=== PATIENT | male | born 1940 | race Caucasian/White ===

== ENCOUNTER → 2016-11-21 | Outpatient (CLI) | payer BC ==
[~2016-11-21] MED LIST: AMLO10CA PO; B12; CHOL1TAB42 PO; COEN150C PO; COEN400C5 PO; CRS/10 PO; DMD20 PO; GLUC15009 PO; INSPMPHMLG SQ; INSPMPNVLG; LATA0.5S OPL; METO100T14 PO; MULT-1093 PO; MULT-506 PO; NTRGSL/4 UT; PRLSR20 PO; ROSU5TAB PO; SELE200T2 PO; SLSS EXT; TORS20TA2 PO; VITA400C3 PO; VITAMIN B12 SL; [UNRECOGNIZED DRUG - CODE] PO
[2016-11-21 10:11] LABS: BASO % 0.3 %; BASO ABS # 0.02 K/uL (0-0.2); COMPLETE YES; EOS % 4.1 %; HEMATOCRIT 37.6 % (42-52); IG% 0.1 %; LYMPH % 22.2 %; LYMPH ABS # 1.51 K/uL (1.2-3.4); MEAN CELL VOLUME 88.7 fL (80-100); MEAN CORPUSCULAR HEMOGLOBIN 30.9 pg (25-34); MEAN CORPUSCULAR HGB CONC 34.8 g/dl (32-36); MEAN PLATELET VOLUME 11.2 fL (7.4-10.4); MONO % 7.8 %; NEUT % 65.5 %; PLATELET COUNT 214 K/uL (130-400); RED BLOOD COUNT 4.24 M/uL (4.7-6.1); WHITE BLOOD COUNT 6.81 K/uL (4.8-10.8)
[2016-11-21 10:32] LABS: ESTIMATED AVERAGE GLUCOSE 197 mg/dl; HA1C FLAG Normal (Normal)
[2016-11-21 10:53] LABS: ALT/SGPT 25 U/L (12-78); AST/SGOT 12 U/L (15-37); BLOOD UREA NITROGEN 18 mg/dl (7-18); BUN/CREATININE RATIO 15.2 (10-20); CALCIUM 8.9 mg/dl (8.5-10.1); CARBON DIOXIDE 28 mmol/L (21-32); CHLORIDE 105 mmol/L (98-107); GLUCOSE 103 mg/dl (70-99); POTASSIUM 3.9 mmol/L (3.5-5.1); SODIUM 143 mmol/L (136-145)
[2016-11-21 10:57] LABS: ALB/GLOB RATIO 0.9 (0.9-2); ALKALINE PHOSPHATASE 88 U/L (45-117); CHOLESTEROL 172 mg/dl (0-200); HDL CHOLESTEROL 43 mg/dl; LDL CHOLESTEROL CALCULATED 82 mg/dl; TRIGLYCERIDES 237 mg/dl (0-150); VERY LOW DENSITY LIPOPROT CALC 47 mg/dl
== END | disposition home or self-care (01) ==
LOC: C.LAB1850 09:09
PROVIDERS: ATTEND Internal Medicine
DX: E11.8 Type 2 diabetes mellitus with unspecified complications (principal); E55.9 Vitamin D deficiency, unspecified; D63.8 Anemia in other chronic diseases classified elsewhere

== ENCOUNTER → 2017-02-21 | Outpatient (CLI) | payer BC ==
[~2017-02-21] MED LIST changes: +CYAN100020 PO
[2017-02-22 06:16] LABS: ESTIMATED AVERAGE GLUCOSE 197 mg/dl; HA1C FLAG Normal (Normal)
== END | disposition home or self-care (01) ==
LOC: C.LAB1850 14:37
PROVIDERS: ATTEND Nurse Practitioner Adult Health
DX: E11.49 Type 2 diabetes mellitus with other diabetic neurological complication (principal); E55.9 Vitamin D deficiency, unspecified

== ENCOUNTER → 2017-05-12 | Outpatient (CLI) | payer BC ==
[~2017-05-12] MED LIST changes: -CYAN100020 PO
--- NOTE | 2017-05-12 09:13 | DIAGNOSTIC IMAGING REPORT ---
CHEST 2 VIEWS ROUTINE CLINICAL HISTORY: DYSPHAGIA COMPARISON STUDY: 11/02/2015 FINDINGS: Mild chronic interstitial change. Top limits of normal terms of heart size. No focal infiltrate. Diaphragms are smooth. IMPRESSION: Chronic change. No acute process. The above report was generated using voice recognition software. It may contain grammatical, syntax or spelling errors. Electronically signed by: Remi Rojas M.D. 05/12/2017 9:11 AM Dictated Date/Time: 05/12/2017 9:10 AM
== END | disposition home or self-care (01) ==
LOC: C.RADBC 08:49
PROVIDERS: ATTEND Internal Medicine
DX: R13.10 Dysphagia, unspecified (principal)

== ENCOUNTER → 2017-05-18 | Day surgery (SDC) | payer BC ==
[2017-05-16 11:53] VITALS: Ht 182.9 cm; Wt 127.3 kg
[~2017-05-18] VITALS: Ht 182.9 cm; Wt 127.3 kg
[~2017-05-18] MED LIST changes: -B12; -COEN150C PO; -DMD20 PO; +FENTANYL CITRATE INJ 50 MCG/1 ML 2 ML VIAL ONE; -INSPMPHMLG SQ; +LIDOCAINE HCL 2% 2 ML VIAL (20MG/ML) ONE; -METO100T14 PO; -MULT-506 PO; +PROPOFOL IV EMULSION 10 MG/ML 20 ML VIAL IV ONE; -ROSU5TAB PO; -SLSS EXT; +SODIUM CHLORIDE 0.9% 500ML 500 ML IV ONE
--- NOTE | 2017-05-18 11:15 | Endo History and Physical ---
History & Physical Date of Service: May 18, 2017. Chief Complaint: Dysphagia Referring Physician: Kirit Masterson History of Present Illness dysphagia Past Surgical History Hx Cardiac Surgery: Yes (HEART CATH-2 STENTS) Hx Internal Defibrillator: No Hx Pacemaker: No Hx Abdominal Surgery: Yes Hx of Implantable Prosthesis: No Hx Post-Op Nausea and Vomiting: No Hx Cancer Surgery: Yes (MOHS LEFT EAR, SARCOMA REMOVED LEFT LEG/RECONSTRUCTION) Hx Thoracic Surgery: Yes (SMALL NODULE REMOVED RT LUNG) Hx Orthopedic: No Hx Urinary Tract Surgery: No Family History None Social History Smoking Status: Never Smoker Hx Substance Use: No Hx Alcohol Use: Yes (OCCASIONALLY) Allergies Coded Allergies: Aspirin (Verified Allergy, Severe, anaphylaxic, 05/16/17) Iodinated Diagnostic Agents (Verified Allergy, Unknown, SOB,HIVES, 05/16/17 ) Statins (Verified Allergy, Unknown, MUSCLE ACHING, 05/16/17) Current Medications Reported Home Medications Medications Dose Route/Sig Max Daily Dose Days Date Category Vitamin E 400 Iu (Vitamin E) 400 Unit Cap 400 Inter.unit PO QAM 05/16/17 Reported Vitamin D (Cholecalciferol) 5,000 Unit Tab 1 Tab PO QAM 05/16/17 Reported Demadex (Torsemide) 20 Mg Tab 2 Tab PO QAM 05/16/17 Reported Selenimin-200 (Selenium) 200 Mcg Tab 1 Tab PO 3XWK 05/16/17 Reported Crestor (Rosuvastatin Calcium) 10 Mg Tab 10 Mg PO QAM 05/16/17 Reported novoLOG INSULIN PUMP (Insulin Aspart) 1 Ea Inj 1 Ea N/A UD 05/16/17 Reported Nitrostat (Nitroglycerin) 0.4 Mg Tab 0.4 Mg UT PRN 05/16/17 Reported Toprol Xl (Metoprolol Succinate) 200 Mg Tabcr 1 Tab PO QAM 05/16/17 Reported Glucosamine (Glucosamine Hydrochloride) 1,500 Mg Tab 1 Tab PO 05/16/17 Reported Xalatan 0.005% Oph Shannon (Latanoprost) 0.005 % Shannon 1 Drops OPL HS 05/16/17 Reported Coq10 (Coenzyme Q10 (Ubidecarenone)) 400 Mg Cap 1 Cap PO QAM 05/16/17 Reported Centrum Silver 50+Men (Multiple Vitamins W/ Minerals) 1 Tab Tab 1 Tab PO QAM 05/16/17 Reported [Vitamin B12] 1 Dose SL QAM 05/16/17 Reported Lotrel 10MG/20MG (Amlodipine/Benazepril HCl) 10 Mg/20 Mg Cap 10-40 Mg PO QAM 08/06/14 Reported Vital Signs Weight (Kilograms): 127.27 Height (Feet): 6 Height (Inches): 0 Date Time Temp Pulse Resp B/P (MAP) Pulse Ox O2 Delivery O2 Flow Rate FiO2 05/18/17 10:50 36.7 59 20 153/73 (99) 97 Room Air Physical Exam General Appearance: no apparent distress Respiratory/Chest: Auscultation: breath sounds normal Cardiovascular: Heart Auscultation: RRR Abdomen: Inspection & Palpation: soft Assessment and Plan Dysphagia - EGD
--- NOTE | 2017-05-18 11:42 | GI REPORT ---
Procedure Date: 05/18/2017 11:24 AM Procedure: Upper GI endoscopy Indications: Dysphagia Medicines: See the Anesthesia note for documentation of the administered medications Complications: No immediate complications. Estimated Blood Loss: Estimated blood loss: none. Procedure: Pre-Anesthesia Assessment: - ASA Grade Assessment: II - A patient with mild systemic disease. After obtaining informed consent, the endoscope was passed under direct vision. Throughout the procedure, the patient's blood pressure, pulse, and oxygen saturations were monitored continuously. The scope was introduced through the mouth, and advanced to the second part of duodenum. The upper GI endoscopy was accomplished without difficulty. The patient tolerated the procedure well. Findings: The esophagus appeared tortuous, and numerous tertiary contractions were noted. GE junction was at 43 cm. There was a mild ring. There was mild esophagitis at the GE junction. The stomach and duodenum were normal. A guidewire was placed and the scope was withdrawn. Dilation was performed at the gastroesophageal junction with a Savary dilator with no resistance at 14 mm and 15 mm. Impression: - Ring, esophagitis. - Dilation attempted at the gastroesophageal junction. Successful. - No specimens collected. Recommendation: - Discharge patient to home. BID PPI x 6-8 weeks, then repeat EGD for further dilation. Naveen Hendrix M.D. Naveen Hendrix MD 05/18/2017 11:42:45 AM This report has been signed electronically. Note Initiated On: 05/18/2017 11:24 AM I attest to the content of the Intraoperative Record and orders documented therein, exceptions below
--- NOTE | 2017-05-18 12:04 | Anesthesiology Progress Note ---
Anesthesia Post Op Note Date & Time May 18, 2017 at 12:03 Vital Signs Pain Intensity: 0 Vital Signs Past 12 Hours Date Time Temp Pulse Resp B/P (MAP) Pulse Ox O2 Delivery O2 Flow Rate FiO2 05/18/17 11:57 54 16 126/57 (80) 96 Room Air 05/18/17 11:42 52 12 99/54 (69) 98 Room Air 05/18/17 10:50 36.7 59 20 153/73 (99) 97 Room Air Notes Mental Status: alert / awake / arousable, participated in evaluation Pt Amnestic to Procedure: Yes Nausea / Vomiting: adequately controlled Pain: adequately controlled Airway Patency, RR, SpO2: stable & adequate BP & HR: stable & adequate Hydration State: stable & adequate Anesthetic Complications: no major complications apparent
[2017-05-18 12:12] VITALS: BP 131/64; PULSE 53; O2SAT 95
--- NOTE | 2017-05-18 12:30 | Discharge Instructions ---
Endoscopy Patient Instructions Date / Procedure(s) Performed May 18, 2017. EGD Allergy Information Coded Allergies: Aspirin (Verified Allergy, Severe, anaphylaxic, 05/16/17) Iodinated Diagnostic Agents (Verified Allergy, Unknown, SOB,HIVES, 05/16/17 ) Statins (Verified Allergy, Unknown, MUSCLE ACHING, 05/16/17) Discharge Date / Findings May 18, 2017. esophagitis, ring. Dilation done. Medication Instructions Prilosec twice daily for 6 weeks, then repeat EGD Provider Instructions Activity Restrictions - No exercising or heavy lifting for 24 hours. - Do not drink alcohol the day of the procedure. - Do not drive a car or operate machinery until the day after the procedure. - Do not make any important decisions or sign important papers in 24 hours after the procedure. Following Day: - Return to full activity which may include returning to work/school. Diet Start your diet with liquids and light foods (jello, soup, juice, toast). Then eat your usual diet if not nauseated. Treatment For Common After Affects For mild abdominal pain, bloating, or excessive gas: - Rest - Eat lightly - Lie on right side Follow-Up Information Follow-up with Kirit Masterson as scheduled Anesthesia Information What You Should Know You have had a procedure that required some medicine to reduce anxiety and discomfort. This treatment is called moderate sedation. After receiving the treatment, you may be sleepy, but you will be able to breathe on your own. The effects of the treatment may last for several hours. Follow these instructions along with Activity/Diet recommendations noted above: * Do NOT do anything where dizziness or clumsiness would be dangerous. * Rest quietly at home today, then you can be up and about tomorrow. * Have a responsible person stay with you the rest of today. * You may have had an I.V. today. If so, you may take the dressing off later today. Recommendations Call your doctor if: * Trouble breathing * Continuous vomiting for more than 24 hours * Temperature above 101 degrees * Severe abdominal pain or bloating * Pain not relieved by pain medicine ordered * There is increased drainage or redness from any incision * A large amount of rectal bleeding greater than 2-3 tablespoons. (If you had a polyp/s removed or have hemorrhoids, a small amount of blood - from the rectum is to be expected.) * You have any unanswered questions or concerns. IN THE EVENT OF A SERIOUS EMERGENCY, GO TO THE NEAREST EMERGENCY ROOM Your discharge instructions were prepared by provider Naveen Campbell. Patient Instructions Signature Page Renee Fowler Patient (or Guardian) Signature/Date: I have read and understand the instructions given to me by my caregivers. Caregiver/RN/Doctor Signature/Date: The above-named patient and/or guardian has received patient instructions on this date. + Original Patient Signature Page (only) stays with chart. Please make copy for patient.
== END | disposition home or self-care (01) ==
LOC: C.GI 10:25
PROVIDERS: ATTEND Internal Medicine Gastroenterology
DX: R13.10 Dysphagia, unspecified (principal); K22.2 Esophageal obstruction; K20.9 Esophagitis, unspecified; E11.9 Type 2 diabetes mellitus without complications

== ENCOUNTER → 2017-06-30 | Day surgery (SDC) | payer BC ==
[2017-06-20 08:02] VITALS: BMI 38.0
[~2017-06-30] VITALS: Ht 182.9 cm; Wt 127.3 kg
[~2017-06-30] MED LIST changes: -FENTANYL CITRATE INJ 50 MCG/1 ML 2 ML VIAL ONE
[2017-06-30 10:22] VITALS: Ht 182.9 cm; Wt 127.3 kg
--- NOTE | 2017-06-30 11:12 | Endo History and Physical ---
History & Physical Date of Service: Jun 30, 2017. Chief Complaint: ESOPHAGITIS FOLLOW-UP 5 WEEKS AGO Referring Physician: KYLE WAY History of Present Illness H/o esophagitis Past Surgical History Hx Cardiac Surgery: Yes (HEART CATH-2 STENTS) Hx Internal Defibrillator: No Hx Pacemaker: No Hx Abdominal Surgery: No Hx of Implantable Prosthesis: No Hx Post-Op Nausea and Vomiting: No Hx Cancer Surgery: Yes (MOHS LEFT EAR, SARCOMA REMOVED LEFT LEG/RECONSTRUCTION) Hx Thoracic Surgery: Yes (SMALL NODULE REMOVED RT LUNG) Hx Orthopedic: No Hx Urinary Tract Surgery: No Family History None Social History Smoking Status: Never Smoker Hx Substance Use: No Hx Alcohol Use: Yes (OCCASIONAL) Allergies Coded Allergies: Aspirin (Verified Allergy, Severe, anaphylaxic, 06/30/17) Iodinated Diagnostic Agents (Verified Allergy, Unknown, SOB,HIVES, 06/30/17 ) Statins (Verified Allergy, Unknown, MUSCLE ACHING, 06/30/17) Current Medications Reported Home Medications Medications Dose Route/Sig Max Daily Dose Days Date Category Prilosec (Omeprazole) 20 Mg Capcr 20 Mg PO BID 06/20/17 Reported Vitamin E 400 Iu (Vitamin E) 400 Unit Cap 400 Inter.unit PO QAM 05/16/17 Reported Vitamin D (Cholecalciferol) 5,000 Unit Tab 1 Tab PO QAM 05/16/17 Reported Demadex (Torsemide) 20 Mg Tab 2 Tab PO QAM 05/16/17 Reported Selenimin-200 (Selenium) 200 Mcg Tab 1 Tab PO 3XWK 05/16/17 Reported Crestor (Rosuvastatin Calcium) 10 Mg Tab 10 Mg PO QAM 05/16/17 Reported novoLOG INSULIN PUMP (Insulin Aspart) 1 Ea Inj 1 Ea N/A UD 05/16/17 Reported Nitrostat (Nitroglycerin) 0.4 Mg Tab 0.4 Mg UT PRN 05/16/17 Reported Toprol Xl (Metoprolol Succinate) 200 Mg Tabcr 1 Tab PO QAM 05/16/17 Reported Glucosamine (Glucosamine Hydrochloride) 1,500 Mg Tab 1 Tab PO DAILY 05/16/17 Reported Xalatan 0.005% Oph Shannon (Latanoprost) 0.005 % Shannon 1 Drops OPL HS 05/16/17 Reported Coq10 (Coenzyme Q10 (Ubidecarenone)) 400 Mg Cap 1 Cap PO QAM 05/16/17 Reported Centrum Silver 50+Men (Multiple Vitamins W/ Minerals) 1 Tab Tab 1 Tab PO QAM 05/16/17 Reported [Vitamin B12] 1 Dose SL QAM 05/16/17 Reported Lotrel 10MG/20MG (Amlodipine/Benazepril HCl) 10 Mg/20 Mg Cap 10-40 Mg PO QAM 08/06/14 Reported Vital Signs Weight (Kilograms): 127.27 Height (Feet): 6 Height (Inches): 0 Date Time Temp Pulse Resp B/P (MAP) Pulse Ox O2 Delivery O2 Flow Rate FiO2 06/30/17 10:40 36.5 60 16 158/73 (101) 97 Room Air Physical Exam General Appearance: no apparent distress Respiratory/Chest: Respiratory effort: no dyspnea Auscultation: breath sounds normal Cardiovascular: Heart Auscultation: RRR Abdomen: Inspection & Palpation: soft Assessment and Plan Dysphagia - EGD
--- NOTE | 2017-06-30 11:51 | Discharge Instructions ---
Endoscopy Patient Instructions Date / Procedure(s) Performed Jun 30, 2017. EGD Allergy Information Coded Allergies: Aspirin (Verified Allergy, Severe, anaphylaxic, 06/30/17) Iodinated Diagnostic Agents (Verified Allergy, Unknown, SOB,HIVES, 06/30/17 ) Statins (Verified Allergy, Unknown, MUSCLE ACHING, 06/30/17) Discharge Date / Findings Jun 30, 2017. Ring. Inlet patch. 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 Provider Instructions Activity Restrictions - No exercising or heavy lifting for 24 hours. - Do not drink alcohol the day of the procedure. - Do not drive a car or operate machinery until the day after the procedure. - Do not make any important decisions or sign important papers in 24 hours after the procedure. Following Day: - Return to full activity which may include returning to work/school. Diet Start your diet with liquids and light foods (jello, soup, juice, toast). Then eat your usual diet if not nauseated. Treatment For Common After Affects For mild abdominal pain, bloating, or excessive gas: - Rest - Eat lightly - Lie on right side Our office will call you for a repeat endoscopy with ultrasound Follow-Up Information Follow-up with KYLE WAY as scheduled Anesthesia Information What You Should Know You have had a procedure that required some medicine to reduce anxiety and discomfort. This treatment is called moderate sedation. After receiving the treatment, you may be sleepy, but you will be able to breathe on your own. The effects of the treatment may last for several hours. Follow these instructions along with Activity/Diet recommendations noted above: * Do NOT do anything where dizziness or clumsiness would be dangerous. * Rest quietly at home today, then you can be up and about tomorrow. * Have a responsible person stay with you the rest of today. * You may have had an I.V. today. If so, you may take the dressing off later today. Recommendations Call your doctor if: * Trouble breathing * Continuous vomiting for more than 24 hours * Temperature above 101 degrees * Severe abdominal pain or bloating * Pain not relieved by pain medicine ordered * There is increased drainage or redness from any incision * A large amount of rectal bleeding greater than 2-3 tablespoons. (If you had a polyp/s removed or have hemorrhoids, a small amount of blood - from the rectum is to be expected.) * You have any unanswered questions or concerns. IN THE EVENT OF A SERIOUS EMERGENCY, GO TO THE NEAREST EMERGENCY ROOM Your discharge instructions were prepared by provider Naveen Campbell. Patient Instructions Signature Page Renee Fowler Patient (or Guardian) Signature/Date: I have read and understand the instructions given to me by my caregivers. Caregiver/RN/Doctor Signature/Date: The above-named patient and/or guardian has received patient instructions on this date. + Original Patient Signature Page (only) stays with chart. Please make copy for patient.
--- NOTE | 2017-06-30 11:51 | GI REPORT ---
Procedure Date: 06/30/2017 11:22 AM Procedure: Upper GI endoscopy Indications: Dysphagia, Heartburn, Follow-up of esophagitis Medicines: See the Anesthesia note for documentation of the administered medications Complications: No immediate complications. Estimated Blood Loss: Estimated blood loss: none. Procedure: Pre-Anesthesia Assessment: - ASA Grade Assessment: III - A patient with severe systemic disease. After obtaining informed consent, the endoscope was passed under direct vision. Throughout the procedure, the patient's blood pressure, pulse, and oxygen saturations were monitored continuously. The scope was introduced through the mouth, and advanced to the second part of duodenum. The upper GI endoscopy was accomplished without difficulty. The patient tolerated the procedure well. Findings: There was a large inlet patch in the proximal esophagus. The Z-line was found 40 cm from the incisors. Mild erythema at GE junction. There was a mild ring at the GE junction. The esophagus was otherwise normal. The stomach was normal. The duodenal bulb was normal. There was a submucosal lesion in the second portion of the duodenum. This was biopsied and appeared to "deflate" post biopsy. A wire was passed and the scope was withdrawn. A 16 mm and 18 mm dilator was passed without disruption to the ring. The ring was then fractured with a biopsy forceps - no pathology specimen sent. Impression: - Inlet patch. Mild, non erosive esophagitis. Ring, dilated and fractured with forceps. 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 Recommendation: - Discharge patient to home. - Continue once daily PPI therapy. - Will schedule f/u EGD//EUS to evaluate duodenal lesion. Naveen Hendrix M.D. Naveen Hendrix MD 06/30/2017 11:50:48 AM This report has been signed electronically. Note Initiated On: 06/30/2017 11:22 AM I attest to the content of the Intraoperative Record and orders documented therein, exceptions below
[2017-06-30 12:12] VITALS: BP 143/73; PULSE 54; O2SAT 97
--- NOTE | 2017-06-30 12:39 | Anesthesiology Progress Note ---
Anesthesia Post Op Note Date & Time Jun 30, 2017 at 12:39 Vital Signs Pain Intensity: 0 Vital Signs Past 12 Hours Date Time Temp Pulse Resp B/P (MAP) Pulse Ox O2 Delivery O2 Flow Rate FiO2 06/30/17 12:12 54 20 143/73 (96) 97 Room Air 06/30/17 11:55 53 16 126/71 (89) 97 Room Air 06/30/17 11:40 53 16 116/52 (73) 97 Room Air 06/30/17 10:40 36.5 60 16 158/73 (101) 97 Room Air Notes Mental Status: alert / awake / arousable, participated in evaluation Pt Amnestic to Procedure: Yes Nausea / Vomiting: adequately controlled Pain: adequately controlled Airway Patency, RR, SpO2: stable & adequate BP & HR: stable & adequate Hydration State: stable & adequate Anesthetic Complications: no major complications apparent
== END | disposition home or self-care (01) ==
LOC: C.GI 10:16
PROVIDERS: ATTEND Internal Medicine Gastroenterology
DX: K22.2 Esophageal obstruction (principal); K20.9 Esophagitis, unspecified; K29.80 Duodenitis without bleeding; Z79.4 Long term (current) use of insulin; Z79.899 Other long term (current) drug therapy

== ENCOUNTER → 2017-08-11 | Day surgery (SDC) | payer BC ==
[2017-07-20 08:49] VITALS: BMI 38.0
[2017-07-25 09:36] LABS: BASO % 0.3 %; BASO ABS # 0.02 K/uL (0-0.2); COMPLETE YES; EOS % 5.2 %; HEMATOCRIT 38.8 % (42-52); IG% 0.1 %; LYMPH % 21.7 %; LYMPH ABS # 1.49 K/uL (1.2-3.4); MEAN CELL VOLUME 90.7 fL (80-100); MEAN CORPUSCULAR HEMOGLOBIN 30.8 pg (25-34); MEAN PLATELET VOLUME 11.2 fL (7.4-10.4); MONO % 9.9 %; NEUT % 62.8 %; PLATELET COUNT 218 K/uL (130-400); RED BLOOD COUNT 4.28 M/uL (4.7-6.1); WHITE BLOOD COUNT 6.87 K/uL (4.8-10.8)
[2017-07-25 09:52] LABS: BUN/CREATININE RATIO 16.1 (10-20); CALCIUM 8.7 mg/dl (8.5-10.1); CREATININE 1.12 mg/dl (0.60-1.40); POTASSIUM 3.7 mmol/L (3.5-5.1)
[~2017-08-11] VITALS: Ht 182.9 cm; Wt 127.3 kg
[~2017-08-11] MED LIST changes: +ATROPINE SULFATE 0.1 MG/ML 5ML SYR IV PRN; +CYAN100020 PO; +EpHEDrine SULFATE INJ 50 MG/ML AMP IV PRN; +FENTANYL CITRATE INJ 50 MCG/1 ML 2 ML VIAL IV PRN; +KETAMINE HCL INJ 50 MG/ML 10 ML VIAL ONE; +LACTATED RINGER'S 1000ML 1,000 ML IV SCH; +MIDAZOLAM HCL 1 MG/ML 2ML VIAL ONE; +ONDANSETRON INJ 2 MG/ML 2 ML VIAL IV PRN; -VITAMIN B12 SL
[2017-08-11 06:41] VITALS: BP 164/72; PULSE 62; TEMP 36.6; O2SAT 98; Ht 182.9 cm; Wt 127.3 kg
--- NOTE | 2017-08-11 07:58 | Endo History and Physical ---
History & Physical Date of Service: Aug 11, 2017. Chief Complaint: submucosal dudoenal lesion noted on endoscopy Referring Physician: History of Present Illness 76 yo presenting for EUS for incidentally found duodenal submucosal lesion- asymptomatic Past Surgical History Hx Cardiac Surgery: Yes (HEART CATH-2 [id number] YRS AGO) Hx Internal Defibrillator: No Hx Pacemaker: No Hx Abdominal Surgery: No Hx Post-Op Nausea and Vomiting: No Hx Cancer Surgery: Yes (MOHS LEFT EAR, SARCOMA REMOVED LEFT LEG/RECONSTRUCTION) Hx Thoracic Surgery: Yes (SMALL NODULE REMOVED RT LUNG) Hx Orthopedic: No Hx Urinary Tract Surgery: No Social History Smoking Status: Never Smoker Hx Substance Use: No Hx Alcohol Use: Yes (OCCASIONAL) Allergies Coded Allergies: Aspirin (Verified Allergy, Severe, anaphylaxic, 08/11/17) Iodinated Diagnostic Agents (Verified Allergy, Unknown, SOB,HIVES, ) Statins (Unverified Adverse Reaction, Unknown, MUSCLE ACHING, 08/11/17) Current Medications Reported Home Medications Medications Dose Route/Sig Max Daily Dose Days Date Category Vitamin B12 (Cyanocobalamin) 1,000 Mcg Tab 1,000 Mcg PO QAM 07/20/17 Reported Prilosec (Omeprazole) 20 Mg Capcr 20 Mg PO QAM 06/20/17 Reported Vitamin E 400 Iu (Vitamin E) 400 Unit Cap 400 Inter.unit PO 3XWEEK 05/16/17 Reported Vitamin D (Cholecalciferol) 5,000 Unit Tab 1 Tab PO QAM 05/16/17 Reported Demadex (Torsemide) 20 Mg Tab 2 Tab PO QAM 05/16/17 Reported Selenimin-200 (Selenium) 200 Mcg Tab 1 Tab PO 3XWK 05/16/17 Reported Crestor (Rosuvastatin Calcium) 10 Mg Tab 10 Mg PO QAM 05/16/17 Reported novoLOG INSULIN PUMP (Insulin Aspart) 1 Ea Inj 1 Ea N/A UD 05/16/17 Reported Nitrostat (Nitroglycerin) 0.4 Mg Tab 0.4 Mg UT PRN 05/16/17 Reported Toprol Xl (Metoprolol Succinate) 200 Mg Tabcr 1 Tab PO QAM 05/16/17 Reported Glucosamine (Glucosamine Hydrochloride) 1,500 Mg Tab 1 Tab PO QAM 05/16/17 Reported Xalatan 0.005% Oph Shannon (Latanoprost) 0.005 % Shannon 1 Drops OPL HS 05/16/17 Reported Coq10 (Coenzyme Q10 (Ubidecarenone)) 400 Mg Cap 1 Cap PO QAM 05/16/17 Reported Centrum Silver 50+Men (Multiple Vitamins W/ Minerals) 1 Tab Tab 1 Tab PO QAM 05/16/17 Reported Lotrel 10MG/20MG (Amlodipine/Benazepril HCl) 10 Mg/20 Mg Cap 10-40 Mg PO QAM 08/06/14 Reported Vital Signs Weight (Kilograms): 127.27 Height (Feet): 6 Height (Inches): 0 Date Time Temp Pulse Resp B/P (MAP) Pulse Ox O2 Delivery O2 Flow Rate FiO2 08/11/17 06:41 36.6 62 18 164/72 (102) 98 Room Air Physical Exam General Appearance: WD/WN, no apparent distress Respiratory/Chest: Respiratory effort: no dyspnea Auscultation: breath sounds normal, CTA except as noted Cardiovascular: Apical Impulse: not displaced Heart Auscultation: RRR, normal S1, normal S2 Abdomen: Bowel Sounds: normal Inspection & Palpation: soft, non-distended Assessment and Plan Plan to proceed with EUS for duodenal submucosal lesion
--- NOTE | 2017-08-11 08:38 | Discharge Instructions ---
Endoscopy Patient Instructions Date / Procedure(s) Performed Aug 11, 2017. EGD, Other (EUS) Allergy Information Coded Allergies: Aspirin (Verified Allergy, Severe, anaphylaxic, 08/11/17) Iodinated Diagnostic Agents (Verified Allergy, Unknown, SOB,HIVES, ) Statins (Unverified Adverse Reaction, Unknown, MUSCLE ACHING, 08/11/17) Discharge Date / Findings Aug 11, 2017. Normal findings No submucosal lesion identified Provider Instructions Activity Restrictions - No exercising or heavy lifting for 24 hours. - Do not drink alcohol the day of the procedure. - Do not drive a car or operate machinery until the day after the procedure. - Do not make any important decisions or sign important papers in 24 hours after the procedure. Following Day: - Return to full activity which may include returning to work/school. Diet Start your diet with liquids and light foods (jello, soup, juice, toast). Then eat your usual diet if not nauseated. Treatment For Common After Affects For mild abdominal pain, bloating, or excessive gas: - Rest - Eat lightly - Lie on right side Follow-Up Information Follow-up with as scheduled Anesthesia Information What You Should Know You have had a procedure that required some medicine to reduce anxiety and discomfort. This treatment is called moderate sedation. After receiving the treatment, you may be sleepy, but you will be able to breathe on your own. The effects of the treatment may last for several hours. Follow these instructions along with Activity/Diet recommendations noted above: * Do NOT do anything where dizziness or clumsiness would be dangerous. * Rest quietly at home today, then you can be up and about tomorrow. * Have a responsible person stay with you the rest of today. * You may have had an I.V. today. If so, you may take the dressing off later today. Recommendations Call your doctor if: * Trouble breathing * Continuous vomiting for more than 24 hours * Temperature above 101 degrees * Severe abdominal pain or bloating * Pain not relieved by pain medicine ordered * There is increased drainage or redness from any incision * A large amount of rectal bleeding greater than 2-3 tablespoons. (If you had a polyp/s removed or have hemorrhoids, a small amount of blood - from the rectum is to be expected.) * You have any unanswered questions or concerns. IN THE EVENT OF A SERIOUS EMERGENCY, GO TO THE NEAREST EMERGENCY ROOM Your discharge instructions were prepared by provider Gilles Foreman. Patient Instructions Signature Page Renee Fowler Patient (or Guardian) Signature/Date: I have read and understand the instructions given to me by my caregivers. Caregiver/RN/Doctor Signature/Date: The above-named patient and/or guardian has received patient instructions on this date. + Original Patient Signature Page (only) stays with chart. Please make copy for patient.
--- NOTE | 2017-08-11 09:06 | Anesthesiology Progress Note ---
Anesthesia Post Op Note Date & Time Aug 11, 2017 at 09:06 Vital Signs Pain Intensity: 0 Vital Signs Past 12 Hours Date Time Temp Pulse Resp B/P (MAP) Pulse Ox O2 Delivery O2 Flow Rate FiO2 08/11/17 08:55 36.6 57 22 131/52 (63) 98 Room Air 08/11/17 08:51 107/54 08/11/17 08:51 107/54 08/11/17 08:50 59 18 08/11/17 08:50 58 18 97 08/11/17 08:50 59 18 08/11/17 08:50 58 18 97 08/11/17 08:46 133/61 08/11/17 08:46 133/61 08/11/17 08:45 63 16 99 08/11/17 08:45 63 16 08/11/17 08:45 63 16 08/11/17 08:45 63 16 99 08/11/17 08:41 115/53 08/11/17 08:41 115/53 08/11/17 08:40 59 16 08/11/17 08:40 60 16 08/11/17 08:40 59 16 08/11/17 08:40 60 16 08/11/17 08:36 105/50 08/11/17 08:36 105/50 08/11/17 08:35 59 21 99 08/11/17 08:35 36.4 59 13 105/50 (54) 99 Oxymask 10 08/11/17 08:35 59 21 08/11/17 08:35 59 21 99 08/11/17 08:35 59 21 08/11/17 06:41 36.6 62 18 164/72 (102) 98 Room Air Notes Mental Status: alert / awake / arousable, participated in evaluation Pt Amnestic to Procedure: Yes Nausea / Vomiting: adequately controlled Pain: adequately controlled Airway Patency, RR, SpO2: stable & adequate BP & HR: stable & adequate Hydration State: stable & adequate Anesthetic Complications: no major complications apparent
--- NOTE | 2017-08-11 09:09 | GI REPORT ---
Procedure Date: 08/11/2017 7:54 AM Procedure: Upper GI endoscopy Indications: Functional Dyspepsia-Submuocal duodenal lesion Medicines: General Anesthesia Complications: No immediate complications. Estimated Blood Loss: Estimated blood loss: none. Procedure: Pre-Anesthesia Assessment: - Pre-Anesthesia Assessment: - Prior to the procedure, a History and Physical was performed, and patient medications, allergies and sensitivities were reviewed. The patient's tolerance of previous anesthesia was reviewed. Please see [employer] for complete details. - The risks and benefits of the procedure and the sedation options and risks were discussed with the patient. All questions were answered and informed consent was obtained. - Patient identification and proposed procedure were verified prior to the procedure by the physician and the nurse. The procedure was verified in the pre-procedure area in the procedure room. After obtaining informed consent, the endoscope was passed carefully and meticuously under direct vision and only advanced when the lumen was clearly identified, C02 insuflation was utilized throughout the entirity of the procedure. Throughout the procedure, the patient's blood pressure, pulse, and oxygen saturations were monitored continuously. After obtaining informed consent, the endoscope was passed under direct vision. Throughout the procedure, the patient's blood pressure, pulse, and oxygen saturations were monitored continuously. The Scope was introduced through the mouth, and advanced to the second part of duodenum. The upper GI endoscopy was accomplished without difficulty. The patient tolerated the procedure well. Findings: The examined esophagus was normal. The entire examined stomach was normal. Localized mild mucosal changes characterized by localized an area of mucosa with appearances of possible adenoma were found in the second part of the duodenum. Biopsies were taken with a cold forceps for histology. Impression: - Normal esophagus. - Normal stomach. - Mucosal changes in the duodenum. Biopsied. Recommendation: - Discharge patient to home. - Return to referring physician as previously scheduled. - Perform an upper endoscopic ultrasound (UEUS) today. Gilles Foreman MD 08/11/2017 9:08:41 AM This report has been signed electronically. Note Initiated On: 08/11/2017 7:54 AM I attest to the content of the Intraoperative Record and orders documented therein, exceptions below
--- NOTE | 2017-08-11 09:11 | GI REPORT ---
Procedure Date: 08/11/2017 8:02 AM Procedure: Upper EUS Indications: Duodenal deformity on endoscopy/Subepithelial tumor vs. extrinsic compression Medicines: General Anesthesia Complications: No immediate complications. Estimated blood loss: None. Procedure: Pre-Anesthesia Assessment: - Pre-Anesthesia Assessment: - Prior to the procedure, a History and Physical was performed, and patient medications, allergies and sensitivities were reviewed. The patient's tolerance of previous anesthesia was reviewed. Please see [employer] for complete details. - The risks and benefits of the procedure and the sedation options and risks were discussed with the patient. All questions were answered and informed consent was obtained. - Patient identification and proposed procedure were verified prior to the procedure by the physician and the nurse. The procedure was verified in the pre-procedure area in the procedure room. After obtaining informed consent, the endoscope was passed carefully and meticuously under direct vision and only advanced when the lumen was clearly identified, C02 insuflation was utilized throughout the entirity of the procedure. Throughout the procedure, the patient's blood pressure, pulse, and oxygen saturations were monitored continuously. After obtaining informed consent, the endoscope was passed under direct vision. Throughout the procedure, the patient's blood pressure, pulse, and oxygen saturations were monitored continuously. The Scope was introduced through the mouth, and advanced to the second part of duodenum. The upper EUS was accomplished without difficulty. The patient tolerated the procedure well. Findings: Endosonographic Finding : There was diffuse abnormal echotexture in the entire examined liver. This was characterized by a hyperechoic appearance. No lymphadenopathy seen. There was no sign of significant endosonographic abnormality in the examined duodenum. No intramural lesion was identified. There was no sign of significant endosonographic abnormality involving the celiac trunk. Impression: - There was diffuse abnormal echotexture in the entire examined liver. This was characterized by a hyperechoic appearance. - There was no sign of significant pathology in the examined duodenum. - The celiac trunk was endosonographically normal. - No specimens collected. Recommendation: - Discharge patient to home (with escort). - Return to referring physician as previously scheduled. Gilles Foreman MD 08/11/2017 9:10:46 AM This report has been signed electronically. Note Initiated On: 08/11/2017 8:02 AM I attest to the content of the Intraoperative Record and orders documented therein, exceptions below
[2017-08-11 09:12] VITALS: BP 142/58; PULSE 58; TEMP 36.8; O2SAT 96
[2017-08-11 09:45] VITALS: BP 151/71; PULSE 57; TEMP 36.4; O2SAT 96
[2017-08-11 10:15] VITALS: BP 140/60; PULSE 60; TEMP 36.4; O2SAT 97
== END | disposition home or self-care (01) ==
LOC: C.ACU 06:13
PROVIDERS: ATTEND Internal Medicine
DX: K29.80 Duodenitis without bleeding (principal); R13.10 Dysphagia, unspecified; Z79.899 Other long term (current) drug therapy

== ENCOUNTER → 2017-08-17 | Outpatient (CLI) | payer BC ==
[~2017-08-17] MED LIST changes: -ATROPINE SULFATE 0.1 MG/ML 5ML SYR IV PRN; -EpHEDrine SULFATE INJ 50 MG/ML AMP IV PRN; -FENTANYL CITRATE INJ 50 MCG/1 ML 2 ML VIAL IV PRN; -KETAMINE HCL INJ 50 MG/ML 10 ML VIAL ONE; -LACTATED RINGER'S 1000ML 1,000 ML IV SCH; -LIDOCAINE HCL 2% 2 ML VIAL (20MG/ML) ONE; -MIDAZOLAM HCL 1 MG/ML 2ML VIAL ONE; -ONDANSETRON INJ 2 MG/ML 2 ML VIAL IV PRN; -PROPOFOL IV EMULSION 10 MG/ML 20 ML VIAL IV ONE; -SODIUM CHLORIDE 0.9% 500ML 500 ML IV ONE
[2017-08-17 10:12] LABS: ESTIMATED AVERAGE GLUCOSE 180 mg/dl; HA1C FLAG Normal (Normal)
== END | disposition home or self-care (01) ==
LOC: C.LAB1850 07:53
PROVIDERS: ATTEND Nurse Practitioner Adult Health
DX: E55.9 Vitamin D deficiency, unspecified (principal); E11.49 Type 2 diabetes mellitus with other diabetic neurological complication; E11.319 Type 2 diabetes mellitus with unspecified diabetic retinopathy without macular edema; Z79.4 Long term (current) use of insulin

== ENCOUNTER → 2018-02-08 | Outpatient (CLI) | payer BC | END | disposition home or self-care (01) | LOC: C.LAB1850 09:02 | PROVIDERS: ATTEND Nurse Practitioner Adult Health | DX: E11.49 Type 2 diabetes mellitus with other diabetic neurological complication (principal) ==

== ENCOUNTER → 2018-05-11 | Outpatient (CLI) | payer BC ==
[2018-05-11 09:36] LABS: BASO % 0.6 %; BASO ABS # 0.04 K/uL (0-0.2); EOS % 4.4 %; HEMATOCRIT 40.2 % (42-52); HEMOGLOBIN 13.3 g/dL (14.0-18.0); IG# 0.01 K/uL (0.00-0.02); LYMPH % 25.3 %; LYMPH ABS # 1.72 K/uL (1.2-3.4); MEAN CELL VOLUME 91.2 fL (80-100); MEAN CORPUSCULAR HEMOGLOBIN 30.2 pg (25-34); MEAN CORPUSCULAR HGB CONC 33.1 g/dl (32-36); MEAN PLATELET VOLUME 11.4 fL (7.4-10.4); MONO % 7.8 %; MONO ABS # 0.53 K/uL (0.11-0.59); NEUT % 61.8 %; NEUT ABS # 4.21 K/uL (1.4-6.5); PLATELET COUNT 238 K/uL (130-400); RED CELL DISTRIBUTION WIDTH CV 13.8 % (11.5-14.5); RED CELL DISTRIBUTION WIDTH SD 46.2 fL (36.4-46.3); WHITE BLOOD COUNT 6.81 K/uL (4.8-10.8)
[2018-05-11 10:04] LABS: ALBUMIN 3.6 gm/dl (3.4-5.0); ALKALINE PHOSPHATASE 131 U/L (45-117); ALT/SGPT 26 U/L (12-78); AST/SGOT 15 U/L (15-37); BLOOD UREA NITROGEN 20 mg/dl (7-18); CALCIUM 8.5 mg/dl (8.5-10.1); CARBON DIOXIDE 28 mmol/L (21-32); CHOLESTEROL 152 mg/dl (0-200); CREATININE 1.14 mg/dl (0.60-1.40); GLUCOSE 95 mg/dl (70-99); LDL CHOLESTEROL CALCULATED 74 mg/dl; POTASSIUM 3.8 mmol/L (3.5-5.1); SODIUM 137 mmol/L (136-145); TOTAL PROTEIN 8.1 gm/dl (6.4-8.2)
[2018-05-11 10:28] LABS: HEMOGLOBIN A1C 7.6 % (4.5-5.6)
== END | disposition home or self-care (01) ==
LOC: C.LAB1850 06:57
PROVIDERS: ATTEND Nurse Practitioner Adult Health
DX: I10 Essential (primary) hypertension (principal); I25.10 Atherosclerotic heart disease of native coronary artery without angina pectoris; G47.33 Obstructive sleep apnea (adult) (pediatric); D63.8 Anemia in other chronic diseases classified elsewhere; E78.5 Hyperlipidemia, unspecified; E55.9 Vitamin D deficiency, unspecified; E11.319 Type 2 diabetes mellitus with unspecified diabetic retinopathy without macular edema; Z79.4 Long term (current) use of insulin

== ENCOUNTER → 2018-05-16 | Outpatient (CLI) | payer BC | END | disposition home or self-care (01) | LOC: C.LABBC 08:50 | PROVIDERS: ATTEND Internal Medicine | DX: R74.8 Abnormal levels of other serum enzymes (principal); R97.20 Elevated prostate specific antigen [PSA] ==

== ENCOUNTER → 2018-05-22 | Outpatient (CLI) | payer BC ==
--- NOTE | 2018-05-22 17:06 | DIAGNOSTIC IMAGING REPORT ---
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 Palpable painful lump. COMPARISON STUDY: MRI of the left thigh July 23, 2009. TECHNIQUE: Utilizing a 1.5 Martine magnet and dedicated coil, multiplanar, multiecho imaging of the left hip was performed without intravenous or intraarticular contrast. FINDINGS: No inguinal lymphadenopathy is present. Note is made of fluid with mild adjacent infiltration of the left trochanteric bursa which suggest trochanteric bursitis. This is deep to the marker at site of pain. There are are also suspected postoperative findings within the lateral left thigh overlying the vastus lateralis and along the tensor fascia lis. The appearance is similar to MRI of July 23, 2009. Sensitivity for detection of recurrent tumor is diminished on this unenhanced exam but there is no evidence for recurrent malignancy within the left hip/thigh on this examination. No suspicious marrow replacement is present. Sacroiliac joints and symphysis pubis are intact. There are degenerative changes at the symphysis pubis. Acetabular labrum is not well assessed on this exam. 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 IMPRESSION: 1. Findings suggestive of left sided trochanteric bursitis which may account for the patient's pain. 2. Suspected postoperative findings within the lateral left thigh overlying the vastus lateralis and along the tensor fascia lis. No significant change since MRI of July 23, 2009. Evaluation for recurrent malignancy suboptimal given lack of IV contrast but no suspicious findings on this exam. However, if persistent palpable abnormality, surgical consultation is recommended. Electronically signed by: Alfredo Swanson M.D. 05/22/2018 5:02 PM Dictated Date/Time: 05/22/2018 4:44 PM
== END | disposition home or self-care (01) ==
LOC: C.MRIBC 15:22
PROVIDERS: ATTEND Internal Medicine
DX: C49.9 Malignant neoplasm of connective and soft tissue, unspecified (principal); R22.42 Localized swelling, mass and lump, left lower limb

== ENCOUNTER 2019-06-22 09:07 | Inpatient (IN) ==
[2019-06-22 09:52] LABS: Basophils # (auto) 0.03 K/uL (0-0.2); Basophils % (auto) 0.4 %; Eosinophils # (auto) 0.31 K/uL (0-0.5); Eosinophils % (auto) 4.1 %; Hematocrit (blood only) 42.4 % (42-52); Hemoglobin 14.3 g/dL (14.0-18.0); Immature Granulocytes # (auto) 0.02 K/uL (0.00-0.02); Immature Granulocytes % (auto) 0.3 %; Lymphocytes % (auto) 22.3 %; Mean Corpuscular Hemoglobin 31.2 pg (25-34); Mean Corpuscular Hgb Conc 33.7 g/dL (32-36); Mean Corpuscular Volume 92.6 fL (80-100); Mean Platelet Volume 11.3 fL (7.4-10.4); Monocytes # (auto) 0.63 K/uL (0.11-0.59); Monocytes % (auto) 8.3 %; Neutrophils # (auto) 4.93 K/uL (1.4-6.5); Neutrophils % (auto) 64.6 %; Platelet Count 222 K/uL (130-400); RDW Coefficient of Variation 13.5 % (11.5-14.5); RDW Standard Deviation 45.6 fL (36.4-46.3); Red Blood Count 4.58 M/uL (4.7-6.1); White Blood Count 7.62 K/uL (4.8-10.8)
[2019-06-22] MEDS ORDERED: FAMOTIDINE 20MG/5ML IV PUSH IV STA (09:57)
[2019-06-22] MEDS ORDERED: methylPREDNISolone 125 MG/2 ML VIAL IV STA (09:57)
[2019-06-22] MEDS ORDERED: DiphenhydrAMINE HCL 50 MG/ML VIAL IV STA (09:57)
[2019-06-22 09:59] LABS: Partial Thromboplastin Time 26.6 Seconds (21.0-31.0); Prothrombin Time 10.4 Seconds (9.0-12.0)
[2019-06-22 10:00] LABS: Alanine Aminotransferase 22 U/L (12-78); Albumin Level 3.6 gm/dl (3.4-5.0); Aspartate Aminotransferase 17 U/L (15-37); BUN Creatinine Ratio 12.7 (10-20); Blood Urea Nitrogen 13 mg/dl (7-18); Calcium 9.2 mg/dl (8.5-10.1); Carbon Dioxide 27 mmol/L (21-32); Chloride 107 mmol/L (98-107); Est GFR (African American) 84.2; Est GFR (Non-African American) 72.6; Glucose 127 mg/dl (70-99); Magnesium 2.3 mg/dl (1.8-2.4); Potassium 4.2 mmol/L (3.5-5.1); Sodium 139 mmol/L (136-145)
--- NOTE | 2019-06-22 10:00 | XRay Report ---
XR chest 1V portable CLINICAL HISTORY: Ataxia. COMPARISON STUDY: Chest radiograph September 19, 2018. Chest CT October 18, 2018. FINDINGS: Lung volumes are normal. Lungs are clear. There is no pneumothorax or pleural effusion. Mod erate cardiomegaly is unchanged. Mediastinal contours are otherwise normal. There is no evidence for pulmonary edema. IMPRESSION: No acute cardiopulmonary findings. Electronically signed by: Alfredo Swanson M.D. 06/22/2019 9:59 AM
[2019-06-22 10:05] LABS: Albumin Globulin Ratio 0.8 (0.9-2); Alkaline Phosphatase 112 U/L (45-117); Bilirubin,Total 0.6 mg/dl (0.2-1); Globulin 4.4 gm/dl (2.5-4.0); Troponin I < 0.015 ng/ml (0-0.045)
[2019-06-22] MEDS ORDERED: OPTIRAY 320 125ml IV PRN (10:49)
--- NOTE | 2019-06-22 11:02 | CT Scan Report ---
CT OF THE HEAD WITHOUT CONTRAST CLINICAL HISTORY: Stroke evaluation. Ataxia. COMPARISON STUDY: Head CT July 04, 2008. MRI of the brain April 08, 2013. TECHNIQUE: Helical axial images of the head were obtained without IV contrast. Automated exposure con trol was utilized for the study. A dose lowering technique was utilized adhering to the principles o f ALARA. FINDINGS: No acute intracranial hemorrhage, midline shift or mass effect is present. Ventricular syst em is normal. Basilar cisterns are patent. There are no extra-axial collections. 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 Bilateral basal ganglia calcification is noted. White matter hypodensities favor small vessel disease. There are no findings to suggest acute dural sinus thrombosis or acute t erritorial infarct. There are no significant calvarial abnormalities. IMPRESSION: No acute intracranial findings. Electronically signed by: Alfredo Swanson M.D. 06/22/2019 11:01 AM
--- NOTE | 2019-06-22 11:10 | CT Scan Report ---
CT ANGIOGRAPHY OF THE NECK WITH CONTRAST CLINICAL HISTORY: Ataxia. COMPARISON STUDY: No previous studies for comparison. Technique: Patient was premedicated for IV dye allergy. CT angiography of the carotid and vertebral a rteries was obtained using OptiraMoPals 320 IV and 3D reconstruction on an independent workstation. NASCET criteria was utilized. Automated exposure control was utilized for the study. A dose lowering tech nique was utilized adhering to the principles of ALARA. CT DOSE: 1475.04 mGy.cm Findings: The bilateral common carotid arteries are patent. There is moderate plaque within the proxi mal bilateral internal carotid arteries. There is 30% stenosis of the proximal right internal carotid artery. There is minimal stenosis of the proximal left internal carotid artery. The left vertebral a rtery is dominant and patent. The right vertebral artery is diminutive. Multifocal stenoses within th e right vertebral artery is noted. There is apparent occlusion of the distal cervical portion of the right vertebral artery with distal reconstitution. Findings are age indeterminate but probably chroni c. Lung apices are clear. There is no cervical lymphadenopathy. IMPRESSION: 1. Moderate plaque within the proximal bilateral internal carotid arteries with mild stenosis of thes e vessels. No high-grade carotid stenosis. 2. Diminutive right vertebral artery with multifocal stenoses and suspected occlusion of the distal c ervical right vertebral artery with distal reconstitution. The findings are age indeterminate but pro bably chronic. Patent, dominant left vertebral artery. Electronically signed by: Alfredo Swanson M.D. 06/22/2019 11:09 AM
--- NOTE | 2019-06-22 11:14 | CT Scan Report ---
CTA ANGIOGRAPHY OF THE HEAD CLINICAL HISTORY: ataxia COMPARISON STUDY: No previous studies for comparison. TECHNIQUE: Patient was premedicated for IV dye allergy. Helical axial images of the head were obtaine d following uneventful intravenous administration of 19 cc of Optiray 320. Automated exposure contro l was utilized for the study. A dose lowering technique was utilized adhering to the principles of A TORSTEN. FINDINGS: No acute intracranial hemorrhage, midline shift or mass effect is present. Ventricular syst em is normal. Basilar cisterns are patent. There are no extra-axial collections. Arevalo-white different iation is maintained. There is extensive calcified plaque within the bilateral cavernous carotids wit h minimal stenosis. Anterior circulation is intact. There is no aneurysm or abrupt vessel cut off. Th ere is suspected occlusion with distal reconstitution of the distal cervical right vertebral artery. Severe multifocal stenoses within the intracranial portion of the right vertebral artery are noted. L eft vertebral artery is patent. Basilar artery is patent as are the bilateral posterior cerebral ruperto marin. There is moderate stenosis at the origin of the right posterior cerebral artery. A right rn medical surgical ior communicating artery is present. IMPRESSION: 1. Suspected occlusion with distal reconstitution of the distal cervical portion of the right vertebr al artery. Severe multifocal stenoses within the intracranial portion of this vessel. These findings are age indeterminate but probably chronic. Moderate stenosis at the origin of the right posterior ce rebral artery. 2. No intracranial aneurysm. Electronically signed by: Alfredo Swanson M.D. 06/22/2019 11:12 AM
--- NOTE | 2019-06-22 11:48 | Emergency Department Note ---
Entered by Elizabeth Ace acting as a scribe for Hiro Brock DO History of Present Illness General Chief complaint: Dizziness Source: patient Mode of arrival: EMS History of Present Illness Onset (ago): hour(s) (this morning) Location: head Pain Consistency: + other (episode) Quality: + other (dizziness) Relieved By: + other (sitting down) Exacerbated By: + other (standing up) Associated symptoms: + other (nausea, ataxia, feeling off balance) Treatments prior to arrival: none The patient is a 78 year old male that is presenting to the Emergency Room with complaints of an episode of dizziness that started this morning around 0630 upon waking. The patient states that he felt dizzy and off balance when he stood up from bed. He notes that he had some ataxia and was not able to walk straight. He reports that he tripped and fell over when he was attempting to change the battery in his insulin pump. He states that he pulled out his insulin pump during the fall. He notes that he has some associated nausea. The patient states that he felt generally well yesterday evening. He notes that the dizziness and nausea are slightly relieved when seated. He denies that the room feels like it is spinning. The patient notes that he has a history of vertigo and that his symptoms do not resemble past episodes. He stated that he fell three weeks prior while walking down the stairs and hit his head, losing consciousness for an unknown period of time. The patient has a history of hemorrhagic stroke, cardiovascular disease and atrial fibrillation. He states that he has a history of heart stents placed following four heart attacks 15 years ago. He reports that he cannot see out of his left eye secondary to his past stroke. He denies having any balance issues at baseline. The patient states that he did not take his Furosemide or any other medications this morning. He denies taking any blood thinners. He denies any history of atrial fibrillation. He notes that he does not have his insulin pump on currently as it is at home. Home Medications Home Medications Medication Instructions Recorded Confirmed Type latanoprost [Xalatan] 1 drp OPL HS 09/18/18 06/22/19 History amlodipine 10 mg-benazepril 40 mg 1 cap PO DAILY cap 06/12/19 06/22/19 History capsule cholecalciferol (vitamin D3) 5,000 5,000 unit PO DAILY tab 06/12/19 06/22/19 History unit tablet coenzyme Q10 400 mg capsule 400 mg PO DAILY cap 06/12/19 06/22/19 History cyanocobalamin (vit B-12) 1,000 1,000 mcg PO DAILY tab 06/12/19 06/22/19 History mcg tablet diclofenac 1 % topical gel 2 gm TOPICAL DAILY PRN gm 06/12/19 06/22/19 History glucosamine sulfate 1,000 mg 1,000 mg PO DAILY cap 06/12/19 06/22/19 History capsule insulin aspart U- 100 100 unit/mL 200 unit CONTINUOUS SUBCUTANEOUS 06/12/19 06/22/19 History subcutaneous solution INFUSION DAILY ml metoprolol succinate ER 200 mg 200 mg PO DAILY tab 06/12/19 06/22/19 History tablet,extended release 24 hr [id number] acid 0.4 1 tab PO DAILY tab 06/12/19 06/22/19 History mg-lycopene 300 mcg-lutein 250 mcg tablet nitroglycerin 0.4 mg sublingual 0.4 mg SUBLINGUAL .COMPLEX PRN 06/12/19 06/22/19 History tablet omeprazole 20 mg capsule,delayed 20 mg PO DAILY cap 06/12/19 06/22/19 History release rosuvastatin 10 mg tablet 10 mg PO DAILY tab 06/12/19 06/22/19 History selenium 200 mcg tablet 200 mcg PO MOWEFR 06/12/19 06/22/19 History torsemide 20 mg tablet 40 mg PO DAILY #180 tab 06/12/19 06/22/19 History vitamin E 400 unit capsule 400 unit PO MOWEFR 06/12/19 06/22/19 History Allergies Allergy/AdvReac Type Severity Reaction Status Date / Time aspirin Allergy Severe Anaphylaxis Verified 06/22/19 10:19 Iodinated Contrast Media Allergy Severe SOB,HIVES Verified 06/22/19 10:19 atorvastatin [From Lipitor] Allergy Verified 06/22/19 10:19 enalaprilat [From Vasotec] Allergy Verified 06/22/19 10:19 ezetimibe [From Vytorin] Allergy Verified 06/22/19 10:19 simvastatin [From Vytorin] Allergy Verified 06/22/19 10:19 Sulfonylureas Allergy Verified 06/22/19 10:19 Drucleb-Sup-Eei Reductase AdvReac Mild MUSCLE Verified 06/22/19 10:19 Inhibitor ACHING Past Med/Surg History Medical History Hypoxia (Acute) Acute dyspnea (Acute) Diabetes Shortness of breath Sarcoma of femur left In ~2004, s/p removal and radiation PELON (obstructive sleep apnea) cpap Hypertension CAD (coronary artery disease) Basal cell carcinoma Deafness in left ear Diabetes mellitus, type 2 GERD (gastroesophageal reflux disease) Glaucoma left eye History of colon polyps History of esophageal dilatation Hyperlipidemia Lung nodule Removed ~2004 Melanoma Myocardial Infarction x4---last heart attack 2000--no signal person Osteoarthritis SDH (subdural hematoma) 2010--no sx, no neurologist---no deficits Surgical History History of Mohs micrographic surgery for skin cancer left ear History of cardiac cath 2000--2 stents placed History of colonoscopy History of esophagogastroduodenoscopy (EGD) with EUS History of eye surgery right eye hemorrhage removal History of heart artery stent 2 stents placed History of lung surgery 2004--nodule removed History of surgery left leg sarcoma removal Status post cataract extraction of both eyes with insertion of intraocular lens Family History Father Lung cancer Mother Family history of diabetes mellitus Grandfather (Paternal) Family history of diabetes mellitus Other No family history of adverse response to anesthesia Social History Preferred Language: Thai Communication Ability: Effective Data Programmer Required: No Beliefs That Will Affect Care: None Current Living Situation: Spouse Feels Safe at Home: Yes Smoking Status: Never smoker Second Hand Exposure: Yes (work environment) ; Hx Alcohol Use: Yes Alcohol type: beer Hx Substance Use: No Review of Systems See HPI for pertinent positives & negatives. and A total of 10 systems reviewed and were otherwise negative Physical Exam Vital Signs Vital Signs - 24 hr 06/22/19 09:11 06/22/19 09:19 06/22/19 10:54 Temperature 36.5 C Temperature Source Oral Sepsis Recent Fever Within 48 Hours No Sepsis Action Taken by Nursing No Action Required Pulse Rate 70 68 86 Pulse Rate from SpO2 Sensor Pulse Rhythm Regular Pulse Strength Normal Respiratory Rate 20 16 17 Respiratory Effort / Characteristics Non-Labored Spontaneous Respiratory Depth Normal Respiratory Pattern Regular Blood Pressure 181/78 H 181/78 H 164/48 H Blood Pressure Mean 112 112 86 Blood Pressure Position Sitting Pulse Oximetry 96 96 96 Oxygen Delivery Method Room Air 06/22/19 11:00 06/22/19 13:21 06/22/19 13:30 Temperature Temperature Source Sepsis Recent Fever Within 48 Hours Sepsis Action Taken by Nursing Pulse Rate 73 70 69 Pulse Rate from SpO2 Sensor 73 70 69 Pulse Rhythm Pulse Strength Respiratory Rate 15 14 16 Respiratory Effort / Characteristics Respiratory Depth Respiratory Pattern Blood Pressure 148/70 H 158/64 H 147/65 H Blood Pressure Mean 96 95 92 Blood Pressure Position Pulse Oximetry 98 96 94 Oxygen Delivery Method 06/22/19 14:38 Temperature Temperature Source Sepsis Recent Fever Within 48 Hours Sepsis Action Taken by Nursing Pulse Rate Pulse Rate from SpO2 Sensor Pulse Rhythm Pulse Strength Respiratory Rate Respiratory Effort / Characteristics Respiratory Depth Respiratory Pattern Regular Blood Pressure Blood Pressure Mean Blood Pressure Position Pulse Oximetry Oxygen Delivery Method Room Air GENERAL: Patient is awake alert in no acute distress patient is resting comfortably and showing no signs of anxiety EYES: The conjunctivae are clear. The pupils are round and reactive. EARS, NOSE, MOUTH AND THROAT: The nose is without any evidence of any deformity. Mucous membranes are moist tongue is midline. Tympanic membranes are clear bilaterally. NECK: The neck is nontender and supple. RESPIRATORY: Normal respiratory effort is noted there is no evidence of wheezing rhonchi or rales CARDIOVASCULAR: Regular rate and rhythm noted there no murmurs rubs or gallops normal S1 normal S2 GASTROINTESTINAL: The abdomen is soft. Bowel sounds are present in all quadrants. Abdomen is nontender MUSCULOSKELETAL/EXTREMITIES: There is no evidence of gross deformity full range of motion is noted in the hips and shoulders SKIN: There is no obvious evidence of any rash. Pedal edema was noted bilaterally. NEUROLOGIC: Patient is awake alert and oriented x3. Director Environmental strength was symmetric. There was no facial droop. There was slight past pointing noted with the left upper extremity compared to the right. Rapid alternating motion was symmetric. Gait was wide based and unsteady. Course 0939:The patient was evaluated in room B08. A complete history and physical e xamination was performed. 1248:I discussed the patients case with Dr. Riddle [facility], who recommended I speak with [facility]. 1250: I discusses the patient's case with Dr. Swanson, [facility], who recommended no intervention at this time and that the patient be kept for observation by the medical team. 1320: I updated Dr. Riddle on the conversation with Dr. Swanson. He will evaluate the patient for further management and care. 1330: Upon reevaluation, the patient is resting comfortably. I discussed laboratory and radiographic results with the patient. He verbalized agreement of the treatment plan. The patient will be evaluated for further management and care. Consultations Consultation #1: I discussed the patients case with WARREN Pappas, who recommended I speak with [facility]. Time: 12:48 Consultation #2: I discusses the patient's case with Dr. Swanson, [facility], who recommended no intervention at this time and that the patient be kept for observation by the medical team. Time: 12:50 Consultation #3: I updated Dr. Riddle on the conversation with Dr. Swanson. He will evaluate the patient for further management and care. Time: 13:20 Administered Medications Clopidogrel Bisulfate (Plavix) 75 mg PO QAM [facility] Stop: 07/22/19 15:59 Last Admin: 06/22/19 17:06 Dose: 75 mg Documented by: [id number] Sodium Chloride (Nss 1000ml) 1,000 mls @ 80 mls/hr IV .[id number] [facility] Stop: 07/22/19 15:59 Last Admin: 06/23/19 05:03 Dose: 80 mls/hr Documented by: [id number] Infusion: 06/23/19 05:03 Dose: 80 mls/hr Documented by: [id number] Infusion: 06/22/19 18:40 Dose: 80 mls/hr Documented by: [id number] Infusion: 06/22/19 17:07 Dose: 0 mls/hr Documented by: [id number] Admin: 06/22/19 17:06 Dose: 80 mls/hr Documented by: [id number] Ioversol (Optiray 320 125ml) 119 ml IV ONCE PRN PRN Reason: Interaction Checking Stop: 06/26/19 10:48 Last Admin: 06/22/19 10:50 Dose: 119 ml Documented by: [id number] Latanoprost (Xalatan Oph) 1 drops OPL HS [facility] Stop: 07/22/19 20:59 Last Admin: 06/22/19 20:53 Dose: 1 drops Documented by: [id number] Rosuvastatin Calcium (Crestor) 10 mg PO DAILY [facility] Stop: 07/22/19 15:59 Last Admin: 06/22/19 17:06 Dose: 10 mg Documented by: [id number] Discontinued Medications Diphenhydramine HCl (Benadryl) 25 mg IV NOW STA Stop: 06/22/19 09:58 Last Admin: 06/22/19 10:14 Dose: 25 mg Documented by: [id number] Famotidine (Pepcid 20mg Iv Push) 20 mg IV ONE STA Stop: 06/22/19 09:58 Last Admin: 06/22/19 10:14 Dose: 20 mg Documented by: [id number] Methylprednisolone (Solumedrol) 125 mg IV NOW STA Stop: 06/22/19 09:58 Last Admin: 06/22/19 10:14 Dose: 125 mg Documented by: [id number] Medical Decision Making Differential Diagnosis Differential diagnosis: Etiologies such as benign positional vertigo, dehydration, hypovolemia, anemia, tumor, infection, hypoglycemia, electrolyte abnormalities, cardiac sources, intracerebral event, toxicologic, neurologic, as well as others were entertained. Medical Records Attestation: I reviewed the patient's medical records. Home Medications Current Medication List: was personally reviewed by me Laboratory Data Attestation: I reviewed the patient's lab results. Result diagrams: 06/22/19 09:15 06/22/19 09:15 Lab Results 06/22/19 06/22/19 06/22/19 Range/Units 09:15 09:15 09:15 WBC 7.62 (4.8-10.8) K/uL RBC 4.58 L (4.7-6.1) M/uL Hgb 14.3 (14.0-18.0) g/dL Hct 42.4 (42-52) % MCV 92.6 (80-100) fL MCH 31.2 (25-34) pg MCHC 33.7 (32-36) g/dL RDW Std Deviation 45.6 (36.4-46.3) fL RDW Coeff of Josefa 13.5 (11.5-14.5) % Plt Count 222 (130-400) K/uL MPV 11.3 H (7.4-10.4) fL Immature Gran % (Auto) 0.3 % Neut % (Auto) 64.6 % Lymph % (Auto) 22.3 % [place] % (Auto) 8.3 % Eos % (Auto) 4.1 % Baso % (Auto) 0.4 % Immature Gran # (Auto) 0.02 (0.00-0.02) K/uL Neut # (Auto) 4.93 (1.4-6.5) K/uL Lymph # (Auto) 1.70 (1.2-3.4) K/uL [place] # (Auto) 0.63 H (0.11-0.59) K/uL Eos # (Auto) 0.31 (0-0.5) K/uL Baso # (Auto) 0.03 (0-0.2) K/uL ESR (0-14) mm/hr PT 10.4 (9.0-12.0) Seconds INR 1.0 (0.9-1.1) APTT 26.6 (21.0-31.0) Seconds PTT Ratio 1.0 Sodium 139 (136-145) mmol/L Potassium 4.2 (3.5-5.1) mmol/L Chloride 107 (98-107) mmol/L Carbon Dioxide 27 (21-32) mmol/L Anion Gap 6.0 (3-11) BUN 13 (7-18) mg/dl Creatinine 0.99 (0.6-1.4) mg/dl Est Cr Clr Drug Dosing Not Reportable Est GFR ( Amer) 84.2 Est GFR (Non-Af Amer) 72.6 BUN/Creatinine Ratio 12.7 (10-20) Glucose 127 H (70-99) mg/dl POC Glucose (70-99) Calcium 9.2 (8.5-10.1) mg/dl Magnesium 2.3 (1.8-2.4) mg/dl Total Bilirubin 0.6 (0.2-1) mg/dl AST 17 (15-37) U/L ALT 22 (12-78) U/L Alkaline Phosphatase 112 (45-117) U/L Troponin I < 0.015 (0-0.045) ng/ml Total Protein 8.0 (6.4-8.2) gm/dl Albumin 3.6 (3.4-5.0) gm/dl Globulin 4.4 H (2.5-4.0) gm/dl Albumin/Globulin Ratio 0.8 L (0.9-2) 06/22/19 06/22/19 Range/Units 09:15 09:20 WBC (4.8-10.8) K/uL RBC (4.7-6.1) M/uL Hgb (14.0-18.0) g/dL Hct (42-52) % MCV (80-100) fL MCH (25-34) pg MCHC (32-36) g/dL RDW Std Deviation (36.4-46.3) fL RDW Coeff of Josefa (11.5-14.5) % Plt Count (130-400) K/uL MPV (7.4-10.4) fL Immature Gran % (Auto) % Neut % (Auto) % Lymph % (Auto) % [place] % (Auto) % Eos % (Auto) % Baso % (Auto) % Immature Gran # (Auto) (0.00-0.02) K/uL Neut # (Auto) (1.4-6.5) K/uL Lymph # (Auto) (1.2-3.4) K/uL [place] # (Auto) (0.11-0.59) K/uL Eos # (Auto) (0-0.5) K/uL Baso # (Auto) (0-0.2) K/uL ESR 57 H (0-14) mm/hr PT (9.0-12.0) Seconds INR (0.9-1.1) APTT (21.0-31.0) Seconds PTT Ratio Sodium (136-145) mmol/L Potassium (3.5-5.1) mmol/L Chloride (98-107) mmol/L Carbon Dioxide (21-32) mmol/L Anion Gap (3-11) BUN (7-18) mg/dl Creatinine (0.6-1.4) mg/dl Est Cr Clr Drug Dosing Est GFR ( Amer) Est GFR (Non-Af Amer) BUN/Creatinine Ratio (10-20) Glucose (70-99) mg/dl POC Glucose 125 H (70-99) Calcium (8.5-10.1) mg/dl Magnesium (1.8-2.4) mg/dl Total Bilirubin (0.2-1) mg/dl AST (15-37) U/L ALT (12-78) U/L Alkaline Phosphatase (45-117) U/L Troponin I (0-0.045) ng/ml Total Protein (6.4-8.2) gm/dl Albumin (3.4-5.0) gm/dl Globulin (2.5-4.0) gm/dl Albumin/Globulin Ratio (0.9-2) Imaging Data Radiologist's Impression: Radiology results as stated below per my review and the radiologist's interpretation: CTA ANGIOGRAPHY OF THE HEAD CLINICAL HISTORY: ataxia COMPARISON STUDY: No previous studies for comparison. TECHNIQUE: Patient was premedicated for IV dye allergy. Helical axial images of the head were obtained following uneventful intravenous administration of 19 cc of Optiray 320. Automated exposure control was utilized for the study. A dose lowering technique was utilized adhering to the principles of ALARA. FINDINGS: No acute intracranial hemorrhage, midline shift or mass effect is present. Ventricular system is normal. Basilar cisterns are patent. There are no extra-axial collections. Arevalo-white differentiation is maintained. There is extensive calcified plaque within the bilateral cavernous carotids with minimal stenosis. Anterior circulation is intact. There is no aneurysm or abrupt vessel cut off. There is suspected occlusion with distal reconstitution of the distal cervical right vertebral artery. Severe multifocal stenoses within the intracranial portion of the right vertebral artery are noted. Left vertebral artery is patent. Basilar artery is patent as are the bilateral posterior cer ebral arteries. There is moderate stenosis at the origin of the right posterior cerebral artery. A right posterior communicating artery is present. IMPRESSION: 1. Suspected occlusion with distal reconstitution of the distal cervical portion of the right vertebral artery. Severe multifocal stenoses within the intracranial portion of this vessel. These findings are age indeterminate but probably chronic. Moderate stenosis at the origin of the right posterior cerebral artery. 2. No intracranial aneurysm. Electronically signed by: Alfredo Swanson M.D. 06/22/2019 11:[address] ANGIOGRAPHY OF THE NECK WITH CONTRAST CLINICAL HISTORY: Ataxia. COMPARISON STUDY: No previous studies for comparison. Technique: Patient was premedicated for IV dye allergy. CT angiography of the carotid and vertebral arteries was obtained using Optiray 320 IV and 3D reconstruction on an independent workstation. NASCET criteria was utilized. Automated exposure control was utilized for the study. A dose lowering technique was utilized adhering to the principles of ALARA. CT DOSE: 1475.04 mGy.cm Findings: The bilateral common carotid arteries are patent. There is moderate plaque within the proximal bilateral internal carotid arteries. There is 30% stenosis of the proximal right internal carotid artery. There is minimal stenosis of the proximal left internal carotid artery. The left vertebral artery is dominant and patent. The right vertebral artery is diminutive. Multifocal stenoses within the right vertebral artery is noted. There is apparent occlusion of the distal cervical portion of the right vertebral artery with distal reconstitution. Findings are age indeterminate but probably chronic. Lung apices are clear. There is no cervical lymphadenopathy. IMPRESSION: 1. Moderate plaque within the proximal bilateral internal carotid arteries with mild stenosis of these vessels. No high-grade carotid stenosis. 2. Diminutive right vertebral artery with multifocal stenoses and suspected occlusion of the distal cervical right vertebral artery with distal reconstitution. The findings are age indeterminate but probably chronic. Patent, dominant left vertebral artery. Electronically signed by: Alfredo Swanson M.D. 06/22/2019 11:[address] OF THE HEAD WITHOUT CONTRAST CLINICAL HISTORY: Stroke evaluation. Ataxia. COMPARISON STUDY: Head CT July 04, 2008. MRI of the brain April 08, 2013. TECHNIQUE: Helical axial images of the head were obtained without IV contrast. Automated exposure control was utilized for the study. A dose lowering technique was utilized adhering to the principles of ALARA. FINDINGS: No acute intracranial hemorrhage, midline shift or mass effect is present. Ventricular system is normal. Basilar cisterns are patent. There are no extra-axial collections. 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 Bilateral basal ganglia calcification is noted. White matter hypodensities favor small vessel disease. There are no findings to suggest acute dural sinus thrombosis or acute territorial infarct. There are no significant calvarial abnormalities. IMPRESSION: No acute intracranial findings. Electronically signed by: Alfredo Swanson M.D. 06/22/2019 11:01 AM XR chest 1V portable CLINICAL HISTORY: Ataxia. COMPARISON STUDY: Chest radiograph September 19, 2018. Chest CT October 18, 2018. FINDINGS: Lung volumes are normal. Lungs are clear. There is no pneumothorax or pleural effusion. Moderate cardiomegaly is unchanged. Mediastinal contours are otherwise normal. There is no evidence for pulmonary edema. IMPRESSION: No acute cardiopulmonary findings. Electronically signed by: Alfredo Swanson M.D. 06/22/2019 9:59 AM ECG Data Attestation: I personally reviewed and interpreted this ECG as follows: Indication: other (dizziness) Rate (beats per minute): 65 Rhythm: normal sinus Findings: no PAC, no PVC and no ectopy Blood Pressure Blood Pressure Findings: Elevated blood pressure Blood Pressure Disposition: Referred to patients primary care provider AIDEE Felipe The patient is a 78-year-old male who presented to the emergency department for an evaluation of dizziness. The patient has a history of vertigo in the past but states that this feels different. He was having significant difficulty walking and had a very ataxic gait. He had some past pointing with his left upper extremity. For this reason a stroke work-up was undertaken. The patient was not made a stroke alert because his symptoms began when he awoke this morning at approximately 6 to 6:30 AM. The patient's NIH was 0 however on my exam he did have some cerebellar findings. CT and CT angiography were obtained and did show a vertebral artery occlusion. It is unclear if this represents an acute finding however given the patient's acute symptoms I did discuss his case with the on-call [facility] hospitalist. At the request I also discussed this case with the tele-stroke neurologist at [facility]. They do not feel the patient's condition would be amenable to interventional treatment at this time. The patient was reevaluated multiple times. We discussed the patient's laboratory and radiographic studies with him. Impression & Plan Vertebral artery occlusion, Ataxia, Vertigo Discharge Plan Visit Data *Final* Discharge Date/Time: 06/22/19 15:15 Chief Complaint: Dizziness ED Provider: Hiro Brock Discharge Problem: Vertebral artery occlusion, Ataxia, Vertigo Patient Disposition: Admitted As Inpatient Discharge Instructions Interventions: ED Discharge Assessment Last Done: 06/22/19 15:15 Discharge Problem: Vertebral artery occlusion Qualifiers: Laterality: unspecified laterality Qualified Code(s): I65.09 - Occlusion and stenosis of unspecified vertebral artery The scribe's documentation has been prepared under my direction and personally reviewed by me in its entirety. I confirm that the note above accurately reflects all work, treatment, procedures, and medical decision making performed by me.
[2019-06-22] MEDS ORDERED: NITROGLYCERIN SL 0.4 MG/TAB TAB SL PRN (14:35)
[2019-06-22] MEDS ORDERED: DICLOFENAC SOD 1% GEL 100 GM TUBE EXT PRN (14:35)
[2019-06-22] MEDS ORDERED: ZOLPIDEM TARTRATE 5 MG TAB PO PRN (14:40)
[2019-06-22] MEDS ORDERED: POLYETHYLENE (MIRALAX) 17 GM PACK PO PRN (14:40)
[2019-06-22] MEDS ORDERED: GLUCOSE 10 TABS/TUBE PO PRN (14:40)
[2019-06-22] MEDS ORDERED: MAGNESIUM HYDROXIDE SUSP 30 ML UDC PO PRN (14:40)
[2019-06-22] MEDS ORDERED: ACETAMINOPHEN 325 MG TAB PO PRN (14:40)
[2019-06-22] MEDS ORDERED: GLUCOSE 40% GEL 15 GM TUBE PO PRN (14:40)
[2019-06-22] MEDS ORDERED: CARBOHYDRATES FOR HYPOGLYCEMIA PO PRN (14:40)
[2019-06-22] MEDS ORDERED: ONDANSETRON INJ 2 MG/ML 2 ML VIAL IV PRN (14:40)
[2019-06-22] MEDS ORDERED: ALUMINUM/MAGNESIUM SUSP 30 ML UDC PO PRN (14:40)
[2019-06-22] MEDS ORDERED: GLUCAGON FOR INJ 1 MG VIAL SQ PRN (14:40)
[2019-06-22] MEDS ORDERED: DEXTROSE 50% 50 ML SYRINGE IV PRN (14:40)
[2019-06-22] MEDS ORDERED: PHARMACIST DISCHARGE MED REC CONSULT PRN (14:50)
--- NOTE | 2019-06-22 15:10 | History & Physical Report ---
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 Suspected occlusion with distal reconstitution of the distal cervical portion of the right vertebral artery. Severe multifocal stenoses within the intracranial portion of this vessel. These findings are age indeterminate but probably chronic. Moderate stenosis at the origin of the right posterior cerebral artery. 2. No intracranial aneurysm., No critical stenosis and carotid arteries Ordered MRI brain Initiate antiplatelets therapy/statin,, due to aspirin allergy, started him on Plavix, continue with his Crestor dose, check hemoglobin A1c and lipid panel Neurology consultation 2D echo with bubble study IV fluid hydration Neuro check every 4 hours Physical therapy/occupational therapy evaluation Restart home medications as appropriate except antihypertensive meds to allow permissive hypertension DVT prophylaxis, SCD boot/heparin subcu (2) Ataxia: Acute onset Different from his regular vertigo feeling of room spinning Associated with falls and nausea Likely secondary to above Ordered physical therapy/Occupational Therapy (3) Essential (primary) hypertension: Hold his amlodipine/benazepril Decrease dose of Toprol-XL from 200 mg p.o. daily to 50 mg p.o. daily to allow permissive hypertension without withdrawal from beta-flory (4) Diabetes: Patient has insulin pump that he can manage by himself We will put him on fingerstick blood sugar His basal insulin is 5.5/h, asked him to decrease his basal insulin slightly as he will be on healthy diabetic diet here (5) CAD (coronary artery disease): Had multiple MIs and stent 15 years ago Currently not on any antiplatelets We will start him on Plavix as discussed with patient (6) Dyslipidemia: Continue Crestor and check hemoglobin A1c (7) PELON (obstructive sleep apnea): Can use his own CPAP machine History of Present Illness 78-year-old man with past medical history of obesity, obstructive sleep apnea, diabetes mellitus type 2 on insulin pump, essential hypertension, dyslipidemia, history of precancerous colon polyp status post resection, history of CAD status post multiple stents 15 years ago, 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 He said that he used to have vertigo before Koby he used to feel the room is spinning, but this feeling today is completely different, the room is not spinning, it is just he is unable to keep his balance and coordination, and his way to the bathroom he had one fall and then he was able to stand up supported with his hands and use the bathroom. After that he came out of the bathroom having the same problem and he fell again, he developed severe nausea but no vomiting, denies any chest pain or shortness of breath, ambulance was called and he was brought to the ED. CT angiogram was obtained and showed the following IMPRESSION: 1. Suspected occlusion with distal reconstitution of the distal cervical portion of the right vertebral artery. Severe multifocal stenoses within the intracranial portion of this vessel. These findings are age indeterminate but probably chronic. Moderate stenosis at the origin of the right posterior cerebral artery. 2. No intracranial aneurysm. Telemetry neuro was consulted and recommended medical management. He does have anaphylactic allergy to aspirin so he will be given Plavix Plan of care was discussed with him and with his family. As pressure on arrival was systolic 190, explained to him that we let the pressure fly high and terms of suspected acute stroke, he acknowledged that he understands Primary Care Provider: Kirit Masterson MD Allergies Allergy/AdvReac Type Severity Reaction Status Date / Time aspirin Allergy Severe Anaphylaxis Verified 06/22/19 10:19 Iodinated Contrast Media Allergy Severe SOB,HIVES Verified 06/22/19 10:19 atorvastatin [From Lipitor] Allergy Verified 06/22/19 10:19 enalaprilat [From Vasotec] Allergy Verified 06/22/19 10:19 ezetimibe [From Vytorin] Allergy Verified 06/22/19 10:19 simvastatin [From Vytorin] Allergy Verified 06/22/19 10:19 Sulfonylureas Allergy Verified 06/22/19 10:19 Vntjcdt-Joa-Ilf Reductase AdvReac Mild MUSCLE Verified 06/22/19 10:19 Inhibitor ACHING Home Medications Home Medications Medication Instructions Recorded Confirmed Type latanoprost [Xalatan] 1 drp OPL HS 09/18/18 06/22/19 History amlodipine 10 mg-benazepril 40 mg 1 cap PO DAILY cap 06/12/19 06/22/19 History capsule cholecalciferol (vitamin D3) 5,000 5,000 unit PO DAILY tab 06/12/19 06/22/19 History unit tablet coenzyme Q10 400 mg capsule 400 mg PO DAILY cap 06/12/19 06/22/19 History cyanocobalamin (vit B-12) 1,000 1,000 mcg PO DAILY tab 06/12/19 06/22/19 History mcg tablet diclofenac 1 % topical gel 2 gm TOPICAL DAILY PRN gm 06/12/19 06/22/19 History glucosamine sulfate 1,000 mg 1,000 mg PO DAILY cap 06/12/19 06/22/19 History capsule insulin aspart U- 100 100 unit/mL 200 unit CONTINUOUS SUBCUTANEOUS 06/12/19 06/22/19 History subcutaneous solution INFUSION DAILY ml metoprolol succinate ER 200 mg 200 mg PO DAILY tab 06/12/19 06/22/19 History tablet,extended release 24 hr lmzvdogq-fyr-cxhkf acid 0.4 1 tab PO DAILY tab 06/12/19 06/22/19 History mg-lycopene 300 mcg-lutein 250 mcg tablet nitroglycerin 0.4 mg sublingual 0.4 mg SUBLINGUAL .COMPLEX PRN 06/12/19 06/22/19 History tablet omeprazole 20 mg capsule,delayed 20 mg PO DAILY cap 06/12/19 06/22/19 History release rosuvastatin 10 mg tablet 10 mg PO DAILY tab 06/12/19 06/22/19 History selenium 200 mcg tablet 200 mcg PO MOWEFR 06/12/19 06/22/19 History torsemide 20 mg tablet 40 mg PO DAILY #180 tab 06/12/19 06/22/19 History vitamin E 400 unit capsule 400 unit PO MOWEFR 06/12/19 06/22/19 History Past Med/Surg History Medical History Hypoxia (Acute) Acute dyspnea (Acute) Diabetes Shortness of breath Sarcoma of femur left In ~2004, s/p removal and radiation PELON (obstructive sleep apnea) cpap Hypertension CAD (coronary artery disease) Basal cell carcinoma Deafness in left ear Diabetes mellitus, type 2 GERD (gastroesophageal reflux disease) Glaucoma left eye History of colon polyps History of esophageal dilatation Hyperlipidemia Lung nodule Removed ~2004 Melanoma Myocardial Infarction x4---last heart attack 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 Osteoarthritis SDH (subdural hematoma) 2010--no sx, no neurologist---no deficits Surgical History History of Mohs micrographic surgery for skin cancer left ear History of cardiac cath 2000--2 stents placed History of colonoscopy History of esophagogastroduodenoscopy (EGD) with EUS History of eye surgery right eye hemorrhage removal History of heart artery stent 2 stents placed History of lung surgery 2004--nodule removed History of surgery left leg sarcoma removal Status post cataract extraction of both eyes with insertion of intraocular lens Family History Father Lung cancer Mother Family history of diabetes mellitus Grandfather (Paternal) Family history of diabetes mellitus Other No family history of adverse response to anesthesia Social History Preferred Language: [place] Communication Ability: Effective [employer] Receptionist Required: No Beliefs That Will Affect Care: None Current Living Situation: Spouse Other Information That Helps Us Care for You: No Feels Safe at Home: Yes Safety Concerns: Feels Safe At This Time Smoking Status: Never smoker Second Hand Exposure: Yes (work environment) ; Hx Alcohol Use: Yes Alcohol type: beer Hx Substance Use: No Review of Systems Review of Systems: Review of system Constitutional: No fever / no chills / no sweats / no weakness / no fatigue Eyes: no blurring of vision / no eye pain / no discharge / no redness ENT: no hearing loss / no epistaxis /no swallowing problems Respiratory: no cough / no wheezing / no SOB / no hemoptysis Cardiovascular: no Chest pain / no lower extremity edema / no palpitation Abdomen: no pain / no nausea / no vomiting / no constipation Musculoskeletal: no joint pain / no muscle pain / no joint swelling Genitourinary: no dysuria / no incontinence / no urinary retention Neurologic: no focal weakness / no numbness/tingling /only positive for ataxia and falls Psychiatric: no depression symptoms / no anxiety / no insomnia Endocrine: no excessive thirst / no excessive urination Hematologic: no abnormal bleeding / no bruising / no LN swelling Skin: No rash / no pallor Physical Exam Physical Exam: Physical examination General patient appears to be obese, comfortable, not in acute distress HEENT: Atraumatic , normocephalic /no jaundice /no pallor /anicteric /no dry mucous membrane /normal external ear inspection Neck: Supple /no swelling /central trach Heart: S1/S2 normal/regular rate and rhythm/no gallop /no rub /no murmur Lungs: Clear to auscultation bilaterally/normal chest with expansion/no rhonchi/no rales/no wheezing/no use of accessory muscles of respiration Abdomen: Soft/nontender/no guarding/no rebound/no organomegaly/no pulsatile mass Musculoskeletal: No swelling/no edema/no tenderness/normal range of motion Neuro exam: Awake alert oriented 3/cranial nerves II through XII appear to be intact/sensation intact/moves all extremities/eynser-au-yanv test slightly impaired with intentional tremors before reaching target, gait was not attempted due to the high fall risk and the heavy weight of the patient. Psychiatric evaluation: No depressed mood/normal affect Skin: No rash on exposed skin area/no erythema Extremity: Normal pulse/no pitting edema/no clubbing or cyanosis Results & Data Vital Signs (Past 12 Hours) Vital Signs Temp Pulse Resp BP Pulse Ox 06/22/19 13:30 69 16 147/65 H 94 06/22/19 13:21 70 14 158/64 H 96 06/22/19 11:00 73 15 148/70 H 98 06/22/19 10:54 86 17 164/48 H 96 06/22/19 09:19 36.5 C 68 16 181/78 H 96 06/22/19 09:11 70 20 181/78 H 96 Code Status & VTE Plan VTE Prophylaxis Plan VTE Prophylaxis will be ordered: Yes PG Care Time/CCT Total # of Minutes Spent Total Time Spent with Patient: 65 minutes total time spent is greater than 50% in coordination of care (as documented) at patient's floor/unit and/or counseling patient/family discussion of care with nursing staff (1) CAD (coronary artery disease) Coronary Disease-Associated Artery/Lesion type: [place] artery [place] vs. transplanted heart: [place] heart Associated angina: without angina Qualified Code(s): I25.10 - Atherosclerotic heart disease of [place] coronary artery without angina pectoris
[2019-06-22] MEDS ORDERED: NovoLOG INSULIN PUMP SCH (16:00)
[2019-06-22] MEDS: SODIUM CHLORIDE 0.9% 1000ML 1,000 ML IV SCH (17:06)
[2019-06-22] MEDS: CLOPIDOGREL BISULFATE 75 MG TAB PO SCH (17:06)
[2019-06-22] MEDS: ROSUVASTATIN CALCIUM 10 MG TAB PO SCH (17:06)
--- NOTE | 2019-06-22 18:27 | Magnetic Resonance Report ---
Brain MRI WITHOUT CONTRAST HISTORY: cerebellar ataxia TECHNIQUE: Multiplanar multisequence MRI of the brain was performed without the use of contrast. COMPARISON STUDY: Head CT 06/22/2019. FINDINGS: There is no mass, hematoma, midline shift, or acute infarct. The paranasal sinuses are danis r. The mastoid air cells are clear. The ventricles and sulci demonstrate mild age-related involutiona l changes. Scattered foci of T2 hyperintensity seen within the periventricular and subcortical white matter are nonspecific but suggestive of mild microvascular ischemic changes. Multifocal narrowing wi thin the distal right vertebral artery is better appreciated on the same day head CTA. Old lacunar in farct within the left thalamus is noted.. IMPRESSION: No acute intracranial abnormality. Scattered foci of T2 hyperintensity seen within the periventricula r and subcortical white matter are nonspecific but favor microvascular ischemic change. Electronically signed by: Corona Bosch M.D. 06/22/2019 6:26 PM
[2019-06-22] MEDS ORDERED: LATANOPROST 0.005% OP SOLN 2.5 ML BTL OPL SCH (21:00)
[2019-06-23] MEDS: SODIUM CHLORIDE 0.9% 1000ML 1,000 ML IV SCH (05:03)
[2019-06-23] MEDS: CLOPIDOGREL BISULFATE 75 MG TAB PO SCH (07:39)
[2019-06-23] MEDS: ROSUVASTATIN CALCIUM 10 MG TAB PO SCH (07:39)
[2019-06-23] MEDS ORDERED: PERFLUTREN LIPID MICROSPHERE (DEFINITY) IV ONE (08:07)
[2019-06-23 08:38] LABS: Basophils # (auto) 0.01 K/uL (0-0.2); Basophils % (auto) 0.1 %; Hematocrit (blood only) 39.1 % (42-52); Hemoglobin 13.3 g/dL (14.0-18.0); Immature Granulocytes # (auto) 0.06 K/uL (0.00-0.02); Immature Granulocytes % (auto) 0.4 %; Lymphocytes # (auto) 1.27 K/uL (1.2-3.4); Lymphocytes % (auto) 7.8 %; Mean Corpuscular Hemoglobin 31.1 pg (25-34); Mean Corpuscular Volume 91.6 fL (80-100); Mean Platelet Volume 10.8 fL (7.4-10.4); Monocytes # (auto) 0.94 K/uL (0.11-0.59); Monocytes % (auto) 5.8 %; Neutrophils # (auto) 14.03 K/uL (1.4-6.5); Neutrophils % (auto) 85.9 %; Platelet Count 211 K/uL (130-400); RDW Coefficient of Variation 13.8 % (11.5-14.5); RDW Standard Deviation 45.7 fL (36.4-46.3); Red Blood Count 4.27 M/uL (4.7-6.1); White Blood Count 16.31 K/uL (4.8-10.8)
[2019-06-23] MEDS ORDERED: PANTOprazole 40 MG TAB PO SCH (09:00)
[2019-06-23] MEDS ORDERED: METOPROLOL SUCC 50MG EXT REL TAB PO SCH (09:00)
[2019-06-23 09:15] LABS: Albumin Level 3.5 gm/dl (3.4-5.0); BUN Creatinine Ratio 22.3 (10-20); Calcium 9.1 mg/dl (8.5-10.1); Creatinine Clr Calc Pharmacy 73.6 ml/min; Est GFR (African American) 70.3; Est GFR (Non-African American) 60.6; Magnesium 2.5 mg/dl (1.8-2.4); Potassium 4.3 mmol/L (3.5-5.1)
[2019-06-23 09:30] LABS: Albumin Globulin Ratio 0.9 (0.9-2); Bilirubin,Total 0.5 mg/dl (0.2-1); Globulin 4.1 gm/dl (2.5-4.0); Total Protein 7.6 gm/dl (6.4-8.2)
--- NOTE | 2019-06-23 10:46 | Neurology Consultation ---
Date of Consultation June 23, 2019 Assessment & Plan (1) Ataxia: (2) Vertigo: (3) Vertebral artery occlusion: (4) Diabetes: (5) Essential (primary) hypertension: (6) 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: (7) Dyslipidemia: This patient June 22 had the acute onset of gait ataxia without obvious limb ataxia with nonspecific vertiginous feelings and nausea. This morning he has some cautious wide-based gait, without other focal neurologic deficits, meningeal signs, or encephalopathy. The patient would likely have a sensory ataxia anyway because of his diabetic polyneuropathy which is very longstanding. He also has a gait disturbance because of knee pain and has a limp favoring the left knee. MRI of the brain showed no cerebellar (or other) acute stroke. He does have moderate, chronic, old small vessel cerebral ischemia from his decades of diabetes and hypertension. CT angiography showed a distal right vertebral occlusion and multiple stenoses. Glucose is not adequately controlled and hemoglobin A1c is pending. Lipid parameters are reasonable. He had elevated blood pressure on admission but today his blood pressure is normal. Recommendations: 1. Continue 75 milligrams clopidogrel daily. Patient has had an anaphylactic r eaction to aspirin in the past. 2. Echocardiogram is pending. 3. Control blood pressure as you are doing aiming for a mean arterial pressure of approximately 95. 4. Control glucose 5. Continue with rosuvastatin 10 milligrams daily. Higher doses gave him muscle weakness. 6. Increase activity as able. The patient may benefit from physical therapy/gait training as an outpatient. 7. There is no indication for a vascular surgery consult regarding the right vertebral occlusion/stenoses. Overall, I spent a total of 100 minutes with this case including review of records, review of MRI films, direct evaluation the patient at bedside, and discussing the case with patient at bedside, his RN, and Dr. Gillis, including differential diagnosis and treatment options. History of Present Illness Reason for Consultation: Patient is a a 78-year-old, who I was asked to see at the request of Dr. Sreedhar Apodaca, for neurologic consultation regarding stroke versus other. Requesting Physician: Dr. Sreedhar Apodaca Attending Physician: Salvador Gillis MD History of Present Illness The patient has a almost 40 year history of insulin-dependent diabetes mellitus on insulin pump. He has generalized polyneuropathy from his diabetes and has had retinal hemorrhage left greater than right eye. He is blind in the left eye. He has a history of coronary artery disease with multiple MIs in the past post stent procedure. He had an episode of atrial fibrillation in the past but has been in normal sinus rhythm for quite some time now. He has a longstanding history of hypertension at least 20 years and has some dyslipidemia. He does not tolerate statins well as they tend to give him weakness. He has obstructive sleep apnea. 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 This has never recurred. In 2004 a lung nodule was removed but this was benign and not associated with his cancer. He has had multiple melanomas removed in the past which have not recurred. He had left ear basal cell carcinoma requiring a Mohs procedure. 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 As a result of this stroke he had some right face and arm greater than leg numbness and weakness. He largely recovered from all of this except there is some slight residual weakness at the corner of the mouth on the right as well as some dysesthesias/numbness at that site as well. Patient has a history of intermittent vertigo in the past. He has been doing quite well recently. An MRI of the brain in 2012 for the vertigo showed the old left thalamic lesion as well as some mild old small vessel ischemic disease. On June 21 the patient was quite active cleaning windows and doing other outdoor work. He felt fine all day. He woke up at 0630 on June 22 and noticed that his balance was poor. He was dizzy but not vertiginous any whirling spinning fashion. He felt weak in general particularly in his legs and could not walk. His balance was poor and he even fell over. He denied any speech problems, confusion, or vision problems. His arms felt reasonably coordinated. He had some nausea but did not vomit. Your I have June 22 at the emergency room at 0911 with a temperature of 36.5, pulse 70s and regular, respiratory rate 20, blood pressure 181/78, and O2 saturation 96 percent. He was described as his left upper extremity being mildly ataxic and wide-based gait. Tele stroke with Neurology was performed and he was not a tPA candidate. CBC and Chem profile were largely unremarkable except for elevated glucose. Sed rate was 57. Triglycerides were 136 and total cholesterol 180. CT scan of the head was unremarkable. CT angiography of the neck showed some plaque in the carotid arteries bilaterally without significant stenoses. CT angiography of the head showed an occlusion in the distal cervical portion of the right vertebral artery. There were multifocal stenoses in the intracranial portion of this vessel as well. There was moderate stenosis in the right posterior cerebral artery. MRI of the brain reveals no acute stroke. There is mild to moderate generalized atrophy and old scattered nonspecific white matter ischemia bilaterally. There are no obvious cerebellar hemispheric issues. I reviewed these films. Today, CBC shows a white count elevation at 16 with increased neutrophils. Chem profile was normal except for glucose of 207. Blood pressure is improved at 137/63. He feels essentially back to baseline this morning. He has no issues in his limbs, dizziness or lightheadedness, headache or pain, vision issues of a new nature or confusion. His speech is good he feels his balance is much better (essentially normal). He has bilateral knee pain which affects his walking. Allergies Allergy/AdvReac Type Severity Reaction Status Date / Time aspirin Allergy Severe Anaphylaxis Verified 06/22/19 10:19 Iodinated Contrast Media Allergy Severe SOB,HIVES Verified 06/22/19 10:19 atorvastatin [From Lipitor] Allergy Verified 06/22/19 10:19 enalaprilat [From Vasotec] Allergy Verified 06/22/19 10:19 ezetimibe [From Vytorin] Allergy Verified 06/22/19 10:19 simvastatin [From Vytorin] Allergy Verified 06/22/19 10:19 Sulfonylureas Allergy Verified 06/22/19 10:19 Vskhtjf-Ien-Hjg Reductase AdvReac Mild MUSCLE Verified 06/22/19 10:19 Inhibitor ACHING Home Medications Home Medications Medication Instructions Recorded Confirmed Type latanoprost [Xalatan] 1 drp OPL HS 09/18/18 06/22/19 History amlodipine 10 mg-benazepril 40 mg 1 cap PO DAILY cap 06/12/19 06/22/19 History capsule cholecalciferol (vitamin D3) 5,000 5,000 unit PO DAILY tab 06/12/19 06/22/19 History unit tablet coenzyme Q10 400 mg capsule 400 mg PO DAILY cap 06/12/19 06/22/19 History cyanocobalamin (vit B-12) 1,000 1,000 mcg PO DAILY tab 06/12/19 06/22/19 History mcg tablet diclofenac 1 % topical gel 2 gm TOPICAL DAILY PRN gm 06/12/19 06/22/19 History glucosamine sulfate 1,000 mg 1,000 mg PO DAILY cap 06/12/19 06/22/19 History capsule insulin aspart U- 100 100 unit/mL 200 unit CONTINUOUS SUBCUTANEOUS 06/12/19 06/22/19 History subcutaneous solution INFUSION DAILY ml metoprolol succinate ER 200 mg 200 mg PO DAILY tab 06/12/19 06/22/19 History tablet,extended release 24 hr tivwbroz-nnk-vgxjx acid 0.4 1 tab PO DAILY tab 06/12/19 06/22/19 History mg-lycopene 300 mcg-lutein 250 mcg tablet nitroglycerin 0.4 mg sublingual 0.4 mg SUBLINGUAL .COMPLEX PRN 06/12/19 06/22/19 History tablet omeprazole 20 mg capsule,delayed 20 mg PO DAILY cap 06/12/19 06/22/19 History release rosuvastatin 10 mg tablet 10 mg PO DAILY tab 06/12/19 06/22/19 History selenium 200 mcg tablet 200 mcg PO MOWEFR 06/12/19 06/22/19 History torsemide 20 mg tablet 40 mg PO DAILY #180 tab 06/12/19 06/22/19 History vitamin E 400 unit capsule 400 unit PO MOWEFR 06/12/19 06/22/19 History Patient History Medical History Hypoxia (Acute) Acute dyspnea (Acute) Diabetes Shortness of breath Sarcoma of femur left In ~2004, s/p removal and radiation PELON (obstructive sleep apnea) cpap Hypertension CAD (coronary artery disease) Basal cell carcinoma Deafness in left ear Diabetes mellitus, type 2 GERD (gastroesophageal reflux disease) Glaucoma left eye History of colon polyps History of esophageal dilatation Hyperlipidemia Lung nodule Removed ~2004 Melanoma Myocardial Infarction x4---last heart attack 2000--no lan support specialist Osteoarthritis SDH (subdural hematoma) 2010--no sx, no neurologist---no deficits Surgical History History of Mohs micrographic surgery for skin cancer left ear History of cardiac cath 2000--2 stents placed History of colonoscopy History of esophagogastroduodenoscopy (EGD) with EUS History of eye surgery right eye hemorrhage removal History of heart artery stent 2 stents placed History of lung surgery 2005--nodule removed History of surgery left leg sarcoma removal Status post cataract extraction of both eyes with insertion of intraocular lens Family History Father , age 83 of lung cancer. Lung cancer Prostate cancer Mother , age 89 of lung cancer. 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 Feels Safe at Home: Yes Smoking Status: Never smoker Second Hand Exposure: Yes (work environment) ; Hx Alcohol Use: Yes Alcohol type: beer Alcohol Intake Frequency Comment: One or 2 beers, 2 or 3 times per week. Hx Substance Use: No Review of Systems Constitutional: no fever, no fatigue and no weakness Eyes: + problem reported (Essentially blind left eye); no diplopia, no eye pain and no worsening vision Ear, Nose, Mouth, Throat: + hearing loss (Left); no ear pain, no tinnitus, no dizziness, no snoring, no hoarseness and no dysphagia Respiratory: no cough and no dyspnea Cardiovascular: no chest pain, no palpitations and no lightheadedness Gastrointestinal: no abdominal pain, no nausea and no vomiting Genitourinary: no dysuria and no urinary incontinence Musculoskeletal: + joint pain; no back pain, no neck pain, no radicular pain and no myalgia Integumentary: no rash and no lesions Neurologic: + gait abnormality; no localized weakness, no generalized weakness, no tingling, no numbness, no tremor(s), no abnormal movements, no headache(s), no abnormal speech, no confusion and no memory loss Psychiatric: no depression, no irritability, no anxiety, no difficulty concentrating, no confusion and no hallucinations Endocrine: no fatigue and no flushing Hematologic / Lymphatic: no easy bleeding and no easy bruising Allergy / Immunological: no urticaria and no problem reported Physical Exam Physical Exam: The patient is left-handed. The patient is awake, alert, and attentive. Speech is normal without any aphasia or dysarthria. he can name objects, repeat phrases, and has normal spontaneous speech. Mentation and thought processes are intact, with orientation to person, place and time, and normal fund of knowledge. Attention and concentration are normal. Mood and affect are normal and appropriate. General appearance and grooming are normal. Short and long-term memory are intact. The disc is sharp with positive venous pulsations on the right. The left disc is very pale and sharp. There are no obvious exudates, hemorrhages, or blood vessel changes seen. Pupils are 3 mm bilaterally and reactive to light. Extraocular eye muscles are intact without nystagmus. Visual acuity and visual calderon seem normal grossly to confrontation in the right eye. There are no deficits to sensation in the face in all 3 distributions of the fifth cranial nerve bilaterally. Corneal reflexes are positive bilaterally. There is a slight droop of the corner of the mouth on the right but this moves quite well with voluntary smile. Hearing is decreased on the left. Palate moves well without asymmetry. There is normal sternocleidomastoid and trapezius (shoulder shrug) strength bilaterally. Tongue is midline with good strength bilaterally. Neck has a full range of motion without discomfort. There are no cervical bruits bilaterally. There are no cranial or ocular bruits. Heart is without murmur. There is a regular rhythm and rate. Cervical, thoracic, and lumbar spine are nontender to palpation. Gait is mildly wide-based and cautious. He limps because of left knee pain. Turns are cautious. Stance is reasonable eyes open or closed. With outstretched arms there is no drift. There are no resting, postural, or action tremors. There is no ataxia with finger to nose testing. There is good facility in the hands. No other abnormal involuntary movements are noted. Fzik-co-puek testing shows no ataxia. Motor strength is 5/5 diffusely in the arms bilaterally including deltoids, biceps, triceps, brachioradialis, wrist flexors and extensors, mill feeder, and intrinsic hand muscles. Motor strength is 5/5 diffusely in the legs bilaterally including hip flexors, quadriceps, hamstrings, gastrocnemius, tibialis anterior, tibialis posterior, and Peroneii muscles. Toe extensors are normal and there is good bulk in the extensor digitorum brevis muscles bilaterally. The limbs have good tone without rigidity or spasticity. There is no atrophy noted in the muscles. Muscle bulk is normal, there is no tenderness to palpation, no myotonia to percussion, and no fasciculations seen. Sensory examination reveals a stocking decreased pin and touch sense loss to the mid lower legs bilaterally. Hands are relatively spared, although he reports some numbness in his finger tips diffusely bilaterally. Reflexes are 0/4 in the biceps, triceps, brachioradialis, quadriceps, and Achilles tendons bilaterally. There is no clonus bilaterally. Toes are downgoing with plantar stimulation bilaterally. Peripheral pulses are present and of normal quality distally in all 4 limbs. There is very mild peripheral edema noted in the ankles bilaterally Results & Data Vital Signs (Past 12 Hours) Vital Signs Temp Pulse Resp BP Pulse Ox 06/23/19 07:25 36.5 C 75 20 137/63 98 06/23/19 04:00 36.5 C 66 20 136/64 97 06/23/19 00:04 36.7 C 71 16 164/62 H 98 Diagnostic Findings Brain MRI WITHOUT CONTRAST HISTORY: cerebellar ataxia TECHNIQUE: Multiplanar multisequence MRI of the brain was performed without the use of contrast. COMPARISON STUDY: Head CT 06/22/2019. FINDINGS: There is no mass, hematoma, midline shift, or acute infarct. The paranasal sinuses are clear. The mastoid air cells are clear. The ventricles and sulci demonstrate mild age-related involutional changes. Scattered foci of T2 hyperintensity seen within the periventricular and subcortical white matter are nonspecific but suggestive of mild microvascular ischemic changes. Multifocal narrowing within the distal right vertebral artery is better appreciated on the same day head CTA. Old lacunar infarct within the left thalamus is noted.. IMPRESSION: No acute intracranial abnormality. Scattered foci of T2 hyperintensity seen within the periventricular and subcortical white matter are nonspecific but f avor microvascular ischemic change. Electronically signed by: Corona Bosch M.D. 06/22/2019 6:26 PM PG Care Time/CCT Total # of Minutes Spent Total Time Spent with Patient: Total time spent is greater than 50% in coordination of care (as documented) at patient's floor/unit and/or counseling p atient: (1) Vertebral artery occlusion Laterality: unspecified laterality Qualified Code(s): I65.09 - Occlusion and stenosis of unspecified vertebral artery
[2019-06-23] MEDS ORDERED: STROKE PATIENT DISCHARGE STA (13:34)
--- NOTE | 2019-06-23 15:25 | Pharmacy Report ---
Pharmacist Stroke Counseling - Date of Service June 23, 2019 - Scope: Pharmacy has been consulted to provide medication discharge counseling for this patient admitted with [transient ischemic attack] as per the Pharmacist Discharge Counseling for Stroke Patients Protocol. - Medications on Discharge: Home Medications Medication Instructions Recorded Confirmed latanoprost [Xalatan] 1 drp OPL HS 09/18/18 06/22/19 amlodipine 10 mg-benazepril 40 mg 1 cap PO DAILY cap 06/12/19 06/22/19 capsule cholecalciferol (vitamin D3) 5,000 5,000 unit PO DAILY tab 06/12/19 06/22/19 unit tablet coenzyme Q10 400 mg capsule 400 mg PO DAILY cap 06/12/19 06/22/19 cyanocobalamin (vit B-12) 1,000 1,000 mcg PO DAILY tab 06/12/19 06/22/19 mcg tablet diclofenac 1 % topical gel 2 gm TOPICAL DAILY PRN gm 06/12/19 06/22/19 glucosamine sulfate 1,000 mg 1,000 mg PO DAILY cap 06/12/19 06/22/19 capsule insulin aspart U- 100 100 unit/mL 200 unit CONTINUOUS SUBCUTANEOUS 06/12/19 06/22/19 subcutaneous solution INFUSION DAILY ml faukedqn-[id number]-lrjrj acid 0.4 1 tab PO DAILY tab 06/12/19 06/22/19 mg-lycopene 300 mcg-lutein 250 mcg tablet nitroglycerin 0.4 mg sublingual 0.4 mg SUBLINGUAL .COMPLEX PRN 06/12/19 06/22/19 tablet rosuvastatin 10 mg tablet 10 mg PO DAILY tab 06/12/19 06/22/19 selenium 200 mcg tablet 200 mcg PO MOWEFR 06/12/19 06/22/19 torsemide 20 mg tablet 40 mg PO DAILY #180 tab 06/12/19 06/22/19 vitamin E 400 unit capsule 400 unit PO MOWEFR 06/12/19 06/22/19 New Rx's Medication Instructions Recorded clopidogrel 75 mg PO QAM #30 tab 06/23/19 metoprolol succinate 50 mg PO DAILY #30 tab 06/23/19 pantoprazole 20 mg PO DAILY #30 tab 06/23/19 - Action: The above medications, specifically ones for stroke treatment/prophylaxis, have been reviewed in detail with the patient and/or patient payable representative(s) prior to discharge. This includes indication, common adverse reactions, drug interactions, and medication administration. Medication counseling has been employed using the teach-back method to ensure understanding. - Outcome: The patient and/or patient payable representative(s) have demonstrated understanding of the medications. Please note, they are aware that the pharmacist will call them within 72 hours post-discharge to confirm that the appropriate medications are being taken and answer any further medication related questions the patient might have at that time. Contact information Individual to be contacted: patient Relationship to patient (if applicable): n/a Phone number: [phone] Best time to call: anytime - okay to leave message Additional comments: Patient with possible TIA on admission. Reviewed new medications starting on discharge. With plavix told him to monitor for any increase in bruising/bleeding. Talked about how metoprolol dose was decreasing from his previous dose. He does have a blood pressure cuff at home. Recommended he takes his blood pressure periodically and record his readings to have with him for his next doctor's appt. Stated that pantoprazole was replacing the omeprazole - patient aware. Patient has hx of anaphylaxis to aspirin (reason why it was not added). Patient also with history of myalgias with statins, however states that since he started the coenzyme Q10 he no longer experiences these muscle pains. Had previously been on higher doses of rosuvastatin but had been tapered down b/c of muscle pain. Told him ideally they would probably want to titrate up his rosuvastatin dosing if tolerated. Patient may bring up with doctor at visit. (since patient was not on coenzyme Q10 on higher doses of rosuvastatin). Patient very knowledgeable about medications. No other pertinent positives on inte rview/ no other concerns today. Thank you for allowing pharmacy to be involved in the care of this patient. Please call [phone] or [phone] with any additional questions
--- NOTE | 2019-06-23 15:35 | Discharge Summary ---
Date of Service June 23, 2019 Principal Diagnosis TIA versus hypoperfusion of cerebellum Discharge Exam Constitutional WD/WN, vitals as above Eyes EOM intact bilaterally; no conjunctival abnormality ENMT external ear and nose normal, oropharynx normal Neck trachea midline, no thyromegaly normal visual inspection Respiratory normal respiratory effort, lungs clear to auscultation no respiratory distress Cardiovascular RRR, no murmur, no edema Gastrointestinal (Abdomen) Inspection/Auscultation: abdomen normal to inspection; abdomen not distended Musculoskeletal no cyanosis or clubbing, extremities motor strength 5/5 Skin no rashes, warm and dry Neurologic moves all extremities and awake Psychiatric Orientation: alert, oriented to person and cooperative Discharge Data Allergies Allergy/AdvReac Type Severity Reaction Status Date / Time aspirin Allergy Severe Anaphylaxis Verified 06/22/19 10:19 Iodinated Contrast Media Allergy Severe SOB,HIVES Verified 06/22/19 10:19 atorvastatin [From Lipitor] Allergy Verified 06/22/19 10:19 enalaprilat [From Vasotec] Allergy Verified 06/22/19 10:19 ezetimibe [From Vytorin] Allergy Verified 06/22/19 10:19 simvastatin [From Vytorin] Allergy Verified 06/22/19 10:19 Sulfonylureas Allergy Verified 06/22/19 10:19 Nfrzxcb-Hpk-Nbd Reductase AdvReac Mild MUSCLE Verified 06/22/19 10:19 Inhibitor ACHING Consultations 06/22/19 12:40 ED Decision to Admit Stat 06/22/19 14:40 Consult Neurology Routine 06/22/19 14:51 Consult Case Management - Discharge Planning Routine Ordered Studies 06/22/19 09:45 CT angio head w con Stat CT angio neck with con Stat CT head/brain wo con Stat 06/22/19 14:50 MR brain wo con Routine Hospital Course (1) Ataxia: MRI brain on admission did not show CVA. 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 Mr. Fowler was seen by neurology who felt this could represent TIA versus hypoperfusion of the posterior circulation of the brain. He was started on Plavix 75 mg daily given the CTA findings. Metoprolol was decreased to 50 mg daily. He is to follow-up with his PCP Dr. Masterson for blood pressure checks. Given the poor vasculature of his posterior system, slightly less strict blood pressure control may be in order. He reports his systolic blood pressure is usually [id number] which may be mildly too low for him, especially if at times he is even lower than that. Given his inability to tolerate higher statin doses, he was kept on his Crestor 10 mg daily. (2) Essential (primary) hypertension: Hold his amlodipine/benazepril Decrease dose of Toprol-XL from 200 mg p.o. daily to 50 mg p.o. daily to allow permissive hypertension without withdrawal from beta-flory (3) Diabetes: Patient has insulin pump that he can manage by himself We will put him on fingerstick blood sugar His basal insulin is 5.5/h, asked him to decrease his basal insulin slightly as he will be on healthy diabetic diet here (4) CAD (coronary artery disease): Had multiple MIs and stent 15 years ago Currently not on any antiplatelets We will start him on Plavix as discussed with patient (5) Dyslipidemia: Continue Crestor and check hemoglobin A1c (6) PELON (obstructive sleep apnea): Can use his own CPAP machine Total Time Total Time Spent Total Time Spent (In Minutes): 35 Total Time Includes: Examination of the Patient, Discharge Planning and Communication With Other Providers Discharge Plan Discharge Items Patient Disposition: Home - Self-Care Reason For Visit: CVA Discharge Diagnosis: Possible TIA or "mini-stroke" Activity: Resume your previous activity Non-emergency contact: Primary Care Provider Call non-emergency contact if: your symptoms worsen Follow-up/Referrals: Kirit Masterson MD [Primary Care Provider] - Diet: Carb Consistent or DM2 and Heart Healthy Addtl Attending Provider Instructions: 1) Please take the Plavix (clopidogrel) 1 time every day. The time of day doesn't matter. 2) Please lower your metoprolol dose to 50 mg a day instead of 200 mg. A new script has been sent in. 3) Please take pantoprazole (Protonix) instead of omeprazole as the omeprazole i nteracts with your new medication. You reported that your blood pressure also drops as low as 100/60 at home. This may be too low as the blood vessels in the back of your neck have areas of narrowing. A safer blood pressure for you may be closer to 120/60 - 130/60. Please [address] Masterson in 1 week to follow up on your hospitalization and get a blood pressure check. Pending Studies at Discharge: No Stand-Alone Forms: My [facility] Medications and DC Order Prescriptions: New metoprolol succinate 50 mg Tablet Extended Release 24 Hr 50 mg PO DAILY Qty: 30 RF: 0 clopidogrel 75 mg Tablet 75 mg PO QAM Qty: 30 RF: 0 pantoprazole 20 mg tablet,delayed release (DR/EC) 20 mg PO DAILY Qty: 30 RF: 0 Continued Novolog U-100 Insulin aspart 100 unit/mL solution 200 unit continuous subcutaneous infusion DAILY RF: 0 selenium 200 mcg tablet 200 mcg PO MOWEFR RF: 0 torsemide 20 mg tablet 40 mg PO DAILY Qty: 180 RF: 0 latanoprost [Xalatan] 0.005 % drops 1 drp OPL HS RF: 0 cyanocobalamin (vitamin B-12) [Vitamin B-12] 1,000 mcg tablet 1,000 mcg PO DAILY RF: 0 Centrum Silver 0.4-300-250 mg-mcg-mcg tablet 1 tab PO DAILY RF: 0 coenzyme Q10 [Co Q-10] 400 mg capsule 400 mg PO DAILY RF: 0 glucosamine sulfate 1,000 mg capsule 1,000 mg PO DAILY RF: 0 diclofenac sodium [Voltaren] 1 % gel 2 gm TOPICAL DAILY PRN (Reason: Pain) RF: 0 nitroglycerin [Nitrostat] 0.4 mg tablet, sublingual 0.4 mg Sublingual .COMPLEX PRN (Reason: Chest Pain) RF: 0 cholecalciferol (vitamin D3) [Vitamin D3] 5,000 unit tablet 5,000 unit PO DAILY RF: 0 rosuvastatin [Crestor] 10 mg tablet 10 mg PO DAILY RF: 0 vitamin E 400 unit capsule 400 unit PO MOWEFR RF: 0 amlodipine-benazepril [Lotrel] 10-40 mg capsule 1 cap PO DAILY RF: 0 Discontinued metoprolol succinate [Toprol XL] 200 mg tablet extended release 24 hr 200 mg PO DAILY RF: 0 omeprazole 20 mg capsule,delayed release(DR/EC) 20 mg PO DAILY RF: 0 Discharge Orders: Discharge Order (Routine); Ordered 06/23/19 Ordered By: Salvador Priest/Other Patient Handouts: Dizziness Fainting Poss Causes, Occlusion Acute Arterial, Vertigo Paroxysmal Positional Admission Data Admit Date/Time: 06/22/19 14:42 Attending Provider: Salvador Gillis Admit Provider: Gt Pavon Primary Care Provider: Kirit Masterson Other Providers: Zaire Mandel III ; Salvador Gillis Other Interventions: Discharge Summary Assessment (RN) Last Done: 06/23/19 14:10 DC Date/Time DO NOT enter until pt leaves facility: 06/23/19 15:11
[2019-06-24 05:42] LABS: Estimated Average Glucose 180 mg/dl; Hemoglobin A1C 7.9 % (4.5-5.6)
--- NOTE | 2019-06-26 10:53 | Pharmacy Report ---
Pharmacist Post D/C Phone Note - Phone Note: Date of phone call: June 26, 2019. Individual with whom pharmacist spoke to: Renee GARCIA JR The following questions were reviewed during the phone call with responses listed below each: Can you tell me the medications that you are currently taking as well as when and how you take each medication? Medication Instructions Recorded Confirmed latanoprost [Xalatan] 1 drp OPL HS 09/18/18 06/25/19 amlodipine 10 mg-benazepril 40 mg 1 cap PO DAILY cap 06/12/19 06/25/19 capsule cholecalciferol (vitamin D3) 5,000 5,000 unit PO DAILY tab 06/12/19 06/25/19 unit tablet coenzyme Q10 400 mg capsule 400 mg PO DAILY cap 06/12/19 06/25/19 cyanocobalamin (vit B-12) 1,000 1,000 mcg PO DAILY tab 06/12/19 06/25/19 mcg tablet diclofenac 1 % topical gel 2 gm TOPICAL DAILY PRN gm 06/12/19 06/25/19 glucosamine sulfate 1,000 mg 1,000 mg PO DAILY cap 06/12/19 06/25/19 capsule insulin aspart U- 100 100 unit/mL 200 unit CONTINUOUS SUBCUTANEOUS 06/12/19 0 06/25/19 subcutaneous solution INFUSION DAILY ml onorjspp-rtr-rqgmm acid 0.4 1 tab PO DAILY tab 06/12/19 06/25/19 mg-lycopene 300 mcg-lutein 250 mcg tablet nitroglycerin 0.4 mg sublingual 0.4 mg SUBLINGUAL .COMPLEX PRN 06/12/19 06/25/19 tablet rosuvastatin 10 mg tablet 10 mg PO DAILY tab 06/12/19 06/25/19 selenium 200 mcg tablet 200 mcg PO MOWEFR 06/12/19 06/25/19 torsemide 20 mg tablet 40 mg PO DAILY #180 tab 06/12/19 06/25/19 vitamin E 400 unit capsule 400 unit PO MOWEFR 06/12/19 06/25/19 NEW MEDS started this admission. Medication Instructions Recorded clopidogrel 75 mg PO QAM #30 tab 06/23/19 metoprolol succinate 50 mg PO DAILY #30 tab 06/23/19 pantoprazole 20 mg PO DAILY #30 tab 06/23/19 When have you missed any doses of your medications? - Missed none What side effects are you having from your medications, specifically, the new medications you were started on? - No side effects from any meds, specifically no increased bleeding/bruising from Plavix. What questions do you have about your medications? - None today. What problems are you having obtaining your medications? - No problems. When is your next appointment with your primary care doctor? - 06/[address] Masterson. Additional comments: - Patient said he is not feeling the best, but doing alright with all his meds. He has been taking the lower dose of Metoprolol succinate 50 mg daily as directed. He has been tracking his BP at home and writing them down to take to his PCP visit tomorrow. - Currently, he is having no problems with his Crestor 10 mg daily dose. He said his legs are a little weak but no muscle pain. He continues to use Co-Q 400 mg daily and thinks this is helping to prevent muscle aches. As per the Pharmacist Discharge Counseling for Stroke Patients Protocol, this phone call has been completed within 72 hours of discharge. Thank you for allowing us to be involved in the care of this patient. - Home Medications: Home Medications Medication Instructions Recorded Confirmed latanoprost [Xalatan] 1 drp OPL HS 09/18/18 06/25/19 amlodipine 10 mg-benazepril 40 mg 1 cap PO DAILY cap 06/12/19 06/25/19 capsule cholecalciferol (vitamin D3) 5,000 5,000 unit PO DAILY tab 06/12/19 06/25/19 unit tablet coenzyme Q10 400 mg capsule 400 mg PO DAILY cap 06/12/19 06/25/19 cyanocobalamin (vit B-12) 1,000 1,000 mcg PO DAILY tab 06/12/19 06/25/19 mcg tablet diclofenac 1 % topical gel 2 gm TOPICAL DAILY PRN gm 06/12/19 06/25/19 glucosamine sulfate 1,000 mg 1,000 mg PO DAILY cap 06/12/19 06/25/19 capsule insulin aspart U- 100 100 unit/mL 200 unit CONTINUOUS SUBCUTANEOUS 06/12/19 06/25/19 subcutaneous solution INFUSION DAILY ml wtulydhz-tru-jruro acid 0.4 1 tab PO DAILY tab 06/12/19 06/25/19 mg-lycopene 300 mcg-lutein 250 mcg tablet nitroglycerin 0.4 mg sublingual 0.4 mg SUBLINGUAL .COMPLEX PRN 06/12/19 06/25/19 tablet rosuvastatin 10 mg tablet 10 mg PO DAILY tab 06/12/19 06/25/19 selenium 200 mcg tablet 200 mcg PO MOWEFR 06/12/19 06/25/19 torsemide 20 mg tablet 40 mg PO DAILY #180 tab 06/12/19 06/25/19 vitamin E 400 unit capsule 400 unit PO MOWEFR 06/12/19 06/25/19 New Rx's Medication Instructions Recorded clopidogrel 75 mg PO QAM #30 tab 06/23/19 metoprolol succinate 50 mg PO DAILY #30 tab 06/23/19 pantoprazole 20 mg PO DAILY #30 tab 06/23/19
== END 2019-06-23 15:11 | disposition home or self-care (01) | DRG 69 ==
LOC: ED 09:07 → SUATTDRO 14:42 → 2S 14:42

== ENCOUNTER 2020-08-16 20:06 | Inpatient (IN) ==
[2020-08-16 21:05] LABS: INR 1.1 (0.9-1.1); Partial Thromboplastin Ratio 0.9; Partial Thromboplastin Time 26.5 Seconds (21.0-31.0); Prothrombin Time 11.7 Seconds (9.0-12.0)
--- NOTE | 2020-08-16 21:09 | Emergency Department Note ---
History of Present Illness General Chief complaint: Fall Stated complaint: FALL, FEVER, HYPOXIA Time Seen by Provider: 08/16/20 20:49 Source: patient, family (Grandson), EMS, RN notes reviewed and old records reviewed Mode of arrival: ambulatory Limitations: no limitations History of Present Illness This patient comes in after falling. He said that he tends to get off balance due to the several previous strokes and he fell but slid out of the bed. He denies that he actually had any injuries he was on the floor for about 15 minutes. When they arrived they thought he had a low-grade temperature although he denies any and has no temperature here. He said no recent illness. He is been very careful about not been exposed to anybody he has had no recent illness cough fever chills nausea vomiting lightheadedness dizziness or syncope. They noticed that he was hypoxemic and placed him on oxygen as he was 87% on room air. He says he feels fine at present. No blood or melena in his stool Home Medications Home Medications Medication Instructions Recorded Confirmed Type latanoprost [Xalatan] 1 drp OPL HS 09/18/18 08/16/20 History coenzyme Q10 400 mg capsule 400 mg PO DAILY cap 06/12/19 08/16/20 History cyanocobalamin (vitamin B-12) 1,000 mcg PO Q3D tab 06/12/19 08/16/20 History 1,000 mcg tablet glucosamine sulfate 1,000 mg 1,000 mg PO Q2D cap 06/12/19 08/16/20 History capsule nydoaxws-osb-whdvv acid 0.4 1 tab PO DAILY tab 06/12/19 08/16/20 History mg-lycopene 300 mcg-lutein 250 mcg tablet selenium 200 mcg tablet 200 mcg PO 3XWK tab 06/26/19 08/16/20 History vitamin E 400 unit capsule 400 unit PO 3XWK cap 06/26/19 08/16/20 History rosuvastatin 10 mg tablet See Rx Instructions PO DAILY #135 06/27/19 08/16/20 Rx tab Novolog U-100 Insulin aspart 100 200 unit CONTINUOUS SUBCUTANEOUS 07/01/19 08/16/20 Rx unit/mL subcutaneous solution INFUSION .COMPLEX #18 vial NS nitroglycerin 0.4 mg sublingual 0.4 mg SUBLINGUAL Q5M PRN #30 tab 07/03/19 08/16/20 Rx tablet clopidogrel 75 mg tablet 75 mg PO QAM #90 tab 11/20/19 08/16/20 Rx metoprolol succinate 50 mg 50 mg PO DAILY #90 tab 02/13/20 08/16/20 Rx tablet,extended release 24 hr pantoprazole 20 mg tablet,delayed 20 mg PO DAILY #90 tab 02/19/20 08/16/20 Rx release torsemide 20 mg tablet 40 mg PO DAILY #180 tab 03/26/20 08/16/20 Rx amlodipine 10 mg-benazepril 40 mg 1 cap PO DAILY #90 cap 04/13/20 08/16/20 Rx capsule AstechTouch Ultra2 Meter #1 ea NS 06/17/20 Rx OneTouch Ultra Blue Test Strip #300 ea NS 06/18/20 Rx brimonidine-timolol [Combigan] 1 drp OPL BID 08/16/20 08/16/20 History cholecalciferol (vitamin D3) 50 mcg PO DAILY 08/16/20 08/16/20 History [Vitamin D3] dorzolamide [Trusopt] 1 drp OPL BID 08/16/20 08/16/20 History Allergies Allergy/AdvReac Type Severity Reaction Status Date / Time aspirin Allergy Severe Anaphylaxis Verified 08/16/20 22:06 Iodinated Contrast Media Allergy Severe SOB,HIVES Verified 08/16/20 22:06 Sulfonylureas Allergy Unknown UNKNOWN Unverified 08/16/20 22:06 enalaprilat [From Vasotec] AdvReac Severe CHEST Unverified 08/16/20 22:06 TIGHTNESS atorvastatin [From Lipitor] AdvReac Mild cramps Unverified 08/16/20 22:06 ezetimibe [From Vytorin] AdvReac Mild MYALGIA Unverified 08/16/20 22:06 simvastatin [From Vytorin] AdvReac Mild MYALGIA Unverified 08/16/20 22:06 Xvelcsd-Kyx-Maw Reductase AdvReac Mild MUSCLE Verified 08/16/20 22:06 Inhibitor ACHING Past Med/Surg History Medical History (Updated 08/16/20 @ 23:37 by Harjit Lai MD) Acute dyspnea Basal cell carcinoma CAD (coronary artery disease) Deafness in left ear Diabetes Diabetes mellitus, type 2 GERD (gastroesophageal reflux disease) Glaucoma left eye History of colon polyps History of esophageal dilatation Hyperlipidemia Hypertension Hypoxia Lung nodule Removed ~2004 Melanoma Myocardial Infarction x4---last heart attack 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 PELON (obstructive sleep apnea) cpap Osteoarthritis Sarcoma of femur left In ~2004, s/p removal and radiation SDH (subdural hematoma) 2010--no sx, no neurologist---no deficits Shortness of breath Surgical History History of cardiac cath 2000--2 stents placed History of colonoscopy History of esophagogastroduodenoscopy (EGD) with EUS History of eye surgery right eye hemorrhage removal History of heart artery stent 2 stents placed History of lung surgery 2004--nodule removed History of Mohs micrographic surgery for skin cancer left ear History of surgery left leg sarcoma removal Status post cataract extraction of both eyes with insertion of intraocular lens Family History Father , age 83 of lung cancer. Lung cancer Prostate cancer Mother , age 89 of lung cancer. Lung cancer Diabetes Grandfather (Paternal) Diabetes Other No family history of adverse response to anesthesia Social History Smoking Status: Never smoker Second Hand Exposure: Yes (work environment); Hx Alcohol Use: Yes Alcohol type: beer Alcohol Intake Frequency Comment: One or 2 beers, 2 or 3 times per week. 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 Feels Safe at Home: Yes Safety Concerns: Feels Safe At This Time Childhood Exposure to Second-Hand Smoke: Yes Dental Care, Regularly: Yes Physical Activity Frequency: Does not Exercise Seatbelt Use: always Sunscreen Use: No Assistive Devices: Oxygen - Continuous Review of Systems A total of 10 systems reviewed and were otherwise negative Physical Exam Vital Signs Vital Signs - 24 hr 08/16/20 20:24 08/16/20 20:29 08/16/20 20:30 Temperature 37.2 C Temperature Source Oral Pulse Rate 53 L Pulse Rate [Bilateral Apical] Respiratory Rate 24 Respiratory Effort / Characteristics Non-Labored Respiratory Depth Normal Blood Pressure 173/49 H Blood Pressure [Left Arm] Blood Pressure Mean 90 Blood Pressure Mean [Left Arm] Pulse Oximetry 96 96 Oxygen Delivery Method Non-rebreather Non-rebreather Non-rebreather Oxygen Flow Rate 12 12 12 Sepsis Recent Fever Within 48 Hours No Sepsis New/Unexplained Change in Mental Status N/A Sepsis Action Taken by Nursing No Action Required 08/16/20 20:31 08/16/20 21:15 08/16/20 22:15 Temperature Temperature Source Pulse Rate Pulse Rate [Bilateral Apical] 43 L 42 L Respiratory Rate 20 20 Respiratory Effort / Characteristics Respiratory Depth Blood Pressure Blood Pressure [Left Arm] 138/53 L 164/52 H Blood Pressure Mean Blood Pressure Mean [Left Arm] 81 89 Pulse Oximetry 96 92 92 Oxygen Delivery Method Non-rebreather Nasal Cannula Nasal Cannula Oxygen Flow Rate 12 5 4 Sepsis Recent Fever Within 48 Hours Sepsis New/Unexplained Change in Mental Status Sepsis Action Taken by Nursing General: Well developed well nourished older male who appears wearing supplemental oxygen but in no acute distress, breathing comfortably. Normal speech HEENT: Normal cephalic atraumatic. Pupils are equal round and reactive to light. Extraocular movements are intact. Oropharynx is pink with moist mucous membranes. No swelling of the mouth lips or tongue. Neck: Supple with a midline trachea. No meningeal signs or stiffness, no JVD or bruits. No Stridor. Chest: Clear to auscultation bilaterally, he does have some crackles in the bases bilaterally Heart: Regular rate and rhythm without murmurs or gallops. Abdomen: Soft nontender, nondistended without rebound guarding or rigidity. Extremities: No cyanosis clubbing or edema. No calf tenderness or assymetry Spine/Back. Non tender to palpation. No CVA tenderness Skin: Good turgor without rashes. Neurologic exam: Cranial nerves two through 12 are intact. Motor and sensation are intact and symmetrical throughout. Course Administered Medications Ceftriaxone Sodium 2,000 mg/ (Dextrose) 70 mls @ 100 mls/hr IV Q24H [facility]; Protocol Stop: 08/24/20 00:00 Last Admin: 08/17/20 00:16 Dose: 100 mls/hr Documented by: [id number] Miscellaneous (Combigan~Order Awaiting Action) 1 ea N/A QS [facility] Stop: 09/16/20 00:00 Last Admin: 08/17/20 00:22 Dose: Not Given Documented by: [id number] Discontinued Medications Azithromycin (Azithromycin 250 Mg Tab) 500 mg PO NOW ONE Stop: 08/16/20 23:45 Last Admin: 08/17/20 00:16 Dose: 500 mg Documented by: [id number] Medical Decision Making Differential Diagnosis CHF, COPD, pneumonia, pneumothorax, PE, Covid, cardiac disease, anemia Medical Records Attestation: I reviewed the patient's medical records. Home Medications Current Medication List: was personally reviewed by me Laboratory Data Attestation: I reviewed the patient's lab results. Result diagrams: 08/16/20 20:08/16/20 20: Lab Results 08/16/20 08/16/20 08/16/20 Range/Units 20:19 20:19 20:19 WBC 16.12 H (4.8-10.8) K/uL RBC 4.30 L (4.7-6.1) M/uL Hgb 13.1 L (14.0-18.0) g/dL Hct 40.2 L (42-52) % MCV 93.5 (80-100) fL MCH 30.5 (25-34) pg MCHC 32.6 (32-36) g/dL RDW Std Deviation 46.8 H (36.4-46.3) fL RDW Coeff of Josefa 13.8 (11.5-14.5) % Plt Count 247 (130-400) K/uL MPV 12.1 H (7.4-10.4) fL Immature Gran % (Auto) 0.2 % Neut % (Auto) 86.0 % Lymph % (Auto) 5.4 % [place] % (Auto) 8.1 % Eos % (Auto) 0.1 % Baso % (Auto) 0.2 % Neut # (Auto) 13.87 H (1.4-6.5) K/uL Lymph # (Auto) 0.87 L (1.2-3.4) K/uL [place] # (Auto) 1.30 H (0.11-0.59) K/uL Eos # (Auto) 0.01 (0-0.5) K/uL Baso # (Auto) 0.04 (0-0.2) K/uL Immature Gran # (Auto) 0.03 H (0.00-0.02) K/uL PT 11.7 (9.0-12.0) Seconds INR 1.1 (0.9-1.1) APTT 26.5 (21.0-31.0) Seconds PTT Ratio 0.9 Sodium 143 (136-145) mmol/L Potassium 3.9 (3.5-5.1) mmol/L Chloride 110 H (98-107) mmol/L Carbon Dioxide 32 (21-32) mmol/L Anion Gap 1.0 L (3-11) BUN 22 H (7-18) mg/dl Creatinine 1.40 (0.6-1.4) mg/dl Est Cr Clr Drug Dosing 60.0 ml/min Est GFR ( Amer) 55.0 Est GFR (Non-Af Amer) 47.5 BUN/Creatinine Ratio 15.8 (10-20) Glucose 58 L (70-99) mg/dl Lactate (0.4-2.0) mmol/L Calcium 8.7 (8.5-10.1) mg/dl Total Bilirubin 0.8 (0.2-1) mg/dl AST 14 L (15-37) U/L ALT 25 (12-78) U/L Alkaline Phosphatase 107 (45-117) U/L Total Creatine Kinase (39-308) U/L CK-MB (CK-2) (0.5-3.6) ng/ml CK/CKMB % Calc Troponin I (0-0.045) ng/ml NT-Pro-B Natriuret Pep (0-1800) pg/ml Total Protein 7.7 (6.4-8.2) gm/dl Albumin 3.4 (3.4-5.0) gm/dl Globulin 4.3 H (2.5-4.0) gm/dl Albumin/Globulin Ratio 0.8 L (0.9-2) Lyme Disease IgG Ab (Negative) Lyme Disease IgM Ab (Negative) COVID-19 Eval Order SARS-CoV-2, RNA, NAAT (NEGATIVE) 08/16/20 08/16/20 08/16/20 Range/Units 20:19 20:19 21:25 WBC (4.8-10.8) K/uL RBC (4.7-6.1) M/uL Hgb (14.0-18.0) g/dL Hct (42-52) % MCV (80-100) fL MCH (25-34) pg MCHC (32-36) g/dL RDW Std Deviation (36.4-46.3) fL RDW Coeff of Josefa (11.5-14.5) % Plt Count (130-400) K/uL MPV (7.4-10.4) fL Immature Gran % (Auto) % Neut % (Auto) % Lymph % (Auto) % [place] % (Auto) % Eos % (Auto) % Baso % (Auto) % Neut # (Auto) (1.4-6.5) K/uL Lymph # (Auto) (1.2-3.4) K/uL [place] # (Auto) (0.11-0.59) K/uL Eos # (Auto) (0-0.5) K/uL Baso # (Auto) (0-0.2) K/uL Immature Gran # (Auto) (0.00-0.02) K/uL PT (9.0-12.0) Seconds INR (0.9-1.1) APTT (21.0-31.0) Seconds PTT Ratio Sodium (136-145) mmol/L Potassium (3.5-5.1) mmol/L Chloride (98-107) mmol/L Carbon Dioxide (21-32) mmol/L Anion Gap (3-11) BUN (7-18) mg/dl Creatinine (0.6-1.4) mg/dl Est Cr Clr Drug Dosing ml/min Est GFR ( Amer) Est GFR (Non-Af Amer) BUN/Creatinine Ratio (10-20) Glucose (70-99) mg/dl Lactate (0.4-2.0) mmol/L Calcium (8.5-10.1) mg/dl Total Bilirubin (0.2-1) mg/dl AST (15-37) U/L ALT (12-78) U/L Alkaline Phosphatase (45-117) U/L Total Creatine Kinase 92 (39-308) U/L CK-MB (CK-2) < 1.0 (0.5-3.6) ng/ml CK/CKMB % Calc TNP Troponin I 0.184 H* (0-0.045) ng/ml NT-Pro-B Natriuret Pep 2980 H (0-1800) pg/ml Total Protein (6.4-8.2) gm/dl Albumin (3.4-5.0) gm/dl Globulin (2.5-4.0) gm/dl Albumin/Globulin Ratio (0.9-2) Lyme Disease IgG Ab Negative (Negative) Lyme Disease IgM Ab Negative (Negative) [email or web address] SARS-CoV-2, RNA, NAAT (NEGATIVE) 08/16/20 08/16/20 Range/Units 21:25 22:23 WBC (4.8-10.8) K/uL RBC (4.7-6.1) M/uL Hgb (14.0-18.0) g/dL Hct (42-52) % MCV (80-100) fL MCH (25-34) pg MCHC (32-36) g/dL RDW Std Deviation (36.4-46.3) fL RDW Coeff of Josefa (11.5-14.5) % Plt Count (130-400) K/uL MPV (7.4-10.4) fL Immature Gran % (Auto) % Neut % (Auto) % Lymph % (Auto) % [place] % (Auto) % Eos % (Auto) % Baso % (Auto) % Neut # (Auto) (1.4-6.5) K/uL Lymph # (Auto) (1.2-3.4) K/uL [place] # (Auto) (0.11-0.59) K/uL Eos # (Auto) (0-0.5) K/uL Baso # (Auto) (0-0.2) K/uL Immature Gran # (Auto) (0.00-0.02) K/uL PT (9.0-12.0) Seconds INR (0.9-1.1) APTT (21.0-31.0) Seconds PTT Ratio Sodium (136-145) mmol/L Potassium (3.5-5.1) mmol/L Chloride (98-107) mmol/L Carbon Dioxide (21-32) mmol/L Anion Gap (3-11) BUN (7-18) mg/dl Creatinine (0.6-1.4) mg/dl Est Cr Clr Drug Dosing ml/min Est GFR ( Amer) Est GFR (Non-Af Amer) BUN/Creatinine Ratio (10-20) Glucose (70-99) mg/dl Lactate 1.4 (0.4-2.0) mmol/L Calcium (8.5-10.1) mg/dl Total Bilirubin (0.2-1) mg/dl AST (15-37) U/L ALT (12-78) U/L Alkaline Phosphatase (45-117) U/L Total Creatine Kinase (39-308) U/L CK-MB (CK-2) (0.5-3.6) ng/ml CK/CKMB % Calc Troponin I (0-0.045) ng/ml NT-Pro-B Natriuret Pep (0-1800) pg/ml Total Protein (6.4-8.2) gm/dl Albumin (3.4-5.0) gm/dl Globulin (2.5-4.0) gm/dl Albumin/Globulin Ratio (0.9-2) Lyme Disease IgG Ab (Negative) Lyme Disease IgM Ab (Negative) COVID-19 Eval Order SARS-CoV-2, RNA, NAAT NEGATIVE (NEGATIVE) Imaging Data Attestation: I personally reviewed and interpreted this imaging study as follows: My Impression: Upon my interpretation, chest x-ray, increased interstitial markings consistent with likely CHF. There may be infiltrates in the bases particularly the right. No pneumothorax ECG Data Attestation: I personally reviewed and interpreted this ECG as follows: Indication: + SOB/dyspnea Rate (beats per minute): 45 Rhythm: + sinus bradycardia ECG Intervals/blocks: + Mobitz Type II, + Normal QRS, + Normal QT and + Normal NV ECG Warner: + Normal ECG ST segments: + Normal ST segments ECG Findings: no PACs and no PVCs Comparison ECG Date: from (06/22/19) Change: no significant change MDM Narrative This patient comes in after falling and there is no syncope there is no injury he laid on the floor for about 15 minutes. He denies any complaints but was found to be hypoxemic and was placed on supplemental oxygen. He is adamant that he is had no exposure to Covid and had no recent illness in any way he has underlying heart disease diabetes and other medical problems blood sugar was low here and he was given some orange juice. He is mentating normally at this point. IV access was established and she was placed on a color television console monitor room and multiple blood testing. chest x-ray and EKG was obtained. His EKG showed a secondary heart block. Essentially every other beat is dropped. He seems to be perfusing well with this and is actually hypertensive he has no chest pain or dizziness. Chest x-ray does have some, I think a degree of CHF but he may also have some infiltrates in the bases. he does have an elevated white count but no fever. His lactic acid was normal which would go against sepsis. Troponin is mildly elevated. BNP is also elevated. His Covid testing was negative. He looks comfortable. I think that he needs to be admitted/observe for cardiac work-up. Again at this point, he is asymptomatic. I do believe he has CHF component on top of this and possibly infection. I discussed case with Dr. Jose they saw the patient in ER and also start him on antibiotics to cover the possibility for infection. He will be admitted. Continuous cardiac monitoring: An order was placed in the EMR for continuous cardiac monitoring. The patient was noted to be in sinus bradycardia with a r ate of 45 Impression & Plan Mobitz type 2 second degree heart block, SOB (shortness of breath), CHF (congestive heart failure), Hypoxemia Discharge Plan Visit Data Chief Complaint: Fall Stated Complaint: FALL, FEVER, HYPOXIA ED Provider: Harjit Lai Discharge Problem: Mobitz type 2 second degree heart block, SOB (shortness of breath), CHF (congestive heart failure), Hypoxemia Patient Disposition: Admitted As Inpatient Discharge Instructions Interventions: ED Discharge Assessment Last Done: 08/16/20 23:19 Discharge Problem: CHF (congestive heart failure) Qualifiers: Heart failure type: unspecified Heart failure chronicity: acute on chronic Qualified Code(s): I50.9 - Heart failure, unspecified
[2020-08-16 21:15] LABS: Albumin Level 3.4 gm/dl (3.4-5.0); BUN Creatinine Ratio 15.8 (10-20); Calcium 8.7 mg/dl (8.5-10.1); Est GFR (Non-African American) 47.5; Potassium 3.9 mmol/L (3.5-5.1)
[2020-08-16 21:18] LABS: Albumin Globulin Ratio 0.8 (0.9-2); Bilirubin,Total 0.8 mg/dl (0.2-1); Globulin 4.3 gm/dl (2.5-4.0); Total Protein 7.7 gm/dl (6.4-8.2)
[2020-08-16 21:21] LABS: Basophils # (auto) 0.04 K/uL (0-0.2); Basophils % (auto) 0.2 %; Eosinophils # (auto) 0.01 K/uL (0-0.5); Eosinophils % (auto) 0.1 %; Hematocrit (blood only) 40.2 % (42-52); Hemoglobin 13.1 g/dL (14.0-18.0); Immature Granulocytes # (auto) 0.03 K/uL (0.00-0.02); Immature Granulocytes % (auto) 0.2 %; Lymphocytes # (auto) 0.87 K/uL (1.2-3.4); Lymphocytes % (auto) 5.4 %; Mean Corpuscular Hemoglobin 30.5 pg (25-34); Mean Corpuscular Hgb Conc 32.6 g/dL (32-36); Mean Corpuscular Volume 93.5 fL (80-100); Mean Platelet Volume 12.1 fL (7.4-10.4); Monocytes % (auto) 8.1 %; Neutrophils # (auto) 13.87 K/uL (1.4-6.5); Platelet Count 247 K/uL (130-400); RDW Coefficient of Variation 13.8 % (11.5-14.5); RDW Standard Deviation 46.8 fL (36.4-46.3); White Blood Count 16.12 K/uL (4.8-10.8)
[2020-08-16 22:42] LABS: Creatine Kinase 92 U/L (39-308); Creatine Kinase MB < 1.0 ng/ml (0.5-3.6); NT Pro B Type Natriuretic Pept 2980 pg/ml (0-1800); Troponin I 0.184 ng/ml (0-0.045)
[2020-08-16 22:46] LABS: Lyme Ab IgG w/WB Rflx Negative (Negative); Lyme Ab IgM w/WB Rflx Negative (Negative)
--- NOTE | 2020-08-16 22:55 | History & Physical Report ---
Date of Service August 16, 2020 Assessment & Plan (1) Mobitz type 2 second degree heart block: Mr. Fowler is a 79yo gentleman with PMHx of DMI on an insulin pump, chronic cerebral ischemia, vertebral artery occlusion, PAD, CAD, HTN, HLD, PELON on CPAP who was admitted with suspected pneumonia and second degree heart block. Pneumonia -Pt w/ SOB at home, hypoxic in the ED with O2 sats in the 80s -Chest XR with bibasilar pathology- await official read in the AM -wbc 16.12, COVID NEGATIVE -Rocephin +azithromycin -Duonebs qid scheduled -O2 supplementation as needed Mobitz II Heart block -EKG showed a sinus rhythm with second degree heart block, HR 45, qtc 423. No signs of ischemia -Trop of 0.184, will trend q6h -Echo pending -Lyme titers negative -consult cardiology- appreciate recs -currently stable but will have pacer pads available CHF -Pt with increased oxygen need, crackles on exam -BNP elevated to 2980 -Echo 2019: EF>70, hyperdynamic systolic function, no LVH or wall motion abnormalities. Repeat Echo pending. -continue home torsemide 40mg daily -consider extra doses as needed DMI -Pt has insulin pump -per chart review last noted Hgba1c of 8.7 on 06/11 -order placed for use of pump while hospitalized -pharmacy consult for use of pump while hospitalized Chronic cerebral Ischemia/Vertebral artery occlusion -continue home Plavix 75mg daily CAD -Hx of stent placements in 2000 -hold home metoprolol succinate 50mg daily given bradycardia -hold home nitroglycerin HTN -continue home amlodipine 10mg-benazepril 40mg daily HLD -continue home rosuvastatin GERD -continue home pantoprazole 20mg daily PELON -continue home cpap qhs FEN/GI: HH diet DVT prophylaxis: On plavix, SCDs CODE STATUS: Full code Dispo: PCU/tele for continued cardiac monitoring (2) CHF (congestive heart failure): (3) SOB (shortness of breath): (4) Hypoxemia: (5) Chronic cerebral ischemia: (6) 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 Fowler is a 79yo gentleman with PMHx of DMI on an insulin pump, chronic cerebral ischemia, vertebral artery occlusion, PAD, CAD, HTN, HLD, PELON on CPAP who was admitted with suspected pneumonia and second degree heart block. Pt states that he has not been feeling like himself recently, feeling weaker. However, he was sitting on his bed trying to put in his eye drops when he slipped off the bed onto the floor, and was unable to get up. States he did not lose consciousness at all, and had extreme difficulty getting up that his and son had to help him up. States he was down for a while trying to get up and was significantly short of breath as a result. States he does not believe he was exposed to COVID, does have a camper but checks himself repeatedly for ticks. Does not believe that he has been bitten recently. Does not follow with cardiology currently, though he did in the past. After this episode today, he called his PCP Dr. Huerta who advised he present to the ED. Never smoked, has about 2 alcoholic drinks a week and states he never used recre ational drugs. Lives at home with his . Currently retired. Allergies Allergy/AdvReac Type Severity Reaction Status Date / Time aspirin Allergy Severe Anaphylaxis Verified 08/16/20 22:06 Iodinated Contrast Media Allergy Severe SOB,HIVES Verified 08/16/20 22:06 Sulfonylureas Allergy Unknown UNKNOWN Unverified 08/16/20 22:06 enalaprilat [From Vasotec] AdvReac Severe CHEST Unverified 08/16/20 22:06 TIGHTNESS atorvastatin [From Lipitor] AdvReac Mild cramps Unverified 08/16/20 22:06 ezetimibe [From Vytorin] AdvReac Mild MYALGIA Unverified 08/16/20 22:06 simvastatin [From Vytorin] AdvReac Mild MYALGIA Unverified 08/16/20 22:06 Nwaismz-Coe-Qgn Reductase AdvReac Mild MUSCLE Verified 08/16/20 22:06 Inhibitor ACHING Home Medications Home Medications Medication Instructions Recorded Confirmed Type latanoprost [Xalatan] 1 drp OPL HS 09/18/18 08/16/20 History coenzyme Q10 400 mg capsule 400 mg PO DAILY cap 06/12/19 08/16/20 History cyanocobalamin (vitamin B-12) 1,000 mcg PO Q3D tab 06/12/19 08/16/20 History 1,000 mcg tablet glucosamine sulfate 1,000 mg 1,000 mg PO Q2D cap 06/12/19 08/16/20 History capsule pyjkrgyj-dzs-mwuyw acid 0.4 1 tab PO DAILY tab 06/12/19 08/16/20 History mg-lycopene 300 mcg-lutein 250 mcg tablet selenium 200 mcg tablet 200 mcg PO 3XWK tab 06/26/19 08/16/20 History vitamin E 400 unit capsule 400 unit PO 3XWK cap 06/26/19 08/16/20 History rosuvastatin 10 mg tablet See Rx Instructions PO DAILY #135 06/27/19 08/16/20 Rx tab Novolog U-100 Insulin aspart 100 200 unit CONTINUOUS SUBCUTANEOUS 07/01/19 08/16/20 Rx unit/mL subcutaneous solution INFUSION .COMPLEX #18 vial NS nitroglycerin 0.4 mg sublingual 0.4 mg SUBLINGUAL Q5M PRN #30 tab 07/03/19 08/16/20 Rx tablet clopidogrel 75 mg tablet 75 mg PO QAM #90 tab 11/20/19 08/16/20 Rx metoprolol succinate 50 mg 50 mg PO DAILY #90 tab 02/13/20 08/16/20 Rx tablet,extended release 24 hr pantoprazole 20 mg tablet,delayed 20 mg PO DAILY #90 tab 02/19/20 08/16/20 Rx release torsemide 20 mg tablet 40 mg PO DAILY #180 tab 03/26/20 08/16/20 Rx amlodipine 10 mg-benazepril 40 mg 1 cap PO DAILY #90 cap 04/13/20 08/16/20 Rx capsule OneTouch Ultra2 Meter #1 ea NS 06/17/20 Rx OneTouch Ultra Blue Test Strip #300 ea NS 06/18/20 Rx brimonidine-timolol [Combigan] 1 drp OPL BID 08/16/20 08/16/20 History cholecalciferol (vitamin D3) 50 mcg PO DAILY 08/16/20 08/16/20 History [Vitamin D3] dorzolamide [Trusopt] 1 drp OPL BID 08/16/20 08/16/20 History Past Med/Surg History Medical History Acute dyspnea Basal cell carcinoma CAD (coronary artery disease) Deafness in left ear Diabetes Diabetes mellitus, type 2 GERD (gastroesophageal reflux disease) Glaucoma left eye History of colon polyps History of esophageal dilatation Hyperlipidemia Hypertension Hypoxia Lung nodule Removed ~2004 Melanoma Myocardial Infarction x4---last heart attack 2000--no rubber thread spooler PELON (obstructive sleep apnea) cpap Osteoarthritis Sarcoma of femur left In ~2004, s/p removal and radiation SDH (subdural hematoma) 2010--no sx, no neurologist---no deficits Shortness of breath Surgical History History of cardiac cath 2000--2 stents placed History of colonoscopy History of esophagogastroduodenoscopy (EGD) with EUS History of eye surgery right eye hemorrhage removal History of heart artery stent 2 stents placed History of lung surgery 2004--nodule removed History of Mohs micrographic surgery for skin cancer left ear History of surgery left leg sarcoma removal Status post cataract extraction of both eyes with insertion of intraocular lens Family History Father , age 83 of lung cancer. Lung cancer Prostate cancer Mother , age 89 of lung cancer. Lung cancer Diabetes Grandfather (Paternal) Diabetes Other No family history of adverse response to anesthesia Social History Smoking Status: Never smoker Second Hand Exposure: Yes (work environment); Hx Alcohol Use: Yes Alcohol type: beer Alcohol Intake Frequency Comment: One or 2 beers, 2 or 3 times per week. 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 Feels Safe at Home: Yes Safety Concerns: Feels Safe At This Time Childhood Exposure to Second-Hand Smoke: Yes Dental Care, Regularly: Yes Physical Activity Frequency: Does not Exercise Seatbelt Use: always Sunscreen Use: No Assistive Devices: Oxygen - Continuous Review of Systems Constitutional: + chills; no fever and no sweats Eyes: + worsening vision Ear, Nose, Mouth, Throat: no nasal congestion and no sore throat Respiratory: + dyspnea and + dyspnea on exertion; no cough Cardiovascular: no chest pain, no palpitations, no lightheadedness, no syncope and no edema Gastrointestinal: no abdominal pain, no nausea, no vomiting, no constipation, no diarrhea/loose stools and no blood in stools Genitourinary: no dysuria and no hematuria Musculoskeletal: + muscle weakness; no back pain and no body aches Integumentary: no rash Neurologic: no headache(s) and no confusion Psychiatric: no confusion Physical Exam Physical Exam: General: Alert, oriented. No acute distress, laying down with nasal cannula in nares Skin: No noted rashes or bruises Psych: Appropriate mood and affect Neuro: No gross deficits HEENT: NC/AT Chest: Nontender to palpation. CV: RRR, Normal s1, s2. No murmurs appreciated Resp: Breath sounds with fine crackles noted in right base especially Abdomen: BS+. Soft, nontender, protuberant. No guarding. Extremities: + edema in lower extremities bilaterally. Results & Data Results & Data ([facility]) Vital Signs (Past 12 Hours) Vital Signs Temp Pulse Pulse Resp BP BP Pulse Ox 08/16/20 22:15 42 L 20 164/52 H 92 08/16/20 21:15 43 L 20 138/53 L 92 08/16/20 20:31 96 08/16/20 20:30 96 08/16/20 20:24 37.2 C 53 L 24 173/49 H 96 Supervising Physician Co-Signing Physician Notes Attending addendum: I have physically seen this patient, have supervised the medical residents activities, and agree with the H&P unless as otherwise noted. Assessment and Plan: Pneumonia- Bibasilar infiltrates on x-ray Placed on ceftriaxone 2 g IV daily and azithromycin 500 mg IV daily Duonebs every 4 hours while awake and every 2 hours when necessary. Nasal cannula oxygen titrate to keep pulse ox 94 to 95% Second-degree Mobitz type II heart block intermittent- The patient will be admitted to telemetry for serial cardiac enzymes, serial EKG's, cardiac rhythm monitoring and a 2-D echocardiogram with Dopplers. Troponin 0.184 upon admission Continue amlodipine,, benazepril, clopidogrel and nitroglycerin sublingual as as needed. hold metoprolol succinate and torsemide Hyperlipidemia- Continue rosuvastatin Diabetes mellitus- Patient will use own insulin pump and notify Nurses of coverage GERD- Continue pantoprazole Remaining orders and notations as noted Resident Activity Tracking Resident Involvement: Resident Care Provided Care Provided: Adult Hospital Medicine (1) CAD (coronary artery disease) Associated angina: without angina Coronary Disease-Associated Artery/Lesion type: [place] artery [place] vs. transplanted heart: [place] heart Qualified Code(s): I25.10 - Atherosclerotic heart disease of [place] coronary artery without angina pectoris (2) CHF (congestive heart failure) Heart failure chronicity: acute on chronic Heart failure type: unspecified Qualified Code(s): I50.9 - Heart failure, unspecified
[2020-08-16] MEDS ORDERED: INSULIN ASPART PER UNIT SQ SCH (23:44)
[2020-08-16] MEDS ORDERED: AZITHROMYCIN 250 MG TAB PO ONE (23:44)
[2020-08-17] MEDS: cefTRIAXone SODIUM 2,000 MG in DEXTROSE 5% 50 ML IV SCH ×2 (00:16→23:15)
[2020-08-17] MEDS: COMBIGAN~ORDER AWAITING ACTION SCH ×3 (00:22→16:26)
[2020-08-17] MEDS ORDERED: INSULIN ASPART 100 UNITS/ML VIAL SC PRN (01:30)
[2020-08-17] MEDS ORDERED: GLUCOSE 10 TABS/TUBE PO PRN (01:30)
[2020-08-17] MEDS ORDERED: GLUCAGON FOR INJ 1 MG VIAL SQ PRN (01:30)
[2020-08-17] MEDS ORDERED: GLUCOSE 40% GEL 15 GM TUBE PO PRN (01:30)
[2020-08-17] MEDS ORDERED: DEXTROSE 50% 50 ML SYRINGE IV PRN (01:30)
[2020-08-17 02:16] LABS: Basophils # (auto) 0.02 K/uL (0-0.2); Basophils % (auto) 0.1 %; Hematocrit (blood only) 35.8 % (42-52); Hemoglobin 11.6 g/dL (14.0-18.0); Immature Granulocytes # (auto) 0.03 K/uL (0.00-0.02); Immature Granulocytes % (auto) 0.2 %; Lymphocytes # (auto) 1.75 K/uL (1.2-3.4); Lymphocytes % (auto) 13.1 %; Mean Corpuscular Hemoglobin 30.1 pg (25-34); Mean Corpuscular Hgb Conc 32.4 g/dL (32-36); Mean Platelet Volume 11.7 fL (7.4-10.4); Monocytes # (auto) 1.28 K/uL (0.11-0.59); Monocytes % (auto) 9.6 %; Neutrophils # (auto) 10.31 K/uL (1.4-6.5); Platelet Count 184 K/uL (130-400); RDW Standard Deviation 47.8 fL (36.4-46.3); Red Blood Count 3.85 M/uL (4.7-6.1); White Blood Count 13.39 K/uL (4.8-10.8)
[2020-08-17] MEDS ORDERED: PHARMACY GLYCEMIC MGMT CONSULT PRN (02:22)
[2020-08-17 02:34] LABS: BUN Creatinine Ratio 18.7 (10-20); Calcium 8.1 mg/dl (8.5-10.1); Creatinine Clr Calc Pharmacy 64.2 ml/min; Est GFR (African American) 61.9; Est GFR (Non-African American) 53.4
[2020-08-17 05:32] LABS: Appearance Urine Clear (Clear); Bacteria Urine Automated Negative (Negative); Bilirubin Urine Negative (Negative); Blood Urine Negative (Negative); Color Urine Dark Yellow; Glucose Urine UA Negative (Negative); Ketones Urine 1+ (Negative); Leukocyte Esterase Urine Trace (Negative); Nitrite Urine Negative (Negative); Protein Urine Negative (Negative); RBC Urine Automated 0-4 /hpf (0-4); Specific Gravity Urine 1.021 (1.000-1.030); Urobilinogen Urine Negative (Negative); pH Urine 5.5 (4.5-7.5)
--- NOTE | 2020-08-17 05:56 | Billing Data ---
Date of Service August 17, 2020 Coding Level of Care Code 08692 Initial Inpt Care Lvl 3
[2020-08-17] MEDS: ALBUT/IPRATROP 3MG/0.5MG NEB 3 ML VIAL NEB SCH ×2 (07:10→10:49)
--- NOTE | 2020-08-17 08:04 | XRay Report ---
XR chest 1V portable HISTORY: 79 years-old Male Dyspnea acute shortness of breath COMPARISON: Chest radiographs 06/15/2020 TECHNIQUE: Portable AP view of the chest FINDINGS: Cardiac silhouette is enlarged. Pulmonary vascular congestion with new interstitial coarsening and il l-defined right greater than left bibasilar densities. No pneumothorax. Blunting of the costophrenic angles is suspicious for trace effusions. Degenerative changes of the shoulders and spine. Remote fra cture deformity of the posterior right third rib. IMPRESSION: 1. Cardiomegaly with pulmonary vascular congestion and interstitial coarsening suggestive of pulmonar y edema. 2. Right greater than left bibasilar opacities suggest atelectasis versus pneumonitis. 3. Probable trace pleural effusions. ACT 112: Negative or not required by law. The above report was generated using voice recognition software. It may contain grammatical, syntax o r spelling errors. Electronically signed by: Gilberto Zarate M.D. 08/17/2020 8:03 AM
[2020-08-17] MEDS: PANTOprazole 40 MG TAB PO SCH (08:09)
[2020-08-17] MEDS: CLOPIDOGREL BISULFATE 75 MG TAB PO SCH (08:09)
[2020-08-17] MEDS: ROSUVASTATIN CALCIUM 10 MG TAB PO SCH (08:09)
[2020-08-17] MEDS: TORSEMIDE 20 MG TAB PO SCH (08:09)
[2020-08-17] MEDS: NovoLOG INSULIN PUMP SCH ×4 (08:09→20:28)
[2020-08-17] MEDS: DORZOLAMIDE HCL 2% OPH SOLN 10 ML BTL OPL SCH ×2 (08:10→20:27)
[2020-08-17] MEDS ORDERED: amLODIPine BESYLATE 5 MG TAB PO SCH (09:00)
[2020-08-17] MEDS ORDERED: BENAZEPRIL HCL 10 MG TAB PO SCH (09:00)
--- NOTE | 2020-08-17 09:12 | Cardiology Consultation ---
Date of Consultation August 17, 2020 Assessment & Plan (1) Mobitz type 2 second degree heart block: He has what appears to be recently acquired 2-1 AV block, although if he had intermittent AV block in the past he may not have noticed it as he is not terribly symptomatic. It appears to be Mobitz 2 (in for his) as there is no evidence of AV hilaria Wenkebach present and as many times as he converts between sinus with one-to-one in 2-1 you would normally see Wenkebach if it were present. This would indicate that he needs a pacemaker. Metoprolol could potentially aggravate it if it is AV hilaria, he is now 24 hours off of metoprolol with no evidence of return of one-to-one conduction and he is on a low dose. It is very unlikely that this is a cause however it is on hold and I would wait until tomorrow to implant a pacemaker. I discussed pacemaker with him and he is agreeable. His recently had one implanted. (2) CAD (coronary artery disease): He has coronary artery disease, he does not have symptoms to suggest progression but has not been evaluated for some time. This does not appear to be an acute ischemic presentation. His electrocardiogram does not show any acute changes, however his troponin is slightly elevated. I do not think he has active ischemia and would not investigate now as long as things no change. (3) Elevated troponin I level: Is rising troponin is little surprising, his heart rate is not slow enough that you would expect to have an elevated troponin but I suspect it is demand ischemia not in acute coronary presentation. I would continue to trend troponin s, if they continue to climb we may be forced to do a catheterization. I would check an echo. (4) Peripheral arterial disease: He has peripheral arterial disease as well as cerebrovascular disease and is on statins and platelet inhibitors for that, I would continue these. They do not need to be held for a pacemaker. (5) CHF (congestive heart failure): He had some symptoms suggestive of congestive heart failure and an elevated BNP, I would check his left ventricular function which would be helpful to know as we are planning device implantation I do not think he has had a recent echocardiogram. Agree with diuresis. History of Present Illness Reason for Consultation: Bradycardia Attending Physician: Kellie Bailey MD History of Present Illness This is a 79-year-old male with a history of diabetes mellitus, hypertension, hyperlipidemia, coronary artery disease with prior myocardial infarction which by his history last occurred in 2000 at which time he had stent placement. 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 He also has cerebrovascular disease with a vertebral artery occlusion. Recently he has been feeling weak, he has also been falling although not having loss of consciousness. In the emergency room he is noted to have intermittent 2-1 AV block, with no Mobitz 1 preceding, suggesting this is Mobitz 2 AV block. He is in this rhythm perhaps half of the time. A Lyme titer was evaluated and it is negative. At home he is on clopidogrel and Crestor for his atherosclerotic disease, he also takes metoprolol succinate 50 mg daily and he is on amlodipine and torsemide. His last dose of metoprolol was August 16, 2020. His electrocardiogram on presentation shows sinus rhythm at about 90 bpm with 2-1 AV block and a narrow QRS complex. On telemetry he alternates between 2-1 AV block and sinus rhythm, his heart rate is typically around 45 bpm when he is 2-1 and 80-90 when he is one-to-one. He generally is not aware of the rhythm. At the time my evaluation he was in bed and feeling well. He denies palpitations, shortness of breath, lightheadedness or dizziness or chest discomfort. Allergies Allergy/AdvReac Type Severity Reaction Status Date / Time aspirin Allergy Severe Anaphylaxis Verified 08/16/20 22:06 Iodinated Contrast Media Allergy Severe SOB,HIVES Verified 08/16/20 22:06 Sulfonylureas Allergy Unknown UNKNOWN Unverified 08/16/20 22:06 enalaprilat [From Vasotec] AdvReac Severe CHEST Unverified 08/16/20 22:06 TIGHTNESS atorvastatin [From Lipitor] AdvReac Mild cramps Unverified 08/16/20 22:06 ezetimibe [From Vytorin] AdvReac Mild MYALGIA Unverified 08/16/20 22:06 simvastatin [From Vytorin] AdvReac Mild MYALGIA Unverified 08/16/20 22:06 Soojimq-Gqv-Zji Reductase AdvReac Mild MUSCLE Verified 08/16/20 22:06 Inhibitor ACHING Home Medications Home Medications Medication Instructions Recorded Confirmed Type latanoprost [Xalatan] 1 drp OPL HS 09/18/18 08/16/20 History coenzyme Q10 400 mg capsule 400 mg PO DAILY cap 06/12/19 08/16/20 History cyanocobalamin (vitamin B-12) 1,000 mcg PO Q3D tab 06/12/19 08/16/20 History 1,000 mcg tablet glucosamine sulfate 1,000 mg 1,000 mg PO Q2D cap 06/12/19 08/16/20 History capsule wnwzgkou-dyp-zeonh acid 0.4 1 tab PO DAILY tab 06/12/19 08/16/20 History mg-lycopene 300 mcg-lutein 250 mcg tablet selenium 200 mcg tablet 200 mcg PO 3XWK tab 06/26/19 08/16/20 History vitamin E 400 unit capsule 400 unit PO 3XWK cap 06/26/19 08/16/20 History rosuvastatin 10 mg tablet See Rx Instructions PO DAILY #135 06/27/19 08/16/20 Rx tab Novolog U-100 Insulin aspart 100 200 unit CONTINUOUS SUBCUTANEOUS 07/01/19 08/16/20 Rx unit/mL subcutaneous solution INFUSION .COMPLEX #18 vial NS nitroglycerin 0.4 mg sublingual 0.4 mg SUBLINGUAL Q5M PRN #30 tab 07/03/19 08/16/20 Rx tablet clopidogrel 75 mg tablet 75 mg PO QAM #90 tab 11/20/19 08/16/20 Rx metoprolol succinate 50 mg 50 mg PO DAILY #90 tab 02/13/20 08/16/20 Rx tablet,extended release 24 hr pantoprazole 20 mg tablet,delayed 20 mg PO DAILY #90 tab 02/19/20 08/16/20 Rx release torsemide 20 mg tablet 40 mg PO DAILY #180 tab 03/26/20 08/16/20 Rx amlodipine 10 mg-benazepril 40 mg 1 cap PO DAILY #90 cap 04/13/20 08/16/20 Rx capsule OneTouch Ultra2 Meter #1 ea NS 06/17/20 Rx OneTouch Ultra Blue Test Strip #300 ea NS 06/18/20 Rx brimonidine-timolol [Combigan] 1 drp OPL BID 08/16/20 08/16/20 History cholecalciferol (vitamin D3) 50 mcg PO DAILY 08/16/20 08/16/20 History [Vitamin D3] dorzolamide [Trusopt] 1 drp OPL BID 08/16/20 08/16/20 History Patient History Medical History (Updated 08/17/20 @ 09:15 by Luis Cowart MD) Acute dyspnea Basal cell carcinoma CAD (coronary artery disease) Deafness in left ear Diabetes Diabetes mellitus, type 2 GERD (gastroesophageal reflux disease) Glaucoma left eye History of colon polyps History of esophageal dilatation Hyperlipidemia Hypertension Hypoxia Lung nodule Removed ~2004 Melanoma Myocardial Infarction x4---last heart attack 2000--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 PELON (obstructive sleep apnea) cpap Osteoarthritis Sarcoma of femur left In ~2004, s/p removal and radiation SDH (subdural hematoma) 2010--no sx, no neurologist---no deficits Shortness of breath Surgical History History of cardiac cath 2000--2 stents placed History of colonoscopy History of esophagogastroduodenoscopy (EGD) with EUS History of eye surgery right eye hemorrhage removal History of heart artery stent 2 stents placed History of lung surgery 2004--nodule removed History of Mohs micrographic surgery for skin cancer left ear History of surgery left leg sarcoma removal Status post cataract extraction of both eyes with insertion of intraocular lens Family History Father , age 83 of lung cancer. Lung cancer Prostate cancer Mother , age 89 of lung cancer. Lung cancer Diabetes Grandfather (Paternal) Diabetes Other No family history of adverse response to anesthesia Social History Smoking Status: Never smoker Second Hand Exposure: Yes (work environment); Hx Alcohol Use: Yes Alcohol type: beer Alcohol Intake Frequency Comment: One or 2 beers, 2 or 3 times per week. 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 Feels Safe at Home: Yes Safety Concerns: Feels Safe At This Time Childhood Exposure to Second-Hand Smoke: Yes Dental Care, Regularly: Yes Physical Activity Frequency: Does not Exercise Seatbelt Use: always Sunscreen Use: No Assistive Devices: Oxygen - Continuous Review of Systems Review of Systems: All systems reviewed & are unremarkable except as noted in HPI & below Physical Exam Physical Exam: Constitutional: Alert, cooperative and in no distress. He is overweight. HEENT: Unremarkable Neck: No jugular venous distention, carotid pulses are normal and equal bilaterally without bruits. Pulmonary: Clear to auscultation bilaterally. Cardiac: Regular slow rhythm with no murmur, gallop or rub. Abdomen: Soft, nontender with normal bowel sounds. Extremities: No edema. Distal pulses intact. Neurologic: No focal findings. Gait is steady. Skin: No rash, ecchymoses or petechiae. Results & Data ([facility]) Vital Signs (Past 12 Hours) Vital Signs Temp Pulse Pulse Resp BP BP Pulse Ox 08/17/20 07:51 36.9 C 62 20 142/64 H 91 08/17/20 07:10 41 L 16 90 08/17/20 03:17 37.2 C 44 L 20 140/59 L 95 08/17/20 02:18 50 L 22 90 08/17/20 00:35 83 20 92 08/17/20 00:25 39 L 08/16/20 23:44 37 C 70 24 157/63 H 90 08/16/20 23:13 76 20 164/52 H 92 08/16/20 22:15 42 L 20 164/52 H 92 08/16/20 21:15 43 L 20 138/53 L 92 Laboratory Results Cardiac Enzymes 08/16/20 08/16/20 08/17/20 Range/Units 20:19 20:19 01:59 AST 14 L (15-37) U/L CK-MB (CK-2) < 1.0 (0.5-3.6) ng/ml Troponin I 0.184 H* 0.418 H* (0-0.045) ng/ml Coagulation 08/16/20 Range/Units 20:19 PT 11.7 (9.0-12.0) Seconds APTT 26.5 (21.0-31.0) Seconds CBC 08/16/20 08/17/20 Range/Units 20:19 01:59 WBC 16.12 H 13.39 H (4.8-10.8) K/uL RBC 4.30 L 3.85 L (4.7-6.1) M/uL Hgb 13.1 L 11.6 L (14.0-18.0) g/dL Hct 40.2 L 35.8 L (42-52) % Plt Count 247 184 (130-400) K/uL Neut # (Auto) 13.87 H 10.31 H (1.4-6.5) K/uL Lymph # (Auto) 0.87 L 1.75 (1.2-3.4) K/uL Gibson # (Auto) 1.30 H 1.28 H (0.11-0.59) K/uL Eos # (Auto) 0.01 0.00 (0-0.5) K/uL Baso # (Auto) 0.04 0.02 (0-0.2) K/uL Comprehensive Metabolic Panel 08/16/20 08/17/20 Range/Units 20:19 01:59 Sodium 143 143 (136-145) mmol/L Potassium 3.9 4.0 (3.5-5.1) mmol/L Chloride 110 H 109 H (98-107) mmol/L Carbon Dioxide 32 29 (21-32) mmol/L BUN 22 H 24 H (7-18) mg/dl Creatinine 1.40 1.27 (0.6-1.4) mg/dl Glucose 58 L 162 H (70-99) mg/dl Calcium 8.7 8.1 L (8.5-10.1) mg/dl AST 14 L (15-37) U/L ALT 25 (12-78) U/L Alkaline Phosphatase 107 (45-117) U/L Total Protein 7.7 (6.4-8.2) gm/dl Albumin 3.4 (3.4-5.0) gm/dl Intake and Output 08/16/20 08/17/20 08/17/20 22:59 06:59 14:59 Intake Total 520 / 520 Output Total 400 / 400 Balance 120 / 120 Intake: IV 70 / 70 Rocephin 2,000 mg In D5w 50 ml 70 / 70 @ 100 mls/hr IV Q24H [facility] Rx#: [id number] Oral 450 / 450 Output: Urine 400 / 400 Other: Weight 134.9 kg 127.8 kg Weight Measurement Method Built in Bedscale Standing Scale Diagnostic Findings Electrocardiograms and telemetry were reviewed in detail, details are in the HPI. PG Care Time/CCT Total # of Minutes Spent Total Time Spent with Patient: Total time spent is greater than 50% in coordination of care (as documented) at patient's floor/unit and/or counseling patient: Coding Level of Care Code 59610 Initial Inpt Care Lvl 3 Diagnoses Mobitz type 2 second degree heart block I44.1 CAD (coronary artery disease) I25.10 Coronary Disease-Associated Artery/Lesion type: [place] artery [place] vs. transplanted heart: [place] heart Associated angina: without angina Elevated troponin I level R77.8 Peripheral arterial disease I73.9 CHF (congestive heart failure) I50.9 Heart failure chronicity: acute on chronic Heart failure type: unspecified (1) CAD (coronary artery disease) Coronary Disease-Associated Artery/Lesion type: [place] artery [place] vs. transplanted heart: [place] heart Associated angina: without angina Qualified Code(s): I25.10 - Atherosclerotic heart disease of [place] coronary artery without angina pectoris (2) CHF (congestive heart failure) Heart failure chronicity: acute on chronic Heart failure type: unspecified Qualified Code(s): I50.9 - Heart failure, unspecified
--- NOTE | 2020-08-17 09:35 | Hospitalist Progress Note ---
Date of Service August 17, 2020 Assessment & Plan (1) Mobitz type 2 second degree heart block: Mr. Fowler is a 79yo gentleman with PMHx of DMI on an insulin pump, chronic cerebral ischemia, vertebral artery occlusion, PAD, CAD, HTN, HLD, PELON on CPAP who was admitted with suspected pneumonia and second degree heart block. Mobitz II Heart block - Initial EKG showed a sinus rhythm with second degree heart block, HR 45, qtc 423. No signs of ischemia - Echo: - LV systolic function is normal - No regional wall motion abnormalities - EF=60-65% - Lyme titers negative - Cardiology consult: - Appears to be recently acquired 2-1 AV block - Appears to be Mobitz 2 as there is no evidence of AV hilaria Wenckebach present - He needs a pacemaker - scheduled for am - Metoprolol could potentially aggravate it if it is AV hilraia--very unlikely that is is the cause but recommends holding until pacemaker implanted - Currently stable but will have pacer pads available Pneumonia - Pt w/ SOB at home, hypoxic in the ED with O2 sats in the 80s - O2 sat 90 today on nasal cannula - Chest XR: - Cardiomegaly with pulmonary vascular congestion and interstitial coarsening suggestive of pulmonary edema - Right greater than left bibasilar opacities suggest atelectasis versus pneumonitis. - Probable trace pleural effusions. - WBC 13.39 - Procalcitonin 0.50 today drawn after antibiotics began--pneumonia remains a possibility and as such will continue treatment - Continue ceftriaxone 2g IV daily - Continue Azithromycin 250mg PO daily - Duonebs changed to PRN as patient not complaining of SOB or wheezing - O2 supplementation as needed - Follow AM CBC Chronic diastolic CHF - Pt with increased oxygen need - BNP elevated to 2980 - Echo 2019: EF>70, hyperdynamic systolic function, no LVH or wall motion abnormalities - Continue home torsemide 40mg daily - Consider extra dose if concern of fluid overload. - Respiratory distress likely pulmonary pathology. CAD - Hx of stent placements in 2000 - Hold home metoprolol succinate 50mg daily as per cardio recs above - Hold home nitroglycerin - Serial troponins: 0.184 --> 0.418 --> 0.381 - Per cardiology: His third troponin is slightly lower than his second, this would be consistent with demand ischemia and I would not pursue this further DMI - Pt has insulin pump - Per chart review last noted Hgba1c of 8.7 on 06/11 - Order placed for use of pump while hospitalized - Pharmacy consult for use of pump while hospitalized - Follow AM BMP Chronic cerebral Ischemia/Vertebral artery occlusion - Continue home Plavix 75mg daily HTN -continue home amlodipine 10mg-benazepril 40mg daily HLD -continue home rosuvastatin GERD -continue home pantoprazole 20mg daily PELON -continue home cpap qhs FEN/GI: Heart Healthy diet DVT prophylaxis: On plavix, SCDs CODE STATUS: Full code Dispo: PCU/tele for continued cardiac monitoring (2) CHF (congestive heart failure): (3) SOB (shortness of breath): (4) Hypoxemia: (5) Chronic cerebral ischemia: (6) 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 Hooker and agree with the findings and care plan. Subjective Patient seen today at bedside. Says he feels "great" and has no current complaints. Denies CP, palpitations, SOB, wheezing. Patient said he had an episode similar two this one about 2 years for which he was admitted but says he did not receive a specific diagnosis for what had occurred. Review of Systems Constitutional: no fever, no chills and no weakness Respiratory: no cough, no dyspnea and no wheezing Cardiovascular: no chest pain, no palpitations and no edema Gastrointestinal: no abdominal pain, no nausea and no vomiting Physical Exam Constitutional: WD/WN, vitals as above + obese; no acute distress Respiratory: normal respiratory effort, lungs clear to auscultation Cardiovascular: RRR, no murmur, no edema Heart Sounds: normal S1 and normal S2 Gastrointestinal (Abdomen): normal bowel sounds, soft, nontender, no hepatosplenomegaly Skin: no rashes, warm and dry Psychiatric: A+Ox3, euthymic affect Results & Data Results & Data ([facility]) Vital Signs (Past 12 Hours) Vital Signs Temp Pulse Pulse Resp BP BP Pulse Ox 08/17/20 07:51 36.9 C 62 20 142/64 H 91 08/17/20 07:10 41 L 16 90 08/17/20 03:17 37.2 C 44 L 20 140/59 L 95 08/17/20 02:18 50 L 22 90 08/17/20 00:35 83 20 92 08/17/20 00:25 39 L 08/16/20 23:44 37 C 70 24 157/63 H 90 08/16/20 23:13 76 20 164/52 H 92 08/16/20 22:15 42 L 20 164/52 H 92 Resident Activity Tracking Resident Involvement: Resident Care Provided Care Provided: Adult Hospital Medicine (1) CAD (coronary artery disease) Associated angina: without angina Coronary Disease-Associated Artery/Lesion type: [place] artery [place] vs. transplanted heart: [place] heart Qualified Code(s): I25.10 - Atherosclerotic heart disease of [place] coronary artery wi thout angina pectoris (2) CHF (congestive heart failure) Heart failure chronicity: acute on chronic Heart failure type: unspecified Qualified Code(s): I50.9 - Heart failure, unspecified
--- NOTE | 2020-08-17 10:57 | Pharmacy Report ---
Glycemic Control Consultation - Date of Service August 17, 2020 - Scope Scope: Glycemic Pharmacist consulted for glycemic control and to write orders per [facility] located within [facility] inpatient glycemic control protocol. - Objective Weight: 127.8 kg Accuchecks BSG (last 24hrs): 08/16/20 08/16/20 08/17/20 20:19 23:22 01:59 Glucose 58 L 162 H POC Glucose 105 H 08/17/20 08/17/20 03:11 07:37 Glucose POC Glucose 187 H 163 H Laboratory Data (last 24hrs): 08/16/20 08/17/20 20:19 01:59 Potassium 3.9 4.0 Carbon Dioxide 32 29 Anion Gap 1.0 L 5.0 Creatinine 1.40 1.27 Est Cr Clr Drug Dosing 60.0 64.2 - Recent Pertinent Medications Outpatient Anti-diabetic Regimen: * Novolog insulin pump * A1c = 8.7% (06/11/2020) Risk Factors for Insulin Resistance: * Infection: * Ceftriaxone + Azithromycin for possible pneumonia * Diet: * Heart Healthy - Assessment & Plan Assessment & Plan: ASSESSMENT: * Pharmacy was consulted by Dr. Clinton on 08/17/2020 for glycemic control and to write orders per [facility] inpatient glycemic control protocol. * Jose Armando is a 79 yo M who was admitted secondary to a Mobitz Type 2 Second Degree Heart Block. * Past medical history is significant for Type 2 Diabetes Mellitus, Hypertension, Hyperlipidemia, Coronary Artery Disease with prior Myocardial Infarction. * Patient's has a Medtronic 630G insulin pump with Novolog insulin. He does follow with Nancy LinaresorREGINA, from [facility]. His last HbA1c was elevated at 8.7%. HbA1c goal for this patient would be < 8% given age and comorbidities. * Patient self reports that his basal rate runs somewhere around 4-5 units/hr depending on what time of day it is. When I interrogated the pump, the current rate was 5.15 units/hr and his current TDD of basal insulin is 112.05 units/day (~ 4.67 units/hr). He reports that he often times just tries to estimate the amount of carbohydrates in his meals. For instance, this AM he gave himself a 20 units bolus. Discussed following his CF and CR according to his pump settings (would have been 15 units this AM). He was agreeable. * Insulin Pump Settings: * Goal Range: 90-130 mg/dL * Basal rate: unknown (112.05 units/hr) * Correction factor: 10 * Carbohydrate ratio: 2.5 * Of note, patient turned insulin pump off upon arrival to the ED at ~ 2000 last evening. His initial BSG was low at 58 mg/dL and patient was given orange juice. His next BSG was 105 mg/dL. His insulin pump was turned back on upon arrival to the floor at ~0300 at which time his BSG was 187 mg/dL. * Fasting BSG this AM was elevated at 163 mg/dL. This is most likely secondary to turning insulin pump off for ~ 7 hours. Will continue with current insulin pump settings inpatient. * He will be NPO at midnight for a pacemaker placement tomorrow. Discussed pre- and postoperative plans. Will continue with basal rate prior to going to OR. Instructed him to not give himself any bolus dose tomorrow morning. Will continue to follow. PLAN FOR INPATIENT GLYCEMIC CONTROL: * Novolog Insulin in Medtronic 630G Pump * Pt is to manage BSGs with insulin pump per outpatient settings. * RN will have patient read and sign agreement CF [id number] Insulin Pump Therapy Patient Agreement. * RN will provide and explain form [id number] Flowsheet for Patient * Patient will document their insulin dose given on [id number] which is kept at the bedside, available to caregivers upon request, and which becomes part of the permanent medical record. If at any time the patients condition evidences that he/she is not able to manage the insulin pump (i.e. frequent hypo/hyperglycemia) Pharmacy will assume glycemic control by discontinuing the pump & managing with SQ basal bolus insulin regimen for the interim. * Please note that the plan above was derived based on current level of insulin resistance and hospital stress. These recommendations are appropriate for inpatient admission only. Plan of care upon discharge will need to be reassessed to avoid potential outpatient hypo/hyperglycemia. Thank you.
[2020-08-17] MEDS ORDERED: ALBUT/IPRATROP 3MG/0.5MG NEB 3 ML VIAL NEB PRN (11:04)
--- NOTE | 2020-08-17 12:44 | XCELERA ---
[id number]
--- NOTE | 2020-08-17 13:33 | Electrocardiogram Report ---
Test Reason : Blood Pressure : / mmHG Vent. Rate : 045 BPM Atrial Rate : 091 BPM P-R Int : 182 ms QRS Dur : 094 ms QT Int : 490 ms P-R-T Axes : 033 042 027 degrees QTc Int : 423 ms Poor data quality, interpretation may be adversely affected Sinus rhythm with 2nd degree A-V block with 2:1 A-V conduction Abnormal ECG When compared with ECG of 22-JUN-2019 09:14, Premature supraventricular complexes are no longer Present Sinus rhythm is now with 2nd degree A-V block Confirmed by Hiro Fagan ([id number]) on 08/17/2020 1:33:38 PM Referred By: REFERRED SELF Confirmed By:Hiro Fagan
[2020-08-17] MEDS ORDERED: ACETAMINOPHEN 325 MG TAB PO PRN (16:41)
[2020-08-17] MEDS ORDERED: ACETAMINOPHEN 325 MG TAB ONE (16:53)
[2020-08-17] MEDS: LATANOPROST 0.005% OP SOLN 2.5 ML BTL OPL SCH (20:29)
[2020-08-18] MEDS: COMBIGAN~ORDER AWAITING ACTION SCH ×4 (01:11→22:59)
[2020-08-18] MEDS ORDERED: ceFAZolin 2,000 MG/15 ML IV PUSH IV SCH (06:00)
[2020-08-18] MEDS ORDERED: LACTATED RINGER'S 1,000 ML IV SCH (08:00)
[2020-08-18 08:09] LABS: Basophils # (auto) 0.02 K/uL (0-0.2); Basophils % (auto) 0.2 %; Hematocrit (blood only) 34.4 % (42-52); Hemoglobin 11.2 g/dL (14.0-18.0); Immature Granulocytes # (auto) 0.03 K/uL (0.00-0.02); Immature Granulocytes % (auto) 0.2 %; Lymphocytes # (auto) 1.13 K/uL (1.2-3.4); Lymphocytes % (auto) 9.4 %; Mean Corpuscular Hemoglobin 30.8 pg (25-34); Mean Corpuscular Hgb Conc 32.6 g/dL (32-36); Mean Corpuscular Volume 94.5 fL (80-100); Mean Platelet Volume 12.6 fL (7.4-10.4); Monocytes # (auto) 1.12 K/uL (0.11-0.59); Monocytes % (auto) 9.3 %; Neutrophils # (auto) 9.71 K/uL (1.4-6.5); Neutrophils % (auto) 80.9 %; Platelet Count 184 K/uL (130-400); Red Blood Count 3.64 M/uL (4.7-6.1); White Blood Count 12.01 K/uL (4.8-10.8)
[2020-08-18] MEDS: DORZOLAMIDE HCL 2% OPH SOLN 10 ML BTL OPL SCH ×2 (08:09→21:17)
[2020-08-18] MEDS: NovoLOG INSULIN PUMP SCH ×4 (08:25→21:17)
[2020-08-18] MEDS: PANTOprazole 40 MG TAB PO SCH (08:47)
[2020-08-18] MEDS: CLOPIDOGREL BISULFATE 75 MG TAB PO SCH (08:47)
[2020-08-18] MEDS: ROSUVASTATIN CALCIUM 10 MG TAB PO SCH ×2 (08:47→09:10)
[2020-08-18] MEDS: TORSEMIDE 20 MG TAB PO SCH (08:48)
[2020-08-18] MEDS: AZITHROMYCIN 250 MG TAB PO SCH (08:48)
--- NOTE | 2020-08-18 09:22 | Hospitalist Progress Note ---
Date of Service August 18, 2020 Assessment & Plan (1) Mobitz type 2 second degree heart block: Mr. Fowler is a 79yo gentleman with PMHx of DMI on an insulin pump, chronic cerebral ischemia, vertebral artery occlusion, PAD, CAD, HTN, HLD, PELON on CPAP who was admitted with suspected pneumonia and second degree heart block. Mobitz II Heart block - Initial EKG showed a sinus rhythm with second degree heart block, HR 45, qtc 423. No signs of ischemia - Echo: - LV systolic function is normal - No regional wall motion abnormalities - EF=60-65% - Lyme titers negative - Cardiology consult: - Appears to be recently acquired 2-1 AV block - Appears to be Mobitz 2 as there is no evidence of AV hilaria Wenckebach present - He needs a pacemaker - scheduled for 08/18--rescheduled as below - Metoprolol could potentially aggravate it if it is AV hilaria--very unlikely that is is the cause but recommends holding until pacemaker implanted - Currently stable but will have pacer pads available - Patient was scheduled for pacemaker insertion today but was found to be hypoxic before procedure - Cardiology rescheduled procedure for tomorrow PM (08/19) - CXR pending--follow results Pneumonia - Pt w/ SOB at home, hypoxic in the ED with O2 sats in the 80s - O2 sat 90 today on nasal cannula - Chest XR (08/16): - Cardiomegaly with pulmonary vascular congestion and interstitial coarsening suggestive of pulmonary edema - Right greater than left bibasilar opacities suggest atelectasis versus pneumonitis. - Probable trace pleural effusions. - WBC 12.01 today - Procalcitonin 0.50 today drawn after antibiotics began--pneumonia remains a possibility and as such will continue treatment - Continue ceftriaxone 2g IV daily - Continue Azithromycin 250mg PO daily - Duonebs changed to PRN as patient not complaining of SOB or wheezing - Follow AM CBC Hypoxia - As above, patient feeling dyspneic with O2 sats down to 87 this afternoon - CXR today--follow results Chronic diastolic CHF - Pt with increased oxygen need - BNP elevated to 2980 - Echo 2019: EF>70, hyperdynamic systolic function, no LVH or wall motion abnormalities - Continue home torsemide 40mg daily - Consider extra dose if concern of fluid overload. - Respiratory distress likely pulmonary pathology. CAD - Hx of stent placements in 2000 - Hold home metoprolol succinate 50mg daily as per cardio recs above - Hold home nitroglycerin - Serial troponin: 0.184 --> 0.418 --> 0.381 (08/17) - Per cardiology: His third troponin is slightly lower than his second, this would be consistent with demand ischemia and I would not pursue this further DMI - Pt has insulin pump - Per chart review last noted Hgba1c of 8.7 on 06/11 - Order placed for use of pump while hospitalized - Pharmacy consult for use of pump while hospitalized - Follow AM BMP Chronic cerebral Ischemia/Vertebral artery occlusion - Continue home Plavix 75mg daily HTN -continue home amlodipine 10mg-benazepril 40mg daily HLD -continue home rosuvastatin GERD -continue home pantoprazole 20mg daily PELON -continue home cpap qhs FEN/GI: Heart Healthy diet DVT prophylaxis: On plavix, SCDs CODE STATUS: Full code Dispo: PCU/tele for continued cardiac monitoring (2) CHF (congestive heart failure): (3) SOB (shortness of breath): (4) Hypoxemia: (5) Chronic cerebral ischemia: (6) 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 Hooker and agree with the findings and care plan. Subjective Patient seen this morning at bedside. Looking more short of breath than yesterday. Patient denies current shortness of breath but does mention that he is getting SOB more easily when he minimally exerts himself now. He otherwise is doing well and awaiting pacemaker placement, which he is scheduled for later today. Will follow clinically after procedure. Patient seen again in the afternoon as he was having O2 sat down to 87. He reports feeling more short of breath than tis morning but did have a duoneb treatment that provided some relief. Pt reports circus roustabout spoke to him and let him know that he will likely move the procedure to tomorrow given worsening of his respiratory status. Will investigate with a CXR. Review of Systems Constitutional: no fever and no chills Respiratory: + dyspnea and + dyspnea on exertion; no cough Cardiovascular: no chest pain and no palpitations Gastrointestinal: no abdominal pain, no nausea and no vomiting Physical Exam Constitutional: WD/WN, vitals as above no acute distress Respiratory: + labored breathing; no respiratory distress, no retractions and does not use accessory muscles Auscultation: + wheezes (right base) Cardiovascular: Rate/Rhythm: regular rate and + bradycardic Heart Sounds: normal S1 and normal S2 Gastrointestinal (Abdomen): normal bowel sounds, soft, nontender, no hepatosplenomegaly Skin: no rashes, warm and dry Psychiatric: A+Ox3, euthymic affect Results & Data Results & Data ([facility]) Vital Signs (Past 12 Hours) Vital Signs Temp Pulse Pulse Resp BP Pulse Ox 08/18/20 08:00 81 08/18/20 04:17 37.7 C H 47 L 16 152/78 H 93 08/18/20 03:51 47 L 20 93 08/17/20 22:58 44 L 08/17/20 22:25 45 L 20 90 Resident Activity Tracking Resident Involvement: Resident Care Provided Care Provided: Adult Hospital Medicine (1) CAD (coronary artery disease) Associated angina: without angina Coronary Disease-Associated Artery/Lesion type: [place] artery [place] vs. transplanted heart: [place] heart Qualified Code(s): I25.10 - Atherosclerotic heart disease of [place] coronary artery without angina pectoris (2) CHF (congestive heart failure) Heart failure chronicity: acute on chronic Heart failure type: unspecified Qualified Code(s): I50.9 - Heart failure, unspecified
[2020-08-18 09:29] LABS: BUN Creatinine Ratio 21.5 (10-20); Calcium 8.3 mg/dl (8.5-10.1); Creatinine Clr Calc Pharmacy 56.7 ml/min; Est GFR (African American) 53.2; Est GFR (Non-African American) 45.9; Potassium 3.9 mmol/L (3.5-5.1)
--- NOTE | 2020-08-18 10:35 | Pharmacy Report ---
Pharmacy Glycemic Short Note 2 - Date of Service August 18, 2020 - Glycemic Short BSG Results (Last 24 hours): 08/17/20 08/17/20 08/17/20 11:41 16:14 20:24 Glucose POC Glucose 129 H 153 H 94 08/18/20 08/18/20 08/18/20 07:01 08:02 08:56 Glucose Cancelled 207 H POC Glucose 205 H OUTPATIENT ANTIDIABETIC REGIMEN: * Insulin Pump Settings: * Goal Range: 90-130 mg/dL * Basal rate: unknown (112.05 units/hr) * Correction factor: 10 * Carbohydrate ratio: 2.5 * HbA1c = 8.7% (06/11/2020) ASSESSMENT: 08/18: * BSGs yesterday were acceptable - 196-107-657-153-94 mg/dL * I had discussed plan with Mr. Fowler to leave his insulin pump on throughout the night despite being NPO at midnight in order to provide his basal rate. It appears that he shut off his pump when his BSG was 94 mg/dL around 2100 last evening. It was turned back on at approximately 0700 this AM when his BSG was 205 mg/dL. Instructed patient to leave pump running until he was taken to have his pacemaker placed. 08/17: * Pharmacy was consulted by Dr. Clinton on 08/17/2020 for glycemic control and to write orders per [facility] inpatient glycemic control protocol. * Mr. Fowler is a 79 yo M who was admitted secondary to a Mobitz Type 2 Second Degree Heart Block. * Past medical history is significant for Type 2 Diabetes Mellitus, Hypertension, Hyperlipidemia, Coronary Artery Disease with prior Myocardial Infarction. * Patient's has a Medtronic 630G insulin pump with Novolog insulin. He does follow with [facility], from [facility]ology. His last HbA1c was elevated at 8.7%. HbA1c goal for this patient would be < 8% given age and comorbidities. * Patient self reports that his basal rate runs somewhere around 4-5 units/hr depending on what time of day it is. When I interrogated the pump, the current rate was 5.15 units/hr and his current TDD of basal insulin is 112.05 units/day (~ 4.67 units/hr). He reports that he often times just tries to estimate the amount of carbohydrates in his meals. For instance, this AM he gave himself a 20 units bolus. Discussed following his CF and CR according to his pump settings (would have been 15 units this AM). He was agreeable. * Of note, patient turned insulin pump off upon arrival to the ED at ~ 2000 last evening. His initial BSG was low at 58 mg/dL and patient was given orange juice. His next BSG was 105 mg/dL. His insulin pump was turned back on upon arrival to the floor at ~0300 at which time his BSG was 187 mg/dL. * Fasting BSG this AM was elevated at 163 mg/dL. This is most likely secondary to turning insulin pump off for ~ 7 hours. Will continue with current insulin pump settings inpatient. * He will be NPO at midnight for a pacemaker placement tomorrow. Discussed pre- and postoperative plans. Will continue with basal rate prior to going to OR. Instructed him to not give himself any bolus dose tomorrow morning. Will continue to follow. PLAN FOR INPATIENT GLYCEMIC CONTROL: * Continue Novolog insulin pump based on outpatient settings * Pump will be stopped for pacemaker placement and then resumed post operatively. PLAN FOR DISCHARGE: * Patient follows with [facility] endocrinology and Venita Nanette, [facility]. Continue current setting until follow up appointment on 09/08/2020. Did discuss patient with CDE as believe patient would benefit from further pump education.
[2020-08-18] MEDS ORDERED: MIDAZOLAM HCL 5 MG/ML 1 ML VIAL ONE (15:43)
[2020-08-18] MEDS ORDERED: fentaNYL citrate 100 MCG/2 ML VIAL ONE (15:43)
[2020-08-18] MEDS ORDERED: LIDOCAINE HCL 1% 20 ML VIAL ONE (15:58)
[2020-08-18] MEDS ORDERED: BACITRACIN OINT 0.9 GM PKT ONE (15:59)
[2020-08-18] MEDS ORDERED: BACITRACIN INJ 50,000 UNIT VIAL ONE (16:00)
--- NOTE | 2020-08-18 16:34 | Cardiology Progress Note ---
Date of Service August 18, 2020 Assessment & Plan (1) SOB (shortness of breath): He appears to be much more short of breath today than yesterday when I saw him, he also tells me that his breathing has been poor all day and he was not feeling well. He also seems to have an increased oxygen requirement. It could be congestive heart failure however his weight has not gone up, his BUN and creatinine are increased and his intake and output are negative and I am concerned that there may be something else going on. I think would be risky potentially to sedate him and lay him supine to put a pacemaker in and there is no urgency for it. I am going to cancel the pacemaker today, send him for a chest x-ray and based on his checks x-ray we can decide on further diuresis or if there is some other issue such as bronchospasm or pneumonia. (2) Mobitz type 2 second degree heart block: He has what appears to be recently acquired 2-1 AV block, although if he had intermittent AV block in the past he may not have noticed it as he is not terribly symptomatic. It appears to be Mobitz 2 (infra-His) as there is no evidence of AV hilaria Wenkebach present and as many times as he converts between sinus with one-to-one in 2-1 you would normally see Wenkebach if it were present. This would indicate that he needs a pacemaker. Metoprolol could potentially aggravate it if it is AV hilaria, he is now more than 48 hours off of metoprolol with no evidence of return of one-to-one conduction and he was on a low dose. This appears to eliminate beta-blockade as a cause of his AV conduction disease. He will need a pacemaker, however given his current pre sentation I am uncomfortable doing it but I have rescheduled him for tomorrow afternoon. (3) CAD (coronary artery disease): He has coronary artery disease, he does not have symptoms to suggest progression but has not been evaluated for some time. This does not appear to be an acute ischemic presentation. His electrocardiogram does not show any acute changes, however his troponin was slightly elevated. I do not think he has active ischemia and would not investigate now as long as things no change. (4) Elevated troponin I level: His troponin increased slightly after admission and then on his third measurement was back down, this is most consistent with demand ischemia and it was never very elevated. His echocardiogram shows no left ventricular dysfunction. I do not believe this is an ischemic event. (5) Peripheral arterial disease: He has peripheral arterial disease as well as cerebrovascular disease and is on statins and platelet inhibitors for that, I would continue these. They do not need to be held for a pacemaker. (6) CHF (congestive heart failure): He had some symptoms suggestive of congestive heart failure and an elevated BNP on admission, his weight has been stable (although it is the exact same number for 3 days which makes me suspicious), his intake and output over the last 24 hours is negative, his BUN and creatinine are both increasing suggesting he may be prerenal and I am not sure that heart failure is a cause of his shortness of breath. I am going to get a chest x-ray to see whether there is some other cause or if it looks like he is in congestive heart failure. If it appears to be congestive heart failure he will need diuresis. Admission and Anticipated Discharge Date Admission Date: August 16, 2020 Subjective I saw the patient when he came up to the preop area for his pacemaker this afternoon. He was uncomfortable and hypoxic, when I evaluated him he was complaining of shortness of breath most of the day. He is also coughing frequently. He denies chest discomfort or orthopnea. Physical Exam Physical Exam: Constitutional: Alert, cooperative and in no distress. He is overweight. HEENT: Unremarkable Neck: No jugular venous distention, carotid pulses are normal and equal bilaterally without bruits. Pulmonary: Diminished breath sounds throughout, no wheezing but poor air movement. Possible slight basilar crackles. Cardiac: Regular slow rhythm with no murmur, gallop or rub. Abdomen: Soft, nontender with normal bowel sounds. Extremities: No edema. Distal pulses intact. Neurologic: No focal findings. Gait is steady. Skin: No rash, ecchymoses or petechiae. Results & Data ([facility]) Vital Signs (Past 12 Hours) Vital Signs Temp Pulse Pulse Pulse Resp BP Pulse Ox 08/18/20 15:35 55 L 18 87 L 08/18/20 10:57 37.3 C 51 L 20 175/65 H 91 08/18/20 09:21 37.0 C 64 20 151/63 H 90 08/18/20 08:00 81 Laboratory Results CBC 11/17/20 Range/Units 07:01 WBC 12.01 H (4.8-10.8) K/uL RBC 3.64 L (4.7-6.1) M/uL Hgb 11.2 L (14.0-18.0) g/dL Hct 34.4 L (42-52) % Plt Count 184 (130-400) K/uL Neut # (Auto) 9.71 H (1.4-6.5) K/uL Lymph # (Auto) 1.13 L (1.2-3.4) K/uL [place] # (Auto) 1.12 H (0.11-0.59) K/uL Eos # (Auto) 0.00 (0-0.5) K/uL Baso # (Auto) 0.02 (0-0.2) K/uL Comprehensive Metabolic Panel 08/18/20 08/18/20 Range/Units 07:01 08:56 Sodium Cancelled 140 Potassium Cancelled 3.9 Chloride Cancelled 104 Carbon Dioxide Cancelled 25 BUN Cancelled 31 H Creatinine Cancelled 1.44 H Glucose Cancelled 207 H Calcium Cancelled 8.3 L Intake and Output 08/18/20 08/18/20 08/18/20 06:59 14:59 22:59 Intake Total 70 / 510 Output Total 650 / 1450 1050 / 1050 Balance -580 / -940 -1050 / -1050 Intake: IV 70 / 70 Rocephin 2,000 mg In D5w 50 ml 70 / 70 @ 100 mls/hr IV Q24H RICKY Rx#: [id number] Output: Urine 650 / 1450 1050 / 1050 Other: Weight 127.8 kg Patient Weight 08/19/20 06:59 Weight 127.8 kg Diagnostic Findings Telemetry: He continues to have alternating 2-1 AV conduction and one-to-one AV conduction. Heart rate not particularly slow or fast. PG Care Time/CCT Total # of Minutes Spent Total Time Spent with Patient: Total time spent is greater than 50% in coordination of care (as documented) at patient's floor/unit and/or counseling patient: Coding Level of Care Code 67523 Subseq Hosp Care Lvl 3 Diagnoses SOB (shortness of breath) R06.02 Mobitz type 2 second degree heart block I44.1 CAD (coronary artery disease) I25.10 Coronary Disease-Associated Artery/Lesion type: [place] artery [place] vs. transplanted heart: [place] heart Associated angina: without angina Elevated troponin I level R77.8 Peripheral arterial disease I73.9 CHF (congestive heart failure) I50.9 Heart failure chronicity: acute on chronic Heart failure type: unspecified (1) CAD (coronary artery disease) Coronary Disease-Associated Artery/Lesion type: [place] artery [place] vs. transplanted heart: [place] heart Associated angina: without angina Qualified Code(s): I25.10 - Atherosclerotic heart disease of [place] coronary artery without angina pectoris (2) CHF (congestive heart failure) Heart failure chronicity: acute on chronic Heart failure type: unspecified Qualified Code(s): I50.9 - Heart failure, unspecified
--- NOTE | 2020-08-18 17:17 | XRay Report ---
XR chest 2V PA/lateral HISTORY: 79 years-old Male Dyspnea, hypoxia acute shortness of breath COMPARISON: Chest radiograph 08/16/2020 TECHNIQUE: Portable AP view of the chest FINDINGS: Cardiac silhouette is enlarged. Pulmonary vascular congestion with bilateral reticular opacities rede monstrated. Persistent bibasilar opacities, mildly improved on the right. Mildly decreased interstiti al coarsening. Trace pleural effusions. No pneumothorax. Degenerative changes of the shoulders and sp ine. IMPRESSION: 1. Cardiomegaly with mildly decreased pulmonary edema. 2. Persistent bibasilar opacities suggestive of atelectasis versus pneumonitis. 3. Trace pleural effusions. ACT 112: Negative or not required by law. The above report was generated using voice recognition software. It may contain grammatical, syntax o r spelling errors. Electronically signed by: Gilberto Zarate M.D. 08/18/2020 5:15 PM
[2020-08-18] MEDS ORDERED: diphenhydrAMINE Capsule 25 MG CAP PO SCH (18:30)
[2020-08-18] MEDS ORDERED: diphenhydrAMINE 50 MG/ML VIAL IV STA (19:28)
[2020-08-18] MEDS ORDERED: predniSONE 50 MG TAB PO STA (19:32)
[2020-08-18] MEDS ORDERED: methylPREDNISolone 40 MG in SYRINGE 0 ML IV STA (19:35)
[2020-08-18] MEDS ORDERED: methylPREDNISolone 125 MG/2 ML VIAL ONE (19:37)
[2020-08-18] MEDS ORDERED: OPTIRAY 320 125ml IV ONE (19:49)
--- NOTE | 2020-08-18 20:13 | CT Scan Report ---
CT angio chest PE protocol CT DOSE: 897.54 mGy.cm HISTORY: 79 years-old Male with hypoxia. Acute hypoxia with bibasilar opacities. TECHNIQUE: Multiple CTA images of the chest were obtained after the intravenous administration of 120 ml Optiray 320. Coronal and sagittal MIPS were obtained from the axial data set and were submitted for review. All measurements were obtained according to NASCET criteria. A dose lowering technique w as utilized adhering to the principles of ALARA. COMPARISON: Chest radiograph of same day, chest CT 10/18/2018 FINDINGS: CTA: Mild to moderate cardiomegaly. Extensive coronary artery calcifications. No pericardial effusion. The re is no thoracic aortic aneurysm or dissection. Moderate mixed plaque of the thoracic aorta and prox imal great vessels which appear patent. The pulmonary arterial tree is opacified to level of the segm ental branches and demonstrates no filling defects to suggest thromboembolic disease. CT CHEST: No large thyroid nodule. Calcified left hilar lymph nodes. Enlarged subcarinal and right hilar lymph nodes with subcarinal lymph nodes measuring up to 1.4 cm. Small to moderate pleural effusions. Depend ent bibasilar consolidation, left greater than right. Bilateral bronchial wall thickening with intral obular septal thickening. There are mixed patchy bilateral groundglass and consolidative opacities. A dditionally, there are a few nodular opacities of the peripheral left upper lobe measuring up to 5 mm , new from comparison. Surgical suture material the right lung base suggest prior pulmonary resection . Central airways are patent. No acute processes of the imaged upper abdomen. Mildly prominent upper abdominal lymph nodes. Hepatic steatosis. Mild generalized body wall edema. Gynecomastia. Degenerative changes of the shoulders and spine. No acute fracture or suspicious bone lesion. IMPRESSION: 1. Cardiomegaly without acute aortic pathology or evidence of pulmonary thromboembolic disease. 2. Interstitial pulmonary edema with small to moderate pleural effusions and mild dependent bibasilar compressive atelectasis. 3. Patchy bilateral groundglass and consolidative opacities are most pronounced in the left upper lob e. These findings may reflect superimposed pneumonia versus asymmetric alveolar pulmonary edema. 4. Hepatic steatosis. ACT 112: Negative or not required by law. The above report was generated using voice recognition software. It may contain grammatical, syntax o r spelling errors. Electronically signed by: Gilberto Zarate M.D. 08/18/2020 8:11 PM
[2020-08-18] MEDS: LATANOPROST 0.005% OP SOLN 2.5 ML BTL OPL SCH (21:17)
[2020-08-19] MEDS: cefTRIAXone SODIUM 2,000 MG in DEXTROSE 5% 50 ML IV SCH (00:08)
[2020-08-19] MEDS: NovoLOG INSULIN PUMP SCH ×3 (08:00→16:30)
[2020-08-19] MEDS: COMBIGAN~ORDER AWAITING ACTION SCH ×2 (08:00→19:31)
[2020-08-19 08:14] LABS: Hematocrit (blood only) 36.2 % (42-52); Hemoglobin 11.9 g/dL (14.0-18.0); Immature Granulocytes # (auto) 0.02 K/uL (0.00-0.02); Immature Granulocytes % (auto) 0.2 %; Lymphocytes # (auto) 0.75 K/uL (1.2-3.4); Lymphocytes % (auto) 5.9 %; Mean Corpuscular Hemoglobin 30.7 pg (25-34); Mean Corpuscular Hgb Conc 32.9 g/dL (32-36); Mean Corpuscular Volume 93.5 fL (80-100); Mean Platelet Volume 11.6 fL (7.4-10.4); Monocytes # (auto) 0.49 K/uL (0.11-0.59); Monocytes % (auto) 3.9 %; Neutrophils # (auto) 11.43 K/uL (1.4-6.5); Platelet Count 199 K/uL (130-400); RDW Coefficient of Variation 13.7 % (11.5-14.5); RDW Standard Deviation 46.6 fL (36.4-46.3); Red Blood Count 3.87 M/uL (4.7-6.1); White Blood Count 12.69 K/uL (4.8-10.8)
--- NOTE | 2020-08-19 08:22 | Hospitalist Progress Note ---
Date of Service August 19, 2020 Assessment & Plan (1) Mobitz type 2 second degree heart block: Mr. Fowler is a 79yo gentleman with PMHx of DMI on an insulin pump, chronic cerebral ischemia, vertebral artery occlusion, PAD, CAD, HTN, HLD, PELON on CPAP who was admitted with suspected pneumonia and second degree heart block. Mobitz II Heart block - Initial EKG showed a sinus rhythm with second degree heart block, HR 45, qtc 423. No signs of ischemia - Echo: - LV systolic function is normal - No regional wall motion abnormalities - EF=60-65% - Lyme titers negative - Cardiology consult: - Appears to be recently acquired 2-1 AV block - Appears to be Mobitz 2 as there is no evidence of AV hilaria Wenckebach present - He needs a pacemaker - scheduled for 08/18--rescheduled as below - Metoprolol could potentially aggravate it if it is AV hilaria--very unlikely that is is the cause but recommends holding until pacemaker implanted - Currently stable but will have pacer pads available - Patient was scheduled for pacemaker insertion today but was found to be hypoxic before procedure - Cardiology rescheduled procedure for tomorrow PM (08/19) - CXR & CTA done yesterday when patient SOB and hypoxic - Pacemaker placement today Hypoxia - Sec to CHF. Continue NC O2 Acute on Chronic diastolic CHF - Pt with increased oxygen need - BNP elevated to 2980 - Echo 2019: EF>70, hyperdynamic systolic function, no LVH or wall motion abnormalities - CT chest with sign of fluid overload. - Continue home torsemide 40mg daily - Lasix 40mg IV one dose given today - Respiratory distress likely pulmonary pathology. Concern of Pneumonia - Pt w/ SOB at home, hypoxic in the ED with O2 sats in the 80s - O2 sat 90 today on nasal cannula - Chest XR (08/16): - Cardiomegaly with pulmonary vascular congestion and interstitial coarsening suggestive of pulmonary edema - Right greater than left bibasilar opacities suggest atelectasis versus pneumonitis. - Probable trace pleural effusions. - WBC midly elevated. Procalcitonin 0.50 - Considering presentation likely from CHF exacerbation - will D/c ceftriaxone and Azithromycin CAD - Hx of stent placements in 2000 - Hold home metoprolol succinate 50mg daily as per cardio recs above - Hold home nitroglycerin - Serial troponin: 0.184 --> 0.418 --> 0.381 (08/17) - Per cardiology: His third troponin is slightly lower than his second, this would be consistent with demand ischemia and I would not pursue this further DMI - Pt has insulin pump - Per chart review last noted Hgba1c of 8.7 on 06/11 - Order placed for use of pump while hospitalized - Pharmacy consult for use of pump while hospitalized - Follow AM BMP Chronic cerebral Ischemia/Vertebral artery occlusion - Continue home Plavix 75mg daily HTN -continue home amlodipine 10mg-benazepril 40mg daily HLD -continue home rosuvastatin GERD -continue home pantoprazole 20mg daily PELON -continue home cpap qhs FEN/GI: Heart Healthy diet DVT prophylaxis: On plavix, SCDs CODE STATUS: Full code Dispo: PCU/tele for continued cardiac monitoring (2) CHF (congestive heart failure): (3) SOB (shortness of breath): (4) Hypoxemia: (5) Chronic cerebral ischemia: (6) 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 Hooker and agree with the findings and care plan. Subjective No acute events overnight. Patient seen at bedside today and does report feeling much better since yesterday. His SOB is much improved, no chest pain, no palpitations. He is scheduled later today for pacemaker insertion. Review of Systems Review of Systems: All systems reviewed & are unremarkable except as noted in HPI & below Physical Exam Constitutional: WD/WN, vitals as above + obese; no acute distress Respiratory: normal respiratory effort, lungs clear to auscultation Cardiovascular: RRR, no murmur, no edema Rate/Rhythm: regular rate Heart Sounds: normal S1 and normal S2 Gastrointestinal (Abdomen): normal bowel sounds, soft, nontender, no hepatosplenomegaly Skin: no rashes, warm and dry Psychiatric: A+Ox3, euthymic affect Results & Data Results & Data ([facility]) Vital Signs (Past 12 Hours) Vital Signs Temp Pulse Pulse Resp BP BP Pulse Ox 08/19/20 07:36 36.4 C L 73 17 162/59 H 91 08/19/20 03:46 36.5 C 63 19 137/72 96 08/19/20 03:00 58 L 20 90 08/19/20 00:10 36.9 C 74 19 147/67 H 93 08/19/20 00:00 41 L 08/18/20 23:20 60 20 91 Resident Activity Tracking Resident Involvement: Resident Care Provided Care Provided: Adult Hospital Medicine (1) CAD (coronary artery disease) Associated angina: without angina Coronary Disease-Associated Artery/Lesion type: [place] artery [place] vs. transplanted heart: [place] heart Qualified Code(s): I25.10 - Atherosclerotic heart disease of [place] coronary artery without angina pectoris (2) CHF (congestive heart failure) Heart failure chronicity: acute on chronic Heart failure type: unspecified Qualified Code(s): I50.9 - Heart failure, unspecified
[2020-08-19 08:38] LABS: BUN Creatinine Ratio 28.1 (10-20); Calcium 8.8 mg/dl (8.5-10.1); Creatinine Clr Calc Pharmacy 69.1 ml/min; Est GFR (African American) 68.3; Est GFR (Non-African American) 58.9; Potassium 3.6 mmol/L (3.5-5.1)
[2020-08-19] MEDS: CLOPIDOGREL BISULFATE 75 MG TAB PO SCH (10:24)
[2020-08-19] MEDS: TORSEMIDE 20 MG TAB PO SCH (10:28)
[2020-08-19] MEDS: AZITHROMYCIN 250 MG TAB PO SCH (10:28)
[2020-08-19] MEDS: PANTOprazole 40 MG TAB PO SCH (10:28)
[2020-08-19] MEDS: DORZOLAMIDE HCL 2% OPH SOLN 10 ML BTL OPL SCH ×2 (10:29→22:18)
[2020-08-19] MEDS: LATANOPROST 0.005% OP SOLN 2.5 ML BTL OPL SCH ×2 (10:31→22:18)
[2020-08-19] MEDS ORDERED: FUROSEMIDE 40 MG TAB PO ONE (11:15)
--- NOTE | 2020-08-19 11:58 | Pharmacy Report ---
Pharmacy Glycemic Sign Off Nt - Date of Service August 19, 2020 - Assessment & Plan ASSESSMENT: * Pharmacy was consulted by Dr. Clinton on 08/17/2020 for glycemic control and to write orders per [facility] inpatient glycemic control protocol. * Major changes made by pharmacy to antidiabetic regimen include: * None * Patient has been receiving his home Novolog insulin pump since admission with brief periods of it being shut off during the perioperative time. He has had adequate glycemic control * BSGs ranging 94 - 155 mg/dl over the past 24 hours * Do not anticipate further changes in patient status that would quickly deteriorate glycemic control (i.e. patient to be NPO for upcoming procedure, steroids tapering, starting tube feedings, etc). * Please see recommendations for outpatient antidiabetic regimen below. PLAN FOR INPATIENT GLYCEMIC CONTROL: No changes needed to current regimen. * Continue home Novolog insulin pump * Patient's family will need to bring in any further pump supplies that the patient needs * Pharmacy is signing off of glycemic consult and will no longer be making adjustments to inpatient regimen. Please feel free to re-consult if needed. Thank you. DISCHARGE RECOMMENDATIONS: * HbA1c = 8.7% is from 06/11/2020 which is uncontrolled. Goal HbA1c for this patient would be < 8% given his age and comorbidities. Patient follows with [facility] endocrinology and Venita Nanette, REGINA. Continue current setting until follow up appointment on 09/08/2020. Did discuss patient with CDE as believe patient would benefit from further pump education.
[2020-08-19] MEDS ORDERED: MIDAZOLAM HCL 5 MG/ML 1 ML VIAL ONE (15:07)
[2020-08-19] MEDS ORDERED: fentaNYL citrate 100 MCG/2 ML VIAL ONE (15:07)
[2020-08-19] MEDS ORDERED: LIDOCAINE HCL 1% 20 ML VIAL ONE (15:13)
[2020-08-19] MEDS ORDERED: BACITRACIN INJ 50,000 UNIT VIAL ONE (15:13)
[2020-08-19] MEDS ORDERED: BACITRACIN OINT 0.9 GM PKT ONE (15:13)
--- NOTE | 2020-08-19 15:20 | Cardiology Progress Note ---
Date of Service August 19, 2020 Assessment & Plan (1) SOB (shortness of breath): His shortness of breath has improved substantially from yesterday, his oxygenation is much better, he has better air movement on exam and I suspect his shortness of breath yesterday was primarily due to bronchospasm. I think he is an acceptable risk for pacemaker implantation today. (2) Mobitz type 2 second degree heart block: He has what appears to be recently acquired 2-1 AV block, although if he had intermittent AV block in the past he may not have noticed it as he is not terribly symptomatic. It appears to be Mobitz 2 (infra-His) as there is no evidence of AV hilaria Wenkebach present and as many times as he converts between sinus with one-to-one in 2-1 you would normally see Wenkebach if it were present. This would indicate that he needs a pacemaker. Metoprolol could potentially aggravate it if it is AV hilaria, he is now more than 48 hours off of metoprolol with no evidence of return of one-to-one conduction and he was on a low dose. This appears to eliminate beta-blockade as a cause of his AV conduction disease. He will need a pacemaker and we will plan to proceed today. I discussed the indications, procedure, risks and alternatives with him and he understands and agrees to proceed. Consent obtained. I also discussed sedation with him and he agrees, consent for sedation attained. (3) CAD (coronary artery disease): He has coronary artery disease, he does not have symptoms to suggest progression but has not been evaluated for some time. This does not appear to be an acute ischemic presentation. His electrocardiogram does not show any acute changes, however his troponin was slightly elevated. I do not think he has active ischemia and would not investigate now as long as things no change. (4) Elevated troponin I level: His troponin increased slightly after admission and then on his third measurement was back down, this is most consistent with demand ischemia and it was never very elevated. His echocardiogram shows no left ventricular dysfunction. I do not believe this is an ischemic event. (5) Peripheral arterial disease: He has peripheral arterial disease as well as cerebrovascular disease and is on statins and platelet inhibitors for that, I would continue these. They do not need to be held for a pacemaker. (6) CHF (congestive heart failure): He had some symptoms suggestive of congestive heart failure and an elevated BNP on admission, his weight has been stable and now somewhat down, his intake and output over the last 24 hours is negative, his creatinine is improved today and he does not seem to be in congestive heart failure. Admission and Anticipated Discharge Date Admission Date: August 16, 2020 Subjective He is feeling much better today, he slept well during the night and he is not short of breath today. Physical Exam Physical Exam: Constitutional: Alert, cooperative and in no distress. He is overweight. HEENT: Unremarkable Neck: No jugular venous distention, carotid pulses are normal and equal bilat erally without bruits. Pulmonary: Lungs are clear to auscultation bilaterally. Possible slight basilar crackles. Cardiac: Regular slow rhythm with no murmur, gallop or rub. Abdomen: Soft, nontender with normal bowel sounds. Extremities: No edema. Distal pulses intact. Neurologic: No focal findings. Gait is steady. Skin: No rash, ecchymoses or petechiae. Results & Data ([facility]) Vital Signs (Past 12 Hours) Vital Signs Temp Pulse Pulse Resp BP Pulse Ox 08/19/20 11:56 36.5 C 82 17 136/74 95 08/19/20 08:00 57 L 08/19/20 07:36 36.4 C L 73 17 162/59 H 91 08/19/20 03:46 36.5 C 63 19 137/72 96 Laboratory Results CBC 08/19/20 Range/Units 08:00 WBC 12.69 H (4.8-10.8) K/uL RBC 3.87 L (4.7-6.1) M/uL Hgb 11.9 L (14.0-18.0) g/dL Hct 36.2 L (42-52) % Plt Count 199 (130-400) K/uL Neut # (Auto) 11.43 H (1.4-6.5) K/uL Lymph # (Auto) 0.75 L (1.2-3.4) K/uL [place] # (Auto) 0.49 (0.11-0.59) K/uL Eos # (Auto) 0.00 (0-0.5) K/uL Baso # (Auto) 0.00 (0-0.2) K/uL Comprehensive Metabolic Panel 08/19/20 Range/Units 08:00 Sodium 141 (136-145) mmol/L Potassium 3.6 (3.5-5.1) mmol/L Chloride 106 (98-107) mmol/L Carbon Dioxide 28 (21-32) mmol/L BUN 33 H (7-18) mg/dl Creatinine 1.17 (0.6-1.4) mg/dl Glucose 99 (70-99) mg/dl Calcium 8.8 (8.5-10.1) mg/dl Intake and Output 08/19/20 08/19/20 08/19/20 06:59 14:59 22:59 Intake Total 70 / 204.5 Output Total 300 / 300 Balance 70 / -1670.5 -300 / -300 Intake: IV 70 / 204.5 Rocephin 2,000 mg In D5w 50 ml 70 / 70 @ 100 mls/hr IV Q24H [facility] Rx#: [id number] Output: Urine 300 / 300 Other: Other Intake Source NPO Weight 125.6 kg Weight Measurement Method Standing Scale Patient Weight 08/20/20 06:59 Weight 125.6 kg Diagnostic Findings Telemetry: Sinus rhythm with intermittent 2-1 AV block, appears to be Mobitz 2 Chest x-ray yesterday: Possible mild pulmonary edema Chest CT scan yesterday: Consistent with mild pulmonary edema PG Care Time/CCT Total # of Minutes Spent Total Time Spent with Patient: Total time spent is greater than 50% in coordination of care (as documented) at patient's floor/unit and/or counseling patient: Coding Level of Care Code 36159 Subseq Hosp Care Lvl 3 Diagnoses SOB (shortness of breath) R06.02 Mobitz type 2 second degree heart block I44.1 CAD (coronary artery disease) I25.10 Associated angina: without angina Coronary Disease-Associated Artery/Lesion type: [place] artery [place] vs. transplanted heart: [place] heart Elevated troponin I level R77.8 Peripheral arterial disease I73.9 CHF (congestive heart failure) I50.9 Heart failure chronicity: acute on chronic Heart failure type: unspecified (1) CAD (coronary artery disease) Associated angina: without angina Coronary Disease-Associated Artery/Lesion type: [place] artery [place] vs. transplanted heart: [place] heart Qualified Code(s): I25.10 - Atherosclerotic heart disease of [place] coronary artery without angina pectoris (2) CHF (congestive heart failure) Heart failure chronicity: acute on chronic Heart failure type: unspecified Qualified Code(s): I50.9 - Heart failure, unspecified
--- NOTE | 2020-08-19 15:32 | Pre Anesthesia Assessment ---
Date of Service August 19, 2020 Pre Sedation Assessment Vital Signs Temp Pulse Pulse Resp BP BP Pulse Ox 08/19/20 11:56 36.5 C 82 17 136/74 95 08/19/20 08:00 57 L 08/19/20 07:36 36.4 C L 73 17 162/59 H 91 08/19/20 03:46 36.5 C 63 19 137/72 96 08/19/20 03:00 58 L 20 90 08/19/20 00:10 36.9 C 74 19 147/67 H 93 08/19/20 00:00 41 L 08/18/20 23:20 60 20 91 08/18/20 19:16 37.5 C 75 20 165/53 H 91 08/18/20 16:37 37.3 C 73 20 180/48 H 90 08/18/20 16:00 48 L 08/18/20 15:35 55 L 18 87 L Cardiovascular RRR, no murmur, no edema Respiratory normal respiratory effort, lungs clear to auscultation Pre-Sedation Airway Assessment Smoking Status: Never smoker Hx Sleep Apnea: Yes Hx Difficult Intubation: No Short, Thick Neck: No Thyromental Distance: > or= 3.5 Finger Breadths Oral Cavity: + WNL Mallampati Class: III ASA: ASA3 NPO Status Date of Last Intake of Fluids: 08/19/20 Time of Last Intake of Fluids: 08:00 Last Oral Intake of Fluids Comment: sips with water Date of Last Intake of Solid Food: 08/18/20 Time of Last Intake of Solid Foods: 20:00 Procedure Planning Contraindications for Sedation: none Current Medications Reviewed: Yes Notes The planned sedation has been discussed with the patient. Informed Consent was obtained. I have identified the patient, determined the appropriateness of sedation and have assessed the patient immediately prior to the procedure. All medicine(s) and interventions are by my order.
[2020-08-19] MEDS ORDERED: ACETAMINOPHEN W/CODEINE #3 1 TAB PO PRN (16:41)
[2020-08-19] MEDS ORDERED: ACETAMINOPHEN 325 MG TAB PO PRN (16:41)
--- NOTE | 2020-08-19 16:41 | Electrophysiology Report ---
Date of Service August 19, 2020 Electrophysiology Procedure Electrophysiology Procedure Report Preoperative diagnosis: Mobitz 2 AV block Postoperative diagnosis: Same Procedure: Dual-chamber pacemaker implantation Surgeon: Luis Cowart MD Estimated blood loss: 20 cc Complications: None Disposition: Final Inspector recovery Procedure details: After obtaining informed consent for the procedure, the patient was brought to the laboratory and prepped and draped in the standard sterile manner. The left prepectoral region was anesthetized with 1% lidocaine local anesthetic and left axillary venipuncture was performed by percutaneous technique and a guidewire placed through the left subclavian vein into the superior vena cava. The area was further infiltrated with 1% lidocaine local anesthetic and a 5 cm incision was made parallel to the left clavicle and 2 cm below it and carried down to the anterior pectoralis fascia. A pacemaker pocket was formed by blunt dissection anterior to the pectoralis fascia and a bacitracin-soaked sponge (50,000 units in 50 cc normal saline solution) was placed in the pocket. An 8 [place] Medtronic lead introducer was placed over the guidewire into the left subclavian vein, the dilator and guidewire were removed and a bipolar active fixation steroid tipped ventricular lead was advanced through the introducer into the superior vena cava. A guidewire was placed through the introducer and the introducer was stripped from the lead and guidewire. Another 8 [place] Medtronic lead introducer was placed over the guidewire into the left subclavian vein, the dilator and guidewire were removed and a bipolar active fixation steroid tipped atrial lead was advanced through the introducer into the superior vena cava. A guidewire was placed back through the introducer and the introducer was stripped from the lead and guidewire. Using a curved stylette the ventricular lead was advanced through the right ventricular outflow tract into the pulmonary artery and then using a straight stylette was positioned in the right ventricular apex. The screw was extended fixing the lead in position. Pacing and sensing thresholds were evaluated in bipolar configuration and are recorded on the implant data sheet. Using a curved stylette the atrial lead was positioned in the region of the atrial appendage and the screw extended fixing the lead in position. Pacing and sensing thresholds were evaluated in bipolar configuration and are recorded on the im plant data sheet. Once the leads were in position they were attached to the anterior pectoralis fascia using 2 sutures of 2-0 silk around each lead collar. The bacitracin- soaked sponge was removed from the pocket, hemostasis was obtained, the pacemaker was attached to the leads and placed in the pocket with the leads coiled beneath it. The incision was closed with a running double subcutaneous cl osure of 3-0 Vicryl absorbable suture, followed by running subcuticular skin closure of 4-0 Vicryl absorbable suture. Bacitracin ointment was placed on the incision and a pressure dressing applied. [facility] Electrophysiology codes Pacing Procedure 1: Pacin Insert/Replace Pacer A & V PG Moderate Sedation Codes Moderate Sedation Codes Procedure 1: Sedation/Anesthesia: 34551 Mod Sedation by the same physician;Init15 Min Child Age 5 & Up Procedure 2: Sedation/Anesthesia: 87607 Mod Sedation by the same physician; Ea [id number] Minutes
[2020-08-20] MEDS: NovoLOG INSULIN PUMP SCH ×4 (00:35→17:50)
[2020-08-20] MEDS: BRIMONIDINE TARTRATE OPL SCH ×2 (00:37→08:59)
[2020-08-20] MEDS: TIMOLOL 0.5% OPL SCH ×2 (00:37→08:59)
--- NOTE | 2020-08-20 07:07 | XRay Report ---
XR chest 2V PA/lateral HISTORY: 79 years-old Male EXACT TIME ORDERED Evaluate for pneumothorax and l status post placement of a left subclavian pacer COMPARISON: CTA chest and chest radiographs 08/18/2020 TECHNIQUE: PA and lateral views of the chest FINDINGS: Status post placement of a dual lead left subclavian pacer. There is no postprocedural pneumothorax i dentified. Cardiac silhouette is enlarged. Pulmonary vascular congestion with interstitial coarsening and layering pleural effusions with bibasilar consolidation. Degenerative changes of the shoulders a nd spine. IMPRESSION: 1. Status post placement of a dual lead left subclavian pacer. No postprocedural pneumothorax. 2. Cardiomegaly with pulmonary edema. 3. Layering pleural effusions and bibasilar consolidation suggestive of compressive atelectasis. ACT 112: Negative or not required by law. The above report was generated using voice recognition software. It may contain grammatical, syntax o r spelling errors. Electronically signed by: Gilberto Zarate M.D. 08/20/2020 7:06 AM
[2020-08-20 07:28] LABS: Basophils # (auto) 0.01 K/uL (0-0.2); Basophils % (auto) 0.1 %; Eosinophils # (auto) 0.05 K/uL (0-0.5); Eosinophils % (auto) 0.5 %; Hematocrit (blood only) 38.9 % (42-52); Hemoglobin 12.5 g/dL (14.0-18.0); Immature Granulocytes # (auto) 0.02 K/uL (0.00-0.02); Immature Granulocytes % (auto) 0.2 %; Lymphocytes # (auto) 1.02 K/uL (1.2-3.4); Lymphocytes % (auto) 9.9 %; Mean Corpuscular Hemoglobin 30.1 pg (25-34); Mean Corpuscular Hgb Conc 32.1 g/dL (32-36); Mean Corpuscular Volume 93.7 fL (80-100); Mean Platelet Volume 11.6 fL (7.4-10.4); Monocytes # (auto) 0.92 K/uL (0.11-0.59); Monocytes % (auto) 8.9 %; Neutrophils # (auto) 8.27 K/uL (1.4-6.5); Neutrophils % (auto) 80.4 %; Platelet Count 276 K/uL (130-400); RDW Coefficient of Variation 13.6 % (11.5-14.5); RDW Standard Deviation 46.7 fL (36.4-46.3); Red Blood Count 4.15 M/uL (4.7-6.1); White Blood Count 10.29 K/uL (4.8-10.8)
[2020-08-20] MEDS: CARBOHYDRATES FOR HYPOGLYCEMIA PO PRN ×3 (07:36→14:48)
[2020-08-20] MEDS: LACTATED RINGER'S 1,000 ML IV SCH ×2 (07:37→08:15)
[2020-08-20 07:57] LABS: BUN Creatinine Ratio 31.2 (10-20); Calcium 8.4 mg/dl (8.5-10.1); Creatinine Clr Calc Pharmacy 75.7 ml/min; Est GFR (African American) 76.1; Est GFR (Non-African American) 65.7
[2020-08-20 07:58] LABS: Potassium 2.9 mmol/L (3.5-5.1)
[2020-08-20] MEDS ORDERED: POTASSIUM CHLORIDE 20 MEQ/15 ML UDC PO STA (08:31)
[2020-08-20] MEDS: PANTOprazole 40 MG TAB PO SCH (08:59)
[2020-08-20] MEDS: ROSUVASTATIN CALCIUM 10 MG TAB PO SCH (08:59)
[2020-08-20] MEDS: TORSEMIDE 20 MG TAB PO SCH (08:59)
[2020-08-20] MEDS: DORZOLAMIDE HCL 2% OPH SOLN 10 ML BTL OPL SCH (08:59)
[2020-08-20] MEDS ORDERED: METOPROLOL SUCC 50MG EXT REL TAB PO SCH (09:00)
--- NOTE | 2020-08-20 09:07 | Cardiology Progress Note ---
Date of Service August 20, 2020 Assessment & Plan (1) Status post placement of cardiac pacemaker: He is doing well post pacemaker implantation, the site looks good, measurements are excellent and leads are in good position. From my standpoint he is stable for discharge. (2) SOB (shortness of breath): His shortness of breath has improved Now after diuresis, I agree he probably has an element of congestive heart failure as well as probably bron chospasm. (3) Mobitz type 2 second degree heart block: He has what appears to be recently acquired 2-1 AV block, although if he had intermittent AV block in the past he may not have noticed it as he is not terribly symptomatic. It appears to be Mobitz 2 (infra-His) as there is no evidence of AV hilaria Wenkebach present and as many times as he converts between sinus with one-to-one in 2-1 you would normally see Wenkebach if it were present. His pacemaker is programmed to allow intrinsic conduction, this results in a somewhat irregular rhythm but is preferable to have intrinsic conduction since he is a narrow complex. He does not feel it and this is probably a better programming option. This can be changed in the future if indicated. (4) CAD (coronary artery disease): He has coronary artery disease, he does not have symptoms to suggest progression but has not been evaluated for some time. This does not appear to be an acute ischemic presentation. His electrocardiogram does not show any acute changes, however his troponin was slightly elevated. I do not think he has active ischemia and would not investigate now as long as things no change. (5) Elevated troponin I level: His troponin increased slightly after admission and then on his third measurement was back down, this is most consistent with demand ischemia and it was never very elevated. His echocardiogram shows no left ventricular dysfunction. I do not believe this is an ischemic event. (6) Peripheral arterial disease: He has peripheral arterial disease as well as cerebrovascular disease and is on statins and platelet inhibitors for that, I would continue these. They do not need to be held for a pacemaker. (7) CHF (congestive heart failure): He does seem to have some suggestion of congestive heart failure, even though his weight is down. Perhaps with improvement in his cardiac rate he will have improvement in his heart failure although he may need increased diuretics as an outpatient for fluid management. Admission and Anticipated Discharge Date Admission Date: August 16, 2020 Subjective He has no cardiac symptoms at all, he has minimal incisional discomfort. He did have some shortness of breath which is improved this morning, he was also hypoglycemic so as not feeling real well at the moment but no cardiac symptoms especially no palpitations and no chest discomfort. Physical Exam Physical Exam: The incision is clean and dry, no significant bleeding, no ecchymosis or drainage Results & Data ([facility]) Vital Signs (Past 12 Hours) Vital Signs Temp Pulse Pulse Pulse Resp BP BP 08/20/20 07:53 36.6 C 82 20 181/85 H 08/20/20 07:00 90 08/20/20 03:00 36.5 C 70 18 144/72 H 08/20/20 02:25 62 17 08/19/20 23:41 36.7 C 68 18 120/53 L 08/19/20 23:02 70 20 Pulse Ox 08/20/20 07:53 92 08/20/20 07:00 08/20/20 03:00 97 08/20/20 02:25 98 08/19/20 23:41 99 08/19/20 23:02 97 Diagnostic Findings Postop ECG: Sinus rhythm with atrial sensing and ventricular pacing throughout Telemetry: Predominantly atrial sensing and ventricular pacing overnight, this morning with program changes he has some intrinsic conduction Chest x-ray: Good lead position, no pneumothorax Pacer evaluation: Excellent pacing and sensing characteristics PG Care Time/CCT Total # of Minutes Spent Total Time Spent with Patient: Total time spent is greater than 50% in coordination of care (as documented) at patient's floor/unit and/or counseling patient: Coding Level of Care Code 35458 Post Operative Follow-Up Diagnoses Status post placement of cardiac pacemaker Z95.0 SOB (shortness of breath) R06.02 Mobitz type 2 second degree heart block I44.1 CAD (coronary artery disease) I25.10 Coronary Disease-Associated Artery/Lesion type: wiyot artery [place] vs. transplanted heart: wiyot heart Associated angina: without angina Elevated troponin I level R77.8 Peripheral arterial disease I73.9 CHF (congestive heart failure) I50.9 Heart failure chronicity: acute on chronic Heart failure type: unspecified CPT Codes Dual Lead Pacemaker System - 12684 ([id number]) (1) CAD (coronary artery disease) Coronary Disease-Associated Artery/Lesion type: wiyot artery [place] vs. transplanted heart: wiyot heart Associated angina: without angina Qualified Code(s): I25.10 - Atherosclerotic heart disease of wiyot coronary artery without angina pectoris (2) CHF (congestive heart failure) Heart failure chronicity: acute on chronic Heart failure type: unspecified Qualified Code(s): I50.9 - Heart failure, unspecified
[2020-08-20] MEDS: CLOPIDOGREL BISULFATE 75 MG TAB PO SCH (10:10)
--- NOTE | 2020-08-20 10:36 | Discharge Summary ---
Date of Service August 20, 2020 Admission HPI Per Admitting Provider Mr. Fowler is a 79yo gentleman with PMHx of DMI on an insulin pump, chronic cerebral ischemia, vertebral artery occlusion, PAD, CAD, HTN, HLD, PELON on CPAP who was admitted with suspected pneumonia and second degree heart block. Pt states that he has not been feeling like himself recently, feeling weaker. However, he was sitting on his bed trying to put in his eye drops when he slipped off the bed onto the floor, and was unable to get up. States he did not lose consciousness at all, and had extreme difficulty getting up that his and son had to help him up. States he was down for a while trying to get up and was significantly short of breath as a result. States he does not believe he was exposed to COVID, does have a camper but checks himself repeatedly for ticks. Does not believe that he has been bitten recently. Does not follow with cardiology currently, though he did in the past. After this episode today, he called his PCP Dr. Huerta who advised he present to the ED. Never smoked, has about 2 alcoholic drinks a week and states he never used recreational drugs. Lives at home with his . Currently retired. Admission Exam Per Admitting Provider General: Alert, oriented. No acute distress Skin: No noted rashes or bruises Psych: Appropriate mood and affect Neuro: No gross deficits HEENT: NC/AT Chest: Nontender to palpation. CV: RRR, Normal s1, s2. No murmurs appreciated Resp: Breath sounds clear and decreased bilaterally, no increased effort of breathing. Abdomen: BS+. Soft, nontender, nondistended. No guarding. Extremities: Trace edema in lower extremities bilaterally. Principal Diagnosis Mobitz II Heart Block Discharge Exam Constitutional WD/WN, vitals as above no acute distress Respiratory normal respiratory effort, lungs clear to auscultation Cardiovascular RRR, no murmur, no edema Heart Sounds: normal S1 and normal S2 Gastrointestinal (Abdomen) normal bowel sounds, soft, nontender, no hepatosplenomegaly Skin no rashes, warm and dry Psychiatric A+Ox3, euthymic affect Discharge Data Allergies Allergy/AdvReac Type Severity Reaction Status Date / Time aspirin Allergy Severe Anaphylaxis Verified 08/16/20 22:06 Iodinated Contrast Media Allergy Severe SOB,HIVES Verified 08/16/20 22:06 Sulfonylureas Allergy Unknown UNKNOWN Unverified 08/16/20 22:06 enalaprilat [From Vasotec] AdvReac Severe CHEST Unverified 08/16/20 22:06 TIGHTNESS atorvastatin [From Lipitor] AdvReac Mild cramps Unverified 08/16/20 22:06 ezetimibe [From Vytorin] AdvReac Mild MYALGIA Unverified 08/16/20 22:06 simvastatin [From Vytorin] AdvReac Mild MYALGIA Unverified 08/16/20 22:06 Fjmjuxh-Bog-Oti Reductase AdvReac Mild MUSCLE Verified 08/16/20 22:06 Inhibitor ACHING Consultations 08/16/20 22:04 ED Decision to Admit Stat 08/16/20 23:44 Consult Cardiology Routine Procedures Performed Operation Date: 08/18/20 12:00 <No data on this case meets the specified criteria> Operation Date: 08/19/20 15:00 Actual Procedures p Pacer with A/V Leads (Dual) - Luis Cowart MD Ordered Studies 08/18/20 06:57 CL Cath Imgs for PACS use only Routine CL Cath Imgs for PACS use only Stat 08/18/20 17:33 CT angio chest PE protocol Stat 08/19/20 15:30 EP Lab Images for PACS ONCE Hospital Course (1) Mobitz type 2 second degree heart block: Mr. Fowler is a 79yo gentleman with PMHx of DMI on an insulin pump, chronic cerebral ischemia, vertebral artery occlusion, PAD, CAD, HTN, HLD, PELON on CPAP who was admitted with suspected pneumonia and second degree heart block. Mobitz II Heart block - Initial EKG showed a sinus rhythm with second degree heart block, HR 45, qtc 423. No signs of ischemia. - Echo: - LV systolic function is normal - No regional wall motion abnormalities - EF=60-65% - Lyme titers negative - Cardiology consult (08/17): - Underwent PPM placement - 08/19 - Seen by tape keller operator on day of d/c: He is doing well post pacemaker implantation, the site looks good, measurements are excellent and leads are in good position. From my standpoint he is stable for discharge. - Will f/u with cardiology in outpt setting Hypoxia - Secondary to CHF - Resolved with diuresis - 2 step test administered before discharge--saturation at 95% or above on room air Acute on Chronic diastolic CHF - Pt with increased oxygen need through part of admission - BNP elevated to 2980 - Echo 2019: EF>70, hyperdynamic systolic function, no LVH or wall motion abnormalities - CT chest with sign of fluid overload - Continued home torsemide 40mg daily - Lasix 40mg IV one dose given on 08/19 - Diuresed and hypoxia resolved. Concern of Pneumonia - Pt w/ SOB at home, hypoxic in the ED with O2 sats in the 80s - O2 sat 97% on RA day of discharge - Chest XR (08/16): - Cardiomegaly with pulmonary vascular congestion and interstitial coarsening suggestive of pulmonary edema - Right greater than left bibasilar opacities suggest atelectasis versus pneumonitis - Probable trace pleural effusions. - WBC mildly elevated. Procalcitonin 0.50 (08/17) - WBC normalized on d/c - Considering presentation likely from CHF exacerbation, ceftriaxone and Azithromycin discontinued CAD - Hx of stent placements in 2000 - Serial troponin: 0.184 --> 0.418 --> 0.381 (08/17) - Per cardiology: His third troponin is slightly lower than his second, this would be consistent with demand ischemia and I would not pursue this further - B flory were held and resumed on discharge DMI - Pt has insulin pump - Per chart review last noted Hgba1c of 8.7 on 06/11 - Continued insulin pump use while hospitalized with pharmacy consultation for glycemic management Chronic cerebral Ischemia/Vertebral artery occlusion - Continued home Plavix 75mg daily HTN -continued home amlodipine 10mg-benazepril 40mg daily HLD -continued home rosuvastatin GERD -continued home pantoprazole 20mg daily PELON -continued home cpap qhs FEN/GI: Heart Healthy diet CODE STATUS: Full code Dispo: Home (2) CHF (congestive heart failure): (3) SOB (shortness of breath): (4) Hypoxemia: (5) Chronic cerebral ischemia: (6) 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: (7) Dyslipidemia: (8) Essential (primary) hypertension: (9) PELON (obstructive sleep apnea): (10) CAD (coronary artery disease): Total Time Total Time Spent Total Time Spent (In Minutes): see Attending attestation Discharge Plan Discharge Items Patient Disposition: Home - Home Health Services Reason For Visit: BRADYCARDIA,HYPOXIA Discharge Diagnosis: Bradycardia, hypoxia s/p pacemaker placement Activity: Per Instructions section Non-emergency contact: Primary Care Provider and Balloon Artist Call non-emergency contact if: you have any medication questions and your symptoms worsen Follow-up/Referrals: Luis Cowart MD [Physician] - 08/24/20 10:00 am Adria Huerta DO [Primary Care Provider] - Diet: Carb Count or DM1 and Heart Healthy Addtl Attending Provider Instructions: You came to [facility] due to shortness of breath and weakness. You were found to have second degree heart block and were suspected to have pneumonia as well. With continued evaluation, it was considered unlikely that your shortness of breath was caused by pnuemonia and more likely that it was an exacerbation of heart failure. You were evaluated by cardiology and were deemed to require pacemaker placement in order to help with your symptoms. You tolerated your pacemaker placement well and the tape keller operator considers that you may now be followed in the outpatient setting. Please follow up with cardiology and follow the instructions set out below. It is suggested that you also follow up with your primary care provider to discuss your hospital admission and ongoing management of your chronic conditions. If you develop chest pain, palpitations, or shortness of breath, please seek emergency care. Addtl Box Blank Machine Feeder Provider Instructions: ACTIVITY RECOMMENDATIONS: * Do not raise affected arm over head for 2 weeks. SPECIAL CARE INSTRUCTIONS: * If bleeding occurs, apply direct pressure to area for 5 minutes. * Call your doctor if you have severe pain, fever, drainage or bleeding at sit e. * Keep dressing on and dry for 48 hours then remove. * Keep any scheduled doctor's appointment. * Implant Card - hand held device with website information given. SKIN IRRITATION: * You may experience some redness and/or swelling in the area where radiation was administered. If any skin irritation occurs, please contact your family physician. FOLLOW UP VISIT: Keep any scheduled doctor appointments. Pending Studies at Discharge: No Stand-Alone Forms: My Qurater, Smoking Cessation Medications and DC Order Prescriptions: Continued Novolog U-100 Insulin aspart 100 unit/mL solution 200 unit continuous subcutaneous infusion .COMPLEX Qty: 18 RF: 3 nitroglycerin [Nitrostat] 0.4 mg tablet, sublingual 0.4 mg Sublingual Q5M PRN (Reason: Chest Pain) Qty: 30 RF: 5 clopidogrel 75 mg tablet 75 mg PO QAM Qty: 90 RF: 3 metoprolol succinate 50 mg tablet extended release 24 hr 50 mg PO DAILY Qty: 90 RF: 3 pantoprazole 20 mg tablet,delayed release (DR/EC) 20 mg PO DAILY Qty: 90 RF: 3 torsemide 20 mg tablet 40 mg PO DAILY Qty: 180 RF: 3 amlodipine-benazepril [Lotrel] 10-40 mg capsule 1 cap PO DAILY Qty: 90 RF: 3 (DME) blood-glucose meter [OneTouch Ultra2 Meter] Misc See Rx Instructions .ROUTE .MEDSUPPLY Qty: 1 RF: 0 (DME) OneTouch Ultra Blue Test Strip Strip See Dose Instructions .ROUTE .MEDSUPPLY Qty: 300 RF: 3 selenium 200 mcg tablet 200 mcg PO 3XWK RF: 0 rosuvastatin [Crestor] 10 mg tablet See Rx Instructions PO DAILY Qty: 135 RF: 1 latanoprost [Xalatan] 0.005 % drops 1 drp OPL HS RF: 0 cyanocobalamin (vitamin B-12) [Vitamin B-12] 1,000 mcg tablet 1,000 mcg PO Q3D RF: 0 Centrum Silver 0.4-300-250 mg-mcg-mcg tablet 1 tab PO DAILY RF: 0 coenzyme Q10 [Co Q-10] 400 mg capsule 400 mg PO DAILY RF: 0 glucosamine sulfate 1,000 mg capsule 1,000 mg PO Q2D RF: 0 vitamin E 400 unit capsule 400 unit PO 3XWK RF: 0 dorzolamide [Trusopt] 2 % drops 1 drp OPL BID RF: 0 Combigan 0.2-0.5 % drops 1 drp OPL BID RF: 0 cholecalciferol (vitamin D3) [Vitamin D3] 50 mcg (2,000 unit) Tablet 50 mcg PO DAILY RF: 0 Discharge Orders: Discharge Order (Routine); Ordered 08/20/20 Ordered By: Will Priest/Other Patient Handouts: Living with a Pacemaker, Discharge Instructions for ... Admission Data Admit Date/Time: 08/16/20 22:55 Attending Provider: Kellie Bailey Admit Provider: Ally Clinton Primary Care Provider: Adria Huerta Other Providers: Rajiv Mazariegos ; Hiro Fagan ; [place] Other Interventions: Discharge Summary Assessment (RN) Last Done: 08/20/20 18:07 Supervising Physician Co-Signing Physician Notes Resident Physician Supervision Note: I independently interviewed and examined the patient and verified the gallardo history and physical, reviewed labs and image studies, discussed the case with the resident Dr. Hooker and agree with the findings and care plan. Resident Activity Tracking Resident Involvement: Resident Care Provided Care Provided: Adult Hospital Medicine
--- NOTE | 2020-08-20 15:36 | Pharmacy Report ---
Pharmacy Glycemic Rec 1 - Date of Service August 20, 2020 - Scope Glycemic Pharmacist to provide recommendations to improve glycemic control . - Subjective The patient is a 79 year old M admitted on 08/16/20 22:55 for BRADYCARDIA,HYPOXIA. - Objective Accuchecks BSG (last 24hrs):: 08/19/20 08/19/20 08/20/20 17:02 20:24 06:40 Glucose 46 L* POC Glucose 77 134 H 08/20/20 08/20/20 08/20/20 07:31 07:33 07:49 Glucose POC Glucose 44 L* 52 L* 54 L* 08/20/20 08/20/20 08/20/20 08:10 09:38 11:37 Glucose POC Glucose 80 168 H 230 H 08/20/20 08/20/20 14:44 15:05 Glucose POC Glucose 49 L* 54 L* Laboratory Data (last 24hrs):: 08/20/20 08/20/20 08/20/20 06:40 06:40 11:26 WBC 10.29 Sodium 141 Potassium 2.9 L D Cancelled Anion Gap 7.0 BUN 33 H Creatinine 1.07 BUN/Creatinine Ratio 31.2 H 08/20/20 12:13 WBC Sodium Potassium 3.7 D Anion Gap BUN Creatinine BUN/Creatinine Ratio - Assessment & Plan ASSESSMENT: * Mr. Fowler with significant lows this AM, pump held and then low again this afternoon * Discussed with Bankruptcy Law Specialist- temp basal rate vs. adjusting basal rates, ultimately thought a basal rate reduction of 10% may be beneficial * Difficult to determine cause of low this afternoon d/t basal or d/t bolus as patient corrected for BSG of 230 mg/dL but this was after basal was held * CR and CF factor are tight RECOMMEND: * 10% basal rate reduction would have new basal rates: * 1576-2921: 3.33 units/hr * 4039-0406: 3.47 units/hr * 2154-9354: 4.46 units/hr * 5625-6431: 4.46 units/hr * 8943-4186: 4.5 units/hr Could also consider adjusting carb ratio to 1:3 and adjusting goal range from 90-130 to 100-150 mg/dL- this would lower correction doses. Patient should consult outpatient physician with any significatn or prolonged hypo/hyperglycemic events. Thank you.
--- NOTE | 2020-08-20 22:42 | Electrocardiogram Report ---
Test Reason : Blood Pressure : / mmHG Vent. Rate : 076 BPM Atrial Rate : 076 BPM P-R Int : 192 ms QRS Dur : 200 ms QT Int : 490 ms P-R-T Axes : 019 -69 083 degrees QTc Int : 551 ms Atrial-sensed ventricular-paced rhythm Abnormal ECG When compared with ECG of 16-AUG-2020 20:17, Ventricular pacing is now present Vent. rate has increased BY 31 BPM Confirmed by Sky Silverman ([id number]) on 08/20/2020 10:42:14 PM Referred By: REFERRED SELF Confirmed By:Sky Silvemran
[2020-08-21] MEDS ORDERED: amLODIPine BESYLATE 5 MG TAB PO SCH (09:00)
[2020-08-21] MEDS ORDERED: ENALAPRIL MALEATE 10 MG TAB PO SCH (09:00)
== END 2020-08-20 18:23 | disposition home health service (06) | DRG 242 ==
LOC: ED 20:06 → 2S 22:55 → SUATTDRO 22:55 → 2S 23:19

== ENCOUNTER 2021-04-18 11:28 | Inpatient (IN) ==
[2021-04-18 12:24] LABS: Basophils # (auto) 0.01 K/uL (0-0.2); Basophils % (auto) 0.2 %; Hematocrit (blood only) 42.5 % (42-52); Hemoglobin 14.2 g/dL (14.0-18.0); Immature Granulocytes # (auto) 0.01 K/uL (0.00-0.02); Immature Granulocytes % (auto) 0.2 %; Lymphocytes # (auto) 0.38 K/uL (1.2-3.4); Lymphocytes % (auto) 6.6 %; Mean Corpuscular Hemoglobin 30.9 pg (25-34); Mean Corpuscular Hgb Conc 33.4 g/dL (32-36); Mean Corpuscular Volume 92.4 fL (80-100); Mean Platelet Volume 11.3 fL (7.4-10.4); Monocytes # (auto) 0.16 K/uL (0.11-0.59); Monocytes % (auto) 2.8 %; Neutrophils # (auto) 5.24 K/uL (1.4-6.5); Neutrophils % (auto) 90.2 %; Platelet Count 146 K/uL (130-400); RDW Coefficient of Variation 13.5 % (11.5-14.5); RDW Standard Deviation 45.6 fL (36.4-46.3)
[2021-04-18 12:32] LABS: Albumin Level 3.6 gm/dl (3.4-5.0); BUN Creatinine Ratio 13.7 (10-20); Calcium 8.4 mg/dl (8.5-10.1); Creatinine Clr Calc Pharmacy 71.7 ml/min; Est GFR (African American) 73.9 ml/min; Est GFR (Non-African American) 63.8 ml/min; Potassium 3.5 mmol/L (3.5-5.1)
[2021-04-18 12:46] LABS: Albumin Globulin Ratio 0.9 (0.9-2); Bilirubin,Total 0.7 mg/dl (0.2-1); Globulin 4.2 gm/dl (2.5-4.0); Thyroid Stimulating Hormone 0.198 uIu/ml (0.300-4.500); Total Protein 7.8 gm/dl (6.4-8.2); Troponin I 0.077 ng/ml (0-0.045)
--- NOTE | 2021-04-18 12:52 | Emergency Department Note ---
History of Present Illness General Chief complaint: Weakness Time Seen by Provider: 04/18/21 12:34 Source: patient and family (Son who is at the bedside) Mode of arrival: ambulatory Limitations: no limitations History of Present Illness Maximum Pain Intensity: 0 This patient is an 80-year-old diabetic who comes in after having increasing weakness. He fell out of bed twice overnight he is not sure why he does not think he passed out he denies any injuries he does not think he hit his head. Denies focal numbness or weakness or difficulty speaking or swallowing. Denies fever chills he was seen here yesterday after having high blood sugar and a low- grade temperature headaches work-up which was unremarkable is feeling better was sent home. According to son he has had no confusion he may have been a little c onfused yesterday but that resolved. He said no cough or shortness of breath he had the Covid vaccine. No chest pain or abdominal pain. No urinary symptoms. No focal numbness or weakness or dizziness. He does have a history of cerebrovascular disease. He tells me he is allergic to IV contrast for CAT scan Home Medications Medication Instructions Recorded Confirmed Type latanoprost 0.005 % eye drops 1 drp OPL HS 09/18/18 04/18/21 History (Xalatan) coenzyme Q10 400 mg capsule (Co 400 mg PO DAILY cap 06/12/19 04/18/21 History Q-10) cyanocobalamin (vitamin B-12) 1,000 mcg PO 3XWK tab 06/12/19 04/18/21 History 1,000 mcg tablet (Vitamin B-12) glucosamine sulfate 1,000 mg 1,000 mg PO DAILY cap 06/12/19 04/18/21 History capsule [id number] acid 0.4 1 tab PO DAILY tab 06/12/19 04/18/21 History mg-lycopene 300 mcg-lutein 250 mcg tablet (Centrum Silver) selenium 200 mcg tablet 200 mcg PO 3XWK tab 06/26/19 04/18/21 History vitamin E 400 unit capsule 400 unit PO 3XWK cap 06/26/19 04/18/21 History clopidogrel 75 mg tablet 75 mg PO QAM #90 tab 11/20/19 04/18/21 Rx pantoprazole 20 mg tablet,delayed 20 mg PO DAILY #90 tab 02/19/20 04/18/21 Rx release torsemide 20 mg tablet 40 mg PO DAILY #180 tab 03/26/20 04/18/21 Rx amlodipine 10 mg-benazepril 40 mg 1 cap PO DAILY #90 cap 04/13/20 04/18/21 Rx capsule (Lotrel) OneTouch Ultra2 Meter #1 ea NS 06/17/20 03/15/21 Rx (blood-glucose meter) OneTouch Ultra Blue Test Strip #300 ea NS 06/18/20 03/15/21 Rx (blood sugar diagnostic) brimonidine 0.2 %-timolol 0.5 % 1 drp OPL BID 08/16/20 04/18/21 History eye drops (Combigan) cholecalciferol (vitamin D3) 50 50 mcg PO DAILY 08/16/20 04/18/21 History mcg (2,000 unit) tablet (Vitamin D3) dorzolamide 2 % eye drops (Trusopt) 1 drp OPL BID 08/16/20 04/18/21 History nitroglycerin 0.4 mg sublingual 0.4 mg SUBLINGUAL Q5M PRN #30 tab 09/14/20 04/18/21 Rx tablet (Nitrostat) metoprolol succinate 50 mg 50 mg PO DAILY #90 tab 01/14/21 04/18/21 Rx tablet,extended release 24 hr insulin aspart U-100 100 unit/mL 200 unit CONTINUOUS SUBCUTANEOUS 03/24/21 04/18/21 Rx subcutaneous solution (Novolog INFUSION .COMPLEX #18 vial U-100 Insulin aspart) rosuvastatin 10 mg tablet (Crestor) 10 mg PO DAILY 04/17/21 04/18/21 History acetaminophen 650 mg 650 mg PO Q12H PRN 04/18/21 04/18/21 History tablet,extended release Allergies Allergy/AdvReac Type Severity Reaction Status Date / Time aspirin Allergy Severe Anaphylaxis Verified 04/18/21 14:43 Iodinated Contrast Media Allergy Severe SOB,HIVES Verified 04/18/21 14:43 Sulfonylureas Allergy Unknown UNKNOWN Verified 04/18/21 14:43 enalaprilat [From Vasotec] AdvReac Severe CHEST Verified 04/18/21 14:43 TIGHTNESS atorvastatin [From Lipitor] AdvReac Mild cramps Verified 04/18/21 14:43 ezetimibe [From Vytorin] AdvReac Mild MYALGIA Verified 04/18/21 14:43 simvastatin [From Vytorin] AdvReac Mild MYALGIA Verified 04/18/21 14:43 Bkwbxxt-Hqp-Sez Reductase AdvReac Mild MUSCLE Verified 04/18/21 14:43 Inhibitor ACHING Past Med/Surg History Medical History Acute dyspnea Basal cell carcinoma CAD (coronary artery disease) Deafness in left ear Diabetes Diabetes mellitus, type 2 GERD (gastroesophageal reflux disease) Glaucoma left eye History of colon polyps History of esophageal dilatation Hyperlipidemia Hypertension Hypoxemia Hypoxia Lung nodule Removed ~2004 Melanoma 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 PELON (obstructive sleep apnea) cpap Osteoarthritis Sarcoma of femur left In ~2004, s/p removal and radiation SDH (subdural hematoma) 2010--no sx, no neurologist---no deficits Shortness of breath SOB (shortness of breath) Surgical History History of cardiac cath 2000--2 stents placed History of colonoscopy History of esophagogastroduodenoscopy (EGD) with EUS History of eye surgery right eye hemorrhage removal History of heart artery stent 2 stents placed History of lung surgery 2004--nodule removed History of Mohs micrographic surgery for skin cancer left ear History of surgery left leg sarcoma removal Status post cataract extraction of both eyes with insertion of intraocular lens Family History (Updated 04/18/21 @ 16:08 by Jad Dykes MD) Father , age 83 of lung cancer. Lung cancer Prostate cancer Mother , age 89 of lung cancer. Lung cancer Diabetes Grandfather (Paternal) Diabetes Brother BRCA gene positive Other No family history of adverse response to anesthesia Social History Smoking Status: Never smoker Second Hand Exposure: Yes (work environment); Hx Alcohol Use: Yes Alcohol type: beer Alcohol Intake Frequency Comment: One or 2 beers, 2 or 3 times per week. 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 Feels Safe at Home: Yes Childhood Exposure to Second-Hand Smoke: Yes Dental Care, Regularly: Yes Physical Activity Frequency: Does not Exercise Seatbelt Use: always Sunscreen Use: No Review of Systems A total of 10 systems reviewed and were otherwise negative Physical Exam Vital Signs Vital Signs - 24 hr 04/18/21 11:35 04/18/21 13:19 04/18/21 13:58 Temperature 37.2 C Temperature Source Oral Pulse Rate 96 H Pulse Rate [Apical] 92 H 95 H Respiratory Rate 18 18 16 Respiratory Effort / Characteristics Respiratory Depth Blood Pressure 170/74 H Blood Pressure [Left Arm] 172/82 H 164/75 H Blood Pressure Mean 106 Blood Pressure Mean [Left Arm] 112 104 Pulse Oximetry 96 94 95 Oxygen Delivery Method Room Air Room Air Room Air Sepsis Recent Fever Within 48 Hours No Sepsis New/Unexplained Change in Mental Status No Sepsis Action Taken by Nursing No Action Required 04/18/21 15:00 04/18/21 15:30 04/18/21 16:24 Temperature Temperature Source Pulse Rate 99 H 90 Pulse Rate [Apical] 92 H Respiratory Rate 18 26 H 22 Respiratory Effort / Characteristics Non-Labored Spontaneous Respiratory Depth Normal Blood Pressure 103/61 158/66 H Blood Pressure [Left Arm] 156/70 H Blood Pressure Mean 75 96 Blood Pressure Mean [Left Arm] 98 Pulse Oximetry Oxygen Delivery Method Sepsis Recent Fever Within 48 Hours Sepsis New/Unexplained Change in Mental Status Sepsis Action Taken by Nursing General: Well developed well nourished older male who appears in no acute distress, breathing comfortably on room air. Normal speech HEENT: Normal cephalic atraumatic. Pupils are equal round and reactive to light. Extraocular movements are intact. Oropharynx is pink with moist mucous membranes. No swelling of the mouth lips or tongue. Neck: Supple with a midline trachea. No meningeal signs or stiffness, no JVD or bruits. No Stridor. Chest: Clear to auscultation bilaterally. No wheezes or rhonchi. No increased work of breathing. Heart: Regular rate and rhythm without murmurs or gallops. Abdomen: Soft nontender, nondistended without rebound guarding or rigidity. Extremities: No cyanosis clubbing or edema. No calf tenderness or assymetry Spine/Back. Non tender to palpation. No CVA tenderness Skin: Good turgor without rashes. Neurologic exam: Cranial nerves two through 12 are intact. Motor and sensation are intact and symmetrical throughout. Medical Decision Making Differential Diagnosis Arrhythmia, acute coronary syndrome, syncope, trauma, CVA, subdural, intracranial hemorrhage, electrolyte or metabolic abnormality, anemia, hypoglycemia, diabetes complication, dehydration, sepsis Medical Records Attestation: I reviewed the patient's medical records. Home Medications Current Medication List: was personally reviewed by me Laboratory Data Attestation: I reviewed the patient's lab results. Result diagrams: 04/18/21 11:39 04/18/21 11:39 Lab Results 04/18/21 04/18/21 04/18/21 Range/Units 11:35 11:39 11:39 WBC 5.80 (4.8-10.8) K/uL RBC 4.60 L (4.7-6.1) M/uL Hgb 14.2 (14.0-18.0) g/dL Hct 42.5 (42-52) % MCV 92.4 (80-100) fL MCH 30.9 (25-34) pg MCHC 33.4 (32-36) g/dL RDW Std Deviation 45.6 (36.4-46.3) fL RDW Coeff of Josefa 13.5 (11.5-14.5) % Plt Count 146 (130-400) K/uL MPV 11.3 H (7.4-10.4) fL Immature Gran % (Auto) 0.2 % Neut % (Auto) 90.2 % Lymph % (Auto) 6.6 % Hardee % (Auto) 2.8 % Eos % (Auto) 0.0 % Baso % (Auto) 0.2 % Neut # (Auto) 5.24 (1.4-6.5) K/uL Lymph # (Auto) 0.38 L (1.2-3.4) K/uL Hardee # (Auto) 0.16 (0.11-0.59) K/uL Eos # (Auto) 0.00 (0-0.5) K/uL Baso # (Auto) 0.01 (0-0.2) K/uL Immature Gran # (Auto) 0.01 (0.00-0.02) K/uL Sodium 139 (136-145) mmol/L Potassium 3.5 (3.5-5.1) mmol/L Chloride 105 (98-107) mmol/L Carbon Dioxide 27 (21-32) mmol/L Anion Gap 7.0 (3-11) BUN 15 (7-18) mg/dl Creatinine 1.09 (0.6-1.4) mg/dl Est Cr Clr Drug Dosing 71.7 ml/min Est GFR ( Amer) 73.9 ml/min Est GFR (Non-Af Amer) 63.8 ml/min BUN/Creatinine Ratio 13.7 (10-20) Glucose 83 (70-99) mg/dl POC Glucose 85 (70-99) mg/dl Calcium 8.4 L (8.5-10.1) mg/dl Total Bilirubin 0.7 (0.2-1) mg/dl AST 93 H (15-37) U/L ALT 38 (12-78) U/L Alkaline Phosphatase 108 (45-117) U/L Total Creatine Kinase 2709 H (39-308) U/L CK-MB (CK-2) 8.8 H (0.5-3.6) ng/ml CK/CKMB % Calc 0.3 (0-3.0) Troponin I 0.077 H* (0-0.045) ng/ml Total Protein 7.8 (6.4-8.2) gm/dl Albumin 3.6 (3.4-5.0) gm/dl Globulin 4.2 H (2.5-4.0) gm/dl Albumin/Globulin Ratio 0.9 (0.9-2) TSH 0.198 L (0.300-4.500) uIu/ml COVID-19 Eval Order SARS-CoV-2 (PCR) (Negative) 04/18/21 04/18/21 04/18/21 Range/Units 12:45 15:00 15:00 WBC (4.8-10.8) K/uL RBC (4.7-6.1) M/uL Hgb (14.0-18.0) g/dL Hct (42-52) % MCV (80-100) fL MCH (25-34) pg MCHC (32-36) g/dL RDW Std Deviation (36.4-46.3) fL RDW Coeff of Josefa (11.5-14.5) % Plt Count (130-400) K/uL MPV (7.4-10.4) fL Immature Gran % (Auto) % Neut % (Auto) % Lymph % (Auto) % Hardee % (Auto) % Eos % (Auto) % Baso % (Auto) % Neut # (Auto) (1.4-6.5) K/uL Lymph # (Auto) (1.2-3.4) K/uL [place]ee # (Auto) (0.11-0.59) K/uL Eos # (Auto) (0-0.5) K/uL Baso # (Auto) (0-0.2) K/uL Immature Gran # (Auto) (0.00-0.02) K/uL Sodium (136-145) mmol/L Potassium (3.5-5.1) mmol/L Chloride (98-107) mmol/L Carbon Dioxide (21-32) mmol/L Anion Gap (3-11) BUN (7-18) mg/dl Creatinine (0.6-1.4) mg/dl Est Cr Clr Drug Dosing ml/min Est GFR ( Amer) ml/min Est GFR (Non-Af Amer) ml/min BUN/Creatinine Ratio (10-20) Glucose (70-99) mg/dl POC Glucose 83 (70-99) mg/dl Calcium (8.5-10.1) mg/dl Total Bilirubin (0.2-1) mg/dl AST (15-37) U/L ALT (12-78) U/L Alkaline Phosphatase (45-117) U/L Total Creatine Kinase (39-308) U/L CK-MB (CK-2) (0.5-3.6) ng/ml CK/CKMB % Calc (0-3.0) Troponin I (0-0.045) ng/ml Total Protein (6.4-8.2) gm/dl Albumin (3.4-5.0) gm/dl Globulin (2.5-4.0) gm/dl Albumin/Globulin Ratio (0.9-2) TSH (0.300-4.500) uIu/ml COVID-19 Eval Order Covid19 at [facility] SARS-CoV-2 (PCR) NEGATIVE (Negative) Imaging Data Attestation: I personally reviewed and interpreted this imaging study as follows: My Impression: Chest x-rayno acute infiltrate, failure, pneumothorax seen Radiologist's Impression: Head CT 04/18/21 12:45 CT OF THE HEAD WITHOUT CONTRAST CLINICAL HISTORY: Frequent falls. COMPARISON STUDY: Head CT, CTA of the head and MRI of the brain June 22, 2019. CT DOSE: 614.27 mGy.cm TECHNIQUE: Helical axial images of the head were obtained without IV contrast. Automated exposure control was utilized for the study. A dose lowering technique was utilized adhering to the principles of ALARA. FINDINGS: No acute intracranial hemorrhage, midline shift or mass effect is present. White matter hypodensities are unchanged and suggest small vessel disease. The ventricular system is unremarkable. The basal cisterns are patent. No extra-axial collections are present. There are no findings to suggest acute dural sinus thrombosis or acute territorial infarct. No significant calvarial abnormalities are present. Visualized portions of the sinuses and mastoid air cells are clear. IMPRESSION: 1. No acute intracranial findings. No change in appearance of the brain. 2. No calvarial fracture. ACT 112: Negative or not required by law. Electronically signed by: Alfredo Swanson M.D. 04/18/2021 2:03 PM Chest X-Ray 04/18/21 13:22 XR chest 1V portable CLINICAL HISTORY: weakness COMPARISON STUDY: Chest radiograph April 17, 2021. FINDINGS: Lung volumes are normal. There is no pneumothorax or pleural effusion. Dual lead left subclavian pacemaker is in place. Cardiomegaly is unchanged. There is no evidence for pulmonary edema. Appearance of the chest is unchanged. Sclerosis of the posterior right third rib is unchanged. IMPRESSION: No acute cardiopulmonary findings. ACT 112: Negative or not required by law. Electronically signed by: Alfredo Swanson M.D. 04/18/2021 2:01 PM ECG Data Attestation: I personally reviewed and interpreted this ECG as follows: Indication: + weakness Rate (beats per minute): 100 Rhythm: + other (Ventricular paced rhythm) ECG Intervals/blocks: + IVCD ECG [place]: + Normal ECG ST segments: + Nonspecific ST abnormalities ECG Findings: no PACs or no PVCs Comparison ECG Date: from (04/17/21) Change: no significant change MDM Narrative This patient comes in as described above. He was placed on a monitoring and evaluation advisor in room C7. He is here for treatment evaluation of weakness. He fell twice overnight he says he feels fine at present his son is worried he is a little shaky his blood sugar was 83 when checked initially so we did recheck her blood sugar. Is a nonfocal neurologic exam. IV access established blood work was obtained. I reviewed his blood work from yesterday thus far cultures are negative. He is afebrile here. He has a paced rhythm. He has no white count or fever to suggest infection. He has no significant electrolyte or metabolic abnormalities. I did also order a CAT scan of his head given his falls he does have a history of a subdural in the past as well. CAT scan of his head was unremarkable. His blood work today looks unremarkable with exception of troponin being mildly elevated. EKG does not suggest any ischemic changes or any change, compared to old. Given the fact that he fell twice last evening and is elevated troponin I do think he should be admitted/observed. Covid testing was negative. I did also have the [employer] rep interrogate his pacemaker and he did not find any significant arrhythmia or problematic findings. I have consulted the hospitalist to see him in the ER for admission/observation. Continuous cardiac monitoring: Orders placed in EMR for continuous cardiac monitoring. Upon my capitation the patient was noted to be a paced rhythm at 90. Impression & Plan Weakness, Diabetes, Fall, Pacemaker, Lab test negative for COVID-19 virus, Elevated troponin I level Discharge Plan Visit Data Chief Complaint: Weakness ED Provider: Harjit Lai Discharge Problem: Weakness, Diabetes, Fall, Pacemaker, Lab test negative for COVID-19 virus, Elevated troponin I level Forms Stand Alone Forms: My [facility] [employer] Prescriptions Prescriptions: No Action clopidogrel 75 mg tablet 75 mg PO QAM Qty: 90 RF: 3 pantoprazole 20 mg tablet,delayed release (DR/EC) 20 mg PO DAILY Qty: 90 RF: 3 torsemide 20 mg tablet 40 mg PO DAILY Qty: 180 RF: 3 amlodipine-benazepril [Lotrel] 10-40 mg capsule 1 cap PO DAILY Qty: 90 RF: 3 (DME) blood-glucose meter [OneTouch Ultra2 Meter] Misc See Rx Instructions .ROUTE .MEDSUPPLY Qty: 1 RF: 0 (DME) OneTouch Ultra Blue Test Strip Strip See Dose Instructions .ROUTE .MEDSUPPLY Qty: 300 RF: 3 metoprolol succinate 50 mg tablet extended release 24 hr 50 mg PO DAILY Qty: 90 RF: 0 Novolog U-100 Insulin aspart 100 unit/mL solution 200 unit continuous subcutaneous infusion .COMPLEX Qty: 18 RF: 3 selenium 200 mcg tablet 200 mcg PO 3XWK RF: 0 nitroglycerin [Nitrostat] 0.4 mg tablet, sublingual 0.4 mg Sublingual Q5M PRN (Reason: Chest Pain) Qty: 30 RF: 5 latanoprost [Xalatan] 0.005 % drops 1 drp OPL HS RF: 0 cyanocobalamin (vitamin B-12) [Vitamin B-12] 1,000 mcg tablet 1,000 mcg PO 3XWK RF: 0 Centrum Silver 0.4-300-250 mg-mcg-mcg tablet 1 tab PO DAILY RF: 0 coenzyme Q10 [Co Q-10] 400 mg capsule 400 mg PO DAILY RF: 0 glucosamine sulfate 1,000 mg capsule 1,000 mg PO DAILY RF: 0 vitamin E 400 unit capsule 400 unit PO 3XWK RF: 0 dorzolamide [Trusopt] 2 % drops 1 drp OPL BID RF: 0 Combigan 0.2-0.5 % drops 1 drp OPL BID RF: 0 cholecalciferol (vitamin D3) [Vitamin D3] 50 mcg (2,000 unit) Tablet 50 mcg PO DAILY RF: 0 rosuvastatin [Crestor] 10 mg tablet 10 mg PO DAILY RF: 0 acetaminophen [Tylenol Arthritis] 650 mg Tablet Extended Release 650 mg PO Q12H PRN (Reason: Pain) RF: 0 Referrals Referrals: Adria Huerta DO [Primary Care Provider] - Discharge Problem: Diabetes Qualifiers: Diabetes mellitus type: type 2 Diabetes mellitus half-way insulin use: unspecified half-way insulin use status Diabetes mellitus complication status: with other specified complication Qualified Code(s): E11.69 - Type 2 diabetes mellitus with other specified complication Fall Qualifiers: Encounter type: initial encounter Qualified Code(s): W19.XXXA - Unspecified fall, initial encounter
--- NOTE | 2021-04-18 13:35 | Electrocardiogram Report ---
Test Reason : Blood Pressure : / mmHG Vent. Rate : 134 BPM Atrial Rate : 094 BPM P-R Int : 000 ms QRS Dur : 186 ms QT Int : 414 ms P-R-T Axes : 000 -78 082 degrees QTc Int : 618 ms Poor data quality, interpretation may be adversely affected Ventricular-paced rhythm Abnormal ECG When compared with ECG of 17-APR-2021 15:27, (unconfirmed) Vent. rate has increased BY 48 BPM Confirmed by Hiro Fagan ([id number]) on 04/18/2021 1:35:01 PM Referred By: Confirmed By:Hiro Fagan
--- NOTE | 2021-04-18 14:03 | XRay Report ---
XR chest 1V portable CLINICAL HISTORY: weakness COMPARISON STUDY: Chest radiograph April 17, 2021. FINDINGS: Lung volumes are normal. There is no pneumothorax or pleural effusion. Dual lead left subcl ronit pacemaker is in place. Cardiomegaly is unchanged. There is no evidence for pulmonary edema. Susan earance of the chest is unchanged. Sclerosis of the posterior right third rib is unchanged. IMPRESSION: No acute cardiopulmonary findings. ACT 112: Negative or not required by law. Electronically signed by: Alfredo Swanson M.D. 04/18/2021 2:01 PM
--- NOTE | 2021-04-18 14:04 | CT Scan Report ---
CT OF THE HEAD WITHOUT CONTRAST CLINICAL HISTORY: Frequent falls. COMPARISON STUDY: Head CT, CTA of the head and MRI of the brain June 22, 2019. CT DOSE: 614.27 mGy.cm TECHNIQUE: Helical axial images of the head were obtained without IV contrast. Automated exposure con trol was utilized for the study. A dose lowering technique was utilized adhering to the principles o f ALARA. FINDINGS: No acute intracranial hemorrhage, midline shift or mass effect is present. White matter hyp odensities are unchanged and suggest small vessel disease. The ventricular system is unremarkable. Th e basal cisterns are patent. No extra-axial collections are present. There are no findings to suggest acute dural sinus thrombosis or acute territorial infarct. No significant calvarial abnormalities ar e present. Visualized portions of the sinuses and mastoid air cells are clear. IMPRESSION: 1. No acute intracranial findings. No change in appearance of the brain. 2. No calvarial fracture. ACT 112: Negative or not required by law. Electronically signed by: Alfredo Swanson M.D. 04/18/2021 2:03 PM
--- NOTE | 2021-04-18 15:16 | History & Physical Report ---
Date of Service April 18, 2021 Assessment & Plan (1) Weakness: Plan: 80 y/o M w/ complex PMHX w/ hx of cerebrovascular disease, CAD w/ stents, IDDM w/ neuropathy, pacemaker, malignancy hx, vertigo, ataxia, who presents w/ increased weakness/unsteadiness x 1 day in context of episode of AMS/confusion and fever yesterday. Stable. - HPI more consistent w/ ataxic or neuropathic etiology more likely than acute CVA. Considered infectious etiology (fever to 38.1F yesterday), but will not start on empiric abx at this time given lack of obvious focal neuro deficit and stable status. no obvious source. will check urine culture - has risk factors for CVA/TIA. No focal neuro deficits at this time. continue Plavix. allergic to aspirin. BP control. - head CT negative. labwork reviewed - unclear if pacemaker compatible w/ MRI, defer MRI at this time - check orthostatics in AM - will order Q4 neuro checks for initial night given the episode of confusion yesterday. no current confusion - repeating Lyme antibodies because recent infection may account for recent negative test. check anaplasma smear (2) Elevated troponin: Plan: - ecg rate increased vs prior comparison, but no gross morphology changes - patient asymptomatic and w/o chest pain - will trend q8h (3) Elevated CK: Plan: - will trend daily - differentials considered, myopathy, TIA, trauma, endocrine - will also check ESR, CRP (4) Type 2 diabetes mellitus with diabetic neuropathy, with long-term current use of insulin: Plan: - pharmacy glycemic consult placed - basal +SSI - check BSG ACHS (5) S/P placement of cardiac pacemaker: Plan: - interrogation per [employer] in ED, no gross abnormalities per ED note (6) CHF (congestive heart failure): Plan: - hx of exacerbation - patient did not receive home AM torsemide 40mg PO. he declines to receive at night because of increased urination - euvolemic at this time, so will give dose tomorrow AM (7) Hypertension: Plan: - continue home regimen, will give qhs starting tonight instead of qam because of missed dose (8) Fall: Plan: - see above (9) CAD (coronary artery disease): Plan: - continue home clopidogrel and statin (lower suspicion for statin myopathy at this time given chronic use and the abrupt elevation in CK) (10) Gait disturbance: Plan: see above (11) PELON (obstructive sleep apnea): Plan: - continue cpap qhs, 14mmhg (home setting) (12) Glaucoma: Plan: - will provide glaucoma eyedrops per formula during this admission. patient's home regimen of 3 medications is unavailable (13) DVT prophylaxis: Plan: FEN/GI: HH, DM1 diet ppx: Lovenox 40 mg SQ BID (BMI>35) code: DNI/DNI dispo: med surg w/ tele Admission and Anticipated Discharge Date Admission Date: 04/18/21 History of Present Illness Chief Complaint: falls, weakness Primary Care Provider: DO Jose Armando Reeves Malcolm is an 80 y/o M w/ PMHx of HTN, HLD, CAD w/ stents, GERD, PELON, DM2 w/ neuropathy on insulin pump, cerebrovascular disease, and pacemaker who presents w/ weakness, imbalance, and falls since last night w/ episode of co nfusion and fevers (38.1C) for which he was seen and discharged from [facility] ED yesterday. Patient was feeling fine after discharge home. Overnight, on his way back from bathroom to bed, patient lost balance and fell, attributing it to unsteadiness and not mentation. It did not feel similar to his prior vertigo and he denies hx of similar though later recalls that it may have felt similar to when he was worked up for cerebellar ataxia a few years ago. Patient did not hit his head and was promptly helped up by his son. This morning, upon getting out of bed, patient fell in the same manner again, so his family brought him to the ED. No prodromal or postdromal symptoms. No TEMPLE, confusion, dizziness, visual changes. No room spinning near syncopal symptoms. He did not miss doses of medications prior to the falls. Patient allergic to IV contrast for CT. ED course: CT head negative. Preliminary labs notable for Trop 0.032->0.077 and elevated CK 2709 and CKMB 8.8. BSGs 80s. Allergies Allergy/AdvReac Type Severity Reaction Status Date / Time aspirin Allergy Severe Anaphylaxis Verified 04/18/21 14:43 Iodinated Contrast Media Allergy Severe SOB,HIVES Verified 04/18/21 14:43 Sulfonylureas Allergy Unknown UNKNOWN Verified 04/18/21 14:43 enalaprilat [From Vasotec] AdvReac Severe CHEST Verified 04/18/21 14:43 TIGHTNESS atorvastatin [From Lipitor] AdvReac Mild cramps Verified 04/18/21 14:43 ezetimibe [From Vytorin] AdvReac Mild MYALGIA Verified 04/18/21 14:43 simvastatin [From Vytorin] AdvReac Mild MYALGIA Verified 04/18/21 14:43 Xwjidbr-Kge-Aqv Reductase AdvReac Mild MUSCLE Verified 04/18/21 14:43 Inhibitor ACHING Home Medications Medication Instructions Recorded Confirmed Type latanoprost 0.005 % eye drops 1 drp OPL HS 09/18/18 04/18/21 History (Xalatan) coenzyme Q10 400 mg capsule (Co 400 mg PO DAILY cap 06/12/19 04/18/21 History Q-10) cyanocobalamin (vitamin B-12) 1,000 mcg PO 3XWK tab 06/12/19 04/18/21 History 1,000 mcg tablet (Vitamin B-12) glucosamine sulfate 1,000 mg 1,000 mg PO DAILY cap 06/12/19 04/18/21 History capsule shyxpwii-kop-zitzp acid 0.4 1 tab PO DAILY tab 06/12/19 04/18/21 History mg-lycopene 300 mcg-lutein 250 mcg tablet (Centrum Silver) selenium 200 mcg tablet 200 mcg PO 3XWK tab 06/26/19 04/18/21 History vitamin E 400 unit capsule 400 unit PO 3XWK cap 06/26/19 04/18/21 History clopidogrel 75 mg tablet 75 mg PO QAM #90 tab 11/20/19 04/18/21 Rx pantoprazole 20 mg tablet,delayed 20 mg PO DAILY #90 tab 02/19/20 04/18/21 Rx release torsemide 20 mg tablet 40 mg PO DAILY #180 tab 03/26/20 04/18/21 Rx amlodipine 10 mg-benazepril 40 mg 1 cap PO DAILY #90 cap 04/13/20 04/18/21 Rx capsule (Lotrel) OneTouch Ultra2 Meter #1 ea NS 06/17/20 03/15/21 Rx (blood-glucose meter) OneTouch Ultra Blue Test Strip #300 ea NS 06/18/20 03/15/21 Rx (blood sugar diagnostic) brimonidine 0.2 %-timolol 0.5 % 1 drp OPL BID 08/16/20 04/18/21 History eye drops (Combigan) cholecalciferol (vitamin D3) 50 50 mcg PO DAILY 08/16/20 04/18/21 History mcg (2,000 unit) tablet (Vitamin D3) dorzolamide 2 % eye drops (Trusopt) 1 drp OPL BID 08/16/20 04/18/21 History nitroglycerin 0.4 mg sublingual 0.4 mg SUBLINGUAL Q5M PRN #30 tab 09/14/20 04/18/21 Rx tablet (Nitrostat) metoprolol succinate 50 mg 50 mg PO DAILY #90 tab 01/14/21 04/18/21 Rx tablet,extended release 24 hr insulin aspart U-100 100 unit/mL 200 unit CONTINUOUS SUBCUTANEOUS 03/24/21 04/18/21 Rx subcutaneous solution (Novolog INFUSION .COMPLEX #18 vial U-100 Insulin aspart) rosuvastatin 10 mg tablet (Crestor) 10 mg PO DAILY 04/17/21 04/18/21 History acetaminophen 650 mg 650 mg PO Q12H PRN 04/18/21 04/18/21 History tablet,extended release Past Med/Surg History Medical History (Updated 04/18/21 @ 19:15 by Jad Dykes MD) Acute dyspnea Basal cell carcinoma CAD (coronary artery disease) Deafness in left ear Diabetes Diabetes mellitus, type 2 GERD (gastroesophageal reflux disease) Glaucoma left eye History of colon polyps History of esophageal dilatation Hyperlipidemia Hypertension Hypoxemia Hypoxia Lung nodule Removed ~2004 Melanoma 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 PELON (obstructive sleep apnea) cpap Osteoarthritis Sarcoma of femur left In ~2004, s/p removal and radiation SDH (subdural hematoma) 2010--no sx, no neurologist---no deficits Shortness of breath SOB (shortness of breath) Surgical History History of cardiac cath 2000--2 stents placed History of colonoscopy History of esophagogastroduodenoscopy (EGD) with EUS History of eye surgery right eye hemorrhage removal History of heart artery stent 2 stents placed History of lung surgery 2004--nodule removed History of Mohs micrographic surgery for skin cancer left ear History of surgery left leg sarcoma removal Status post cataract extraction of both eyes with insertion of intraocular lens Family History (Updated 04/18/21 @ 16:08 by Jad Dykes MD) Father , age 83 of lung cancer. Lung cancer Prostate cancer Mother , age 89 of lung cancer. Lung cancer Diabetes Grandfather (Paternal) Diabetes Brother BRCA gene positive Other No family history of adverse response to anesthesia Social History Smoking Status: Never smoker Second Hand Exposure: Yes (work environment); Hx Alcohol Use: Yes Alcohol type: beer Alcohol Intake Frequency Comment: One or 2 beers, 2 or 3 times per week. 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 Feels Safe at Home: Yes Childhood Exposure to Second-Hand Smoke: Yes Dental Care, Regularly: Yes Physical Activity Frequency: Does not Exercise Seatbelt Use: always Sunscreen Use: No Review of Systems Review of Systems: Constitutional: Denies fever, chills Eyes: Denies blurry vision, vision changes ENT: Denies sore throat Cardiovascular: Denies chest pain, palpitations Respiratory: Denies shortness of breath Gastrointestinal: Denies abdominal pain, nausea, vomiting, constipation, diarrhea Genitourinary: Denies urinary symptoms including dysuria Musculoskeletal: Denies muscle aches/pain, joint aches/pain Neurological: Denies headache, numbness, tingling, focal weakness. + unsteadiness w/ ambulation Integ: Patient also provided additional history that he had a rash on his left forearm a few days ago that has since resolved. Physical Exam Physical Exam: General: A&Ox4. NAD. Cooperative. Speech grossly normal. HEENT: Atraumatic, normocephalic. EOMI. PERRL (2mm pupils) Pulm: CTAB. -wheezes, -rales, -rhonchi. No respiratory distress. Cardiac: RRR, -mrg. Radial pulses intact and symmetrical. 2+ BLE. Abdominal: Nontender, nondistended, soft. Neuro: CN II-XII intact. No facial droop. Upper and lower extremity 5+/5 strength. Sensation of upper and lower extremity intact. Integ: No rashes, bruises, or lesions. No dysdiadochokinesia. No dysmetria. Results & Data Results & Data ([facility]) Vital Signs (Past 12 Hours) Vital Signs Temp Pulse Pulse Resp BP BP Pulse Ox 04/18/21 15:00 99 H 18 103/61 04/18/21 13:58 95 H 16 164/75 H 95 04/18/21 13:19 92 H 18 172/82 H 94 04/18/21 11:35 37.2 C 96 H 18 170/[address] w/o acute findings or skull fracture. Cxr w/o acute findings. CBC stable from yesterday. HypoK 3.5, otherwise BMP unchanged. BSGs 80s. 12/04/20 A1C 7.7. AST elevated 16->93. Trop 0.032->0.077. TSH low 0301->0.198. 04/17 BC pending. Diagnostic Findings Ventricularly paced rhythm w/ tachycardia 134 bpm. prolonged QTc 618 Code Status & VTE Plan Code Status DNR/DNI VTE Prophylaxis Plan VTE Prophylaxis will be ordered: Yes Supervising Physician Co-Signing Physician Notes I also saw the patient in completed a history and physical examination. I discussed the case with Dr. Dykes and agree with the impression and plan as noted in his documentation. 80-year-old male with history of type 2 diabetes (relatively well controlled on insulin pump) and coronary artery disease status post pacemaker placement last year well-known to me from the outpatient office presents to the emergency department with mental status change and weakness. On or Monday, the patient notes that he was outside cutting grass and he notes that he did get quite warm and he suspects mildly dehydrated. On Monday morning (yesterday) his son tells me that Jose Armando seem to be in his usual state of health when he visited him. However, when the son called him later in the day he notes that his dad seemed " off" and when he went to visit his dad, his dad seemed not to recognize him. They actually came to the emergency department on Monday; work-up was generally unremarkable. His symptoms seem to improve and he felt better after some IV fluids. He was noted to have a fever while in the emergency department other this resolved with Tylenol. Overnight (Monday into Monday), he fell out of bed twice. One of his sons who came to help him back in bed noted that he was warm and sweaty, and suspected he had a fever. When he fell the second time earlier this morning, they brought him back to the emergency department. Exam 150/70, 89, 24, 37.2, 95% on room air He is alert and oriented. I do think he is a little bit off from his baseline (slightly slower than usual mentation, speech) Heart regular rate and rhythm. Lungs seem clear. Respirations are nonlabored Abdomen soft and nontender. Skin without rashes (though he recalls a erythematous rash on his left forearm a couple of days ago that is now resolved) Extremities without edema Data Hemoglobin 14.2, platelet count 146 Sodium 139, potassium 3.5, BUN 15, creatinine 1.09 Glucose 83 Most recent hemoglobin A1c 7.7% (November,) AST 93, ALT 38 Total creatinine kinase 2709 (total CK was 85 on previous day) Troponin 0 0.077 TSH 0.198 Lyme was negative yesterday, COVID-19 negative both yesterday and today Blood cultures drawn 04/17/2021 are pending Urine culture from today is awaiting collection Imaging Chest x-ray negative Head CT unremarkable Impression and Plan Generalized weakness Mental status change Fever Observation telemetry High risk activities for tickborne illness, so I would recheck Lyme and check an Anaplasma smear (note AST elevation). Trend LFTs and platelet count Urine culture Follow blood cultures drawn yesterday If respikes fever tonight, would reculture blood and consider empiric antibiotic coverage (would cover urine and tickborne illness). With fever, neuro etiology seems less likely. Could consider MRI brain, though would need to check MRI compatibility of his cardiac device. Symptoms not consistent with dysrhythmia; device has been interrogated; will follow on telemetry. Else per resident documentation ADDENDUM (2100 hours) Discussed smear with hematology lab. Highly suspicious for anaplasma. Will start doxycycline 100 mg IV q 12. Will add anaplasma DNA to AM labs for confirmation. Resident Activity Tracking Resident Involvement: Resident Care Provided Care Provided: Adult [facility] (1) CAD (coronary artery disease) Associated angina: without angina Coronary Disease-Associated Artery/Lesion type: [place] artery [place] vs. transplanted heart: [place] heart Qualified Code(s): I25.10 - Atherosclerotic heart disease of [place] coronary artery without angina pectoris (2) CHF (congestive heart failure) Heart failure chronicity: acute on chronic Heart failure type: unspecified Qualified Code(s): I50.9 - Heart failure, unspecified (3) Hypertension Hypertension type: essential hypertension Qualified Code(s): I10 - Essential (primary) hypertension
[2021-04-18 15:55] LABS: Creatine Kinase MB 8.8 ng/ml (0.5-3.6)
[2021-04-18] MEDS ORDERED: PHARMACY GLYCEMIC MGMT CONSULT STA ×2 (17:02→20:27)
[2021-04-18] MEDS ORDERED: MoRPHine SULFATE 2 MG/ML CARP IV PRN (20:18)
[2021-04-18] MEDS ORDERED: ACETAMINOPHEN 325 MG TAB PO PRN (20:18)
[2021-04-18] MEDS ORDERED: POLYETHYLENE (MIRALAX) 17 GM PACK PO PRN (20:18)
[2021-04-18] MEDS ORDERED: ONDANSETRON INJ 2 MG/ML 2 ML VIAL IV PRN (20:18)
[2021-04-18] MEDS ORDERED: NITROGLYCERIN SL 0.4 MG/TAB TAB SL PRN (20:18)
[2021-04-18] MEDS ORDERED: PHARMACY GLYCEMIC MGMT CONSULT PRN (20:28)
--- NOTE | 2021-04-18 20:53 | Communication Note ---
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 Patient will be started on IV doxycycline.
[2021-04-18] MEDS ORDERED: GLUCOSE 40% GEL 15 GM TUBE PO PRN (21:00)
[2021-04-18] MEDS ORDERED: NON-FORMULARY MEDICATION (Brimonidine-Timolol [Combigan] 0.2-0.5 % drops) OPL SCH (21:00)
[2021-04-18] MEDS ORDERED: GLUCAGON FOR INJ 1 MG VIAL IM PRN (21:00)
[2021-04-18] MEDS ORDERED: BENAZEPRIL HCL 10 MG TAB PO SCH (21:00)
[2021-04-18] MEDS ORDERED: DEXTROSE 50% 50 ML SYRINGE IV PRN (21:00)
[2021-04-18] MEDS ORDERED: GLUCOSE 10 TABS/TUBE PO PRN (21:00)
[2021-04-18] MEDS ORDERED: CARBOHYDRATES FOR HYPOGLYCEMIA PO PRN (21:00)
--- NOTE | 2021-04-18 21:25 | Communication Note ---
Date of Service: April 18, 2021 Re: IV doxycycline Patient's last ecg from earlier today had prolonged qtc 618. I suspect that this was from the noted poor quality of the read as his previous day's qtc was 519. I have checked with telemetry and via calipers, the estimated qtc is 495. A repeat ecg has been ordered. Continue w/ IV doxycycline for now.
[2021-04-18] MEDS: ENOXAPARIN INJ 40 MG/0.4 ML SYR SQ SCH (21:49)
[2021-04-18] MEDS: amLODIPine BESYLATE 5 MG TAB PO SCH (21:50)
[2021-04-18] MEDS: BRIMONIDINE TARTRATE 0.2% 5ML OPL SCH (21:51)
[2021-04-18] MEDS: TIMOLOL MALEATE 0.5% OP SOLN 5 ML BTL OPL SCH (21:52)
[2021-04-18] MEDS: CLOPIDOGREL BISULFATE 75 MG TAB PO SCH (21:52)
[2021-04-18] MEDS: DORZOLAMIDE HCL 2% OPH SOLN 10 ML BTL OPL SCH (21:53)
[2021-04-18] MEDS: LATANOPROST 0.005% OP SOLN 2.5 ML BTL OPL SCH (21:53)
[2021-04-18] MEDS: DOXYCYCLINE HYCLATE 100 MG in DEXTROSE 5% 100 ML IV SCH (21:53)
[2021-04-18] MEDS: METOPROLOL SUCC 50MG EXT REL TAB PO SCH (21:54)
[2021-04-18] MEDS: ROSUVASTATIN CALCIUM 10 MG TAB PO SCH (21:54)
[2021-04-18] MEDS: PANTOprazole 40 MG TAB PO SCH (21:54)
[2021-04-18] MEDS: INSULIN GLARGINE SOLOSTAR 100 UNITS/ML 3 ML PEN SC SCH (23:55)
[2021-04-19] MEDS: INSULIN ASPART 100 UNITS/ML 3 ML PEN SC SCH ×5 (02:30→21:24)
[2021-04-19 06:51] LABS: Hematocrit (blood only) 39.7 % (42-52); Hemoglobin 12.9 g/dL (14.0-18.0); Mean Corpuscular Hgb Conc 32.5 g/dL (32-36); Mean Corpuscular Volume 92.3 fL (80-100); RDW Coefficient of Variation 13.7 % (11.5-14.5); RDW Standard Deviation 46.5 fL (36.4-46.3); White Blood Count 4.33 K/uL (4.8-10.8)
[2021-04-19 07:18] LABS: Platelet Count 91 K/uL (130-400)
[2021-04-19 07:20] LABS: Albumin Level 2.9 gm/dl (3.4-5.0); BUN Creatinine Ratio 19.8 (10-20); C Reactive Protein 14.2 mg/dl (0-0.29); Calcium 7.8 mg/dl (8.5-10.1); Creatinine Clr Calc Pharmacy 67.7 ml/min; Est GFR (African American) 69.3 ml/min; Est GFR (Non-African American) 59.8 ml/min; Magnesium 2.2 mg/dl (1.8-2.4); Potassium 3.4 mmol/L (3.5-5.1)
[2021-04-19 07:36] LABS: Basophils # (auto) 0.01 K/uL (0-0.2); Basophils % (auto) 0.2 %; Immature Granulocytes # (auto) 0.01 K/uL (0.00-0.02); Immature Granulocytes % (auto) 0.2 %; Lymphocytes # (auto) 0.44 K/uL (1.2-3.4); Lymphocytes % (auto) 10.2 %; Monocytes # (auto) 0.22 K/uL (0.11-0.59); Monocytes % (auto) 5.1 %; Neutrophils # (auto) 3.65 K/uL (1.4-6.5); Neutrophils % (auto) 84.3 %; Platelet Estimate Decreased (Normal)
[2021-04-19 07:36] LABS: Albumin Globulin Ratio 0.8 (0.9-2); Bilirubin,Total 0.9 mg/dl (0.2-1); Globulin 3.8 gm/dl (2.5-4.0); Total Protein 6.7 gm/dl (6.4-8.2)
[2021-04-19 08:00] LABS: Lyme Ab IgG w/WB Rflx Negative (Negative); Lyme Ab IgM w/WB Rflx Negative (Negative)
[2021-04-19] MEDS: BRIMONIDINE TARTRATE 0.2% 5ML OPL SCH ×2 (08:12→21:17)
[2021-04-19] MEDS: TORSEMIDE 20 MG TAB PO SCH (08:13)
[2021-04-19] MEDS: POTASSIUM CHLORIDE PWD 20 MEQ PACK PO SCH (08:13)
[2021-04-19] MEDS: ENOXAPARIN INJ 40 MG/0.4 ML SYR SQ SCH ×2 (08:14→21:14)
[2021-04-19] MEDS: INSULIN GLARGINE SOLOSTAR 100 UNITS/ML 3 ML PEN SC SCH ×2 (08:16→21:25)
[2021-04-19] MEDS: LATANOPROST 0.005% OP SOLN 2.5 ML BTL OPL SCH (08:16)
[2021-04-19] MEDS: TIMOLOL MALEATE 0.5% OP SOLN 5 ML BTL OPL SCH ×2 (08:16→21:20)
[2021-04-19] MEDS: DORZOLAMIDE HCL 2% OPH SOLN 10 ML BTL OPL SCH ×2 (08:17→21:22)
[2021-04-19] MEDS: DOXYCYCLINE HYCLATE 100 MG in DEXTROSE 5% 100 ML IV SCH ×2 (08:23→21:32)
--- NOTE | 2021-04-19 13:24 | Electrocardiogram Report ---
Test Reason : Blood Pressure : / mmHG Vent. Rate : 090 BPM Atrial Rate : 090 BPM P-R Int : 206 ms QRS Dur : 188 ms QT Int : 436 ms P-R-T Axes : 087 -79 081 degrees QTc Int : 533 ms Atrial-sensed ventricular-paced rhythm Abnormal ECG When compared with ECG of 18-APR-2021 11:35, Vent. rate has decreased BY 44 BPM Confirmed by Hiro Fagan ([id number]) on 04/19/2021 1:24:35 PM Referred By: REFERRED SELF Confirmed By:Hiro Fagan
--- NOTE | 2021-04-19 13:29 | Pharmacy Report ---
Pharmacy Glycemic Short Note 2 - Date of Service April 19, 2021 - Glycemic Short BSG Results (Last 24 hours): 04/18/21 04/19/21 04/19/21 22:08 02:09 06:40 Glucose 133 H POC Glucose 84 122 H 04/19/21 04/19/21 07:40 12:03 Glucose POC Glucose 162 H 270 H OUTPATIENT ANTIDIABETIC REGIMEN: * Insulin pump with TDD of 150 units/day and TBD 49 units/day * HbA1C = 7.7% 12/04/20 ASSESSMENT: * Mr Fowler is an 80 y/o M with a PMH of T2DM on insulin pump who presents with falls and gait disturbances. 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 * Patient had insulin pump removed yesterday evening and Lantus 25 units BID initiated (to equal home dose of 49 units daily). * Fasting today was 162 mg/dL which is reasonable. Will continue Lantus 25 BID and add slightly higher dose this evening in case BSGs continue higher. * Novolog weight-based stress of 3 for now. PLAN FOR INPATIENT GLYCEMIC CONTROL: * Basal insulin * Lantus 25 units SQ BID (30 units if BSG greater than 160 mg/dL) * Bolus insulin * NovoLog per scale ACHS or Q6hrs while NPO * Goal Range: Low 110 mg/dL - High 140 mg/dL * Correction Factor: 15 mg/dL/unit * Nutritional / Prandial insulin per carb ratio of 1 unit per 4 grams CHO consumed PLAN FOR DISCHARGE: * Patient works with endocrinology to manage insulin pump. Recommend close follow-up with them.
--- NOTE | 2021-04-19 14:11 | Hospitalist Progress Note ---
Date of Service April 19, 2021 Assessment & Plan (1) Weakness: Plan: 80yo male with CVD, CAD with stent placement, IDDM with neuropathy, cardiac pacemaker, vertigo, and ataxia presents with a one-day history of increased weakness and unsteadiness after a day of confusion and fever the day prior. Weakness, unsteadiness, confusion, fever likely secondary to anaplasmosis HPI more consistent with ataxic or neuropathic etiology rather than acute CVA; CT head negative MRI deferred - unclear if pacemaker is MR-compatible CRP elevated to 14.2 Anaplasmosis smear positive Continue doxycycline IV, plan to transition to PO tomorrow QT prolongation Patient with QT>500msec on EKG Likely secondary to acute illness, hypokalemia Caution with doxycycline administration given QT-prolonging effect Continue cardiac monitoring Elevated troponin Patient without chest pain, EKG without ischemic change; troponin downtrending Likely represents demand ischemia; continue to monitor if symptoms develop Elevated CK Ddx includes myopathy, TIA, trauma, endocrine CRP elevated to 14.2 DM Patient's home regimen held on admission Continue BSG checks, sliding-scale insulin, hypoglycemic protocol Pacemaker Interrogation in ED per [place] without gross abnormalities CHF Patient euvolemic at this time Continue home torsemide Hypertension Continue home antihypertensive regimen CAD Continue home clopidogrel, statin PELON Continue CPAP Glaucoma Continue eyedrops per formulary (patient's three home meds unavailable here) FEN: heart healthy, DM diet Code status: DNR/DNI DVT ppx: lovenox Dispo: med/surg tele (2) Elevated troponin: (3) Elevated CK: (4) Type 2 diabetes mellitus with diabetic neuropathy, with long-term current use of insulin: (5) S/P placement of cardiac pacemaker: (6) CHF (congestive heart failure): (7) Hypertension: (8) Fall: (9) CAD (coronary artery disease): (10) Gait disturbance: (11) PELON (obstructive sleep apnea): (12) Glaucoma: (13) DVT prophylaxis: Admission and Anticipated Discharge Date Admission Date: April 18, 2021 Supervising Physician Co-Signing Physician Notes I personally examined the patient and verified all gallardo points of history and exam, discussed case, and agree with decision making with Dr Moura Feeling much better overall. No new complaints. Discussed plan. Answered all questions to the best my ability. Vitals noted, in general he is awake and alert pleasant no distress. HEENT normocephalic atraumatic mucous membranes are moist. Breathing unlabored no accessory muscle use good effort. Skin shows no rashes no pallor or icterus. Neuro without focal deficits. Anaplasmosisimproving. Continue doxycycline. Acute metabolic encephalopathyappeared to be delirium due to the anaplasmosis. This appears to have resolved. Long QTprobably from acute illness and hypokalemiapotassium replaced. Repeat EKG in a.m. Would like to see QT shortening simply because doxycycline can theoretically prolong QT as well. Anticipate safe for home tomorrow, as long as QT has improved. Subjective Patient seen and evaluated at bedside this morning. No acute events overnight. Feels well this morning and is without complaints. Patient denies CP, SOB, abdominal pain, nausea, vomiting, lightheadedness, dizziness, back pain, weakness, confusion, dysuria, diarrhea, or other symptoms. Physical Exam Physical Exam: Constitutional: well-appearing, no acute distress HEENT: NCAT, no conjunctival injection CV: regular rhythm, no murmur appreciated, extremities well-perfused Resp: CTABL, no wheezes/rales/rhonchi appreciated, no increased work of breathing MSK: no gross deformities appreciated Skin: warm, dry, no rash appreciated Neuro: AOx4, no focal neurological deficits appreciated Results & Data Results & Data ([facility]) Vital Signs (Past 12 Hours) Vital Signs Temp Pulse Pulse Resp BP Pulse Ox 04/19/21 11:09 37.2 C 74 18 145/70 H 94 04/19/21 08:00 69 04/19/21 07:51 37.3 C 70 20 140/59 L 95 04/19/21 03:37 73 21 95 04/19/21 02:55 36.7 C 72 20 107/57 L 95 (1) CAD (coronary artery disease) Associated angina: without angina Coronary Disease-Associated Artery/Lesion type: [place] artery [place] vs. transplanted heart: [place] heart Qualified Code(s): I25.10 - Atherosclerotic heart disease of [place] coronary artery without angina pectoris (2) CHF (congestive heart failure) Heart failure chronicity: acute on chronic Heart failure type: unspecified Qualified Code(s): I50.9 - Heart failure, unspecified (3) Hypertension Hypertension type: essential hypertension Qualified Code(s): I10 - Essential (primary) hypertension
[2021-04-19] MEDS ORDERED: POTASSIUM CHLORIDE CRTAB 20 MEQ TABCR PO STA (14:17)
--- NOTE | 2021-04-19 17:35 | Billing Data ---
Date of Service April 19, 2021 Coding Level of Care Code 29031 Subseq Obs Care Lvl 3
[2021-04-19] MEDS: amLODIPine BESYLATE 5 MG TAB PO SCH (21:19)
[2021-04-19] MEDS: CLOPIDOGREL BISULFATE 75 MG TAB PO SCH (21:19)
[2021-04-19] MEDS: PANTOprazole 40 MG TAB PO SCH (21:20)
[2021-04-19] MEDS: ROSUVASTATIN CALCIUM 10 MG TAB PO SCH (21:21)
[2021-04-19] MEDS: METOPROLOL SUCC 50MG EXT REL TAB PO SCH (21:21)
[2021-04-20 07:07] LABS: Hematocrit (blood only) 38.2 % (42-52); Hemoglobin 12.6 g/dL (14.0-18.0); Mean Corpuscular Hemoglobin 29.7 pg (25-34); Mean Corpuscular Volume 90.1 fL (80-100); Mean Platelet Volume 12.3 fL (7.4-10.4); Platelet Count 73 K/uL (130-400); RDW Coefficient of Variation 13.4 % (11.5-14.5); RDW Standard Deviation 44.5 fL (36.4-46.3); Red Blood Count 4.24 M/uL (4.7-6.1); White Blood Count 2.88 K/uL (4.8-10.8)
[2021-04-20 07:27] LABS: Albumin Level 2.9 gm/dl (3.4-5.0); Calcium 7.9 mg/dl (8.5-10.1); Creatinine Clr Calc Pharmacy 72.1 ml/min; Est GFR (African American) 75.6 ml/min; Est GFR (Non-African American) 65.2 ml/min; Potassium 3.5 mmol/L (3.5-5.1)
[2021-04-20 07:41] LABS: Albumin Globulin Ratio 0.7 (0.9-2); Bilirubin,Total 0.6 mg/dl (0.2-1); Estimated Average Glucose 189 mg/dl; Globulin 3.9 gm/dl (2.5-4.0); Hemoglobin A1C 8.2 % (4.5-5.6); Total Protein 6.8 gm/dl (6.4-8.2)
[2021-04-20] MEDS: ENOXAPARIN INJ 40 MG/0.4 ML SYR SQ SCH (08:01)
[2021-04-20] MEDS: POTASSIUM CHLORIDE PWD 20 MEQ PACK PO SCH (08:03)
[2021-04-20] MEDS: TIMOLOL MALEATE 0.5% OP SOLN 5 ML BTL OPL SCH (08:04)
[2021-04-20] MEDS: DORZOLAMIDE HCL 2% OPH SOLN 10 ML BTL OPL SCH (08:06)
[2021-04-20] MEDS: TORSEMIDE 20 MG TAB PO SCH (08:07)
[2021-04-20] MEDS: BRIMONIDINE TARTRATE 0.2% 5ML OPL SCH (08:08)
[2021-04-20] MEDS: DOXYCYCLINE HYCLATE 100 MG in DEXTROSE 5% 100 ML IV SCH (08:14)
[2021-04-20] MEDS: INSULIN ASPART 100 UNITS/ML 3 ML PEN SC SCH ×2 (08:22→12:15)
[2021-04-20 08:46] LABS: ALC (manual) 0.93 K/uL (1.2-3.4); Basophils # (manual) 0.07 K/uL (0-0.2); Basophils % (manual) 2.6 %; Eosinophils # (manual) 0.03 K/uL (0-0.5); Eosinophils % (manual) 0.9 %; Lymphocytes # (manual) 0.45 K/uL (1.2-3.4); Lymphocytes % (manual) 15.7 %; Monocytes # (manual) 0.25 K/uL (0.11-0.59); Monocytes % (manual) 8.7 %; Neutrophils % (manual) 55.6 %; Reactive Lymphocytes # (manual) 0.48 K/uL; Reactive Lymphocytes % (manual) 16.5 %
[2021-04-20] MEDS: INSULIN GLARGINE SOLOSTAR 100 UNITS/ML 3 ML PEN SC SCH (08:50)
[2021-04-20] MEDS ORDERED: POTASSIUM CHLORIDE CRTAB 20 MEQ TABCR PO STA (10:28)
--- NOTE | 2021-04-20 10:30 | Discharge Summary ---
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 Patient was feeling fine after discharge home. Overnight, on his way back from bathroom to bed, patient lost balance and fell, attributing it to unsteadiness and not mentation. It did not feel similar to his prior vertigo and he denies hx of similar though later recalls that it may have felt similar to when he was worked up for cerebellar ataxia a few years ago. Patient did not hit his head and was promptly helped up by his son. This morning, upon getting out of bed, patient fell in the same manner again, so his family brought him to the ED. No prodromal or postdromal symptoms. No TEMPLE, confusion, dizziness, visual changes. No room spinning near syncopal symptoms. He did not miss doses of medications prior to the falls. Patient allergic to IV contrast for CT. ED course: CT head negative. Preliminary labs notable for Trop 0.032->0.077 and elevated CK 2709 and CKMB 8.8. BSGs 80s. Admission Exam Per Admitting Provider General: A&Ox4. NAD. Cooperative. Speech grossly normal. HEENT: Atraumatic, normocephalic. EOMI. PERRL (2mm pupils) Pulm: CTAB. -wheezes, -rales, -rhonchi. No respiratory distress. Cardiac: RRR, -mrg. Radial pulses intact and symmetrical. 2+ BLE. Abdominal: Nontender, nondistended, soft. Neuro: CN II-XII intact. No facial droop. Upper and lower extremity 5+/5 strength. Sensation of upper and lower extremity intact. Integ: No rashes, bruises, or lesions. No dysdiadochokinesia. No dysmetria. Principal Diagnosis Anaplasmosis Discharge Exam Constitutional: well-appearing, no acute distress HEENT: NCAT, no conjunctival injection CV: regular rhythm, no murmur appreciated, extremities well-perfused, no LE edema Resp: CTABL, no wheezes/rales/rhonchi appreciated, no increased work of breathing MSK: no gross deformities appreciated Skin: warm, dry, no rash appreciated Neuro: AOx4, no focal neurological deficits appreciated Discharge Data Allergies Allergy/AdvReac Type Severity Reaction Status Date / Time aspirin Allergy Severe Anaphylaxis Verified 04/18/21 14:43 Iodinated Contrast Media Allergy Severe SOB,HIVES Verified 04/18/21 14:43 Sulfonylureas Allergy Unknown UNKNOWN Verified 04/18/21 14:43 enalaprilat [From Vasotec] AdvReac Severe CHEST Verified 04/18/21 14:43 TIGHTNESS atorvastatin [From Lipitor] AdvReac Mild cramps Verified 04/18/21 14:43 ezetimibe [From Vytorin] AdvReac Mild MYALGIA Verified 04/18/21 14:43 simvastatin [From Vytorin] AdvReac Mild MYALGIA Verified 04/18/21 14:43 Ukwrpdl-Whd-Lcc Reductase AdvReac Mild MUSCLE Verified 04/18/21 14:43 Inhibitor ACHING Consultations 04/18/21 15:41 ED Decision to Admit Stat Ordered Studies 04/18/21 12:45 CT head/brain wo con Stat Hospital Course (1) Weakness: Weakness, unsteadiness, confusion, and fever secondary to anaplasmosis Imaging performed on arrival to ED was negative for stroke; MRI was unable to be performed due to concerns regarding if patient's pacemaker was MR-compatible. Peripheral smear was positive for signs of anaplasmosis, which was consistent with patient's elevated inflammatory markers. IV doxycycline treatment was initiated, and patient improved clinically. Patient was noted with a decreasing platelet count without signs of increased bleeding or clotting, consistent with anaplasmosis. IV doxycycline therapy was transitioned to PO, and patient was discharged on hospital day three in stable condition with instruction to complete a total ten-day course of doxycycline. Repeat labwork about a week after discharge is encouraged to document resolution of elevated CK, elevated CRP, and thrombocytosis. A one-week hospital discharge follow-up appointment has been scheduled for patient on April [address] Raza. QT prolongation, hypokalemia On admission patient's QTc was found to be prolonged over 500msec, felt to be secondary to hypokalemia and acute illness. Doxycycline was administered with caution, and patient was kept on continuous cardiac monitoring due to concern for torsades de pointes. Repeat EKGs were obtained daily, and patient's hypokalemia resolved with oral repletion. EKG performed on day of discharge showed a QTc of 515msec. Patient was not felt to be at continued risk of torsades de pointes on day of discharge; the importance of maintaining adequate PO intake to prevent hypokalemia was stressed to patient prior to discharge. Repeat EKG in 3-4 days has been scheduled at the [facility] clinic, ahead of the hospital discharge follow-up appointment as noted above. Elevated troponin Patient was noted with an elevated troponin on admission without chest pain, shortness of breath, signs of ischemic change on EKG, or other findings suggestive of ACS. Repeat troponin levels trended downward. Patient's elevated troponin was suspected to be secondary to demand ischemia, and no further follow-up was felt indicated. DM2 Patient's home DM2 regimen was held on admission. BSG was controlled with sliding-scale insulin. Patient's home regimen was restarted upon discharge. Pacemaker Patient's pacemaker was interrogated in ED by a [employer] advertising account representative and was noted to be without gross abnormalities. CHF Patient was noted to be euvolemic on exam, and patient's home torsemide was continued during this hospitalization. Hypertension Patient's home antihypertensive regimen was continued during this hospitalizat ion. CAD Patient's home regimen was continued during this hospitalization. PELON CPAP was continued during this hospitalization. Glaucoma Patient's home glaucoma eyedrops were not found in the [facility] formulary, so they were substituted per pharmacy recommendation. Patient's home eyedrops were restarted upon discharge. Total Time Total Time Spent Total Time Spent (In Minutes): <30 Discharge Plan Discharge Items Patient Disposition: Home - Self-Care Reason For Visit: ANAPLASMOSIS, LONG QT Discharge Diagnosis: Anaplasmosis Activity: Resume your previous activity Non-emergency contact: Primary Care Provider Call non-emergency contact if: your symptoms worsen and you have a fever Follow-up/Referrals: Adria Huerta DO [Primary Care Provider] - 04/27/21 2:50 pm (THIS APPOINTMENT WILL BE WITH DR. GREENE) Diet: Carb Consistent or DM2 and Heart Healthy Addtl Attending Provider Instructions: You were admitted to the hospital for anaplasmosis. You were treated with IV antibiotics. Your symptoms improved, and we feel it is safe for you to continue your antibiotic therapy from home with oral antibiotic pills. A discharge summary will be sent to your primary care physician to ensure continuity of care. Please bring this discharge summary with you to your next office appointment so that your provider can review it at that time. Follow-up appointments: Make a follow-up appointment with your PCP within the next week. It is very important that you follow up with them shortly after discharge from the hospital. Keep all your follow-up appointments as already scheduled. If you cannot make an appointment, notify your provider. Medications: Your medication list has been reviewed and reconciled upon discharge to ensure accuracy and continuity of care. An updated list of all your medications is included with your hospital discharge paperwork. Please review this list closely, and make note of any changes. * We sent a new medication called doxycycline to your pharmacy. Take doxycycline (100mg) one tablet twice daily for eight days (take one capsule in the evening on 04/20, the one capsule morning and night from 04/21 until 04/27). * While taking doxycycline, be sure to take each dose with a glass of water. Doxycycline can cause some stomach upset; taking it with food may help. Doxycycline also increases your skin's sensitivity to the sun, so avoid sunlight if possible; if you do go outside, be sure to use sun protection, like a hat, long-sleeve shirt, and/or suncreen. Take your medications as instructed; do not skip a dose of your medicines. Make sure all of your doctors know every medicine you are taking (including fegc-zdv-nqpxzpq medicines, vitamins, and supplements). Call your primary care provider before taking any new medicines (including qtdm-kyp-yglhbhq medicines, vitamins, and supplements), because some of these may interact with your current medications, or may make your symptoms worse. Tell your primary care provider if you cannot afford your medications. CONTACT YOUR PRIMARY CARE PROVIDER if you experience any of the following: Fever, chills, nausea Difficulty following your treatment plan, or difficulty taking medications CALL 911 OR GO TO THE EMERGENCY DEPARTMENT if you experience any of the following: Sudden, severe abdominal pain or nausea/vomiting Severe chest pain, or chest pain that radiates (moves) to your jaw or arm Sudden, severe shortness of breath or difficulty breathing Thank you for allowing us to participate in your care. Pending Studies at Discharge: No Stand-Alone Forms: My [facility] Medications and DC Order Prescriptions: New doxycycline hyclate 100 mg Capsule 100 mg PO BID 8 Days Qty: 15 RF: 0 Continued clopidogrel 75 mg tablet 75 mg PO QAM Qty: 90 RF: 3 pantoprazole 20 mg tablet,delayed release (DR/EC) 20 mg PO DAILY Qty: 90 RF: 3 torsemide 20 mg tablet 40 mg PO DAILY Qty: 180 RF: 3 amlodipine-benazepril [Lotrel] 10-40 mg capsule 1 cap PO DAILY Qty: 90 RF: 3 (DME) blood-glucose meter [OneTouch Ultra2 Meter] Misc See Rx Instructions .ROUTE .MEDSUPPLY Qty: 1 RF: 0 (DME) OneTouch Ultra Blue Test Strip Strip See Dose Instructions .ROUTE .MEDSUPPLY Qty: 300 RF: 3 metoprolol succinate 50 mg tablet extended release 24 hr 50 mg PO DAILY Qty: 90 RF: 0 Novolog U-100 Insulin aspart 100 unit/mL solution 200 unit continuous subcutaneous infusion .COMPLEX Qty: 18 RF: 3 selenium 200 mcg tablet 200 mcg PO 3XWK RF: 0 nitroglycerin [Nitrostat] 0.4 mg tablet, sublingual 0.4 mg Sublingual Q5M PRN (Reason: Chest Pain) Qty: 30 RF: 5 latanoprost [Xalatan] 0.005 % drops 1 drp OPL HS RF: 0 cyanocobalamin (vitamin B-12) [Vitamin B-12] 1,000 mcg tablet 1,000 mcg PO 3XWK RF: 0 Centrum Silver 0.4-300-250 mg-mcg-mcg tablet 1 tab PO DAILY RF: 0 coenzyme Q10 [Co Q-10] 400 mg capsule 400 mg PO DAILY RF: 0 glucosamine sulfate 1,000 mg capsule 1,000 mg PO DAILY RF: 0 vitamin E 400 unit capsule 400 unit PO 3XWK RF: 0 dorzolamide [Trusopt] 2 % drops 1 drp OPL BID RF: 0 Combigan 0.2-0.5 % drops 1 drp OPL BID RF: 0 cholecalciferol (vitamin D3) [Vitamin D3] 50 mcg (2,000 unit) Tablet 50 mcg PO DAILY RF: 0 rosuvastatin [Crestor] 10 mg tablet 10 mg PO DAILY RF: 0 acetaminophen 650 mg Tablet Extended Release 650 mg PO Q12H PRN (Reason: Pain) RF: 0 Discharge Orders: Discharge Order (Routine); Ordered 04/20/21 Ordered By: Murali Priest/Other Patient Handouts: A1C Admission Data Admit Date/Time: 04/19/21 18:08 Attending Provider: Horacio Cummings Admit Provider: Horacio Cummings Primary Care Provider: Adria Huerta Other Providers: Adria Huerta Other Interventions: Discharge Summary Assessment (RN) Last Done: 04/20/21 11:22 Supervising Physician Co-Signing Physician Notes I personally examined the patient and verified all gallardo points of history and exam, discussed case, and agree with decision making with Dr Moura Feels good. Feels up to going home. Vitals noted, in general he is awake and alert pleasant no distress. HEENT normocephalic atraumatic mucous membranes are moist. Breathing unlabored no accessory muscle use good effort. Skin shows no rashes no pallor or icterus. Neuro without focal deficits. QTC still around 530 Anaplasmosisimproving. Continue doxycycline to complete a course of therapy. Risk of sun sensitivity and esophagitis outlined. Follow-up labs in 1 to 2 weeks. Acute metabolic encephalopathyappeared to be delirium due to the anaplasmosis. This appears to have resolved. Long QTprobably from acute illness and hypokalemiapotassium replaced yesterday although did not rise as much as expectedadditional replacement given today. That said, given that his QT is not getting longer, and the doxycycline does not really seem to be having any deleterious effects, appears safe for home. Discussed follow-up EKG in the office in about 2 dayswhich will be ordered. Safe/stable for home, otherwise as above
--- NOTE | 2021-04-20 15:51 | Electrocardiogram Report ---
Test Reason : Blood Pressure : / mmHG Vent. Rate : 071 BPM Atrial Rate : 071 BPM P-R Int : 228 ms QRS Dur : 194 ms QT Int : 474 ms P-R-T Axes : 032 -79 070 degrees QTc Int : 515 ms Atrial-sensed ventricular-paced rhythm with prolonged AV conduction with occasional Premature ventric ular complexes Abnormal ECG When compared with ECG of 18-APR-2021 23:12, Premature ventricular complexes are now Present Vent. rate has decreased BY 19 BPM Confirmed by Hiro Fagan ([id number]) on 04/20/2021 3:50:46 PM Referred By: REFERRED SELF Confirmed By:Hiro Fagan
--- NOTE | 2021-04-20 19:32 | Billing Data ---
Date of Service April 20, 2021 Coding Level of Care Code D/C DAY MANAGEMENT <30 MINS
[2021-04-20] MEDS ORDERED: DOXYCYCLINE HYCLATE 100 MG CAP PO SCH (21:00)
== END 2021-04-20 12:48 | disposition home or self-care (01) | DRG 869 ==
LOC: ED 11:28 → 2N 11:28 → SUATTDRO 17:02 → 2N 19:28

== ENCOUNTER 2024-06-20 16:26 | Inpatient (IN) ==
--- NOTE | 2024-06-20 17:14 | Emergency Department Note ---
Impression & Plan Sepsis, Weakness, Anemia, Leukocytosis, Dysuria, Acute UTI ED Provider Note NAME: Renee GARCIA AGE: 83 SEX: M : 1940 ARRIVES VIA: Ambulance INFORMANT: [Patient][ems, nursing] ED PROVIDER(S): [Ulises Beltran MD] CHIEF COMPLAINT: Weakness HISTORY OF PRESENT ILLNESS: The patient is an 83-year-old male whose had a day or so of fever and some weakness. Today, he slid out of his chair onto the floor. He did not suffer trauma. EMS arrived and he had a lower blood pressure and fever. He received a 400 cc bolus prior to arrival as well as some 700 mg of Tylenol. The patient admits to a foul-smelling urine with some burning. He has not had cough or shortness of breath. No abdominal pain, no vomiting or diarrhea. The patient did have a cyst removed from his neck recently, this seemed to go without complication. The patient states that his family doctor's office called in an antibiotic for him. He took his first dose today. He is not sure of the name. It was called in for presumed UTI. Patient did have some tick bites a few weeks ago although, he did not think there were any issues with the bites. 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 PMHx/PSHx/Social Hx: See Below PHYSICAL EXAM: GENERAL: Patient is in no acute distress. Face seems a bit flushed. HEENT: No acute trauma, normocephalic atraumatic, mucous membranes moist, no nasal congestion. NECK: No stridor, no adenopathy, no meningismus, trachea is midline. LUNGS: Clear to auscultation bilaterally when listening anterior, no wheeze, no rhonchi, breath sounds equal. HEART: 2/6 systolic murmur, regular rate and rhythm. ABDOMEN: Soft, nontender, no peritonitis. EXTREMITIES: No cyanosis, full range of motion of all the joints without pain or difficulty. Mild bilateral pedal edema. NEUROLOGIC: Oriented x 3, no acute motor or sensory deficits, no focal weakness. SKIN: No jaundice, no diaphoresis. Groin: No scrotal erythema or cellulitis. DIFFERENTIAL DIAGNOSIS: Bacteremia or sepsis, UTI, viral illness, dehydration, electrolyte imbalance, tickborne illness, among others. EMERGENCY DEPARTMENT PROCEDURES: MEDICAL DECISION MAKING: There is a moderate leukocytosis, this would be consistent with infection. A mild anemia was seen. There was a normal platelet count. No renal failure or significant electrolyte abnormality. There were some very subtle liver enzyme elevations. Lactic acid level was not elevated making severe sepsis less likely. ECG showed a ventricular pacemaker, no obvious ischemia. Cardiac enzyme testing x 1 was not consistent with acute cardiac injury. Urinalysis did show findings of infection. Respiratory bio fire was negative. Anaplasmosis and Babesia smears were negative. Lyme disease testing was negative. Chest x- ray did not show findings of pneumonia. On exam, the patient was febrile and borderline hypotensive. The patient was aggressively managed given his complaints and vital sign values. Nursing staff did request a more emergent evaluation. The patient received 2.5 L of IV saline. This should qualify as 30 cc/kg of saline for sepsis protocol based on ideal body weight. The patient was given IV cefepime as antibiotic coverage. With the above treatment, patient's blood pressure has improved, he is resting comfortably. The patient is in need of a hospital stay. He appears to have early sepsis secondary to a UTI. He is aware of his findings. He understands the need for a hospital stay. I did speak with case management, the on-call hospitalist was consulted. Prior/Outside records/notes reviewed: Today's EMS notes describing his presentation and transport to this hospital. ECG per my interpretation: Indication was sepsis. The ECG shows a ventricular pacemaker with a rate of 79. There is no concerning ST elevation, no PVCs. The QTc is 509. Continuous Cardiac Monitoring per my interpretation: An order was placed for continuous cardiac monitoring. The monitor shows a rate of 78 with a ventricular pacemaker. Imaging/x-ray results per my interpretation: Chest x-ray shows some chronic change and some changes from his body habitus. No focal pneumonia. Chronic Medical/Social conditions affecting care: Advanced age. Care/Management discussed with: Case management, the on-call hospitalist. Level of care consideration(s): After review of the information above and other included data: --I believe the patient requires escalation of care to admission Critical Care Note: I have personally spent 46 minutes of critical care time in the direct management of this patient. This includes bedside care, interpretation of diagnostic studies, and testing, discussion with consultants, patient, and family members, and other required patient management activities. This 46 minutes is in excess of all separately billable procedures. DISPOSITION: Admission Past Med/Surg History Problem List (Updated 06/20/24 @ 22:11 by Ulises Beltran MD) Acute UTI (Acute) Dysuria (Acute) Leukocytosis (Acute) Anemia (Acute) Weakness (Acute) Sepsis (Acute) Sepsis Facial skin lesion Infected sebaceous cyst Vitamin D deficiency Fall from standing (Acute) Closed fracture of shaft of left femur (Acute) Burn of finger of right hand Carpal tunnel syndrome on both sides Peripheral neuropathy Intermittent palpitations Hypoxia (Acute) Acute dyspnea (Acute) Diabetes Shortness of breath Ataxia Essential (primary) hypertension Dyslipidemia Vertebral artery occlusion (Chronic) Ataxia (Acute) Vertigo (Acute) 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 Peripheral arterial disease Carotid artery plaque Dizziness Gait disturbance Chronic cerebral ischemia 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) CHF (congestive heart failure) (Acute) S/P placement of cardiac pacemaker Type 2 diabetes mellitus with diabetic neuropathy, with long-term current use of insulin Fall Weakness (Acute) Diabetes (Acute) Fall (Acute) Pacemaker (Acute) Lab test negative for COVID-19 virus (Acute) Elevated troponin I level (Acute) DVT prophylaxis Low TSH level Atrial fibrillation with normal ventricular rate 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 Lung nodule Removed ~2004 SDH (subdural hematoma) 2010--no sx, no neurologist---no deficits Surgical History History of cardiac cath 2000--2 stents placed History of colonoscopy History of esophagogastroduodenoscopy (EGD) with EUS History of heart artery stent 2 stents placed History of lung surgery 2004--nodule removed History of melanoma excision History of Mohs micrographic surgery for skin cancer left ear History of non-cataract eye surgery Rt History of surgery left leg sarcoma removal Status post cataract extraction of both eyes with insertion of intraocular lens Status post placement of cardiac pacemaker Family History Father , age 83 of lung cancer. Lung cancer Prostate cancer Mother , age 89 of lung cancer. Lung cancer Diabetes Grandfather (Paternal) Diabetes Brother BRCA gene positive Other No family history of adverse response to anesthesia Social History Smoking Status: Never smoker Second Hand Exposure: Yes (hx); Do You Dip or Chew Tobacco: No; Hx Alcohol Use: Yes Alcohol type: beer Alcohol Intake Frequency Comment: One or 2 beers, 2 or 3 times per week. 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 Feels Safe at Home: Yes Safety Concerns: Feels Safe At This Time Childhood Exposure to Second-Hand Smoke: Yes Dental Care, Regularly: Yes Physical Activity Frequency: Does not Exercise Seatbelt Use: always Sunscreen Use: No Assistive Devices: Cane Allergies Allergies Allergy/AdvReac Type Severity Reaction Status Date / Time aspirin Allergy Severe Anaphylaxis Verified 06/18/24 11:11 Iodinated Contrast Media Allergy Severe SOB,HIVES Verified 06/18/24 11:11 Sulfonylureas Allergy Unknown UNKNOWN Verified 06/18/24 11:11 enalaprilat [From Vasotec] AdvReac Severe CHEST Verified 06/18/24 11:11 TIGHTNESS atorvastatin [From Lipitor] AdvReac Mild cramps Verified 06/18/24 11:11 ezetimibe [From Vytorin] AdvReac Mild MYALGIA Verified 06/18/24 11:11 simvastatin [From Vytorin] AdvReac Mild MYALGIA Verified 06/18/24 11:11 Wuwlnft-SRB-PkM Reductase AdvReac Mild MUSCLE Verified 06/18/24 11:11 Inhibitor ACHING [Wqdsdny-Jmc-Xnw Reductase Inhibitor] Home Meds Home Medications Medication Instructions Recorded Confirmed latanoprost 0.005 % eye drops 1 drp OPL HS 09/18/18 06/20/24 (Xalatan) coenzyme Q10 400 mg capsule (Co 400 mg PO QAM 06/12/19 06/20/24 Q-10) cyanocobalamin (vitamin B-12) 1,000 mcg PO 3XWK 06/12/19 06/20/24 1,000 mcg tablet (Vitamin B-12) glucosamine sulfate 1,000 mg 1,000 mg PO QAM 06/12/19 06/20/24 capsule krlhhpig-krc-trghe acid 0.4 1 tab PO QAM 06/12/19 06/20/24 mg-lycopene 300 mcg-lutein 250 mcg tablet (Centrum Silver) selenium 200 mcg tablet 200 mcg PO 3XWK 06/26/19 06/20/24 vitamin E 268 mg (400 unit) capsule 400 unit PO 3XWK 06/26/19 06/20/24 cholecalciferol (vitamin D3) 50 50 mcg PO QAM 08/16/20 06/20/24 mcg (2,000 unit) tablet (Vitamin D3) acetaminophen 650 mg 650 mg PO Q12H PRN Pain 04/18/21 06/20/24 tablet,extended release pantoprazole 20 mg tablet,delayed 20 mg PO QAM 09/21/21 06/20/24 release torsemide 20 mg tablet 40 mg PO QAM 09/21/21 06/20/24 blood-glucose meter (OneTouch 12/28/22 06/20/24 Ultra2 Meter) denosumab 60 mg/mL subcutaneous 60 mg subcut Q6MO 10/23/23 06/20/24 syringe (Prolia) calcium carbonate (Calcium 600) 600 mg PO DAILY 06/17/24 06/20/24 dorzolamide 22.3 mg-timolol 6.8 1 drp ophthalmic (eye) BID 06/17/24 06/20/24 mg/mL eye drops cephalexin 500 mg capsule 500 mg PO TID 06/20/24 06/20/24 rosuvastatin 10 mg tablet 10 mg PO DAILY 06/20/24 06/20/24 Previous Rx's Medication Instructions Recorded clopidogrel 75 mg tablet 75 mg PO QAM #90 tabs 11/20/19 nitroglycerin 0.4 mg sublingual 0.4 mg sublingual Q5M PRN Chest 09/14/20 tablet (Nitrostat) Pain #30 tabs insulin aspart U-100 100 unit/mL 200 unit (2 mL) continuous 09/26/23 subcutaneous solution (Novolog subcutaneous infusion .COMPLEX U-100 Insulin aspart) #180 mL amlodipine 10 mg-benazepril 40 mg 1 cap PO QAM #90 caps 10/23/23 capsule (Lotrel) metoprolol succinate 100 mg 100 mg PO DAILY #90 tabs 10/23/23 tablet,extended release 24 hr blood sugar diagnostic #100 ea 02/02/24 tirzepatide 2.5 mg/0.5 mL 2.5 mg (0.5 mL) subcut Q7D #2 mL 06/12/24 subcutaneous pen injector (Jarrod) Dexcom G7 Sensor (blood-glucose #3 ea 06/17/24 sensor) MiniMed Quick Set 23" (infusion #30 ea 06/17/24 set for insulin pump) Paradigm Arnegard 1.8 mL (insulin #3 packets 06/17/24 pump syringe) Results & Data (ED) Vital Signs Vital Signs - 24 hr 06/20/24 16:28 06/20/24 16:43 06/20/24 16:45 Temperature 38.2 C H Temperature Source Oral Pulse Rate 82 73 Pulse Rate [Apical] Pulse Rate from SpO2 Sensor Pulse Rhythm [Apical] Respiratory Rate 24 Respiratory Effort / Characteristics Non-Labored Spontaneous Respiratory Depth Normal Blood Pressure 96/65 L Blood Pressure [Left Arm] Blood Pressure Mean 75 Blood Pressure Mean [Left Arm] Pulse Oximetry 92 Oxygen Delivery Method Room Air Room Air Sepsis Recent Fever Within 48 Hours Yes Sepsis New/Unexplained Change in Mental Status No Sepsis Action Taken by Nursing No Action Required 06/20/24 17:00 06/20/24 17:54 06/20/24 17:56 Temperature 37.6 C H Temperature Source Oral Pulse Rate Pulse Rate [Apical] 76 78 Pulse Rate from SpO2 Sensor Pulse Rhythm [Apical] Regular Respiratory Rate 19 19 Respiratory Effort / Characteristics Non-Labored Spontaneous Non-Labored Spontaneous Respiratory Depth Normal Normal Blood Pressure Blood Pressure [Left Arm] 100/51 L 131/52 L Blood Pressure Mean Blood Pressure Mean [Left Arm] 67 78 Pulse Oximetry 91 Oxygen Delivery Method Room Air Room Air Room Air Sepsis Recent Fever Within 48 Hours Sepsis New/Unexplained Change in Mental Status Sepsis Action Taken by Nursing 06/20/24 18:00 06/20/24 18:15 06/20/24 18:30 Temperature Temperature Source Pulse Rate 70 79 87 Pulse Rate [Apical] Pulse Rate from SpO2 Sensor 72 79 Pulse Rhythm [Apical] Respiratory Rate 20 22 17 Respiratory Effort / Characteristics Respiratory Depth Blood Pressure 124/58 L 150/67 H 182/82 H Blood Pressure [Left Arm] Blood Pressure Mean 70 94 116 Blood Pressure Mean [Left Arm] Pulse Oximetry 93 91 93 Oxygen Delivery Method Room Air Room Air Sepsis Recent Fever Within 48 Hours Sepsis New/Unexplained Change in Mental Status Sepsis Action Taken by Skilled Nursing Medications Current Medication List: was personally reviewed by me Laboratory Data Attestation: I reviewed the patient's lab results. 06/20/24 16:40 06/20/24 16:40 Lab Results 06/20/24 06/20/24 06/20/24 Range/Units 16:40 16:40 17:17 WBC 18.32 H (4.8-10.8) K/ul RBC 3.94 L (4.70-6.10) M/uL Hgb 12.0 L (14.0-18.0) g/dl Hct 35.9 L (42.0-52.0) % MCV 91.1 (80.0-100.0) fL MCH 30.5 (25.0-34.0) pg MCHC 33.4 (32.0-36.0) g/dL RDW Std Deviation 46.1 (36.4-46.3) fL RDW Coeff of Josefa 13.8 (11.5-14.5) % Plt Count 205 (130-400) K/uL MPV 11.5 (9.4-12.4) fL Immature Gran % (Auto) 0.4 % Neut % (Auto) 81.7 % Lymph % (Auto) 6.6 % [place] % (Auto) 10.9 % Eos % (Auto) 0.1 % Baso % (Auto) 0.3 % Neut # (Auto) 14.99 H (1.40-6.50) K/uL Lymph # (Auto) 1.21 (1.20-3.40) K/uL [place] # (Auto) 1.99 H (0.11-0.59) K/uL Eos # (Auto) 0.01 (0.00-0.50) K/uL Baso # (Auto) 0.05 (0.00-0.20) K/uL Immature Gran # (Auto) 0.07 (0.01-0.20) K/uL Sodium 135 L (136-145) mmol/L Potassium 3.9 (3.5-5.1) mmol/L Chloride 101 (98-107) mmol/L Carbon Dioxide 28 (21-32) mmol/L Anion Gap 6 (3-11) BUN 16 (6-23) mg/dl Creatinine 1.06 (0.6-1.4) mg/dl Est Cr Clr Drug Dosing 70.8 ml/min Est GFR ( Amer) 74.9 ml/min Est GFR (Non-Af Amer) 64.6 ml/min BUN/Creatinine Ratio 15.1 (10-20) Glucose 124 H (70-99(Fasting)) mg/dl Lactate (0.4-2.0) mmol/L Calcium 9.0 (8.6-10.3) mg/dl Magnesium 1.8 (1.7-2.4) mg/dl Total Bilirubin 1.1 H (0.2-1.0) mg/dl Direct Bilirubin 0.2 (0-0.2) mg/dl AST 14 (13-39) U/L ALT 12 (7-52) U/L Alkaline Phosphatase 109 H (34-104) U/L Troponin I High Sens 14.8 (0-20) pg/ml Total Protein 7.1 (6.0-8.3) gm/dl Albumin 3.6 (3.4-5.0) gm/dl Procalcitonin Cancelled 0.21 Adenovirus (PCR) Not Detected (NotDetected) Anaplasma Smear See Comment Babesia Smear See Comment B. pertussis DNA (PCR) Not Detected (NotDetected) B.parapertussis DNA PCR Not Detected (NotDetected) Lyme Disease Screen Negative (Negative) C. pneumoniae DNA (PCR) Not Detected (NotDetected) Coronavirus OC43 (PCR) Not Detected (NotDetected) Coronavirus HKU1 (PCR) Not Detected (NotDetected) Coronavirus 229E (PCR) Not Detected (NotDetected) SARS-CoV-2 (PCR) Not Detected (NotDetected) Coronavirus NL63 (PCR) Not Detected (NotDetected) Human Metapneumovir PCR Not Detected (NotDetected) Influenza Type A (PCR) Not Detected (NotDetected) Influenza Type B (PCR) Not Detected (NotDetected) M. pneumoniae (PCR) Not Detected (NotDetected) Parainfluenza 1 (PCR) Not Detected (NotDetected) Parainfluenza 2 (PCR) Not Detected (NotDetected) Parainfluenza 3 (PCR) Not Detected (NotDetected) Parainfluenza 4 (PCR) Not Detected (NotDetected) RSV (PCR) Not Detected (NotDetected) Entero/Rhino (PCR) Not Detected (NotDetected) 06/20/24 Range/Units 17:34 WBC (4.8-10.8) K/ul RBC (4.70-6.10) M/uL Hgb (14.0-18.0) g/dl Hct (42.0-52.0) % MCV (80.0-100.0) fL MCH (25.0-34.0) pg MCHC (32.0-36.0) g/dL RDW Std Deviation (36.4-46.3) fL RDW Coeff of Josefa (11.5-14.5) % Plt Count (130-400) K/uL MPV (9.4-12.4) fL Immature Gran % (Auto) % Neut % (Auto) % Lymph % (Auto) % [place] % (Auto) % Eos % (Auto) % Baso % (Auto) % Neut # (Auto) (1.40-6.50) K/uL Lymph # (Auto) (1.20-3.40) K/uL [place] # (Auto) (0.11-0.59) K/uL Eos # (Auto) (0.00-0.50) K/uL Baso # (Auto) (0.00-0.20) K/uL Immature Gran # (Auto) (0.01-0.20) K/uL Sodium (136-145) mmol/L Potassium (3.5-5.1) mmol/L Chloride (98-107) mmol/L Carbon Dioxide (21-32) mmol/L Anion Gap (3-11) BUN (6-23) mg/dl Creatinine (0.6-1.4) mg/dl Est Cr Clr Drug Dosing ml/min Est GFR ( Amer) ml/min Est GFR (Non-Af Amer) ml/min BUN/Creatinine Ratio (10-20) Glucose (70-99(Fasting)) mg/dl Lactate 1.2 (0.4-2.0) mmol/L Calcium (8.6-10.3) mg/dl Magnesium (1.7-2.4) mg/dl Total Bilirubin (0.2-1.0) mg/dl Direct Bilirubin (0-0.2) mg/dl AST (13-39) U/L ALT (7-52) U/L Alkaline Phosphatase (34-104) U/L Troponin I High Sens (0-20) pg/ml Total Protein (6.0-8.3) gm/dl Albumin (3.4-5.0) gm/dl Procalcitonin Adenovirus (PCR) (NotDetected) Anaplasma Smear Babesia Smear B. pertussis DNA (PCR) (NotDetected) B.parapertussis DNA PCR (NotDetected) Lyme Disease Screen (Negative) C. pneumoniae DNA (PCR) (NotDetected) Coronavirus OC43 (PCR) (NotDetected) Coronavirus HKU1 (PCR) (NotDetected) Coronavirus 229E (PCR) (NotDetected) SARS-CoV-2 (PCR) (NotDetected) Coronavirus NL63 (PCR) (NotDetected) Human Metapneumovir PCR (NotDetected) Influenza Type A (PCR) (NotDetected) Influenza Type B (PCR) (NotDetected) M. pneumoniae (PCR) (NotDetected) Parainfluenza 1 (PCR) (NotDetected) Parainfluenza 2 (PCR) (NotDetected) Parainfluenza 3 (PCR) (NotDetected) Parainfluenza 4 (PCR) (NotDetected) RSV (PCR) (NotDetected) Entero/Rhino (PCR) (NotDetected) Administered Medications Dorzolamide/Timolol (Dorzolamide/Timolol 22.3/6.8mg/Ml 10 Ml Btl) 1 drops OPB BID RICKY Stop: 07/20/24 20:59 Last Admin: 06/20/24 21:59 Dose: 1 drops Documented By: AD Insulin Aspart (Insulin Aspart Per Unit Charge) 0 units SC ACHS RICKY Stop: 07/20/24 20:59 Last Admin: 06/20/24 21:25 Dose: Not Given Documented By: [facility] Latanoprost (Latanoprost 0.005% Op Soln 2.5 Ml Btl) 1 drops OPL HS RICKY Stop: 07/20/24 20:59 Last Admin: 06/20/24 21:59 Dose: 1 drops Documented By: [facility] Discontinued Medications Sodium Chloride (Nss) 1,000 mls @ 999 mls/hr IV .Q1H1M RICKY Stop: 06/20/24 18:15 Last Infusion: 06/20/24 18:35 Dose: Infused Documented By: Admin: 06/20/24 17:32 Dose: 999 mls/hr Documented By: Cefepime HCl (Maxipime) 2,000 mg in 20 mls @ 5 mls/min IV NOW STA; Protocol Stop: 06/20/24 17:08 Last Admin: 06/20/24 17:59 Dose: 5 mls/min Documented By: Sodium Chloride (Nss) 1,000 mls @ 999 mls/hr IV .Q1H1M ONE Stop: 06/20/24 18:57 Last Infusion: 06/20/24 20:07 Dose: Infused Documented By: Admin: 06/20/24 18:41 Dose: 999 mls/hr Documented By: REENA Sodium Chloride (Nss) 500 mls @ 999 mls/hr IV .Q31M ONE Stop: 06/20/24 19:08 Last Infusion: 06/20/24 21:41 Dose: Infused Documented By: Admin: 06/20/24 21:10 Dose: 999 mls/hr Documented By: AD Insulin Glargine (Lantus Per Unit Charge) 10 units SQ HS RICKY Stop: 06/20/24 21:01 Last Admin: 06/20/24 21:25 Dose: 10 units Documented By: AD Co-signed By: JUDY Imaging Data Radiologist's Impression: Chest X-Ray 06/20/24 17:05 XR chest 1V portable HISTORY: Sepsis COMPARISON: Chest 06/12/2023. FINDINGS: No pneumothorax. No pleural effusions. There are low lung volumes. A few bibasilar linear densities favor subsegmental atelectasis or scarring. Otherwise, no focal lung consolidations to suggest a pneumonia. No evidence for pulmonary edema. No acute fractures. There is a left-sided pacemaker. The cardiac silhouette remains top normal in size. Electronic devices are seen overlying the mediastinum. There is an old right posterior third rib fracture, unchanged. IMPRESSION: No acute process. ACT 112: Negative or not required by law. Electronically signed by: Corona Bosch M.D. 06/20/2024 6:14 PM Discharge Plan Visit Data Chief Complaint: Weakness Stated Complaint: FALL, WEAKNESS, FEVER ED Provider: Ulises Beltran Discharge Problem: Sepsis, Weakness, Anemia, Leukocytosis, Dysuria, Acute UTI Patient Disposition: Admitted As Inpatient Condition: Serious Discharge Instructions Interventions: ED Discharge Assessment Last Done: 06/20/24 19:55 Discharge Problem: Sepsis Qualifiers: Sepsis type: sepsis due to unspecified organism Sepsis acute organ dysfunction status: without acute organ dysfunction Qualified Code(s): A41.9 - Sepsis, unspecified organism Anemia Qualifiers: Anemia type: unspecified type Qualified Code(s): D64.9 - Anemia, unspecified Leukocytosis Qualifiers: Leukocytosis type: unspecified Qualified Code(s): D72.829 - Elevated white blood cell count, unspecified
[2024-06-20 17:30] LABS: Basophils # (auto) 0.05 K/uL (0.00-0.20); Basophils % (auto) 0.3 %; Eosinophils # (auto) 0.01 K/uL (0.00-0.50); Eosinophils % (auto) 0.1 %; Hematocrit (blood only) 35.9 % (42.0-52.0); Immature Granulocytes # (auto) 0.07 K/uL (0.01-0.20); Immature Granulocytes % (auto) 0.4 %; Lymphocytes # (auto) 1.21 K/uL (1.20-3.40); Lymphocytes % (auto) 6.6 %; Mean Corpuscular Hemoglobin 30.5 pg (25.0-34.0); Mean Corpuscular Hgb Conc 33.4 g/dL (32.0-36.0); Mean Corpuscular Volume 91.1 fL (80.0-100.0); Mean Platelet Volume 11.5 fL (9.4-12.4); Monocytes # (auto) 1.99 K/uL (0.11-0.59); Monocytes % (auto) 10.9 %; Neutrophils # (auto) 14.99 K/uL (1.40-6.50); Neutrophils % (auto) 81.7 %; Platelet Count 205 K/uL (130-400); RDW Coefficient of Variation 13.8 % (11.5-14.5); RDW Standard Deviation 46.1 fL (36.4-46.3); Red Blood Count 3.94 M/uL (4.70-6.10); White Blood Count 18.32 K/ul (4.8-10.8)
[2024-06-20] MEDS: SODIUM CHLORIDE 0.9% 1,000 ML IV SCH (17:32)
[2024-06-20 17:45] LABS: Albumin Level 3.6 gm/dl (3.4-5.0); BUN Creatinine Ratio 15.1 (10-20); Bilirubin Direct 0.2 mg/dl (0-0.2); Bilirubin,Total 1.1 mg/dl (0.2-1.0); Creatinine Clr Calc Pharmacy 70.8 ml/min; Est GFR (African American) 74.9 ml/min; Est GFR (Non-African American) 64.6 ml/min; Magnesium 1.8 mg/dl (1.7-2.4); Potassium 3.9 mmol/L (3.5-5.1); Total Protein 7.1 gm/dl (6.0-8.3)
[2024-06-20 17:51] LABS: Troponin I High Sensitivity 14.8 pg/ml (0-20)
[2024-06-20 17:56] LABS: Procalcitonin 0.21 ng/ml (0-0.5)
[2024-06-20] MEDS: CEFEPIME 2,000 MG/20 ML VIAL IV STA (17:59)
--- NOTE | 2024-06-20 18:15 | XRay Report ---
XR chest 1V portable HISTORY: Sepsis COMPARISON: Chest 06/12/2023. FINDINGS: No pneumothorax. No pleural effusions. There are low lung volumes. A few bibasilar linear d ensities favor subsegmental atelectasis or scarring. Otherwise, no focal lung consolidations to sugge st a pneumonia. No evidence for pulmonary edema. No acute fractures. There is a left-sided pacemaker. The cardiac silhouette remains top normal in size. Electronic devices are seen overlying the mediast inum. There is an old right posterior third rib fracture, unchanged. IMPRESSION: No acute process. ACT 112: Negative or not required by law. Electronically signed by: Corona Bosch M.D. 06/20/2024 6:14 PM
[2024-06-20 18:21] LABS: Lyme Screen Rflx Confirmation Negative (Negative)
[2024-06-20 18:24] LABS: Adenovirus PCR Not Detected (NotDetected); Bordetella parapertussis PCR Not Detected (NotDetected); Bordetella pertussis PCR Not Detected (NotDetected); Chlamydia pneumoniae PCR Not Detected (NotDetected); Coronavirus 229E PCR Not Detected (NotDetected); Coronavirus CoV-2 (COVID19)PCR Not Detected (NotDetected); Coronavirus HKU1 PCR Not Detected (NotDetected); Coronavirus NL63 PCR Not Detected (NotDetected); Coronavirus OC43PCR Not Detected (NotDetected); Human Metapneumovirus PCR Not Detected (NotDetected); Influenza A PCR Not Detected (NotDetected); Influenza B PCR Not Detected (NotDetected); Mycoplasma pneumoniae PCR Not Detected (NotDetected); Parainfluenza Virus 1 PCR Not Detected (NotDetected); Parainfluenza Virus 2 PCR Not Detected (NotDetected); Parainfluenza Virus 3 PCR Not Detected (NotDetected); Parainfluenza Virus 4 PCR Not Detected (NotDetected); Respiratory Syncytial VirusPCR Not Detected (NotDetected); Rhinovirus/Enterovirus PCR Not Detected (NotDetected)
[2024-06-20] MEDS: SODIUM CHLORIDE 0.9% 1,000 ML IV ONE (18:41)
--- NOTE | 2024-06-20 18:42 | History & Physical Report ---
Date of Service June 20, 2024 Assessment & Plan (1) Sepsis: Plan: Admit to med/daily Currently stable and nontoxic-appearing Presented to the ED via EMS due to ongoing fever of [id number], generalized weakness, and concerns for UTI due to foul-smelling urine and urinary retention Patient was febrile on EMS arrival at 102.7F, mildly hypertensive on arrival 96/65, with leukocytosis of 18 with neutrophil predominance of 14 and suspected source of infection to be his urine at this time Nursing staff will be bladder scanning the patient at time of admission and report results to myself, if needed will place Thurman catheter for urinary retention Lactate and procalcitonin within normal limits Chest x-ray negative for signs of pneumonia, full respiratory BioFire and Lyme screen negative Blood cultures were obtained Will hold ongoing IV fluids at this time as lactate was within normal limits and patient is currently hemodynamically stable after his sepsis bolus Will continue ceftriaxone for now he is not have a previous history of resistant urinary tract infections If UA does not appear infected we will continue infectious workup As needed Tylenol for pain/fever/headache Bilateral SCDs for DVT prophylaxis Heart healthy/DM type II diet AM CBC, CMP, mag, PT/INR (2) Type 2 diabetes mellitus with diabetic neuropathy, with long-term current use of insulin: Plan: Patient typically uses his insulin pump along with weekly Tirzepatide States he normally uses approximately 20 units of basal insulin daily and uses sliding scale as needed Will monitor BSG ACHS, goal is [id number] Patient is in agreement with stopping and removing his insulin pump for now during this acute illness Will start 5 units Lantus twice daily overnight to prevent hypoglycemia as blood sugar was 120 on arrival Start correction factor of 45 and carb ratio of 15 ACHS for now Pharmacy glycemic consult been placed for assistance with adjustments. Forward (3) Hypertension: Plan: Blood pressure currently stable after initial sepsis fluid bolus Will hold home amlodipinebenazepril and torsemide on admission to prevent recurrent hypotension Continue home metoprolol for now Resume antihypertensives/diuretics as needed (4) PELON (obstructive sleep apnea): Plan: At bedtime CPAP is monitored Plan The patient was discussed with Dr. 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 ED via EMS on 06/20/2024 due to generalized weakness, fever, and concerns for UTI. EMS reported that the patient was febrile on arrival at 102.7F. He was given 70 mg Tylenol and 400 mL LR and route. On arrival to the ED he was initially noted to be hypotensive at 96/65 but was otherwise stable. Labs were significant for a leukocytosis of 18 with neutrophil predominance of 14, with full respiratory BioFire negative, Lyme disease screen negative, and UA yet to be obtained. Chest x-ray was read as negative for acute findings. Prior to admission the patient was given a total of 2.5 L normal saline and a dose of cefepime. The patient was seen in bed no acute distress at the time of the exam. States that he started to develop foul-smelling urine and a fever of approximately 104F on 06/19/2024. Called his PCP who prescribed him a course of Keflex, he had taken 1 dose prior to arrival today. States that he was weak yesterday and slid out of his recliner landed on his buttocks and did not hit his head or lose consciousness. He is only on the ground for approximately 5 minutes before his son helped him up and denies recurrent fall since. No recent chest pain, shortness of breath, cough, nausea/vomiting, diarrhea, back pain, or lower extremity swelling. Denies dysuria but when asked states that he has been having difficulty voiding since 06/19/2024 and confirms he has been having foul- smelling urine. Feels improved but not back to his baseline after arrival. Confirms he is a full code and would want his to make medical decisions for him if he cannot make decisions himself. Spoke to the patient regarding holding his insulin pump at the time of admission so that we can keep a closer eye on his blood sugar insulin during his acute illness, he is in agreement with this plan. Please refer to Dr. Barrera's attestation for any changes to treatment plan Allergies Allergy/AdvReac Type Severity Reaction Status Date / Time aspirin Allergy Severe Anaphylaxis Verified 06/18/24 11:11 Iodinated Contrast Media Allergy Severe SOB,HIVES Verified 06/18/24 11:11 Sulfonylureas Allergy Unknown UNKNOWN Verified 06/18/24 11:11 enalaprilat [From Vasotec] AdvReac Severe CHEST Verified 06/18/24 11:11 TIGHTNESS atorvastatin [From Lipitor] AdvReac Mild cramps Verified 06/18/24 11:11 ezetimibe [From Vytorin] AdvReac Mild MYALGIA Verified 06/18/24 11:11 simvastatin [From Vytorin] AdvReac Mild MYALGIA Verified 06/18/24 11:11 Qsafbob-YUW-JeJ Reductase AdvReac Mild MUSCLE Verified 06/18/24 11:11 Inhibitor ACHING [Sxxdcdl-Mkh-Oed Reductase Inhibitor] Home Medications Medication Instructions Recorded Confirmed Type latanoprost 0.005 % eye drops 1 drp OPL HS 09/18/18 06/20/24 History (Xalatan) coenzyme Q10 400 mg capsule (Co 400 mg PO QAM 06/12/19 06/20/24 History Q-10) cyanocobalamin (vitamin B-12) 1,000 mcg PO 3XWK 06/12/19 06/20/24 History 1,000 mcg tablet (Vitamin B-12) glucosamine sulfate 1,000 mg 1,000 mg PO QAM 06/12/19 06/20/24 History capsule wnqleips-gcm-pqxxk acid 0.4 1 tab PO QAM 06/12/19 06/20/24 History mg-lycopene 300 mcg-lutein 250 mcg tablet (Centrum Silver) selenium 200 mcg tablet 200 mcg PO 3XWK 06/26/19 06/20/24 History vitamin E 268 mg (400 unit) capsule 400 unit PO 3XWK 06/26/19 06/20/24 History clopidogrel 75 mg tablet 75 mg PO QAM #90 tabs 11/20/19 06/20/24 Rx cholecalciferol (vitamin D3) 50 50 mcg PO QAM 08/16/20 06/20/24 History mcg (2,000 unit) tablet (Vitamin D3) nitroglycerin 0.4 mg sublingual 0.4 mg sublingual Q5M PRN Chest 09/14/20 06/20/24 Rx tablet (Nitrostat) Pain #30 tabs acetaminophen 650 mg 650 mg PO Q12H PRN Pain 04/18/21 06/20/24 History tablet,extended release pantoprazole 20 mg tablet,delayed 20 mg PO QAM 12/21/21 09/19/24 History release torsemide 20 mg tablet 40 mg PO QAM 09/21/21 06/20/24 History blood-glucose meter (OneTouch 12/28/22 06/20/24 History Ultra2 Meter) insulin aspart U-100 100 unit/mL 200 unit (2 mL) continuous 09/26/23 06/20/24 Rx subcutaneous solution (Novolog subcutaneous infusion .COMPLEX U-100 Insulin aspart) #180 mL amlodipine 10 mg-benazepril 40 mg 1 cap PO QAM #90 caps 10/23/23 06/20/24 Rx capsule (Lotrel) denosumab 60 mg/mL subcutaneous 60 mg subcut Q6MO 10/23/23 06/20/24 History syringe (Prolia) metoprolol succinate 100 mg 100 mg PO DAILY #90 tabs 10/23/23 06/20/24 Rx tablet,extended release 24 hr blood sugar diagnostic #100 ea 02/02/24 06/20/24 Rx tirzepatide 2.5 mg/0.5 mL 2.5 mg (0.5 mL) subcut Q7D #2 mL 06/12/24 06/20/24 Rx subcutaneous pen injector (Mounkleberro) Dexcom G7 Sensor (blood-glucose #3 ea 06/17/24 06/20/24 Rx sensor) MiniMed Quick Set 23" (infusion #30 ea 06/17/24 06/20/24 Rx set for insulin pump) Paradigm Meigs 1.8 mL (insulin #3 packets 06/17/24 06/20/24 Rx pump syringe) calcium carbonate (Calcium 600) 600 mg PO DAILY 06/17/24 06/20/24 History dorzolamide 22.3 mg-timolol 6.8 1 drp ophthalmic (eye) BID 06/17/24 06/20/24 History mg/mL eye drops cephalexin 500 mg capsule 500 mg PO TID 06/20/24 06/20/24 History rosuvastatin 10 mg tablet 10 mg PO DAILY 06/20/24 06/20/24 History Past Med/Surg History Problem List (Updated 06/20/24 @ 22:11 by Ulises Beltran MD) Acute UTI (Acute) Dysuria (Acute) Leukocytosis (Acute) Anemia (Acute) Weakness (Acute) Sepsis (Acute) Sepsis Facial skin lesion Infected sebaceous cyst Vitamin D deficiency Fall from standing (Acute) Closed fracture of shaft of left femur (Acute) Burn of finger of right hand Carpal tunnel syndrome on both sides Peripheral neuropathy Intermittent palpitations Hypoxia (Acute) Acute dyspnea (Acute) Diabetes Shortness of breath Ataxia Essential (primary) hypertension Dyslipidemia Vertebral artery occlusion (Chronic) Ataxia (Acute) Vertigo (Acute) 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 Peripheral arterial disease Carotid artery plaque Dizziness Gait disturbance Chronic cerebral ischemia 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) CHF (congestive heart failure) (Acute) S/P placement of cardiac pacemaker Type 2 diabetes mellitus with diabetic neuropathy, with long-term current use of insulin Fall Weakness (Acute) Diabetes (Acute) Fall (Acute) Pacemaker (Acute) Lab test negative for COVID-19 virus (Acute) Elevated troponin I level (Acute) DVT prophylaxis Low TSH level Atrial fibrillation with normal ventricular rate 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 Robles Elevated troponin Elevated CK Elevated troponin I level History of colon polyps Osteoarthritis History of esophageal dilatation GERD (gastroesophageal reflux disease) Diabetes mellitus, type 2 Basal cell carcinoma hx Deafness in left ear Hyperlipidemia Myocardial Infarction x4---last heart attack 2000--no bag hanger Lung nodule Removed ~2004 SDH (subdural hematoma) 2010--no sx, no neurologist---no deficits Surgical History (Updated 06/21/24 @ 09:01 by Dona Atkinson RN) History of removal of cyst (06/18/24) FINAL DIAGNOSIS In office procedure Dr. Snow Skin, left neck, excision: - Inflamed epidermal cyst History of non-cataract eye surgery Rt History of melanoma excision Status post placement of cardiac pacemaker History of colonoscopy History of esophagogastroduodenoscopy (EGD) with EUS History of surgery left leg sarcoma removal History of Mohs micrographic surgery for skin cancer left ear Status post cataract extraction of both eyes with insertion of intraocular lens History of heart artery stent 2 stents placed History of cardiac cath 2000--2 stents placed History of lung surgery 2005--nodule removed Family History Father , age 83 of lung cancer. Lung cancer Prostate cancer Mother , age 89 of lung cancer. Lung cancer Diabetes Grandfather (Paternal) Diabetes Brother BRCA gene positive Other No family history of adverse response to anesthesia Social History Smoking Status: Never smoker Second Hand Exposure: Yes (hx); Do You Dip or Chew Tobacco: No; Hx Alcohol Use: Yes Alcohol type: beer Alcohol Intake Frequency Comment: One or 2 beers, 2 or 3 times per week. 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 Feels Safe at Home: Yes Safety Concerns: Feels Safe At This Time Childhood Exposure to Second-Hand Smoke: Yes Dental Care, Regularly: Yes Physical Activity Frequency: Does not Exercise Seatbelt Use: always Sunscreen Use: No Assistive Devices: Cane Physical Exam Physical Exam: Physical Exam: General: In no acute distress, stated age, ill-appearing but nontoxic HEENT: Normocephalic, atraumatic, no scleral icterus, pupils around round, symmetrical, and reactive to light, dry mucus membranes, trachea midline, no thyromegaly Chest/Pulm: No respiratory distress, symmetrical chest expansion, clear breath sounds throughout Cardiac: RRR, no murmurs noted Abdomen: Negative for ascites and bruising, normoactive bowel sounds, soft, non-tender to palpation throughout : Patient currently has condom catheter in place with minimal dark, foul- smelling urine in the collecting canister > Negative bilateral CVA tenderness Musculoskeletal: Symmetrical and without signs of acute trauma, upper and lower extremities with full ROM, no atrophy, spasticity, or flaccidity Extremities: Radial, dorsalis pedis, and posterior tibial pulses are intact a nd symmetrical, no edema noted in the BL LE's Skin: Warm, dry, no rashes , lesions, or scars noted Neuro: Alert and oriented to person, place, month, year, and president, no focal defects, no tremors noted Psych: No acute distress, calm and cooperative during the exam Results & Data Results & Data Vital Signs (Past 12 Hours) Vital Signs Temp Pulse Pulse Resp BP BP Pulse Ox 06/20/24 18:15 79 22 150/67 H 91 06/20/24 18:00 70 20 124/58 L 93 06/20/24 17:56 06/20/24 17:54 37.6 C H 78 19 131/52 L 91 06/20/24 17:00 76 19 100/51 L 06/20/24 16:45 06/20/24 16:43 73 06/20/24 16:28 38.2 C H 82 24 96/65 L 92 O2 Del Method 06/20/24 18:15 Room Air 06/20/24 18:00 Room Air 06/20/24 17:56 Room Air 06/20/24 17:54 Room Air 06/20/24 17:00 Room Air 06/20/24 16:45 Room Air 06/20/24 16:43 06/20/24 16:28 Room Air Laboratory Results Abnormal lab results 06/20/24 Range/Units 16:40 WBC 18.32 H (4.8-10.8) K/ul RBC 3.94 L (4.70-6.10) M/uL Hgb 12.0 L (14.0-18.0) g/dl Hct 35.9 L (42.0-52.0) % Neut # (Auto) 14.99 H (1.40-6.50) K/uL [place] # (Auto) 1.99 H (0.11-0.59) K/uL Sodium 135 L (136-145) mmol/L Glucose 124 H (70-99(Fasting)) mg/dl Total Bilirubin 1.1 H (0.2-1.0) mg/dl Alkaline Phosphatase 109 H (34-104) U/L Diagnostic Findings Chest X-Ray 06/20/24 17:05 XR chest 1V portable HISTORY: Sepsis COMPARISON: Chest 06/12/2023. FINDINGS: No pneumothorax. No pleural effusions. There are low lung volumes. A few bibasilar linear densities favor subsegmental atelectasis or scarring. Otherwise, no focal lung consolidations to suggest a pneumonia. No evidence for pulmonary edema. No acute fractures. There is a left-sided pacemaker. The cardiac silhouette remains top normal in size. Electronic devices are seen overlying the mediastinum. There is an old right posterior third rib fracture, unchanged. IMPRESSION: No acute process. ACT 112: Negative or not required by law. Electronically signed by: Corona Bosch M.D. 06/20/2024 6:14 PM ECG Additional Comments: Atrial paced rhythm Code Status & VTE Plan Code Status DNR/DNI VTE Prophylaxis Plan VTE Prophylaxis will be ordered: Yes Supervising Physician Co-Signing Physician Notes I personally saw and examined the patient. I verified all gallardo points and agree with Tate Marin PA-C with the following exceptions and/or additions: 83 year old male presents to the ER with fever, generalized weakness, foul smelling urine O/E HS RRR, no murmurs, Chest CTAB, Abdo SNT, no CVA tenderness, CN 2-> 12 intact, no focal lateralizing weakness or loss of sensation A/P UTI sepsis - no CVA tenderness. Ceftriaxone. Follow up urine and blood cultures. Lactate and BP normal therefore does not need to meet fluid bolus. PSA to assess possible prostatitis, consider prostate exam once less acutely unwell. PG Care Time/CCT Total # of Minutes Spent Total Time Spent with Patient: Total time spent is greater than 50% in coordination of care (as documented) at patient's floor/unit and/or counseling patient: Coding [place] [address] INT INP/OBS CARE 3/75MIN Patient Type Established Medical Decision Making High Complexity Diagnoses Sepsis A41.9 Type 2 diabetes mellitus with diabetic neuropathy, with long-term current use of insulin E11.40; Z79.4 Essential hypertension I10 Hypertension type: essential hypertension PELON (obstructive sleep apnea) G47.33 (3) Hypertension Hypertension type: essential hypertension Qualified Code(s): I10 - Essential (primary) hypertension
[2024-06-20] MEDS ORDERED: GLUCAGON FOR INJ 1 MG VIAL SQ PRN (19:05)
[2024-06-20] MEDS ORDERED: PHARMACY GLYCEMIC MGMT CONSULT PRN (19:05)
[2024-06-20] MEDS ORDERED: GLUCOSE 10 TAB/TUBE PO PRN (19:05)
[2024-06-20] MEDS ORDERED: DEXTROSE 50% 50 ML SYRINGE IV PRN (19:05)
[2024-06-20 20:39] LABS: Appearance Urine Cloudy (Clear); Bacteria Urine Automated None Seen (None Seen); Bilirubin Urine Negative (Negative); Blood Urine 3+ (Negative); Color Urine Yellow; Epithelial Cell Urine Auto 0-2 /hpf (0-2); Glucose Urine UA Negative (Negative); Ketones Urine Negative (Negative); Leukocyte Esterase Urine 3+ (Negative); Nitrite Urine Negative (Negative); Protein Urine 2+ (Negative); RBC Urine Automated >20 /hpf (0-2); Specific Gravity Urine 1.011 (1.000-1.030); Urobilinogen Urine Negative (Negative); WBC Urine Automated >50 /hpf (0-5)
[2024-06-20 20:40] LABS: Cast Urine Automated 0-2 /lpf (0-2)
[2024-06-20] MEDS: SODIUM CHLORIDE 0.9% 500 ML IV ONE (21:10)
[2024-06-20] MEDS: INSULIN ASPART PER UNIT CHARGE SC SCH (21:25)
[2024-06-20] MEDS: LANTUS PER UNIT CHARGE SQ SCH (21:25)
[2024-06-20] MEDS: LATANOPROST 0.005% OP SOLN 2.5 ML BTL OPL SCH (21:59)
[2024-06-20] MEDS: DORZOLAMIDE/TIMOLOL 22.3/6.8MG/ML 10 ML BTL OPB SCH (21:59)
[2024-06-20 22:41] LABS: C Reactive Protein 11.93 mg/dl (0-0.5)
[2024-06-21] MEDS: ACETAMINOPHEN 325 MG TAB PO PRN (00:25)
[2024-06-21] MEDS: cefTRIAXone SODIUM 2,000 MG/50 ML BAG IV SCH (02:06)
[2024-06-21] MEDS: INSULIN ASPART PER UNIT CHARGE SC SCH (02:14)
[2024-06-21 07:11] LABS: Albumin Level 3.2 gm/dl (3.4-5.0); BUN Creatinine Ratio 17.7 (10-20); Bilirubin,Total 0.9 mg/dl (0.2-1.0); Calcium 8.2 mg/dl (8.6-10.3); Creatinine Clr Calc Pharmacy 77.9 ml/min; Est GFR (African American) 84.4 ml/min; Est GFR (Non-African American) 72.8 ml/min; Globulin 3.2 gm/dl (2.5-4.0); Magnesium 1.9 mg/dl (1.7-2.4); Potassium 3.8 mmol/L (3.5-5.1); Total Protein 6.4 gm/dl (6.0-8.3)
[2024-06-21 07:20] LABS: Prostate SpecificAg Diagnostic 36.618 ng/ml (0-4)
[2024-06-21 07:22] LABS: Free PSA % 28.5 %
[2024-06-21 07:30] LABS: INR 1.2 (0.9-1.1); Prothrombin Time 12.6 Seconds (9.0-12.0)
[2024-06-21 07:44] LABS: Basophils # (auto) 0.04 K/uL (0.00-0.20); Basophils % (auto) 0.2 %; Hematocrit (blood only) 34.4 % (42.0-52.0); Hemoglobin 11.2 g/dl (14.0-18.0); Immature Granulocytes # (auto) 0.13 K/uL (0.01-0.20); Immature Granulocytes % (auto) 0.7 %; Lymphocytes # (auto) 1.48 K/uL (1.20-3.40); Lymphocytes % (auto) 7.6 %; Mean Corpuscular Hemoglobin 30.2 pg (25.0-34.0); Mean Corpuscular Hgb Conc 32.6 g/dL (32.0-36.0); Mean Corpuscular Volume 92.7 fL (80.0-100.0); Mean Platelet Volume 11.6 fL (9.4-12.4); Monocytes # (auto) 1.74 K/uL (0.11-0.59); Monocytes % (auto) 8.9 %; Neutrophils # (auto) 16.19 K/uL (1.40-6.50); Neutrophils % (auto) 82.6 %; Platelet Count 188 K/uL (130-400); RDW Standard Deviation 47.5 fL (36.4-46.3); Red Blood Count 3.71 M/uL (4.70-6.10); White Blood Count 19.58 K/ul (4.8-10.8)
[2024-06-21] MEDS: ROSUVASTATIN CALCIUM 10 MG TAB PO SCH (08:37)
[2024-06-21] MEDS: METOPROLOL SUCC 50MG EXT REL TAB PO SCH (08:37)
[2024-06-21] MEDS: CLOPIDOGREL BISULFATE 75 MG TAB PO SCH (08:37)
[2024-06-21] MEDS: PANTOprazole 40 MG TAB PO SCH (08:37)
[2024-06-21] MEDS: LANTUS PER UNIT CHARGE SC SCH (08:56)
--- NOTE | 2024-06-21 12:16 | Electrocardiogram Report ---
Test Reason : Blood Pressure : */* mmHG Vent. Rate : 79 BPM Atrial Rate : 79 BPM P-R Int : 228 ms QRS Dur : 196 ms QT Int : 444 ms P-R-T Axes : 67 -74 80 degrees QTcB Int : 509 ms Atrial-sensed ventricular-paced rhythm with prolonged AV conduction Abnormal ECG When compared with ECG of 12-Jun-2023 13:04, Vent. rate has increased by 17 bpm Confirmed by Luis Cowart ([id number]) on 06/21/2024 12:15:47 PM Referred By: REFERRED SELF Confirmed By: Luis Cowart
--- NOTE | 2024-06-21 13:54 | Pharmacy Report ---
Pharmacy Glycemic Short Note 2 - Date of Service June 21, 2024 - Glycemic Short BSG Results (Last 24 hours): 06/20/24 06/20/24 06/21/24 16:40 20:40 02:09 Glucose 124 H POC Glucose 97 207 H 06/21/24 06/21/24 06/21/24 05:15 06:13 08:15 Glucose 196 H POC Glucose 185 H 199 H 06/21/24 12:05 Glucose POC Glucose 202 H OUTPATIENT ANTIDIABETIC REGIMEN: * Mounjaro 2.5 mg SQ weekly * Novolog pump- per last diabetes visit 06/14/24 * 98 units/day basal * CF 10 * CR 2.7 HbA1c 7.9% (12/04/23) ASSESSMENT: * Jose Armando is an 83 YOM admitted with fevers/weakness and a history of T2DM. Pharmacy has been consulted to assist with glycemic management while inpatient. * Lantus initiated at approximately 1/4 of home requirements, informed by RN that patient would like to restart insulin pump. Plan to restart tomorrow morning, but can restart before then if BSGs uncontrolled and patient has the supplies ready. * Novolog initiated at a weight based stress of 3, tightened to home parameters with lunch. PLAN FOR INPATIENT GLYCEMIC CONTROL: * Hold outpatient oral diabetes medications * Basal insulin * Lantus 10 units SQ last night x1 * Lantus 10 units SQ this AM x1 * Plan to transition back to insulin pump, no further basal ordered * Bolus insulin * NovoLog per scale ACHS or Q6hrs while NPO * Goal Range: Low 110 mg/dL - High 140 mg/dL * Correction Factor: 10 mg/dL/unit * Nutritional / Prandial insulin per carb ratio of 1 unit per 3 grams CHO consumed
--- NOTE | 2024-06-21 14:02 | Hospitalist Progress Note ---
Date of Service June 21, 2024 Assessment & Plan (1) Sepsis: Plan: Secondary to UTI, now resolving Continue IV ceftriaxone -Urine and blood cultures pending (2) Type 2 diabetes mellitus with diabetic neuropathy, with long-term current use of insulin: Plan: Patient typically uses his insulin pump along with weekly Tirzepatide Blood glucose not under good control here in the hospital -Patient has requested for him to go back to his insulin pump, this has been granted (3) Hypertension: Plan: His blood pressure medicines were held at home Will resume on account of BP of 144/66 (4) PELON (obstructive sleep apnea): Plan: At bedtime CPAP is monitored Plan Monitor in the hospital Schedule next 48 hours Admission and Anticipated Discharge Date Admission Date: June 20, 2024 Subjective Patient seen and examined, still hoping to go back to insulin pump Review of Systems Review of Systems: All systems reviewed are negative, apart from the ones contained in the history. Physical Exam Physical Exam: The patient is awake, alert and oriented 3, well developed and well nourished, normocephalic and atraumatic, lying in bed and in no acute distress. HEENT--PERRL, EOMI, mucous membranes and oropharynx mildly dry Neck--supple. No JVD. No bruits. Thyroid normal, trachea midline, no adenopathy. Heart--normal S1 and S2. No murmurs, rubs or gallops. Lungs--clear bilaterally, no respiratory distress, no accessory muscle use. Abdomen--normal bowel sounds and soft. Extremities--no cyanosis or clubbing. No edema. Dermatologic--normal skin turgor, normal color, no abnormal lymph nodes, no rash. Neurologic--cranial nerves II through XII grossly intact. Rheumatologic--normal range of motion. Psychiatric--normal affect. Results & Data Results & Data Vital Signs (Past 12 Hours) Vital Signs Temp Pulse Pulse Resp BP BP Pulse Ox 06/21/24 11:43 99.0 F 72 18 144/66 H 95 06/21/24 07:55 97.3 F L 83 16 142/69 H 96 06/21/24 07:19 72 06/21/24 03:51 75 18 95 06/21/24 03:48 98.4 F 75 16 124/69 94 O2 Del Method FiO2 06/21/24 11:43 Room Air 06/21/24 07:55 CPAP 06/21/24 07:19 06/21/24 03:51 21 06/21/24 03:48 CPAP PG Care Time/CCT Total # of Minutes Spent Total Time Spent with Patient: Total time spent is greater than 50% in coordination of care (as documented) at patient's floor/unit and/or counseling patient: Coding Level of Care Code 13213 SUB INP/OBS CARE 2/35MIN Diagnoses Sepsis A41.9 Type 2 diabetes mellitus with diabetic neuropathy, with long-term current use of insulin E11.40; Z79.4 Essential hypertension I10 Hypertension type: essential hypertension PLEON (obstructive sleep apnea) G47.33 Time Spent (min) 35 (3) Hypertension Hypertension type: essential hypertension Qualified Code(s): I10 - Essential (primary) hypertension
[2024-06-21] MEDS ORDERED: INSULIN ASPART PER UNIT CHARGE SC SCH (14:15)
[2024-06-21] MEDS: ENALAPRIL MALEATE 10 MG TAB PO SCH (16:40)
[2024-06-21] MEDS: amLODIPine BESYLATE 5 MG TAB PO SCH (16:40)
[2024-06-21] MEDS: Continuous Glucose Monitor SCH (16:40)
[2024-06-21] MEDS: MOUNJARO SC SCH (16:43)
[2024-06-21] MEDS: MELATONIN 3 MG TAB PO PRN (20:07)
[2024-06-21] MEDS: CALCIUM CARBONATE 500 MG CHEWABLE TAB PO PRN (22:11)
[2024-06-21] MEDS: FAMOTIDINE 20 MG TAB PO ONE (22:53)
[2024-06-22 07:12] LABS: INR 1.1 (0.9-1.1); Prothrombin Time 11.9 Seconds (9.0-12.0)
[2024-06-22 07:15] LABS: Albumin Globulin Ratio 0.9 (0.9-2); Albumin Level 3.2 gm/dl (3.4-5.0); BUN Creatinine Ratio 23.2 (10-20); Bilirubin,Total 0.7 mg/dl (0.2-1.0); Calcium 8.4 mg/dl (8.6-10.3); Creatinine Clr Calc Pharmacy 74.9 ml/min; Est GFR (African American) 81.3 ml/min; Est GFR (Non-African American) 70.1 ml/min; Globulin 3.7 gm/dl (2.5-4.0); Potassium 4.4 mmol/L (3.5-5.1); Total Protein 6.9 gm/dl (6.0-8.3)
[2024-06-22 07:35] LABS: Basophils # (auto) 0.04 K/uL (0.00-0.20); Basophils % (auto) 0.2 %; Eosinophils # (auto) 0.01 K/uL (0.00-0.50); Eosinophils % (auto) 0.1 %; Hematocrit (blood only) 35.1 % (42.0-52.0); Hemoglobin 11.5 g/dl (14.0-18.0); Immature Granulocytes # (auto) 0.14 K/uL (0.01-0.20); Immature Granulocytes % (auto) 0.8 %; Lymphocytes # (auto) 0.69 K/uL (1.20-3.40); Lymphocytes % (auto) 3.9 %; Mean Corpuscular Hemoglobin 29.9 pg (25.0-34.0); Mean Corpuscular Hgb Conc 32.8 g/dL (32.0-36.0); Mean Corpuscular Volume 91.4 fL (80.0-100.0); Mean Platelet Volume 11.2 fL (9.4-12.4); Monocytes # (auto) 1.21 K/uL (0.11-0.59); Monocytes % (auto) 6.9 %; Neutrophils # (auto) 15.52 K/uL (1.40-6.50); Neutrophils % (auto) 88.1 %; Platelet Count 179 K/uL (130-400); RDW Coefficient of Variation 13.5 % (11.5-14.5); RDW Standard Deviation 45.3 fL (36.4-46.3); Red Blood Count 3.84 M/uL (4.70-6.10); White Blood Count 17.61 K/ul (4.8-10.8)
[2024-06-22] MEDS ORDERED: INSULIN ASPART 100 UNITS/ML VIAL SC PRN (09:33)
--- NOTE | 2024-06-22 09:41 | Pharmacy Report ---
Pharmacy Glycemic Sign Off Nt - Date of Service June 22, 2024 - Assessment & Plan ASSESSMENT: * Pharmacy was consulted by Tate BONILLA on 06/20/24 for glycemic control and to write orders per [facility] inpatient glycemic control protocol. * Major changes made by pharmacy to antidiabetic regimen include: * transitioned to basal/bolus * Patient requested to return to insulin pump and was transitioned back * Patient has been receiving/requiring 38 units of insulin per day for adequate glycemic control (likely will be better controlled on POM insulin pump) * BSGs ranging 124-263 mg/dl * Patient is requesting to use insulin pump at this time * Pharmacy does not follow insulin pump patients and will sign off at this time. PLAN FOR INPATIENT GLYCEMIC CONTROL: No changes needed to current regimen. * Continue Novolog insulin pump * Pharmacy is signing off of glycemic consult and will no longer be making adjustments to inpatient regimen. Please feel free to re-consult if needed. Thank you.
[2024-06-22] MEDS: INSULIN, Rapid-Acting PUMP SC SCH (09:45)
--- NOTE | 2024-06-22 12:29 | Hospitalist Progress Note ---
Date of Service June 22, 2024 Assessment & Plan (1) Sepsis: Plan: Secondary to UTI, now resolving -Although continues to have chills, no fgever Continue empiric IV ceftriaxone -Urine and blood cultures pending, no growth for now (2) Type 2 diabetes mellitus with diabetic neuropathy, with long-term current use of insulin: Plan: Patient typically uses his insulin pump along with weekly Tirzepatide Blood glucose not under good control here in the hospital -Patient has requested for him to go back to his insulin pump, this has been granted (3) Hypertension: Plan: BP under good control Will put holding parameters (4) PELON (obstructive sleep apnea): Plan: At bedtime CPAP is monitored Plan Monitor in the hospital Schedule next 48 hours Admission and Anticipated Discharge Date Admission Date: June 20, 2024 Subjective Patient seen and examined, said he did not sleep well at night due to chills, but no fever Review of Systems Review of Systems: All systems reviewed are negative, apart from the ones contained in the history. Physical Exam Physical Exam: The patient is awake, alert and oriented 3, well developed and well nourished, normocephalic and atraumatic, lying in bed and in no acute distress. HEENT--PERRL, EOMI, mucous membranes and oropharynx mildly dry Neck--supple. No JVD. No bruits. Thyroid normal, trachea midline, no adenopathy. Heart--normal S1 and S2. No murmurs, rubs or gallops. Lungs--clear bilaterally, no respiratory distress, no accessory muscle use. Abdomen--normal bowel sounds and soft. Extremities--no cyanosis or clubbing. No edema. Dermatologic--normal skin turgor, normal color, no abnormal lymph nodes, no rash. Neurologic--cranial nerves II through XII grossly intact. Rheumatologic--normal range of motion. Psychiatric--normal affect. Results & Data Results & Data Vital Signs (Past 12 Hours) Vital Signs Temp Pulse Pulse Resp BP BP Pulse Ox 06/22/24 12:03 98.1 F 71 18 106/50 L 91 06/22/24 09:19 98.2 F 06/22/24 08:03 103.5 F H 77 151/61 H 93 06/22/24 08:00 06/22/24 07:13 78 09/21/24 03:24 97.9 F 83 20 148/73 H 92 O2 Del Method 06/22/24 12:03 Room Air 06/22/24 09:19 06/22/24 08:03 CPAP 06/22/24 08:00 CPAP 06/22/24 07:13 06/22/24 03:24 Room Air PG Care Time/CCT Total # of Minutes Spent Total Time Spent with Patient: Total time spent is greater than 50% in coordination of care (as documented) at patient's floor/unit and/or counseling patient: Coding Level of Care Code 84029 SUB INP/OBS CARE 2/35MIN Diagnoses Sepsis A41.9 Type 2 diabetes mellitus with diabetic neuropathy, with long-term current use of insulin E11.40; Z79.4 Essential hypertension I10 Hypertension type: essential hypertension PELON (obstructive sleep apnea) G47.33 Time Spent (min) 35 (3) Hypertension Hypertension type: essential hypertension Qualified Code(s): I10 - Essential (primary) hypertension
[2024-06-23 07:03] LABS: Basophils # (auto) 0.05 K/uL (0.00-0.20); Basophils % (auto) 0.4 %; Eosinophils % (auto) 2.4 %; Hemoglobin 10.9 g/dl (14.0-18.0); Immature Granulocytes # (auto) 0.11 K/uL (0.01-0.20); Immature Granulocytes % (auto) 0.9 %; Lymphocytes # (auto) 1.31 K/uL (1.20-3.40); Lymphocytes % (auto) 10.7 %; Mean Corpuscular Hemoglobin 30.2 pg (25.0-34.0); Mean Corpuscular Hgb Conc 34.1 g/dL (32.0-36.0); Mean Corpuscular Volume 88.6 fL (80.0-100.0); Mean Platelet Volume 11.5 fL (9.4-12.4); Monocytes # (auto) 1.39 K/uL (0.11-0.59); Monocytes % (auto) 11.3 %; Neutrophils # (auto) 9.11 K/uL (1.40-6.50); Neutrophils % (auto) 74.3 %; Platelet Count 206 K/uL (130-400); RDW Coefficient of Variation 13.4 % (11.5-14.5); RDW Standard Deviation 44.1 fL (36.4-46.3); Red Blood Count 3.61 M/uL (4.70-6.10); White Blood Count 12.27 K/ul (4.8-10.8)
[2024-06-23 07:27] LABS: Albumin Globulin Ratio 0.9 (0.9-2); Bilirubin,Total 0.4 mg/dl (0.2-1.0); Calcium 8.1 mg/dl (8.6-10.3); Creatinine Clr Calc Pharmacy 80.2 ml/min; Est GFR (African American) 87.7 ml/min; Est GFR (Non-African American) 75.7 ml/min; Globulin 3.4 gm/dl (2.5-4.0); Magnesium 2.1 mg/dl (1.7-2.4); Potassium 3.4 mmol/L (3.5-5.1); Prothrombin Time 11.3 Seconds (9.0-12.0); Total Protein 6.4 gm/dl (6.0-8.3)
[2024-06-23] MEDS: CARBOHYDRATES FOR HYPOGLYCEMIA PO PRN (12:18)
[2024-06-23] MEDS ORDERED: PHARMACY GLYCEMIC MGMT CONSULT PRN (12:53)
--- NOTE | 2024-06-23 13:46 | Hospitalist Progress Note ---
Date of Service June 23, 2024 Assessment & Plan (1) Sepsis: Plan: Secondary to UTI, now resolving Continue empiric IV ceftriaxone -Urine and blood cultures pending, no growth for now - Transition to PO antibiotics tomorrow (2) Type 2 diabetes mellitus with diabetic neuropathy, with long-term current use of insulin: Plan: Patient typically uses his insulin pump along with weekly Tirzepatide Blood glucose not under good control here in the hospital -Patient has requested for him to go back to his insulin pump, this has been granted (3) Hypertension: Plan: BP under good control Will put holding parameters (4) PELON (obstructive sleep apnea): Plan: At bedtime CPAP is monitored Plan d/c home tomorrow Admission and Anticipated Discharge Date Admission Date: June 20, 2024 Subjective Patient seen and examined, feels over all better Review of Systems Review of Systems: All systems reviewed are negative, apart from the ones contained in the history. Physical Exam Physical Exam: The patient is awake, alert and oriented 3, well developed and well nourished, normocephalic and atraumatic, lying in bed and in no acute distress. HEENT--PERRL, EOMI, mucous membranes and oropharynx mildly dry Neck--supple. No JVD. No bruits. Thyroid normal, trachea midline, no adenopathy. Heart--normal S1 and S2. No murmurs, rubs or gallops. Lungs--clear bilaterally, no respiratory distress, no accessory muscle use. Abdomen--normal bowel sounds and soft. Extremities--no cyanosis or clubbing. No edema. Dermatologic--normal skin turgor, normal color, no abnormal lymph nodes, no rash. Neurologic--cranial nerves II through XII grossly intact. Rheumatologic--normal range of motion. Psychiatric--normal affect. Results & Data Results & Data Vital Signs (Past 12 Hours) Vital Signs Temp Pulse Pulse Resp BP Pulse Ox O2 Del Method 06/23/24 13:40 73 06/23/24 11:40 98.1 F 69 18 120/59 L 92 Room Air 06/23/24 09:14 67 06/23/24 08:43 Room Air 06/23/24 07:54 99.1 F 77 18 130/67 92 Room Air 06/23/24 05:00 18 06/23/24 03:36 69 22 92 06/23/24 02:47 98.1 F 72 18 110/52 L 93 CPAP PG Care Time/CCT Total # of Minutes Spent Total Time Spent with Patient: Total time spent is greater than 50% in coordination of care (as documented) at patient's floor/unit and/or counseling patient: Coding Level of Care Code 05185 SUB INP/OBS CARE 2/35MIN Diagnoses Sepsis A41.9 Type 2 diabetes mellitus with diabetic neuropathy, with long-term current use of insulin E11.40; Z79.4 Essential hypertension I10 Hypertension type: essential hypertension PELON (obstructive sleep apnea) G47.33 Time Spent (min) 35 (3) Hypertension Hypertension type: essential hypertension Qualified Code(s): I10 - Essential (primary) hypertension
[2024-06-23] MEDS: GLUCOSE 40% GEL 15 GM TUBE PO PRN (23:10)
[2024-06-24 06:38] LABS: Hematocrit (blood only) 33.6 % (42.0-52.0); Hemoglobin 11.1 g/dl (14.0-18.0); Mean Corpuscular Hemoglobin 29.8 pg (25.0-34.0); Mean Corpuscular Volume 90.1 fL (80.0-100.0); Mean Platelet Volume 10.8 fL (9.4-12.4); Platelet Count 219 K/uL (130-400); RDW Coefficient of Variation 13.6 % (11.5-14.5); RDW Standard Deviation 45.2 fL (36.4-46.3); Red Blood Count 3.73 M/uL (4.70-6.10)
[2024-06-24 07:00] LABS: BUN Creatinine Ratio 21.6 (10-20); Calcium 7.9 mg/dl (8.6-10.3); Creatinine Clr Calc Pharmacy 77.2 ml/min; Est GFR (African American) 83.3 ml/min; Est GFR (Non-African American) 71.9 ml/min; Potassium 3.6 mmol/L (3.5-5.1)
[2024-06-24 07:52] VITALS: RESP 16; TEMP 98.1; O2SAT 92
[2024-06-24 10:04] VITALS: BP 148/73; PULSE 84
--- NOTE | 2024-06-24 12:22 | Discharge Summary ---
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 EMS reported that the patient was febrile on arrival at 102.7F. He was given 70 mg Tylenol and 400 mL LR and route. On arrival to the ED he was initially noted to be hypotensive at 96/65 but was otherwise stable. Labs were significant for a leukocytosis of 18 with neutrophil predominance of 14, with full respiratory BioFire negative, Lyme disease screen negative, and UA yet to be obtained. Chest x-ray was read as negative for acute findings. Prior to admission the patient was given a total of 2.5 L normal saline and a dose of cefepime. The patient was seen in bed no acute distress at the time of the exam. States that he started to develop foul-smelling urine and a fever of approximately 104F on 06/19/2024. Called his PCP who prescribed him a course of Keflex, he had taken 1 dose prior to arrival today. States that he was weak yesterday and slid out of his recliner landed on his buttocks and did not hit his head or lose consciousness. He is only on the ground for approximately 5 minutes before his son helped him up and denies recurrent fall since. No recent chest pain, shortness of breath, cough, nausea/vomiting, diarrhea, back pain, or lower extremity swelling. Denies dysuria but when asked states that he has been having difficulty voiding since 06/19/2024 and confirms he has been having foul- smelling urine. Feels improved but not back to his baseline after arrival. Confirms he is a full code and would want his to make medical decisions for him if he cannot make decisions himself. Spoke to the patient regarding holding his insulin pump at the time of admission so that we can keep a closer eye on his blood sugar insulin during his acute illness, he is in agreement with this plan. Admission Exam (Per Admitting) Constitutional The patient is awake, alert and oriented 3, well developed and well nourished, normocephalic and atraumatic, lying in bed and in no acute distress. HEENT--PERRL, EOMI, mucous membranes and oropharynx mildly dry Neck--supple. No JVD. No bruits. Thyroid normal, trachea midline, no adenopathy. Heart--normal S1 and S2. No murmurs, rubs or gallops. Lungs--clear bilaterally, no respiratory distress, no accessory muscle use. Abdomen--normal bowel sounds and soft. Extremities--no cyanosis or clubbing. No edema. Dermatologic--normal skin turgor, normal color, no abnormal lymph nodes, no rash. Neurologic--cranial nerves II through XII grossly intact. Rheumatologic--normal range of motion. Psychiatric--normal affect. Discharge Data Consultations 06/20/24 18:37 ED Decision to Admit Stat Hospital Course (1) Sepsis: Secondary to UTI, now resolving Continue empiric IV ceftriaxone -Urine and blood cultures pending, no growth for now - Transition to PO antibiotics tomorrow (2) Type 2 diabetes mellitus with diabetic neuropathy, with long-term current use of insulin: Patient typically uses his insulin pump along with weekly Tirzepatide Blood glucose not under good control here in the hospital -Patient has requested for him to go back to his insulin pump, this has been granted (3) Hypertension: BP under good control Will put holding parameters (4) PELON (obstructive sleep apnea): At bedtime CPAP is monitored (5) Prostatitis: Possible prostatitis, Discharged on p.o. ciprofloxacin for 10 more days Plan d/c home Coding Level of Care Code 77720 INP/OBS DISCH >30 MIN Diagnoses Sepsis A41.9 Type 2 diabetes mellitus with diabetic neuropathy, with long-term current use of insulin E11.40; Z79.4 Essential hypertension I10 Hypertension type: essential hypertension PELON (obstructive sleep apnea) G47.33 Prostatitis N41.9 Time Spent (min) 35
[2024-06-24 22:02] LABS: Babesia microti DNA Not Detected (Not Detected)
== END 2024-06-24 11:30 | disposition home or self-care (01) | DRG 872 ==
LOC: ED 16:26 → SUATTDRO 18:41 → 2N 18:41

== ENCOUNTER 2024-08-17 15:01 | Inpatient (IN) ==
--- NOTE | 2024-08-17 15:15 | Emergency Department Note ---
Impression & Plan Acute UTI ADMIT ED Provider Note HPI: History obtained from patient. The patient is a 83-year-old gentleman with history of diabetes, CHF, CAD, presents the emergency department with a chief complaint of about 24 hours of fever and some pain with urination. Patient states he has had similar symptoms in the past from urinary tract infections. On arrival here to the ED the patient is noted to be febrile at 39.0 Celsius, heart rate is noted to be 46, patient is alert and oriented and appears to be in no acute distress, he is otherwise hemodynamically stable and saturating well on room air. Patient denies any chest pain or shortness of breath, denies any cough, denies any abdominal pain. ROS: - Per HPI Differential Diagnosis: Urinary tract infection, sepsis, pneumonia, viral infection to include COVID-19, influenza A, amongst other potential pathologies. *Outpatient medications and allergy history reviewed. 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 Blood cultures were ordered. Patient did have a presenting fever on arrival. Lab work shows a leukocytosis of 14.11, hemoglobin is stable at 11.8, platelet count is normal, CMP does not show any evidence of any critical findings. Troponin is mildly elevated at 36.5, patient denies any chest pain or shortness of breath, EKG shows paced rhythm without any acute ischemic changes noted. Low suspicion for ACS. Urinalysis shows likely infection with 3+ leukocyte esterase and significant pyuria without evidence of contamination. Blood cultures were drawn and the patient was treated with IV cefepime. Patient was given 30 cc/kg of IV fluid based off ideal body weight. Blood pressure on my reassessment prior to admission is 97/59, patient is resting comfortably in bed and states he feels "great". I do not feel that he needs vasopressor support at this time. He is in agreement for admission. I did discuss the patient's presentation with the on-call hospitalist, Dr. Dove, and the patient was placed for admission in stable condition for further care. Consultants/Discussions held with other healthcare providers: -Hospitalist, Dr. Dove Disposition discussion held by myself with: -Patient * CRITICAL CARE TIME: ( 43 ) minutes -Stabilization of patient with vital signs concerning for sepsis including hypotension and presenting fever requiring 30 cc/kg ideal body weight of IV fluid resuscitation and initiation of broad-spectrum antibiotic. Interpretation of diagnostic studies and lab work, discussion with consulting physicians and arrangement of admission. Diagnosis: 1. Urinary tract infection, acute 2. Leukocytosis, acute 3. Hypotension, acute, fluid responsive 4. Elevated high-sensitivity troponin, acute Disposition: Admission Remi Robles DO Emergency Medicine Past Med/Surg History Problem List (Updated 08/17/24 @ 18:42 by Remi Robles DO) Acute UTI (Acute) History of removal of cyst (06/18/24) FINAL DIAGNOSIS In office procedure Dr. Snow Skin, left neck, excision: - Inflamed epidermal cyst Prostatitis Acute UTI (Acute) Dysuria (Acute) Leukocytosis (Acute) Anemia (Acute) Weakness (Acute) Sepsis (Acute) Sepsis Facial skin lesion Infected sebaceous cyst Vitamin D deficiency Fall from standing (Acute) Closed fracture of shaft of left femur (Acute) Burn of finger of right hand Carpal tunnel syndrome on both sides Peripheral neuropathy Intermittent palpitations Hypoxia (Acute) Acute dyspnea (Acute) Diabetes Shortness of breath Ataxia Essential (primary) hypertension Dyslipidemia Vertebral artery occlusion (Chronic) Ataxia (Acute) Vertigo (Acute) 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 Peripheral arterial disease Carotid artery plaque Dizziness Gait disturbance Chronic cerebral ischemia 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) CHF (congestive heart failure) (Acute) S/P placement of cardiac pacemaker Type 2 diabetes mellitus with diabetic neuropathy, with long-term current use of insulin Fall Weakness (Acute) Diabetes (Acute) Fall (Acute) Pacemaker (Acute) Lab test negative for COVID-19 virus (Acute) Elevated troponin I level (Acute) DVT prophylaxis Low TSH level Atrial fibrillation with normal ventricular rate 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 Robles Elevated troponin Elevated CK Elevated troponin I level History of colon polyps Osteoarthritis History of esophageal dilatation GERD (gastroesophageal reflux disease) Diabetes mellitus, type 2 Basal cell carcinoma hx Deafness in left ear Hyperlipidemia Myocardial Infarction x4---last heart attack 2000--no photogrammetric surveyor Lung nodule Removed ~2004 SDH (subdural hematoma) 2010--no sx, no neurologist---no deficits Surgical History History of non-cataract eye surgery Rt History of melanoma excision Status post placement of cardiac pacemaker History of colonoscopy History of esophagogastroduodenoscopy (EGD) with EUS History of surgery left leg sarcoma removal History of Mohs micrographic surgery for skin cancer left ear Status post cataract extraction of both eyes with insertion of intraocular lens History of heart artery stent 2 stents placed History of cardiac cath 2000--2 stents placed History of lung surgery 2004--nodule removed Family History Father , age 83 of lung cancer. Lung cancer Prostate cancer Mother , age 89 of lung cancer. Lung cancer Diabetes Grandfather (Paternal) Diabetes Brother BRCA gene positive Other No family history of adverse response to anesthesia Social History Smoking Status: Never smoker Second Hand Exposure: Yes (hx); Do You Dip or Chew Tobacco: No; Hx Alcohol Use: Yes Alcohol type: beer Alcohol Intake Frequency Comment: One or 2 beers, 2 or 3 times per week. 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 Feels Safe at Home: Yes Childhood Exposure to Second-Hand Smoke: Yes Dental Care, Regularly: Yes Physical Activity Frequency: Does not Exercise Seatbelt Use: always Sunscreen Use: No Assistive Devices: CPAP, Hospital Bed, Stair Lift, Walker and Wheelchair Allergies Allergies Allergy/AdvReac Type Severity Reaction Status Date / Time aspirin Allergy Severe Anaphylaxis Verified 07/01/24 09:57 Iodinated Contrast Media Allergy Severe SOB,HIVES Verified 07/01/24 09:57 Sulfonylureas Allergy Unknown UNKNOWN Verified 07/01/24 09:57 enalaprilat [From Vasotec] AdvReac Severe CHEST Verified 07/01/24 09:57 TIGHTNESS atorvastatin [From Lipitor] AdvReac Mild cramps Verified 07/01/24 09:57 ezetimibe [From Vytorin] AdvReac Mild MYALGIA Verified 07/01/24 09:57 simvastatin [From Vytorin] AdvReac Mild MYALGIA Verified 07/01/24 09:57 Rudkvtm-JIL-DeW Reductase AdvReac Mild MUSCLE Verified 07/01/24 09:57 Inhibitor ACHING [Jkwkxth-Cbi-Ehp Reductase Inhibitor] Home Meds Home Medications Medication Instructions Recorded Confirmed latanoprost 0.005 % eye drops 1 drp OPL HS 09/18/18 07/01/24 (Xalatan) coenzyme Q10 400 mg capsule (Co 400 mg PO QAM 06/12/19 07/01/24 Q-10) cyanocobalamin (vitamin B-12) 1,000 mcg PO 3XWK 06/12/19 07/01/24 1,000 mcg tablet (Vitamin B-12) glucosamine sulfate 1,000 mg 1,000 mg PO QAM 06/12/19 07/01/24 capsule jdgtwkwe-cmj-tifrd acid 0.4 1 tab PO QAM 06/12/19 07/01/24 mg-lycopene 300 mcg-lutein 250 mcg tablet (Centrum Silver) selenium 200 mcg tablet 200 mcg PO 3XWK 06/26/19 07/01/24 vitamin E 268 mg (400 unit) capsule 400 unit PO 3XWK 06/26/19 07/01/24 cholecalciferol (vitamin D3) 50 50 mcg PO QAM 08/16/20 07/01/24 mcg (2,000 unit) tablet (Vitamin D3) acetaminophen 650 mg 650 mg PO Q12H PRN Pain 04/18/21 07/01/24 tablet,extended release pantoprazole 20 mg tablet,delayed 20 mg PO QAM 09/21/21 07/01/24 release torsemide 20 mg tablet 40 mg PO QAM 09/21/21 07/01/24 blood-glucose meter (InsureWorxuch 12/28/22 07/01/24 Ultra2 Meter) denosumab 60 mg/mL subcutaneous 60 mg subcut Q6MO 10/23/23 07/01/24 syringe (Prolia) calcium carbonate (Calcium 600) 600 mg PO DAILY 06/17/24 07/01/24 dorzolamide 22.3 mg-timolol 6.8 1 drp ophthalmic (eye) BID 06/17/24 07/01/24 mg/mL eye drops rosuvastatin 10 mg tablet 10 mg PO DAILY 06/20/24 07/01/24 Previous Rx's Medication Instructions Recorded clopidogrel 75 mg tablet 75 mg PO QAM #90 tabs 11/20/19 nitroglycerin 0.4 mg sublingual 0.4 mg sublingual Q5M PRN Chest 09/14/20 tablet (Nitrostat) Pain #30 tabs insulin aspart U-100 100 unit/mL 200 unit (2 mL) continuous 09/26/23 subcutaneous solution (Novolog subcutaneous infusion .COMPLEX U-100 Insulin aspart) #180 mL amlodipine 10 mg-benazepril 40 mg 1 cap PO QAM #90 caps 10/23/23 capsule (Lotrel) metoprolol succinate 100 mg 100 mg PO DAILY #90 tabs 10/23/23 tablet,extended release 24 hr blood sugar diagnostic #100 ea 02/02/24 tirzepatide 2.5 mg/0.5 mL 2.5 mg (0.5 mL) subcut Q7D #2 mL 06/12/24 subcutaneous pen injector (Jarrod) Dexcom G7 Sensor (blood-glucose #3 ea 06/17/24 sensor) MiniMed Quick Set 23" (infusion #30 ea 06/17/24 set for insulin pump) Paradigm [place] 1.8 mL (insulin #3 packets 06/17/24 pump syringe) Results & Data (ED) Vital Signs Vital Signs - 24 hr 08/17/24 15:07 08/17/24 15:09 08/17/24 15:12 Temperature 39.0 C H 39.0 C H Temperature Source Oral Oral Pulse Rate 84 46 L Pulse Rate [Left Finger] 84 Pulse Rhythm Regular Pulse Rhythm [Left Finger] Regular Pulse Strength Normal Pulse Strength [Left Finger] Normal Respiratory Rate 23 18 Respiratory Effort / Characteristics Non-Labored Non-Labored Respiratory Depth Normal Normal Respiratory Pattern Regular Regular Blood Pressure 109/59 L Blood Pressure [Right Arm] 123/59 L Blood Pressure Mean 75 Blood Pressure Mean [Right Arm] 80 Blood Pressure Position Lying Blood Pressure Position [Right Arm] Lying Pulse Oximetry 92 92 Oxygen Delivery Method Room Air Room Air Sepsis Recent Fever Within 48 Hours Yes Sepsis New/Unexplained Change in Mental Status No Sepsis Action Taken by Nursing Physician Notified 08/17/24 15:53 08/17/24 15:53 08/17/24 16:21 Temperature Temperature Source Pulse Rate 68 Pulse Rate [Left Finger] 72 66 Pulse Rhythm Regular Pulse Rhythm [Left Finger] Regular Regular Pulse Strength Pulse Strength [Left Finger] Normal Normal Respiratory Rate 14 16 21 Respiratory Effort / Characteristics Non-Labored Non-Labored Respiratory Depth Normal Normal Respiratory Pattern Regular Regular Blood Pressure Blood Pressure [Right Arm] 111/45 L 160/64 H Blood Pressure Mean Blood Pressure Mean [Right Arm] 67 96 Blood Pressure Position Blood Pressure Position [Right Arm] Lying Lying Pulse Oximetry Oxygen Delivery Method Room Air Room Air Sepsis Recent Fever Within 48 Hours Sepsis New/Unexplained Change in Mental Status Sepsis Action Taken by Nursing 08/17/24 16:44 08/17/24 16:48 08/17/24 17:18 Temperature 37.2 C Temperature Source Oral Pulse Rate Pulse Rate [Left Finger] 65 64 67 Pulse Rhythm Pulse Rhythm [Left Finger] Regular Regular Regular Pulse Strength Pulse Strength [Left Finger] Normal Normal Normal Respiratory Rate 19 18 18 Respiratory Effort / Characteristics Non-Labored Non-Labored Non-Labored Respiratory Depth Normal Normal Normal Respiratory Pattern Regular Regular Blood Pressure Blood Pressure [Right Arm] 142/69 H 142/69 H 89/46 L Blood Pressure Mean Blood Pressure Mean [Right Arm] 93 93 60 Blood Pressure Position Blood Pressure Position [Right Arm] Lying Lying Lying Pulse Oximetry 96 94 92 Oxygen Delivery Method Room Air Room Air Room Air Sepsis Recent Fever Within 48 Hours Sepsis New/Unexplained Change in Mental Status Sepsis Action Taken by Nursing 08/17/24 17:34 08/17/24 17:45 08/17/24 18:05 Temperature Temperature Source Pulse Rate Pulse Rate [Left Finger] 60 69 66 Pulse Rhythm Pulse Rhythm [Left Finger] Regular Regular Regular Pulse Strength Pulse Strength [Left Finger] Normal Normal Normal Respiratory Rate 18 18 18 Respiratory Effort / Characteristics Non-Labored Non-Labored Non-Labored Respiratory Depth Normal Normal Normal Respiratory Pattern Regular Regular Regular Blood Pressure Blood Pressure [Right Arm] 100/49 L 98/49 L 123/52 L Blood Pressure Mean Blood Pressure Mean [Right Arm] 66 65 75 Blood Pressure Position Blood Pressure Position [Right Arm] Lying Lying Lying Pulse Oximetry 91 95 95 Oxygen Delivery Method Room Air Room Air Room Air Sepsis Recent Fever Within 48 Hours Sepsis New/Unexplained Change in Mental Status Sepsis Action Taken by Nursing 08/17/24 18:29 Temperature Temperature Source Pulse Rate Pulse Rate [Left Finger] 71 Pulse Rhythm Pulse Rhythm [Left Finger] Regular Pulse Strength Pulse Strength [Left Finger] Normal Respiratory Rate 18 Respiratory Effort / Characteristics Non-Labored Respiratory Depth Normal Respiratory Pattern Regular Blood Pressure Blood Pressure [Right Arm] 102/51 L Blood Pressure Mean Blood Pressure Mean [Right Arm] 68 Blood Pressure Position Blood Pressure Position [Right Arm] Lying Pulse Oximetry 96 Oxygen Delivery Method Room Air Sepsis Recent Fever Within 48 Hours Sepsis New/Unexplained Change in Mental Status Sepsis Action Taken by Nursing Laboratory Data 08/17/24 15:25 08/17/24 15:25 Lab Results 08/17/24 08/17/24 08/17/24 Range/Units 15:20 15:21 15:25 WBC 14.11 H (4.8-10.8) K/ul RBC 3.96 L (4.70-6.10) M/uL Hgb 11.8 L (14.0-18.0) g/dl Hct 35.1 L (42.0-52.0) % MCV 88.6 (80.0-100.0) fL MCH 29.8 (25.0-34.0) pg MCHC 33.6 (32.0-36.0) g/dL RDW Std Deviation 45.2 (36.4-46.3) fL RDW Coeff of Josefa 13.9 (11.5-14.5) % Plt Count 185 (130-400) K/uL MPV 10.6 (9.4-12.4) fL Immature Gran % (Auto) 0.4 % Neut % (Auto) 82.9 % Lymph % (Auto) 6.2 % Hamblen % (Auto) 10.4 % Eos % (Auto) 0.0 % Baso % (Auto) 0.1 % Neut # (Auto) 11.69 H (1.40-6.50) K/uL Lymph # (Auto) 0.88 L (1.20-3.40) K/uL Hamblen # (Auto) 1.47 H (0.11-0.59) K/uL Eos # (Auto) 0.00 (0.00-0.50) K/uL Baso # (Auto) 0.02 (0.00-0.20) K/uL Immature Gran # (Auto) 0.05 (0.01-0.20) K/uL Sodium 136 (136-145) mmol/L Potassium 3.3 L (3.5-5.1) mmol/L Chloride 101 (98-107) mmol/L Carbon Dioxide 27 (21-32) mmol/L Anion Gap 8 (3-11) BUN 15 (6-23) mg/dl Creatinine 1.01 (0.6-1.4) mg/dl Est Cr Clr Drug Dosing 73.7 ml/min eGFR 73.79 BUN/Creatinine Ratio 14.9 (10-20) Glucose 253 H (70-99(Fasting)) mg/dl POC Glucose 243 H (70-99) mg/dl Lactate 1.4 (0.4-2.0) mmol/L Calcium 7.8 L (8.6-10.3) mg/dl Magnesium 1.8 (1.7-2.4) mg/dl Total Bilirubin 0.9 (0.2-1.0) mg/dl Direct Bilirubin 0.2 (0-0.2) mg/dl AST 16 (13-39) U/L ALT 11 (7-52) U/L Alkaline Phosphatase 101 (34-104) U/L Troponin I High Sens 36.5 H (0-20) pg/ml Total Protein 6.5 (6.0-8.3) gm/dl Albumin 3.2 L (3.4-5.0) gm/dl Procalcitonin 0.26 (0-0.5) ng/ml Urine Color Urine Appearance (Clear) Urine pH (4.5-7.5) Ur Specific Low[place] (1.000-1.030) Urine Protein (Negative) Urine Glucose (UA) (Negative) Urine Ketones (Negative) Urine Blood (Negative) Urine Nitrite (Negative) Urine Bilirubin (Negative) Urine Urobilinogen (Negative) Ur Leukocyte Esterase (Negative) Urine WBC (Auto) (0-5) /hpf Urine RBC (Auto) (0-2) /hpf U Hyaline Cast (Auto) (0-2) /lpf U Epithel Cells (Auto) (0-2) /hpf Urine Bacteria (Auto) (None Seen) Adenovirus (PCR) Not Detected (NotDetected) B. pertussis DNA (PCR) Not Detected (NotDetected) B.parapertussis DNA PCR Not Detected (NotDetected) C. pneumoniae DNA (PCR) Not Detected (NotDetected) Coronavirus OC43 (PCR) Not Detected (NotDetected) Coronavirus HKU1 (PCR) Not Detected (NotDetected) Coronavirus 229E (PCR) Not Detected (NotDetected) SARS-CoV-2 (PCR) Not Detected (NotDetected) Coronavirus NL63 (PCR) Not Detected (NotDetected) Human Metapneumovir PCR Not Detected (NotDetected) Influenza Type A (PCR) Not Detected (NotDetected) Influenza Type B (PCR) Not Detected (NotDetected) M. pneumoniae (PCR) Not Detected (NotDetected) Parainfluenza 1 (PCR) Not Detected (NotDetected) Parainfluenza 2 (PCR) Not Detected (NotDetected) Parainfluenza 3 (PCR) Not Detected (NotDetected) Parainfluenza 4 (PCR) Not Detected (NotDetected) RSV (PCR) Not Detected (NotDetected) Entero/Rhino (PCR) Not Detected (NotDetected) 08/17/24 Range/Units 16:40 WBC (4.8-10.8) K/ul RBC (4.70-6.10) M/uL Hgb (14.0-18.0) g/dl Hct (42.0-52.0) % MCV (80.0-100.0) fL MCH (25.0-34.0) pg MCHC (32.0-36.0) g/dL RDW Std Deviation (36.4-46.3) fL RDW Coeff of Josefa (11.5-14.5) % Plt Count (130-400) K/uL MPV (9.4-12.4) fL Immature Gran % (Auto) % Neut % (Auto) % Lymph % (Auto) % Hamb[place] % (Auto) % Eos % (Auto) % Baso % (Auto) % Neut # (Auto) (1.40-6.50) K/uL Lymph # (Auto) (1.20-3.40) K/uL Hamblen # (Auto) (0.11-0.59) K/uL Eos # (Auto) (0.00-0.50) K/uL Baso # (Auto) (0.00-0.20) K/uL Immature Gran # (Auto) (0.01-0.20) K/uL Sodium (136-145) mmol/L Potassium (3.5-5.1) mmol/L Chloride (98-107) mmol/L Carbon Dioxide (21-32) mmol/L Anion Gap (3-11) BUN (6-23) mg/dl Creatinine (0.6-1.4) mg/dl Est Cr Clr Drug Dosing ml/min eGFR BUN/Creatinine Ratio (10-20) Glucose (70-99(Fasting)) mg/dl POC Glucose (70-99) mg/dl Lactate (0.4-2.0) mmol/L Calcium (8.6-10.3) mg/dl Magnesium (1.7-2.4) mg/dl Total Bilirubin (0.2-1.0) mg/dl Direct Bilirubin (0-0.2) mg/dl AST (13-39) U/L ALT (7-52) U/L Alkaline Phosphatase (34-104) U/L Troponin I High Sens (0-20) pg/ml Total Protein (6.0-8.3) gm/dl Albumin (3.4-5.0) gm/dl Procalcitonin (0-0.5) ng/ml Urine Color Yellow Urine Appearance Turbid A (Clear) Urine pH 6.5 (4.5-7.5) Ur Specific [place] 1.015 (1.000-1.030) Urine Protein 2+ H (Negative) Urine Glucose (UA) Negative (Negative) Urine Ketones Trace H (Negative) Urine Blood 2+ H (Negative) Urine Nitrite Negative (Negative) Urine Bilirubin Negative (Negative) Urine Urobilinogen Negative (Negative) Ur Leukocyte Esterase 3+ H (Negative) Urine WBC (Auto) >50 H (0-5) /hpf Urine RBC (Auto) 6-10 H (0-2) /hpf U Hyaline Cast (Auto) 0-2 (0-2) /lpf U Epithel Cells (Auto) 0-2 (0-2) /hpf Urine Bacteria (Auto) None Seen (None Seen) Adenovirus (PCR) (NotDetected) B. pertussis DNA (PCR) (NotDetected) B.parapertussis DNA PCR (NotDetected) C. pneumoniae DNA (PCR) (NotDetected) Coronavirus OC43 (PCR) (NotDetected) Coronavirus HKU1 (PCR) (NotDetected) Coronavirus 229E (PCR) (NotDetected) SARS-CoV-2 (PCR) (NotDetected) Coronavirus NL63 (PCR) (NotDetected) Human Metapneumovir PCR (NotDetected) Influenza Type A (PCR) (NotDetected) Influenza Type B (PCR) (NotDetected) M. pneumoniae (PCR) (NotDetected) Parainfluenza 1 (PCR) (NotDetected) Parainfluenza 2 (PCR) (NotDetected) Parainfluenza 3 (PCR) (NotDetected) Parainfluenza 4 (PCR) (NotDetected) RSV (PCR) (NotDetected) Entero/Rhino (PCR) (NotDetected) Administered Medications Sodium Chloride (Nss) 1,000 mls @ 999 mls/hr IV .Q1H1M RICKY Stop: 08/17/24 19:30 Last Admin: 08/17/24 17:27 Dose: 999 mls/hr Documented By: SHPatricia Discontinued Medications Sodium Chloride (Nss) 1,000 mls @ 999 mls/hr IV .Q1H1M RICKY Stop: 08/17/24 16:15 Last Infusion: 08/17/24 16:21 Dose: Infused Documented By: Admin: 08/17/24 15:28 Dose: 999 mls/hr Documented By: CAROL Cefepime HCl (Maxipime 2000mg) 2,000 mg in 20 mls @ 5 mls/min IV NOW STA; Protocol Stop: 08/17/24 17:30 Last Admin: 08/17/24 17:29 Dose: 5 mls/min Documented By: AVINASH Imaging Data Radiologist's Impression: Chest X-Ray 08/17/24 15:12 EXAM: X-ray chest one-view portable CLINICAL HISTORY: Sepsis, UTI PRIORS: None TECHNIQUE: Portable upright frontal view chest FINDINGS: The chest is well-expanded. Costophrenic angles omitted. No airspace consolidation, effusion or congestive changes. Heart size is top normal. No pneumothorax. Trachea is patent. Osseous structures demonstrate no acute abnormality. No radiopaque foreign body. IMPRESSION: No plain film evidence of an acute cardiopulmonary process. Electronically signed by Tamiko Martin 08-17-2024 3:55 PM Discharge Plan Visit Data Chief Complaint: Fever ED Provider: Remi Robles Discharge Problem: Acute UTI Forms Stand Alone Forms: My [facility] Prescriptions Prescriptions: No Action clopidogrel 75 mg tablet 75 mg PO QAM Qty: 90 3RF insulin aspart U-100 [Novolog U-100 Insulin aspart] 100 unit/mL solution 200 unit continuous subcutaneous infusion .COMPLEX Qty: 180 3RF Rx Instructions: Patient uses insulin pump: Total Daily Dose 200 units Novolog-Relion (DME) blood sugar diagnostic Strip See Rx Instructions .ROUTE .MEDSUPPLY Qty: 100 3RF Rx Instructions: Test blood sugar once daily PRN- Has Dexcom. OneTouch Ultra Mounjaro 2.5 mg/0.5 mL pen injector 2.5 mg subcut Q7D Qty: 2 2RF (DME) MiniMed Quick Set 23" Infusion Set See Rx Instructions .Route Qty: 30 11RF Rx Instructions: change infusion set daily selenium 200 mcg tablet 200 mcg PO 3XWK Patient Comments: 200 mcg PO 3 times a week ; Rx Instructions: MON, WED,FRI dorzolamide-timolol 22.3-6.8 mg/mL drops 1 drp ophthalmic (eye) BID (DME) Paradigm [place] 1.8 mL misc See Rx Instructions .Route Qty: 3 11RF Rx Instructions: Change daily for insulin pump (DME) Dexcom G7 Sensor Device See Rx Instructions .Route Qty: 3 11RF Rx Instructions: Change sensor every 10 days (DME) blood-glucose meter [OneTouch Ultra2 Meter] Misc See Rx Instructions .ROUTE .MEDSUPPLY Rx Instructions: Test blood sugar once daily PRN- Has Dexcom calcium carbonate [Calcium 600] 600 mg calcium (1,500 mg) tablet 600 mg PO DAILY nitroglycerin [Nitrostat] 0.4 mg tablet, sublingual 0.4 mg Sublingual Q5M PRN (Reason: Chest Pain) Qty: 30 5RF Prolia 60 mg/mL syringe 60 mg subcut Q6MO amlodipine-benazepril [Lotrel] 10-40 mg capsule 1 cap PO QAM Qty: 90 3RF metoprolol succinate 100 mg tablet extended release 24 hr 100 mg PO DAILY Qty: 90 3RF latanoprost [Xalatan] 0.005 % drops 1 drp OPL HS cyanocobalamin (vitamin B-12) [Vitamin B-12] 1,000 mcg tablet 1,000 mcg PO 3XWK Centrum Silver 0.4-300-250 mg-mcg-mcg tablet 1 tab PO QAM coenzyme Q10 [Co Q-10] 400 mg capsule 400 mg PO QAM glucosamine sulfate 1,000 mg capsule 1,000 mg PO QAM vitamin E 400 unit capsule 400 unit PO 3XWK Patient Comments: 400 unit PO 3 times a week ; mon, wed, fri Rx Instructions: MON,WED,FRI cholecalciferol (vitamin D3) [Vitamin D3] 50 mcg (2,000 unit) Tablet 50 mcg PO QAM acetaminophen 650 mg Tablet Extended Release 650 mg PO Q12H PRN (Reason: Pain) torsemide 20 mg tablet 40 mg PO QAM pantoprazole 20 mg tablet,delayed release (DR/EC) 20 mg PO QAM rosuvastatin 10 mg tablet 10 mg PO DAILY Referrals Referrals: Adria Huerta DO [Primary Care Provider] -
[2024-08-17] MEDS: SODIUM CHLORIDE 0.9% 1,000 ML IV SCH ×2 (15:28→17:27)
[2024-08-17 15:46] LABS: Basophils # (auto) 0.02 K/uL (0.00-0.20); Basophils % (auto) 0.1 %; Hematocrit (blood only) 35.1 % (42.0-52.0); Hemoglobin 11.8 g/dl (14.0-18.0); Immature Granulocytes # (auto) 0.05 K/uL (0.01-0.20); Immature Granulocytes % (auto) 0.4 %; Lymphocytes # (auto) 0.88 K/uL (1.20-3.40); Lymphocytes % (auto) 6.2 %; Mean Corpuscular Hemoglobin 29.8 pg (25.0-34.0); Mean Corpuscular Hgb Conc 33.6 g/dL (32.0-36.0); Mean Corpuscular Volume 88.6 fL (80.0-100.0); Mean Platelet Volume 10.6 fL (9.4-12.4); Monocytes # (auto) 1.47 K/uL (0.11-0.59); Monocytes % (auto) 10.4 %; Neutrophils # (auto) 11.69 K/uL (1.40-6.50); Neutrophils % (auto) 82.9 %; Platelet Count 185 K/uL (130-400); RDW Coefficient of Variation 13.9 % (11.5-14.5); RDW Standard Deviation 45.2 fL (36.4-46.3); Red Blood Count 3.96 M/uL (4.70-6.10); White Blood Count 14.11 K/ul (4.8-10.8)
--- NOTE | 2024-08-17 15:55 | XRay Report ---
EXAM: X-ray chest one-view portable CLINICAL HISTORY: Sepsis, UTI PRIORS: None TECHNIQUE: Portable upright frontal view chest FINDINGS: The chest is well-expanded. Costophrenic angles omitted. No airspace consolidation, effusion or congestive changes. Heart size is top normal. No pneumothorax. Trachea is patent. Osseous structures demonstrate no acute abnormality. No radiopaque foreign body. IMPRESSION: No plain film evidence of an acute cardiopulmonary process. Electronically signed by Tamiko Martin 08-17-2024 3:55 PM
[2024-08-17 16:04] LABS: Albumin Level 3.2 gm/dl (3.4-5.0); BUN Creatinine Ratio 14.9 (10-20); Bilirubin Direct 0.2 mg/dl (0-0.2); Bilirubin,Total 0.9 mg/dl (0.2-1.0); Calcium 7.8 mg/dl (8.6-10.3); Creatinine Clr Calc Pharmacy 73.7 ml/min; Magnesium 1.8 mg/dl (1.7-2.4); Potassium 3.3 mmol/L (3.5-5.1); Total Protein 6.5 gm/dl (6.0-8.3)
[2024-08-17 16:10] LABS: Troponin I High Sensitivity 36.5 pg/ml (0-20)
[2024-08-17 16:25] LABS: Adenovirus PCR Not Detected (NotDetected); Bordetella parapertussis PCR Not Detected (NotDetected); Bordetella pertussis PCR Not Detected (NotDetected); Chlamydia pneumoniae PCR Not Detected (NotDetected); Coronavirus 229E PCR Not Detected (NotDetected); Coronavirus CoV-2 (COVID19)PCR Not Detected (NotDetected); Coronavirus HKU1 PCR Not Detected (NotDetected); Coronavirus NL63 PCR Not Detected (NotDetected); Coronavirus OC43PCR Not Detected (NotDetected); Human Metapneumovirus PCR Not Detected (NotDetected); Influenza A PCR Not Detected (NotDetected); Influenza B PCR Not Detected (NotDetected); Mycoplasma pneumoniae PCR Not Detected (NotDetected); Parainfluenza Virus 1 PCR Not Detected (NotDetected); Parainfluenza Virus 2 PCR Not Detected (NotDetected); Parainfluenza Virus 3 PCR Not Detected (NotDetected); Parainfluenza Virus 4 PCR Not Detected (NotDetected); Respiratory Syncytial VirusPCR Not Detected (NotDetected); Rhinovirus/Enterovirus PCR Not Detected (NotDetected)
[2024-08-17 17:28] LABS: Appearance Urine Turbid (Clear); Bacteria Urine Automated None Seen (None Seen); Bilirubin Urine Negative (Negative); Blood Urine 2+ (Negative); Color Urine Yellow; Epithelial Cell Urine Auto 0-2 /hpf (0-2); Glucose Urine UA Negative (Negative); Ketones Urine Trace (Negative); Leukocyte Esterase Urine 3+ (Negative); Nitrite Urine Negative (Negative); Protein Urine 2+ (Negative); Specific Gravity Urine 1.015 (1.000-1.030); Urobilinogen Urine Negative (Negative); WBC Urine Automated >50 /hpf (0-5); pH Urine 6.5 (4.5-7.5)
[2024-08-17 17:29] LABS: Cast Urine Automated 0-2 /lpf (0-2)
[2024-08-17] MEDS: CEFEPIME 2000MG 2,000 MG/20 ML SYR IV STA (17:29)
--- NOTE | 2024-08-17 18:38 | History & Physical Report ---
Date of Service August 17, 2024 Assessment & Plan (1) Acute UTI: (2) Sepsis: (3) Diabetes: (4) Weakness: Plan This is an 83-year-old male with a history of UTI and sepsis 2 months ago, presents with fever and burning urination. 1. Acute UTI/sepsis Urinalysis suggestive of UTI Patient has a fever, leukocytosis Presented with borderline low blood pressure, responded to IV fluids Started on IV cefepime in the emergency room. Will continue. Patient states that he is feeling better overall compared to when he first presented to the ER. Follow urine culture results and blood culture results 2. Insulin-dependent diabetes mellitus Patient manages his own insulin pump. He would like to handle his pump while in the hospital. Hold Mounjaro 3. Generalized weakness Patient allowed himself to slide out of bed as he was unable to get up PT/OT consulted 3. Chronic diastolic congestive heart failure Patient was dehydrated due to sepsis and UTI and was given IV fluids He seems to be in compensated state Watch for fluid overload Hold torsemide 4. Coronary artery disease Plavix was held since yesterday because of upcoming gallbladder surgery on 08/20 Will continue to hold Plavix Continue metoprolol with holding parameters 5. Benign essential hypertension Patient was rather hypotensive due to sepsis and UTI Hold amlodipine and benazepril Ordered metoprolol with holding parameters 6. Hyperlipidemia Continue rosuvastatin next 7. 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 Obstructive sleep apnea Ordered CPAP CODE STATUS: DNR/DNI. Patient confirmed DVT prophylaxis: Lovenox History of Present Illness Chief Complaint: Fever, pain with urination Primary Care Provider: Adria Huerta DO This is an 83-year-old male who presented with fever and burning urination. The patient had similar symptoms in the past from urinary tract infection. He was also weak and unable to get out of bed. He slid himself down to the floor. His symptoms started about 24 hours ago. He denies any abdominal pain, chest pain, shortness of breath. On presentation to the emergency room, he was noted to have a fever of 39 degrees. His urinalysis was suggestive of UTI. His blood pressure was borderline low and thus he is being admitted with a diagnosis of UTI and mild sepsis. In the ER, he was given IV cefepime and IV fluids with improvement in his blood pressure. Past medical history 1. Insulin-dependent diabetes mellitus type 2 2. Chronic diastolic congestive heart failure. On torsemide 3. Coronary artery disease status post stent in the past. On Plavix 4. Urinary tract infection with sepsis in June 2024 5. Benign essential hypertension 6. Hyperlipidemia 7. Obstructive sleep apnea 8. Mobitz type II AV block status post pacemaker. 9. Gallstone. He is being evaluated by a surgeon and the plan is for gallbladder removal in 3 days. Allergies Allergy/AdvReac Type Severity Reaction Status Date / Time aspirin Allergy Severe Anaphylaxis Verified 07/01/24 09:57 Iodinated Contrast Media Allergy Severe SOB,HIVES Verified 07/01/24 09:57 Sulfonylureas Allergy Unknown UNKNOWN Verified 07/01/24 09:57 enalaprilat [From Vasotec] AdvReac Severe CHEST Verified 07/01/24 09:57 TIGHTNESS atorvastatin [From Lipitor] AdvReac Mild cramps Verified 07/01/24 09:57 ezetimibe [From Vytorin] AdvReac Mild MYALGIA Verified 07/01/24 09:57 simvastatin [From Vytorin] AdvReac Mild MYALGIA Verified 07/01/24 09:57 Xqdvcxn-KKM-AdZ Reductase AdvReac Mild MUSCLE Verified 07/01/24 09:57 Inhibitor ACHING [Ciktkjq-Pum-Vvk Reductase Inhibitor] Home Medications Medication Instructions Recorded Confirmed Type latanoprost 0.005 % eye drops 1 drp OPL HS 09/18/18 07/01/24 History (Xalatan) coenzyme Q10 400 mg capsule (Co 400 mg PO QAM 06/12/19 07/01/24 History Q-10) cyanocobalamin (vitamin B-12) 1,000 mcg PO 3XWK 06/12/19 07/01/24 History 1,000 mcg tablet (Vitamin B-12) glucosamine sulfate 1,000 mg 1,000 mg PO QAM 06/12/19 07/01/24 History capsule byixzpcl-ibp-bahlm acid 0.4 1 tab PO QAM 06/12/19 07/01/24 History mg-lycopene 300 mcg-lutein 250 mcg tablet (Centrum Silver) selenium 200 mcg tablet 200 mcg PO 3XWK 06/26/19 07/01/24 History vitamin E 268 mg (400 unit) capsule 400 unit PO 3XWK 06/26/19 07/01/24 History clopidogrel 75 mg tablet 75 mg PO QAM #90 tabs 11/20/19 07/01/24 Rx cholecalciferol (vitamin D3) 50 50 mcg PO QAM 08/16/20 07/01/24 History mcg (2,000 unit) tablet (Vitamin D3) nitroglycerin 0.4 mg sublingual 0.4 mg sublingual Q5M PRN Chest 09/14/20 07/01/24 Rx tablet (Nitrostat) Pain #30 tabs acetaminophen 650 mg 650 mg PO Q12H PRN Pain 04/18/21 07/01/24 History tablet,extended release pantoprazole 20 mg tablet,delayed 20 mg PO QAM 09/21/21 07/01/24 History release torsemide 20 mg tablet 40 mg PO QAM 09/21/21 07/01/24 History blood-glucose meter (OneTouch 12/28/22 07/01/24 History Ultra2 Meter) insulin aspart U-100 100 unit/mL 200 unit (2 mL) continuous 09/26/23 07/01/24 Rx subcutaneous solution (Novolog subcutaneous infusion .COMPLEX U-100 Insulin aspart) #180 mL amlodipine 10 mg-benazepril 40 mg 1 cap PO QAM #90 caps 10/23/23 07/01/24 Rx capsule (Lotrel) denosumab 60 mg/mL subcutaneous 60 mg subcut Q6MO 10/23/23 07/01/24 History syringe (Prolia) metoprolol succinate 100 mg 100 mg PO DAILY #90 tabs 10/23/23 07/01/24 Rx tablet,extended release 24 hr blood sugar diagnostic #100 ea 02/02/24 07/01/24 Rx tirzepatide 2.5 mg/0.5 mL 2.5 mg (0.5 mL) subcut Q7D #2 mL 06/12/24 07/01/24 Rx subcutaneous pen injector (Jarrod) Dexcom G7 Sensor (blood-glucose #3 ea 06/17/24 07/01/24 Rx sensor) MiniMed Quick Set 23" (infusion #30 ea 06/17/24 07/01/24 Rx set for insulin pump) Paradigm [place] 1.8 mL (insulin #3 packets 06/17/24 07/01/24 Rx pump syringe) calcium carbonate (Calcium 600) 600 mg PO DAILY 06/17/24 07/01/24 History dorzolamide 22.3 mg-timolol 6.8 1 drp ophthalmic (eye) BID 06/17/24 07/01/24 History mg/mL eye drops rosuvastatin 10 mg tablet 10 mg PO DAILY 06/20/24 07/01/24 History Past Med/Surg History Problem List History of removal of cyst (06/18/24) FINAL DIAGNOSIS In office procedure Dr. Snow Skin, left neck, excision: - Inflamed epidermal cyst Prostatitis Acute UTI (Acute) Dysuria (Acute) Leukocytosis (Acute) Anemia (Acute) Weakness (Acute) Sepsis (Acute) Sepsis Facial skin lesion Infected sebaceous cyst Vitamin D deficiency Fall from standing (Acute) Closed fracture of shaft of left femur (Acute) Burn of finger of right hand Carpal tunnel syndrome on both sides Peripheral neuropathy Intermittent palpitations Hypoxia (Acute) Acute dyspnea (Acute) Diabetes Shortness of breath Ataxia Essential (primary) hypertension Dyslipidemia Vertebral artery occlusion (Chronic) Ataxia (Acute) Vertigo (Acute) 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 Peripheral arterial disease Carotid artery plaque Dizziness Gait disturbance Chronic cerebral ischemia 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) CHF (congestive heart failure) (Acute) S/P placement of cardiac pacemaker Type 2 diabetes mellitus with diabetic neuropathy, with long-term current use of insulin Fall Weakness (Acute) Diabetes (Acute) Fall (Acute) Pacemaker (Acute) Lab test negative for COVID-19 virus (Acute) Elevated troponin I level (Acute) DVT prophylaxis Low TSH level Atrial fibrillation with normal ventricular rate 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 consultant Lung nodule Removed ~2005 SDH (subdural hematoma) 2010--no sx, no neurologist---no deficits Surgical History History of non-cataract eye surgery Rt History of melanoma excision Status post placement of cardiac pacemaker History of colonoscopy History of esophagogastroduodenoscopy (EGD) with EUS History of surgery left leg sarcoma removal History of Mohs micrographic surgery for skin cancer left ear Status post cataract extraction of both eyes with insertion of intraocular lens History of heart artery stent 2 stents placed History of cardiac cath 2000--2 stents placed History of lung surgery 2004--nodule removed Family History Father , age 83 of lung cancer. Lung cancer Prostate cancer Mother , age 89 of lung cancer. Lung cancer Diabetes Grandfather (Paternal) Diabetes Brother BRCA gene positive Other No family history of adverse response to anesthesia Social History Smoking Status: Never smoker Second Hand Exposure: Yes (hx); Do You Dip or Chew Tobacco: No; Hx Alcohol Use: Yes Alcohol type: beer Alcohol Intake Frequency Comment: One or 2 beers, 2 or 3 times per week. 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 Feels Safe at Home: Yes Childhood Exposure to Second-Hand Smoke: Yes Dental Care, Regularly: Yes Physical Activity Frequency: Does not Exercise Seatbelt Use: always Sunscreen Use: No Assistive Devices: CPAP, Hospital Bed, Stair Lift, Walker and Wheelchair Review of Systems Review of Systems: All systems reviewed & are unremarkable except as noted in HPI & below Physical Exam Physical Exam: General appearance: Awake, conversant, able to answer questions appropriately. AOx3. Elderly frail appearing male Pupils: Equally reactive to light and accommodation Neck: No masses, no thyromegaly Respiration: Clear to auscultation bilaterally. Normal effort Cardiovascular: S1-S2/regular rate and rhythm. No murmur, rubs or gallop. No edema. Abdomen: Soft, nontender, nondistended. No hepatosplenomegaly Musculoskeletal: No clubbing, no cyanosis, normal range of motion Skin: No rashes, no nodules Neuro exam: Cranial nerves intact, sensation grossly intact Psychiatric: Patient has good judgment and insight. AOx3. Mood and affect appear normal Lymphatics: No cervical or axillary lymphadenopathy noted Results & Data Results & Data Vital Signs (Past 12 Hours) Vital Signs Temp Pulse Pulse Resp BP BP Pulse Ox 08/17/24 18:05 66 18 123/52 L 95 08/17/24 17:45 69 18 98/49 L 95 08/17/24 17:34 60 18 100/49 L 91 08/17/24 17:18 67 18 89/46 L 92 08/17/24 16:48 64 18 142/69 H 94 08/17/24 16:44 37.2 C 65 19 142/69 H 96 08/17/24 16:21 66 21 160/64 H 08/17/24 15:53 72 16 111/45 L 08/17/24 15:53 68 14 08/17/24 15:12 39.0 C H 84 18 123/59 L 92 08/17/24 15:09 46 L 08/17/24 15:07 39.0 C H 84 23 109/59 L 92 O2 Del Method 08/17/24 18:05 Room Air 08/17/24 17:45 Room Air 08/17/24 17:34 Room Air 08/17/24 17:18 Room Air 08/17/24 16:48 Room Air 08/17/24 16:44 Room Air 08/17/24 16:21 Room Air 08/17/24 15:53 08/17/24 15:53 Room Air 08/17/24 15:12 Room Air 08/17/24 15:09 08/17/24 15:07 Room Air Laboratory Results Abnormal lab results 08/17/24 08/17/2424 Range/Units 15:21 15:25 16:40 WBC 14.11 H (4.8-10.8) K/ul RBC 3.96 L (4.70-6.10) M/uL Hgb 11.8 L (14.0-18.0) g/dl Hct 35.1 L (42.0-52.0) % Neut # (Auto) 11.69 H (1.40-6.50) K/uL Lymph # (Auto) 0.88 L (1.20-3.40) K/uL [place] # (Auto) 1.47 H (0.11-0.59) K/uL Potassium 3.3 L (3.5-5.1) mmol/L Glucose 253 H (70-99(Fasting)) mg/dl POC Glucose 243 H (70-99) mg/dl Calcium 7.8 L (8.6-10.3) mg/dl Troponin I High Sens 36.5 H (0-20) pg/ml Albumin 3.2 L (3.4-5.0) gm/dl Urine Appearance Turbid A (Clear) Urine Protein 2+ H (Negative) Urine Ketones Trace H (Negative) Urine Blood 2+ H (Negative) Ur Leukocyte Esterase 3+ H (Negative) Urine WBC (Auto) >50 H (0-5) /hpf Urine RBC (Auto) 6-10 H (0-2) /hpf Diagnostic Findings Chest X-Ray 08/17/24 15:12 EXAM: X-ray chest one-view portable CLINICAL HISTORY: Sepsis, UTI PRIORS: None TECHNIQUE: Portable upright frontal view chest FINDINGS: The chest is well-expanded. Costophrenic angles omitted. No airspace consolidation, effusion or congestive changes. Heart size is top normal. No pneumothorax. Trachea is patent. Osseous structures demonstrate no acute abnormality. No radiopaque foreign body. IMPRESSION: No plain film evidence of an acute cardiopulmonary process. Electronically signed by Tamiko Martin 08-17-2024 3:55 PM PG Care Time/CCT Total # of Minutes Spent Total Time Spent with Patient: Total time spent is greater than 50% in coordination of care (as documented) at patient's floor/unit and/or counseling patient: Coding Level of Care Code 69356 INT INP/OBS CARE 2/55MIN Diagnoses Acute UTI N39.0 Sepsis A41.9 Diabetes E11.9 Weakness R53.1
[2024-08-17] MEDS: POTASSIUM CHLORIDE CRTAB 20 MEQ TABCR PO STA (19:04)
[2024-08-17] MEDS ORDERED: ONDANSETRON INJ 2 MG/ML 2 ML VIAL IV PRN (21:18)
[2024-08-18 05:37] LABS: Hematocrit (blood only) 33.1 % (42.0-52.0); Mean Corpuscular Hemoglobin 30.1 pg (25.0-34.0); Mean Corpuscular Hgb Conc 33.2 g/dL (32.0-36.0); Mean Corpuscular Volume 90.4 fL (80.0-100.0); Mean Platelet Volume 10.9 fL (9.4-12.4); Platelet Count 177 K/uL (130-400); RDW Coefficient of Variation 13.8 % (11.5-14.5); Red Blood Count 3.66 M/uL (4.70-6.10); White Blood Count 14.04 K/ul (4.8-10.8)
[2024-08-18 05:57] LABS: BUN Creatinine Ratio 15.7 (10-20); Calcium 7.5 mg/dl (8.6-10.3); Creatinine Clr Calc Pharmacy 67.9 ml/min; Potassium 3.4 mmol/L (3.5-5.1)
[2024-08-18] MEDS: CEFEPIME 2000MG 2,000 MG/20 ML SYR IV SCH (06:03)
[2024-08-18] MEDS: METOPROLOL SUCC 50MG EXT REL TAB PO SCH (08:16)
[2024-08-18] MEDS: ENOXAPARIN INJ 40 MG/0.4 ML SYR SQ SCH (08:16)
[2024-08-18] MEDS: PANTOprazole 40 MG TAB PO SCH (08:16)
[2024-08-18] MEDS: ROSUVASTATIN CALCIUM 10 MG TAB PO SCH (08:16)
--- NOTE | 2024-08-18 10:45 | Hospitalist Progress Note ---
Date of Service August 18, 2024 Assessment & Plan (1) Acute UTI: (2) Sepsis: (3) Diabetes: (4) Weakness: Plan This is an 83-year-old male with a history of UTI and sepsis 2 months ago, presents with fever and burning urination. 1. Acute UTI/sepsis Urinalysis suggestive of UTI Patient has a fever, leukocytosis Presented with borderline low blood pressure, responded to IV fluids Started on IV cefepime in the emergency room. Will continue. Patient states that he is feeling better overall No improvement in leukocytosis yet No more fever spikes Blood pressure has stabilized Urine culture growing E. coli, awaiting sensitivities Blood culture pending 2. Insulin-dependent diabetes mellitus Patient manages his own insulin pump. He would like to handle his pump while in the hospital. Hold Mounjaro 3. Generalized weakness Patient allowed himself to slide out of bed as he was unable to get up PT/OT consulted 3. Chronic diastolic congestive heart failure Patient was dehydrated due to sepsis and UTI and was given IV fluids He seems to be in compensated state Watch for fluid overload Hold torsemide 4. Coronary artery disease Plavix was held since yesterday because of upcoming gallbladder surgery on 08/20 Will continue to hold Plavix Continue metoprolol with holding parameters 5. Benign essential hypertension Patient was rather hypotensive due to sepsis and UTI Hold amlodipine and benazepril until blood pressure starts to creep up. Ordered metoprolol with holding parameters 6. Hyperlipidemia Continue rosuvastatin next 7. 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 Obstructive sleep apnea Ordered CPAP CODE STATUS: DNR/DNI. Patient confirmed DVT prophylaxis: Lovenox Admission and Anticipated Discharge Date Admission Date: August 17, 2024 Subjective Patient was seen and examined at 8:25 AM. He stated that he is feeling much better overall. The pain he was experiencing with urination has improved. He denied any chest pain, shortness of breath, abdominal pain. Review of Systems Review of Systems: All systems reviewed & are unremarkable except as noted in Subjective Physical Exam Physical Exam: General: Awake, conversant Heart: S1, S2/regular rate and rhythm, no murmur rubs or gallops Lungs: Clear to auscultation bilaterally. Normal effort Abdomen: Soft/nontender/nondistended. No hepatosplenomegaly Extremities: No clubbing/cyanosis. No edema Behavior: Appropriate, cooperative Results & Data Results & Data Vital Signs (Past 12 Hours) Vital Signs Temp Pulse Pulse Resp BP BP Pulse Ox 08/18/24 07:44 36.5 C 74 18 135/61 95 08/18/24 07:37 64 08/18/24 07:37 08/18/24 03:15 36.7 C 67 18 127/63 96 08/18/24 02:00 72 30 H 96 08/17/24 22:45 36.8 C 71 22 150/64 H 95 08/17/24 22:36 83 18 93 O2 Del Method 08/18/24 07:44 Room Air 08/18/24 07:37 08/18/24 07:37 Room Air 08/18/24 03:15 Room Air, CPAP 08/18/24 02:00 08/17/24 22:45 Room Air 08/17/24 22:36 Laboratory Results Abnormal lab results 08/17/24 08/17/24 08/17/24 Range/Units 15:21 15:25 16:40 WBC 14.11 H (4.8-10.8) K/ul RBC 3.96 L (4.70-6.10) M/uL Hgb 11.8 L (14.0-18.0) g/dl Hct 35.1 L (42.0-52.0) % Neut # (Auto) 11.69 H (1.40-6.50) K/uL Lymph # (Auto) 0.88 L (1.20-3.40) K/uL [place] # (Auto) 1.47 H (0.11-0.59) K/uL Potassium 3.3 L (3.5-5.1) mmol/L Glucose 253 H (70-99(Fasting)) mg/dl POC Glucose 243 H (70-99) mg/dl Calcium 7.8 L (8.6-10.3) mg/dl Troponin I High Sens 36.5 H (0-20) pg/ml Albumin 3.2 L (3.4-5.0) gm/dl Urine Appearance Turbid A (Clear) Urine Protein 2+ H (Negative) Urine Ketones Trace H (Negative) Urine Blood 2+ H (Negative) Ur Leukocyte Esterase 3+ H (Negative) Urine WBC (Auto) >50 H (0-5) /hpf Urine RBC (Auto) 6-10 H (0-2) /hpf 08/17/24 08/17/24 08/18/24 Range/Units 18:22 21:29 04:26 WBC 14.04 H (4.8-10.8) K/ul RBC 3.66 L (4.70-6.10) M/uL Hgb 11.0 L (14.0-18.0) g/dl Hct 33.1 L (42.0-52.0) % Neut # (Auto) (1.40-6.50) K/uL Lymph # (Auto) (1.20-3.40) K/uL [place] # (Auto) (0.11-0.59) K/uL Potassium 3.4 L (3.5-5.1) mmol/L Glucose 171 H (70-99(Fasting)) mg/dl POC Glucose 156 H (70-99) mg/dl Calcium 7.5 L (8.6-10.3) mg/dl Troponin I High Sens 41.1 H (0-20) pg/ml Albumin (3.4-5.0) gm/dl Urine Appearance (Clear) Urine Protein (Negative) Urine Ketones (Negative) Urine Blood (Negative) Ur Leukocyte Esterase (Negative) Urine WBC (Auto) (0-5) /hpf Urine RBC (Auto) (0-2) /hpf 08/18/24 Range/Units 07:59 WBC (4.8-10.8) K/ul RBC (4.70-6.10) M/uL Hgb (14.0-18.0) g/dl Hct (42.0-52.0) % Neut # (Auto) (1.40-6.50) K/uL Lymph # (Auto) (1.20-3.40) K/uL [place] # (Auto) (0.11-0.59) K/uL Potassium (3.5-5.1) mmol/L Glucose (70-99(Fasting)) mg/dl POC Glucose 172 H (70-99) mg/dl Calcium (8.6-10.3) mg/dl Troponin I High Sens (0-20) pg/ml Albumin (3.4-5.0) gm/dl Urine Appearance (Clear) Urine Protein (Negative) Urine Ketones (Negative) Urine Blood (Negative) Ur Leukocyte Esterase (Negative) Urine WBC (Auto) (0-5) /hpf Urine RBC (Auto) (0-2) /hpf PG Care Time/CCT Total # of Minutes Spent Total Time Spent with Patient: Total time spent is greater than 50% in coordination of care (as documented) at patient's floor/unit and/or counseling patient: Coding Level of Care Code 90186 SUB INP/OBS CARE 2/35MIN Diagnoses Acute UTI N39.0 Sepsis A41.9 Diabetes E11.9 Weakness R53.1
[2024-08-18 21:58] LABS: A calco-baum cmplx NotReported Not Detected (NotDetected); Bact fragilis Not Reported Not Detected (NotDetected); Blood Culture Id Panel See PCR Comment (NotDetected); C auris Not Reported Not Detected (NotDetected); CTX-M Resistant Gene Not Detected (NotDetected); Calbicans Not Reported Not Detected (NotDetected); Candida glabrata Not Reported Not Detected (NotDetected); Candida krusei Not Reported Not Detected (NotDetected); Cneoformans/gatti Not Reported Not Detected (NotDetected); Cparapsilosis Not Reported Not Detected (NotDetected); E cloacae compx Not Reported Not Detected (NotDetected); Efaecalis Not Reported Not Detected (NotDetected); Efaecium Not Reported Not Detected (NotDetected); Enterobacterales DETECTED (NotDetected); Enterobacterales Not Reported DETECTED (NotDetected); Escherichia coli Not Reported DETECTED (NotDetected); H influenzae Not Reported Not Detected (NotDetected); IMP Resistant Gene Not Detected (NotDetected); K aerogenes Not Reported Not Detected (NotDetected); KPC Resistant Gene Not Detected (NotDetected); Koxytoca Not Reported Not Detected (NotDetected); Kpneumoniae grp Not Reported Not Detected (NotDetected); Lmonocyt Not Reported Not Detected (NotDetected); N meningitidis Not Reported Not Detected (NotDetected); NDM Resistant Gene Not Detected (NotDetected); OXA 48 Like Resistant Gene Not Detected (NotDetected); P aeruginosa Not Reported Not Detected (NotDetected); Proteus spp Not Reported Not Detected (NotDetected); Salmonella spp Not Reported Not Detected (NotDetected); Staph lugdunensis Not Reported Not Detected (NotDetected); Staph spp. Not Reported Not Detected (NotDetected); Staphaureus Not Reported Not Detected (NotDetected); Staphepi Not Reported Not Detected (NotDetected); Stenmaltophilia Not Reported Not Detected (NotDetected); Strep agal(GrpB) Not Reported Not Detected (NotDetected); Strep pneum Not Reported Not Detected (NotDetected); Strep pyog (GrpA) Not Reported Not Detected (NotDetected); Strep spp Not Reported Not Detected (NotDetected); VIM Resistant Gene Not Detected (NotDetected); mcr-1 Colistin Resistant Gene Not Detected (NotDetected)
[2024-08-19] MEDS: ACETAMINOPHEN 325 MG TAB PO PRN (03:02)
[2024-08-19 08:21] LABS: Hematocrit (blood only) 35.1 % (42.0-52.0); Hemoglobin 11.5 g/dl (14.0-18.0); Mean Corpuscular Hemoglobin 29.5 pg (25.0-34.0); Mean Corpuscular Hgb Conc 32.8 g/dL (32.0-36.0); Mean Platelet Volume 10.6 fL (9.4-12.4); Platelet Count 171 K/uL (130-400); RDW Coefficient of Variation 13.8 % (11.5-14.5); RDW Standard Deviation 45.4 fL (36.4-46.3); White Blood Count 8.98 K/ul (4.8-10.8)
[2024-08-19 08:32] LABS: BUN Creatinine Ratio 20.4 (10-20); Calcium 7.7 mg/dl (8.6-10.3); Creatinine Clr Calc Pharmacy 71.2 ml/min; Potassium 3.4 mmol/L (3.5-5.1)
[2024-08-19] MEDS ORDERED: DEXTROSE 50% 50 ML SYRINGE IV PRN (10:28)
[2024-08-19] MEDS ORDERED: GLUCOSE 10 TAB/TUBE PO PRN (10:28)
[2024-08-19] MEDS ORDERED: CARBOHYDRATES FOR HYPOGLYCEMIA PO PRN (10:28)
[2024-08-19] MEDS ORDERED: GLUCOSE 40% GEL 15 GM TUBE PO PRN (10:28)
[2024-08-19] MEDS ORDERED: INSULIN ASPART 100 UNITS/ML VIAL SC PRN (10:28)
[2024-08-19] MEDS ORDERED: GLUCAGON FOR INJ 1 MG VIAL SQ PRN (10:28)
[2024-08-19] MEDS: INSULIN, Rapid-Acting PUMP SC SCH (11:02)
[2024-08-19] MEDS: POLYETHYLENE (MIRALAX) 17 GM PACK PO PRN (13:05)
--- NOTE | 2024-08-19 14:47 | Hospitalist Progress Note ---
Date of Service August 19, 2024 Assessment & Plan (1) Acute UTI: (2) Sepsis: (3) Diabetes: (4) Weakness: Plan This is an 83-year-old male with a history of UTI and sepsis 2 months ago, presents with fever and burning urination. 1. Acute UTI/sepsis Urinalysis suggestive of UTI Patient has a fever, leukocytosis Presented with borderline low blood pressure, responded to IV fluids Started on IV cefepime in the emergency room. Will continue. Patient states that he is feeling better overall No improvement in leukocytosis yet No more fever spikes Blood pressure has stabilized Urine culture growing E. coli, sensitivities noted. Switched to IV ceftriaxone based on sensitivities Blood culture growing E. coli as well 2. Insulin-dependent diabetes mellitus Patient manages his own insulin pump. He would like to handle his pump while in the hospital. Hold Mounjaro 3. Generalized weakness Patient allowed himself to slide out of bed as he was unable to get up PT/OT consulted. Recommending rehab. Patient declines rehab and wishes to go home. Spoke to patient's son about PT/OT recommendation. Son will talk to the patient today. 3. Chronic diastolic congestive heart failure Patient was dehydrated due to sepsis and UTI and was given IV fluids He seems to be in compensated state Watch for fluid overload Hold torsemide 4. Coronary artery disease Plavix was held since yesterday because of upcoming gallbladder surgery on 08/20 Will continue to hold Plavix Continue metoprolol with holding parameters 5. Benign essential hypertension Patient was rather hypotensive due to sepsis and UTI Blood pressure starting to creep up. Resume amlodipine and benazepril Ordered metoprolol with holding parameters 6. Hyperlipidemia Continue rosuvastatin next 7. 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 Obstructive sleep apnea Ordered CPAP CODE STATUS: DNR/DNI. Patient confirmed DVT prophylaxis: Lovenox Admission and Anticipated Discharge Date Admission Date: August 17, 2024 Subjective Patient was seen and examined at 11 AM. He had spiked a fever overnight. Now feeling much better. Spoke to patient's son over the phone Review of Systems Review of Systems: All systems reviewed & are unremarkable except as noted in Subjective Physical Exam Physical Exam: General: Awake, conversant Heart: S1, S2/regular rate and rhythm, no murmur rubs or gallops Lungs: Clear to auscultation bilaterally. Normal effort Abdomen: Soft/nontender/nondistended. No hepatosplenomegaly Extremities: No clubbing/cyanosis. No edema Behavior: Appropriate, cooperative Results & Data Results & Data Vital Signs (Past 12 Hours) Vital Signs Temp Pulse Pulse Resp BP BP Pulse Ox 08/19/24 11:20 36.4 C L 61 18 133/58 L 95 08/19/24 08:17 36.3 C L 61 18 132/55 L 97 08/19/24 07:31 60 08/19/24 07:31 08/19/24 03:55 37.6 C H 08/19/24 03:00 38.3 C H 72 22 137/55 L 93 O2 Del Method 08/19/24 11:20 Room Air 08/19/24 08:17 Room Air 08/19/24 07:31 08/19/24 07:31 Room Air 08/19/24 03:55 08/19/24 03:00 CPAP Laboratory Results Abnormal lab results 08/17/24 08/19/24 08/19/24 Range/Units 15:39 07:45 08:05 RBC 3.90 L (4.70-6.10) M/uL Hgb 11.5 L (14.0-18.0) g/dl Hct 35.1 L (42.0-52.0) % Potassium 3.4 L (3.5-5.1) mmol/L BUN/Creatinine Ratio 20.4 H (10-20) Glucose 131 H (70-99(Fasting)) mg/dl POC Glucose 133 H (70-99) mg/dl Calcium 7.7 L (8.6-10.3) mg/dl Enterobacterales (PCR) DETECTED A (NotDetected) E. coli (PCR) DETECTED A (NotDetected) PG Care Time/CCT Total # of Minutes Spent Total Time Spent with Patient: Total time spent is greater than 50% in coordination of care (as documented) at patient's floor/unit and/or counseling patient: Coding Level of Care Code 51129 SUB INP/OBS CARE 2/35MIN Diagnoses Acute UTI N39.0 Sepsis A41.9 Diabetes E11.9 Weakness R53.1
[2024-08-19] MEDS: cefTRIAXone SODIUM 2,000 MG/50 ML BAG IV SCH (16:14)
--- NOTE | 2024-08-19 19:05 | Electrocardiogram Report ---
Test Reason : Blood Pressure : */* mmHG Vent. Rate : 80 BPM Atrial Rate : 80 BPM P-R Int : 242 ms QRS Dur : 166 ms QT Int : 420 ms P-R-T Axes : 65 -78 80 degrees QTcB Int : 484 ms Atrial-sensed ventricular-paced rhythm with prolonged AV conduction Abnormal ECG When compared with ECG of 20-Jun-2024 17:48, No significant change was found Confirmed by Sky Silverman ([id number]) on 08/19/2024 7:04:43 PM Referred By: Confirmed By: Sky Silverman
[2024-08-19] MEDS ORDERED: DORZOLAMIDE/TIMOLOL 22.3/6.8MG/ML 10 ML BTL OP SCH (21:00)
[2024-08-19] MEDS: LATANOPROST 0.005% OP SOLN 2.5 ML BTL OPB SCH (21:21)
[2024-08-19] MEDS: DORZOLAMIDE/TIMOLOL 22.3/6.8MG/ML 10 ML BTL OPB SCH (21:21)
[2024-08-19] MEDS: BRIMONIDINE TARTRATE 0.2% 5ML OPB SCH (21:21)
[2024-08-19] MEDS: DOCUSATE SODIUM 100 MG CAP PO SCH (21:25)
[2024-08-20 07:35] LABS: Hemoglobin 11.9 g/dl (14.0-18.0); Mean Corpuscular Volume 88.2 fL (80.0-100.0); Mean Platelet Volume 10.8 fL (9.4-12.4); Platelet Count 210 K/uL (130-400); RDW Coefficient of Variation 13.5 % (11.5-14.5); RDW Standard Deviation 43.9 fL (36.4-46.3); Red Blood Count 3.97 M/uL (4.70-6.10); White Blood Count 6.73 K/ul (4.8-10.8)
[2024-08-20 07:57] LABS: BUN Creatinine Ratio 21.1 (10-20); Calcium 7.9 mg/dl (8.6-10.3); Creatinine Clr Calc Pharmacy 80.7 ml/min; Potassium 3.5 mmol/L (3.5-5.1)
[2024-08-20] MEDS: amLODIPine BESYLATE 5 MG TAB PO SCH (08:58)
[2024-08-20] MEDS: OPTIRAY 320 100ml IV ONE (10:47)
--- NOTE | 2024-08-20 11:53 | CT Scan Report ---
CT OF THE ABDOMEN AND PELVIS WITH CONTRAST CLINICAL HISTORY: UTI, bacteremia, still spiking fevers COMPARISON STUDY: CT of the abdomen and pelvis July 25, 2024. Right upper quadrant ultrasound Nov ember 2023. TECHNIQUE: Following IV administration of 94 mL of Optiray, axial images of the abdomen and pelvis we re obtained from the lung bases to the proximal femurs. Images were reviewed in the axial, sagittal, and coronal planes. IV contrast was administered without complication. Automated exposure control wa s utilized for the study. A dose lowering technique was utilized adhering to the principles of ALARA . CT DOSE: 1493.32 mGy.cm FINDINGS: There are trace bilateral pleural fusions. No pneumatosis, free air or portal venous gas is present. Pacer leads are partially imaged. There is hepatic steatosis. There are gallstones within t he gallbladder. There is no pericholecystic infiltration. A 4 mm left renal calculus is present. Ther e are no ureteral calculi. There is no hydronephrosis. The bladder is distended. There is mild bladde r wall thickening. Subtle heterogeneous enhancement of the left kidney with several hypoenhancing foc i are present. There is no renal fluid collection. Right kidney enhances symmetrically. Prostate is e nlarged, measuring 5.5 cm in transverse dimension. Left femoral internal fixation is incidentally not ed. The caliber and wall thickness of small and large bowel are normal. There is no evidence for a camilo wel obstruction. There are no fluid collections. There is no lymphadenopathy. IMPRESSION: 1. Distended bladder with bladder wall thickening. This may reflect cystitis. Subtle heterogeneous en hancement of the left kidney suspicious for acute pyelonephritis. No renal abscess. 2. Left nephrolithiasis. No ureteral calculi or hydronephrosis. Enlarged prostate. 3. No bowel obstruction. No bowel wall thickening. 4. Cholelithiasis. ACT 112: Negative or not required by law. Electronically signed by: Alfredo Swanson M.D. 08/20/2024 11:52 AM
[2024-08-20] MEDS: methylPREDNISolone 40 MG in SYRINGE 0 ML IV SCH (12:41)
[2024-08-20] MEDS: diphenhydrAMINE 50 MG/ML VIAL IV ONE (12:41)
--- NOTE | 2024-08-20 14:12 | Hospitalist Progress Note ---
Date of Service August 20, 2024 Assessment & Plan (1) Acute UTI: (2) Sepsis: (3) Diabetes: (4) Weakness: Plan This is an 83-year-old male with a history of UTI and sepsis 2 months ago, presents with fever and burning urination. 1. Acute UTI/sepsis Urinalysis suggestive of UTI Patient has a fever, leukocytosis Presented with borderline low blood pressure, responded to IV fluids Started on IV cefepime in the emergency room. Patient states that he is feeling better overall Leukocytosis resolved Patient continues to have fever spikes Blood pressure has stabilized Urine culture growing E. coli, sensitivities noted. Switched to IV ceftriaxone based on sensitivities Blood culture growing E. coli as well Due to continued fever, CT abdomen with contrast was completed today that did not reveal any abscess, stones or anything surgical. Continue IV antibiotics for another day 2. Insulin-dependent diabetes mellitus Patient manages his own insulin pump. He would like to handle his pump while in the hospital. Hold Mounjaro 3. Generalized weakness Patient allowed himself to slide out of bed as he was unable to get up PT/OT consulted. Recommending rehab. Patient is willing to go to rehab. Case management informed. 3. Chronic diastolic congestive heart failure Patient was dehydrated due to sepsis and UTI and was given IV fluids He seems to be in compensated state Watch for fluid overload Hold torsemide 4. Coronary artery disease Plavix was held since yesterday because of upcoming gallbladder surgery on 08/20 Will continue to hold Plavix Continue metoprolol with holding parameters 5. Benign essential hypertension Patient was rather hypotensive due to sepsis and UTI Blood pressure starting to creep up. Resumed amlodipine. Ordered metoprolol with holding parameters 6. Hyperlipidemia Continue rosuvastatin next 7. 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 Obstructive sleep apnea Ordered CPAP CODE STATUS: DNR/DNI. Patient confirmed DVT prophylaxis: Lovenox Admission and Anticipated Discharge Date Admission Date: August 17, 2024 Subjective Patient was seen and examined at 11:20 AM. He had another fever spike at 3 AM. Feels well at this time since the fever broke. Denies any chest pain or shortness of breath. Yesterday he was unwilling to go to rehab. However today after having spoken to his son, he is willing to go to rehab Review of Systems Review of Systems: All systems reviewed & are unremarkable except as noted in Subjective Physical Exam Physical Exam: General: Awake, conversant Heart: S1, S2/regular rate and rhythm, no murmur rubs or gallops Lungs: Clear to auscultation bilaterally. Normal effort Abdomen: Soft/nontender/nondistended. No hepatosplenomegaly Extremities: No clubbing/cyanosis. No edema Behavior: Appropriate, cooperative Results & Data Results & Data Vital Signs (Past 12 Hours) Vital Signs Temp Pulse Resp BP Pulse Ox O2 Del Method 08/20/24 12:17 36.6 C 63 16 150/69 H 96 Room Air 08/20/24 10:42 36.5 C 67 16 176/60 H 94 Room Air 08/20/24 07:11 36.4 C L 70 16 152/51 H 97 Room Air 08/20/24 03:14 38.3 C H 75 18 137/63 95 BiPAP Laboratory Results Abnormal lab results 08/20/24 08/20/24 Range/Units 07:13 07:48 RBC 3.97 L (4.70-6.10) M/uL Hgb 11.9 L (14.0-18.0) g/dl Hct 35.0 L (42.0-52.0) % Sodium 134 L (136-145) mmol/L BUN/Creatinine Ratio 21.1 H (10-20) Glucose 194 H (70-99(Fasting)) mg/dl POC Glucose 185 H (70-99) mg/dl Calcium 7.9 L (8.6-10.3) mg/dl Diagnostic Findings Abdomen/Pelvis CT 08/20/24 09:00 CT OF THE ABDOMEN AND PELVIS WITH CONTRAST CLINICAL HISTORY: UTI, bacteremia, still spiking fevers COMPARISON STUDY: CT of the abdomen and pelvis July 25, 2024. Right upper quadrant ultrasound August 02, 2024. TECHNIQUE: Following IV administration of 94 mL of Optiray, axial images of the abdomen and pelvis were obtained from the lung bases to the proximal femurs. Images were reviewed in the axial, sagittal, and coronal planes. IV contrast was administered without complication. Automated exposure control was utilized for the study. A dose lowering technique was utilized adhering to the principles of ALARA. CT DOSE: 1493.32 mGy.cm FINDINGS: There are trace bilateral pleural fusions. No pneumatosis, free air or portal venous gas is present. Pacer leads are partially imaged. There is hepatic steatosis. There are gallstones within the gallbladder. There is no pericholecystic infiltration. A 4 mm left renal calculus is present. There are no ureteral calculi. There is no hydronephrosis. The bladder is distended. There is mild bladder wall thickening. Subtle heterogeneous enhancement of the left kidney with several hypoenhancing foci are present. There is no renal fluid collection. Right kidney enhances symmetrically. Prostate is enlarged, measuring 5.5 cm in transverse dimension. Left femoral internal fixation is incidentally noted. The caliber and wall thickness of small and large bowel are normal. There is no evidence for a bowel obstruction. There are no fluid collections. There is no lymphadenopathy. IMPRESSION: 1. Distended bladder with bladder wall thickening. This may reflect cystitis. Subtle heterogeneous enhancement of the left kidney suspicious for acute pyelonephritis. No renal abscess. 2. Left nephrolithiasis. No ureteral calculi or hydronephrosis. Enlarged prostate. 3. No bowel obstruction. No bowel wall thickening. 4. Cholelithiasis. ACT 112: Negative or not required by law. Electronically signed by: Alfredo Swanson M.D. 08/20/2024 11:52 AM PG Care Time/CCT Total # of Minutes Spent Total Time Spent with Patient: Total time spent is greater than 50% in coordination of care (as documented) at patient's floor/unit and/or counseling patient: Coding Level of Care Code 58855 SUB INP/OBS CARE 2/35MIN Diagnoses Acute UTI N39.0 Sepsis A41.9 Diabetes E11.9 Weakness R53.1
[2024-08-21 07:57] VITALS: TEMP 97.9
[2024-08-21 08:16] LABS: Hematocrit (blood only) 33.5 % (42.0-52.0); Mean Corpuscular Hemoglobin 29.4 pg (25.0-34.0); Mean Corpuscular Hgb Conc 32.8 g/dL (32.0-36.0); Mean Corpuscular Volume 89.6 fL (80.0-100.0); Mean Platelet Volume 10.9 fL (9.4-12.4); Platelet Count 206 K/uL (130-400); RDW Coefficient of Variation 13.7 % (11.5-14.5); RDW Standard Deviation 44.9 fL (36.4-46.3); Red Blood Count 3.74 M/uL (4.70-6.10); White Blood Count 6.59 K/ul (4.8-10.8)
[2024-08-21 08:40] LABS: BUN Creatinine Ratio 17.3 (10-20); Calcium 7.9 mg/dl (8.6-10.3); Creatinine Clr Calc Pharmacy 89.6 ml/min; Potassium 3.4 mmol/L (3.5-5.1)
--- NOTE | 2024-08-21 11:34 | Discharge Summary ---
Date of Service August 21, 2024 Admission HPI Per Admitting Provider This is an 83-year-old male who presented with fever and burning urination. The patient had similar symptoms in the past from urinary tract infection. He was also weak and unable to get out of bed. He slid himself down to the floor. His symptoms started about 24 hours ago. He denies any abdominal pain, chest pain, shortness of breath. On presentation to the emergency room, he was noted to have a fever of 39 degrees. His urinalysis was suggestive of UTI. His blood pressure was borderline low and thus he is being admitted with a diagnosis of UTI and mild sepsis. In the ER, he was given IV cefepime and IV fluids with improvement in his blood pressure. Past medical history 1. Insulin-dependent diabetes mellitus type 2 2. Chronic diastolic congestive heart failure. On torsemide 3. Coronary artery disease status post stent in the past. On Plavix 4. Urinary tract infection with sepsis in June 2024 5. Benign essential hypertension 6. Hyperlipidemia 7. Obstructive sleep apnea 8. Mobitz type II AV block status post pacemaker. 9. Gallstone. He is being evaluated by a surgeon and the plan is for gallbladder removal in 3 days. Admission Exam Per Admitting Provider General appearance: Awake, conversant, able to answer questions appropriately. AOx3. Elderly frail appearing male Pupils: Equally reactive to light and accommodation Neck: No masses, no thyromegaly Respiration: Clear to auscultation bilaterally. Normal effort Cardiovascular: S1-S2/regular rate and rhythm. No murmur, rubs or gallop. No edema. Abdomen: Soft, nontender, nondistended. No hepatosplenomegaly Musculoskeletal: No clubbing, no cyanosis, normal range of motion Skin: No rashes, no nodules Neuro exam: Cranial nerves intact, sensation grossly intact Psychiatric: Patient has good judgment and insight. AOx3. Mood and affect appear normal Lymphatics: No cervical or axillary lymphadenopathy noted Principal Diagnosis - Acute E coli pyelonephritis with sepsis - Acute E coli bacteremia - Generalized weakness Discharge Exam General: Awake, conversant Heart: S1, S2/regular rate and rhythm, no murmur rubs or gallops Lungs: Clear to auscultation bilaterally. Normal effort Abdomen: Soft/nontender/nondistended. No hepatosplenomegaly Extremities: No clubbing/cyanosis. No edema Behavior: Appropriate, cooperative Discharge Data Allergies Allergy/AdvReac Type Severity Reaction Status Date / Time aspirin Allergy Severe Anaphylaxis Verified 07/01/24 09:57 Iodinated Contrast Media Allergy Severe SOB,HIVES Verified 07/01/24 09:57 Sulfonylureas Allergy Unknown UNKNOWN Verified 07/01/24 09:57 enalaprilat [From Vasotec] AdvReac Severe CHEST Verified 07/01/24 09:57 TIGHTNESS atorvastatin [From Lipitor] AdvReac Mild cramps Verified 07/01/24 09:57 ezetimibe [From Vytorin] AdvReac Mild MYALGIA Verified 07/01/24 09:57 simvastatin [From Vytorin] AdvReac Mild MYALGIA Verified 07/01/24 09:57 Xmdzdub-ZPS-WaM Reductase AdvReac Mild MUSCLE Verified 07/01/24 09:57 Inhibitor ACHING [Uhfkkmk-Nvg-Rpv Reductase Inhibitor] Consultations 08/17/24 18:06 ED Decision to Admit Stat Ordered Studies 08/20/24 09:00 CT Abd and Pelvis [CT abd pelvis IV con only] Routine Hospital Course (1) Acute UTI: (2) Sepsis: (3) Diabetes: (4) Weakness: Plan This is an 83-year-old male with a history of UTI and sepsis 2 months ago, presents with fever and burning urination. 1. Acute UTI/sepsis Urinalysis suggestive of UTI Patient has a fever, leukocytosis Presented with borderline low blood pressure, responded to IV fluids Started on IV cefepime in the emergency room. Clinically improved Leukocytosis resolved Patient continued to have fever spikes Blood pressure has stabilized Urine culture growing E. coli, sensitivities noted. Switched to IV ceftriaxone based on sensitivities Blood culture growing E. coli as well Due to continued fever, CT abdomen with contrast was completed today that did not reveal any abscess, stones or anything surgical. We continued IV antibiotics during the hospital stay and will discharge him on p.o. Levaquin per sensitivities to complete the course 2. Insulin-dependent diabetes mellitus Patient manages his own insulin pump. He would like to handle his pump while in the hospital. Farzad Garay 3. Generalized weakness Patient allowed himself to slide out of bed as he was unable to get up PT/OT consulted. PT/OT recommends home with home health today. 3. Chronic diastolic congestive heart failure Patient was dehydrated due to sepsis and UTI and was given IV fluids He seems to be in compensated state Watch for fluid overload Held torsemide during hospital stay. Resume upon 4. Coronary artery disease Plavix was held since day prior to admission because of upcoming gallbladder surgery on 08/20 The gallbladder surgery will need to be pushed back Resume Plavix Continue metoprolol with holding parameters 5. Benign essential hypertension Patient was rather hypotensive due to sepsis and UTI Blood pressure starting to creep up. Resumed amlodipine. Ordered metoprolol with holding parameters 6. Hyperlipidemia Continue rosuvastatin next 7. 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 Obstructive sleep apnea Ordered CPAP Discharge to home today Total Time Total Time Spent Total Time Spent (In Minutes): 35 Discharge Plan Discharge Items Patient Disposition: Home - Home Health Services Reason For Visit: UTI,SEPSIS Discharge Diagnosis: - Acute E coli pyelonephritis with sepsis - Acute E coli bacteremia - Generalized weakness Activity: Resume your previous activity Non-emergency contact: Primary Care Provider Call non-emergency contact if: you have any medication questions and your symptoms worsen Follow-up/Referrals: Adria Huerta, [Primary Care Provider] - (PLEASE CALL YOUR PRIMARY CARE PROVIDER TO SCHEDULE A HOSPITAL FOLLOW-UP APPOINTMENT WITHIN 7-10 DAYS) Diet: Carb Consistent or DM2 Addtl Attending Provider Instructions: - Advised to follow-up with PCP in 1 week - Advised to complete antibiotic course. Pending Studies at Discharge: No Stand-Alone Forms: [facility] Medications and DC Order Prescriptions: New levofloxacin 750 mg tablet 750 mg PO DAILY 5 Days Qty: 5 0RF Continued clopidogrel 75 mg tablet 75 mg PO QAM Qty: 90 3RF insulin aspart U-100 [Novolog U-100 Insulin aspart] 100 unit/mL solution 200 unit continuous subcutaneous infusion .COMPLEX Qty: 180 3RF Rx Instructions: Patient uses insulin pump: Total Daily Dose 200 units Novolog-Relion (DME) blood sugar diagnostic Strip See Rx Instructions .ROUTE .MEDSUPPLY Qty: 100 3RF Rx Instructions: Test blood sugar once daily PRN- Has Dexcom. OneTouch Ultra Mounjaro 2.5 mg/0.5 mL pen injector 2.5 mg subcut Q7D Qty: 2 2RF (DME) MiniMed Quick Set 23" Infusion Set See Rx Instructions .Route Qty: 30 11RF Rx Instructions: change infusion set daily selenium 200 mcg tablet 200 mcg PO 3XWK Patient Comments: 200 mcg PO 3 times a week ; Rx Instructions: MON, MON,FRI dorzolamide-timolol 22.3-6.8 mg/mL drops 1 drp ophthalmic (eye) BID (DME) Paradigm [place] 1.8 mL misc See Rx Instructions .Route Qty: 3 11RF Rx Instructions: Change daily for insulin pump (DME) Dexcom G7 Sensor Device See Rx Instructions .Route Qty: 3 11RF Rx Instructions: Change sensor every 10 days (DME) blood-glucose meter [OneTouch Ultra2 Meter] Misc See Rx Instructions .ROUTE .MEDSUPPLY Rx Instructions: Test blood sugar once daily PRN- Has Dexcom calcium carbonate [Calcium 600] 600 mg calcium (1,500 mg) tablet 600 mg PO DAILY nitroglycerin [Nitrostat] 0.4 mg tablet, sublingual 0.4 mg Sublingual Q5M PRN (Reason: Chest Pain) Qty: 30 5RF Prolia 60 mg/mL syringe 60 mg subcut Q6MO amlodipine-benazepril [Lotrel] 10-40 mg capsule 1 cap PO QAM Qty: 90 3RF metoprolol succinate 100 mg tablet extended release 24 hr 100 mg PO DAILY Qty: 90 3RF latanoprost [Xalatan] 0.005 % drops 1 drp OPL HS cyanocobalamin (vitamin B-12) [Vitamin B-12] 1,000 mcg tablet 1,000 mcg PO 3XWK Centrum Silver 0.4-300-250 mg-mcg-mcg tablet 1 tab PO QAM coenzyme Q10 [Co Q-10] 400 mg capsule 400 mg PO QAM glucosamine sulfate 1,000 mg capsule 1,000 mg PO QAM vitamin E 400 unit capsule 400 unit PO 3XWK Patient Comments: 400 unit PO 3 times a week ; mon, wed, fri Rx Instructions: MON,MON,FRI cholecalciferol (vitamin D3) [Vitamin D3] 50 mcg (2,000 unit) Tablet 50 mcg PO QAM acetaminophen 650 mg Tablet Extended Release 650 mg PO Q12H PRN (Reason: Pain) torsemide 20 mg tablet 40 mg PO QAM pantoprazole 20 mg tablet,delayed release (DR/EC) 20 mg PO QAM rosuvastatin 10 mg tablet 10 mg PO DAILY Discharge Orders: Discharge Order (Routine); Ordered 08/21/24 Ordered By: Elizabeth Dove Admission Data Admit Date/Time: 08/17/24 19:13 Attending Provider: Eilzabeth Dove Admit Provider: Cheryl Briseno Primary Care Provider: Adria Huerta Other Providers: Elizabeth Dove; [place]; [facility] Other Interventions: Discharge Summary Assessment (RN) Last Done: 08/21/24 12:04
[2024-08-21 11:54] VITALS: PULSE 67; RESP 18; O2SAT 98
[2024-08-21 12:05] VITALS: BP 135/71
== END 2024-08-21 13:19 | disposition home health service (06) | DRG 872 ==
LOC: SUATTDRO → ED 15:01 → 2W 19:13 → SUATTDRO 19:13 → 2W 20:30

== ENCOUNTER 2025-07-20 19:57 | Observation (INO) ==
[2025-07-20] MEDS: DEXTROSE 50% 50 ML SYRINGE IV ONE ×2 (20:09→20:15)
--- NOTE | 2025-07-20 20:14 | Emergency Department Note ---
History of Present Illness General Chief complaint: Hypotension Stated complaint: UNRESPONSIVE - GIVEN EPI - HYPOTENSION Time Seen by Provider: 07/20/25 20:04 History of Present Illness Provider complaint: Unresponsive 84-year-old male presents emergency department after being found unresponsive. Reportedly patient had dinner and then started to tell his that he did not feel well and he was get a pass out. Patient did have syncopal episode and was unresponsive. EMS was called and when EMS arrived the patient was hypotensive. Patient was given 1 dose push epi and then the patient's blood pressure improved and the patient became alert and oriented again. Patient reports no headache neck pain chest pain difficulty breathing. Patient syncopal episode occurred while he was sitting down. Patient states he did not strike his head. Patient has a headache. Denies any chest pain or difficulty breathing. Home Medications Medication Instructions Recorded Confirmed Type latanoprost 0.005 % eye drops 1 drp OPB BID 09/18/18 07/20/25 History (Xalatan) coenzyme Q10 400 mg capsule (Co 400 mg PO QAM 06/12/19 07/20/25 History Q-10) cyanocobalamin (vitamin B-12) 1,000 mcg PO 3XWK 06/12/19 07/20/25 History 1,000 mcg tablet (Vitamin B-12) glucosamine sulfate 1,000 mg 1,000 mg PO QAM 06/12/19 07/20/25 History capsule otjbisms-boz-rvgcg acid 0.4 1 tab PO QAM 06/12/19 07/20/25 History mg-lycopene 300 mcg-lutein 250 mcg tablet (Centrum Silver) selenium 200 mcg tablet 200 mcg PO WK 06/26/19 07/20/25 History vitamin E 268 mg (400 unit) capsule 400 unit PO WK 06/26/19 07/20/25 History clopidogrel 75 mg tablet 75 mg PO QAM #90 tabs 11/20/19 07/20/25 Rx cholecalciferol (vitamin D3) 50 50 mcg PO WK 08/16/20 07/20/25 History mcg (2,000 unit) tablet (Vitamin D3) nitroglycerin 0.4 mg sublingual 0.4 mg sublingual Q5M PRN Chest 09/14/20 07/20/25 Rx tablet (Nitrostat) Pain #30 tabs acetaminophen 650 mg 650 mg PO Q12H PRN Pain 04/18/21 07/20/25 History tablet,extended release pantoprazole 20 mg tablet,delayed 20 mg PO BID 09/21/21 07/20/25 History release torsemide 20 mg tablet 40 mg PO QAM 09/21/21 07/20/25 History blood-glucose meter (OneTouch 12/28/22 07/14/25 History Ultra2 Meter) denosumab 60 mg/mL subcutaneous 60 mg subcut Q6MO 10/23/23 07/20/25 History syringe (Prolia) MiniMed Quick Set 23" (infusion #30 ea 06/17/24 07/14/25 Rx set for insulin pump) Paradigm Shaft 1.8 mL (insulin #3 packets 06/17/24 07/14/25 Rx pump syringe) calcium carbonate (Calcium 600) 600 mg PO DAILY 06/17/24 07/20/25 History dorzolamide 22.3 mg-timolol 6.8 1 drp OPB BID 06/17/24 07/20/25 History mg/mL eye drops rosuvastatin 10 mg tablet 10 mg PO QAM 06/20/24 07/20/25 History metoprolol succinate 100 mg 100 mg PO DAILY #90 tabs 10/03/24 07/20/25 Rx tablet,extended release 24 hr insulin aspart U-100 100 unit/mL 200 unit (2 mL) continuous 12/09/24 07/20/25 Rx subcutaneous solution (Novolog subcutaneous infusion .COMPLEX U-100 Insulin aspart) #180 mL amlodipine 10 mg-benazepril 40 mg 1 cap PO QAM #90 caps 02/17/25 07/20/25 Rx capsule (Lotrel) blood sugar diagnostic #100 ea 03/12/25 07/14/25 Rx Dexcom G7 Sensor (blood-glucose #3 ea 06/03/25 07/14/25 Rx sensor) tirzepatide 5 mg/0.5 mL 5 mg subcut WK 07/14/25 07/20/25 History subcutaneous pen injector (Jarrod) tamsulosin 0.4 mg capsule 0.4 mg PO DAILY #14 caps 07/15/25 07/20/25 Rx brimonidine 0.2 % eye drops 1 drp OPB BID 07/20/25 07/20/25 History Allergies Allergy/AdvReac Type Severity Reaction Status Date / Time aspirin Allergy Severe Anaphylaxis Verified 07/14/25 23:10 Iodinated Contrast Media Allergy Severe SOB,HIVES Verified 07/14/25 23:10 Sulfonylureas Allergy Unknown UNKNOWN Verified 07/14/25 23:10 enalaprilat [From Vasotec] AdvReac Severe CHEST Verified 07/14/25 23:10 TIGHTNESS atorvastatin [From Lipitor] AdvReac Intermediate cramps Verified 07/14/25 23:10 ezetimibe [From Vytorin] AdvReac Intermediate MYALGIA Verified 07/14/25 23:10 simvastatin [From Vytorin] AdvReac Intermediate MYALGIA Verified 07/14/25 23:10 Vctlujt-LFP-PpI Reductase AdvReac Intermediate MUSCLE Verified 07/14/25 23:10 Inhibitor ACHING [Djxysqu-Edn-Dlh Reductase Inhibitor] Past Med/Surg History Problem List (Updated 07/20/25 @ 23:59 by Tony Castro MD) Hypoglycemia (Acute) Acute UTI (Acute) Syncope (Acute) Complication, blocked Thurman catheter (Acute) Multiple skin tears (Acute) Urinary retention (Acute) Lumbar spinal stenosis (Acute) Right flank pain (Acute) Fall from standing (Acute) History of laparoscopic cholecystectomy (09/19/24) Laparoscopic Cholecystectomy(Not Applicable) - Bruce Snow, Symptomatic cholelithiasis Anemia (Acute) Vitamin D deficiency Carpal tunnel syndrome on both sides Intermittent palpitations Atrial fibrillation with normal ventricular rate Low TSH level Pacemaker (Acute) Type 2 diabetes mellitus with diabetic neuropathy, with long-term current use of insulin CHF (congestive heart failure) (Acute) 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) Chronic cerebral ischemia Carotid artery plaque Peripheral arterial disease 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 Ataxia (Acute) Vertebral artery occlusion (Chronic) Dyslipidemia Essential (primary) hypertension Glaucoma left eye Sarcoma of femur left In ~2004, s/p removal and radiation PELON (obstructive sleep apnea) (Chronic) cpap Hypertension (Chronic) CAD (coronary artery disease) Medical History Dyslipidemia Vertebral artery occlusion Diabetic polyneuropathy Peripheral arterial disease Carotid artery plaque Chronic cerebral ischemia Hx of congestive heart failure Peripheral neuropathy Vitamin D deficiency Anemia 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 Robles History of colon polyps Osteoarthritis History of esophageal dilatation GERD (gastroesophageal reflux disease) Diabetes mellitus, type 2 Basal cell carcinoma hx Deafness in left ear Hyperlipidemia Myocardial Infarction x4---last heart attack 2000--no mechanical tech Lung nodule Removed ~2004 SDH (subdural hematoma) 2010--no sx, no neurologist---no deficits Surgical History Hx of removal of cyst (09/19/24) FINAL DIAGNOSIS In office procedure Dr. Snow Skin, left neck, excision: - Inflamed epidermal cyst History of open reduction and internal fixation (ORIF) procedure left femur History of ear surgery rebuilt eardrum after cancer History of melanoma excision Status post placement of cardiac pacemaker History of colonoscopy History of esophagogastroduodenoscopy (EGD) with EUS History of surgery left leg sarcoma removal History of Mohs micrographic surgery for skin cancer left ear Status post cataract extraction of both eyes with insertion of intraocular lens History of heart artery stent 2 stents placed History of cardiac cath 2000--2 stents placed History of lung surgery 2004--nodule removed Family History Father , age 83 of lung cancer. Lung cancer Prostate cancer Mother , age 89 of lung cancer. Lung cancer Diabetes Grandfather (Paternal) Diabetes Brother BRCA gene positive Other No family history of adverse response to anesthesia Social History Smoking Status: Never smoker Second Hand Exposure: Yes (hx); Do You Dip or Chew Tobacco: No; Hx Alcohol Use: Yes Alcohol type: beer Alcohol Intake Frequency Comment: One or 2 beers, 2 or 3 times per week. 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 Feels Safe at Home: Yes Childhood Exposure to Second-Hand Smoke: Yes Dental Care, Regularly: Yes Physical Activity Frequency: Does not Exercise Seatbelt Use: always Sunscreen Use: No Assistive Devices: Cane, CPAP, Scooter/Electric Scooter, Stair Lift and Walker Physical Exam Vital Signs Vital Signs - 24 hr 07/20/25 19:59 07/20/25 20:04 07/20/25 20:28 Temperature 36.5 C Temperature Source Oral Pulse Rate 87 69 68 Pulse Rate from SpO2 Sensor Respiratory Rate 20 18 Respiratory Effort / Characteristics Non-Labored Spontaneous Respiratory Depth Normal Respiratory Pattern Regular Blood Pressure 137/80 148/75 H Blood Pressure Mean 99 101 Pulse Oximetry 99 98 Oxygen Delivery Method Room Air Room Air Sepsis Recent Fever Within 48 Hours No Sepsis New/Unexplained Change in Mental Status N/A Sepsis Action Taken by Nursing No Action Required 07/20/25 21:00 07/20/25 21:00 07/20/25 21:00 Temperature Temperature Source Pulse Rate 67 Pulse Rate from SpO2 Sensor Respiratory Rate 18 Respiratory Effort / Characteristics Respiratory Depth Respiratory Pattern Blood Pressure 150/77 H 150/77 H 150/77 H Blood Pressure Mean 101 108 108 Pulse Oximetry 98 Oxygen Delivery Method Room Air Sepsis Recent Fever Within 48 Hours Sepsis New/Unexplained Change in Mental Status Sepsis Action Taken by Nursing 07/20/25 21:00 07/20/25 21:00 07/20/25 21:06 Temperature Temperature Source Pulse Rate 68 68 Pulse Rate from SpO2 Sensor 67 66 Respiratory Rate 2 L 3 L Respiratory Effort / Characteristics Respiratory Depth Respiratory Pattern Blood Pressure 150/77 H Blood Pressure Mean 108 Pulse Oximetry 98 99 Oxygen Delivery Method Sepsis Recent Fever Within 48 Hours Sepsis New/Unexplained Change in Mental Status Sepsis Action Taken by Nursing 07/20/25 21:10 07/20/25 21:10 07/20/25 21:10 Temperature Temperature Source Pulse Rate Pulse Rate from SpO2 Sensor Respiratory Rate Respiratory Effort / Characteristics Respiratory Depth Respiratory Pattern Blood Pressure 141/73 H 141/73 H 141/73 H Blood Pressure Mean 98 98 98 Pulse Oximetry Oxygen Delivery Method Sepsis Recent Fever Within 48 Hours Sepsis New/Unexplained Change in Mental Status Sepsis Action Taken by Nursing 07/20/25 21:12 07/20/25 21:20 07/20/25 21:20 Temperature Temperature Source Pulse Rate 66 Pulse Rate from SpO2 Sensor 66 Respiratory Rate 9 L Respiratory Effort / Characteristics Respiratory Depth Respiratory Pattern Blood Pressure 148/73 H 148/73 H Blood Pressure Mean 113 113 Pulse Oximetry 100 Oxygen Delivery Method Sepsis Recent Fever Within 48 Hours Sepsis New/Unexplained Change in Mental Status Sepsis Action Taken by Nursing 07/20/25 21:20 07/20/25 21:20 07/20/25 21:21 Temperature Temperature Source Pulse Rate 71 Pulse Rate from SpO2 Sensor 66 Respiratory Rate 10 L Respiratory Effort / Characteristics Respiratory Depth Respiratory Pattern Blood Pressure 148/73 H 148/73 H Blood Pressure Mean 113 113 Pulse Oximetry 100 Oxygen Delivery Method Sepsis Recent Fever Within 48 Hours Sepsis New/Unexplained Change in Mental Status Sepsis Action Taken by Nursing 07/20/25 21:30 07/20/25 21:30 07/20/25 21:34 Temperature Temperature Source Pulse Rate 70 Pulse Rate from SpO2 Sensor 70 Respiratory Rate 11 L Respiratory Effort / Characteristics Respiratory Depth Respiratory Pattern Blood Pressure 150/75 H 149/75 H Blood Pressure Mean 89 110 Pulse Oximetry 100 Oxygen Delivery Method Sepsis Recent Fever Within 48 Hours Sepsis New/Unexplained Change in Mental Status Sepsis Action Taken by Nursing 07/20/25 21:56 07/20/25 22:05 07/20/25 22:14 Temperature Temperature Source Pulse Rate 71 69 71 Pulse Rate from SpO2 Sensor 71 69 72 Respiratory Rate 17 14 16 Respiratory Effort / Characteristics Respiratory Depth Respiratory Pattern Blood Pressure Blood Pressure Mean Pulse Oximetry 100 98 100 Oxygen Delivery Method Sepsis Recent Fever Within 48 Hours Sepsis New/Unexplained Change in Mental Status Sepsis Action Taken by Nursing 07/20/25 23:00 07/20/25 23:06 Temperature Temperature Source Pulse Rate 70 Pulse Rate from SpO2 Sensor 70 Respiratory Rate 16 Respiratory Effort / Characteristics Respiratory Depth Respiratory Pattern Blood Pressure 144/68 H Blood Pressure Mean 79 Pulse Oximetry 98 Oxygen Delivery Method Room Air Sepsis Recent Fever Within 48 Hours Sepsis New/Unexplained Change in Mental Status Sepsis Action Taken by Nursing Physical Exam GENERAL: He is oriented to person, place, and time. He appears well-developed and well-nourished. He does not appear distressed. HENT: Exam performed. - Head: Normocephalic and atraumatic. EYES: Conjunctivae and EOM are normal. Pupils are equal, round, and reactive to light. Right eye exhibits no discharge. Left eye exhibits no discharge. No scleral icterus. NECK: Normal range of motion. Neck supple. No JVD present. CV: Normal rate, regular rhythm, normal heart sounds and intact distal pulses. There is no peripheral edema. Palpable radial pulses bue. PULM/CHEST: Effort normal and breath sounds normal. No respiratory distress. No stridor. He has no wheezes. He has no rales. ABD: The abdomen is soft. Obese. Insulin pump in place. There is no tenderness. There is no rebound, no guarding. MUSC/SKEL: Normal range of motion. There is no peripheral edema, tenderness or deformity. NEURO: He is alert and oriented to person, place, and time. He has normal strength. No cranial nerve deficit or sensory deficit. Coordination normal. GCS eye subscore is 4. GCS verbal subscore is 5. GCS motor subscore is 6. Cerebellar tests wnl. Course Course 2003: The patient was evaluated in room B1. A complete history and physical exam was performed Cardiac monitoring: An order was placed for continuous cardiac monitoring. The monitor shows a rate of 80 with paced rhythm interpreted by me Patient's glucose 61 on Accu-Chek. Patient's insulin pump was unconnected and 1 amp D50 given to the patient. 2124: Vital signs stable. I-STAT showed glucose of 209. I-STAT was drawn soon after amp of D50 given to the patient. Patient's Accu-Chek 1 hour later went down to 80. Urine is concerning for UTI. Lactic acid 2.1. Pressure stable. Fluid bolus and antibiotics given to the patient. CT of the head is unremarkable. Patient will be admitted to the [facility] team. Administered Medications Sodium Chloride (Nss) 500 mls @ 80 mls/hr IV .Q6H15M [facility] Stop: 07/21/25 03:44 Last Admin: 07/20/25 21:42 Dose: 80 mls/hr Documented By: JULIAN Discontinued Medications Dextrose (Dextrose 50% 50 Ml Syringe) Confirm Administered Dose 50 ml IV .STK- MED ONE Stop: 07/20/25 20:04 Last Admin: 07/20/25 20:15 Dose: Not Given Documented By: LAF Dextrose (Dextrose 50% 50 Ml Syringe) 50 ml IV NOW ONE Stop: 07/20/25 20:03 Last Admin: 07/20/25 20:09 Dose: 50 ml Documented By: ARACELI Sodium Chloride (Nss) 500 mls @ 999 mls/hr IV .Q31M ONE Stop: 07/20/25 21:53 Last Infusion: 07/20/25 21:41 Dose: Infused Documented By: Admin: 07/20/25 21:28 Dose: 999 mls/hr Documented By: ARACELI Cefepime HCl (Maxipime 2000mg) 2,000 mg in 20 mls @ 5 mls/min IV NOW STA; Protocol Stop: 07/20/25 21:26 Last Admin: 07/20/25 21:28 Dose: 5 mls/min Documented By: ARACELI Medical Decision Making Medical Records Attestation: I reviewed the patient's medical records. This is the patient's third visit to the emergency department in the last week. Patient was initially seen on July 14 after suffering a fall. Abdomen pelvis CT head CT lumbar spine CT showed no acute traumatic injuries. Patient was discharged. Patient was then seen in the emergency department again for problems with the Thurman catheter 5 days ago on July 15, 2025. Laboratory Data Attestation: I reviewed the patient's lab results. 07/20/25 20:07 07/20/25 21:17 Lab Results 07/20/25 07/20/25 07/20/25 Range/Units 20:02 20:07 20:18 WBC 11.36 H (4.8-10.8) K/ul RBC 4.42 L (4.70-6.10) M/uL Hgb 12.9 L (14.0-18.0) g/dl POC Hgb 13.6 L (14.0-18.0) g/dl Hct 40.2 L (42.0-52.0) % POC Hct 40 L (42-52) % MCV 91.0 (80.0-100.0) fL MCH 29.2 (25.0-34.0) pg MCHC 32.1 (32.0-36.0) g/dL RDW Std Deviation 45.1 (36.4-46.3) fL RDW Coeff of Josefa 13.5 (11.5-14.5) % Plt Count 253 (130-400) K/uL MPV 10.7 (9.4-12.4) fL Immature Gran % (Auto) 0.4 % Neut % (Auto) 67.3 % Lymph % (Auto) 18.8 % Mccreary % (Auto) 10.2 % Eos % (Auto) 2.7 % Baso % (Auto) 0.6 % Neut # (Auto) 7.65 H (1.40-6.50) K/uL Lymph # (Auto) 2.13 (1.20-3.40) K/uL Mccreary # (Auto) 1.16 H (0.11-0.59) K/uL Eos # (Auto) 0.31 (0.00-0.50) K/uL Baso # (Auto) 0.07 (0.00-0.20) K/uL Immature Gran # (Auto) 0.04 (0.01-0.20) K/uL POC Sodium 141 (135-144) mmol/L Sodium TNP POC Potassium 3.1 L (3.3-5.0) mmol/L Potassium TNP POC Chloride 99 L (101-112) mmol/L Chloride 103 (98-107) mmol/L Carbon Dioxide 30 (21-32) mmol/L POC Total CO2 27 (24-31) mmol/L Anion Gap TNP POC Anion Gap 20.0 (16-25) mmol/L POC BUN 14 (7-18) mg/dl BUN 15 (6-23) mg/dl Creatinine 1.15 (0.6-1.4) mg/dl POC Creatinine 1.1 (0.6-1.3) mg/dl Est Cr Clr Drug Dosing 62.7 ml/min eGFR 62.76 BUN/Creatinine Ratio 13.0 (10-20) Glucose 54 L (70-99(Fasting)) mg/dl POC Glucose 61 L* (70-99) mg/dl POC Glucose (other) 309 H (70-99) mg/dl Lactate (0.4-2.0) mmol/L Calcium 9.1 (8.6-10.3) mg/dl POC Ioniz Calcium Shannan 1.12 (1.12-1.32) mmol/l Magnesium TNP Troponin I High Sens 12.7 (0-20) pg/ml Lipase 6 L (11-82) U/L Urine Color Urine Appearance (Clear) Urine pH (4.5-7.5) Ur Specific Bunch (1.000-1.030) Urine Protein (Negative) Urine Glucose (UA) (Negative) Urine Ketones (Negative) Urine Blood (Negative) Urine Nitrite (Negative) Urine Bilirubin (Negative) Urine Urobilinogen (Negative) Ur Leukocyte Esterase (Negative) Urine WBC (Auto) (0-5) /hpf Urine RBC (Auto) (0-2) /hpf U Hyaline Cast (Auto) (0-2) /lpf U Epithel Cells (Auto) (0-2) /hpf Urine Bacteria (Auto) (None Seen) Urine Comment 07/20/25 07/20/25 07/20/25 Range/Units 20:20 20:31 20:32 WBC (4.8-10.8) K/ul RBC (4.70-6.10) M/uL Hgb (14.0-18.0) g/dl POC Hgb (14.0-18.0) g/dl Hct (42.0-52.0) % POC Hct (42-52) % MCV (80.0-100.0) fL MCH (25.0-34.0) pg MCHC (32.0-36.0) g/dL RDW Std Deviation (36.4-46.3) fL RDW Coeff of Josefa (11.5-14.5) % Plt Count (130-400) K/uL MPV (9.4-12.4) fL Immature Gran % (Auto) % Neut % (Auto) % Lymph % (Auto) % Mccreary % (Auto) % Eos % (Auto) % Baso % (Auto) % Neut # (Auto) (1.40-6.50) K/uL Lymph # (Auto) (1.20-3.40) K/uL Mccreary # (Auto) (0.11-0.59) K/uL Eos # (Auto) (0.00-0.50) K/uL Baso # (Auto) (0.00-0.20) K/uL Immature Gran # (Auto) (0.01-0.20) K/uL POC Sodium (135-144) mmol/L Sodium POC Potassium (3.3-5.0) mmol/L Potassium POC Chloride (101-112) mmol/L Chloride (98-107) mmol/L Carbon Dioxide (21-32) mmol/L POC Total CO2 (24-31) mmol/L Anion Gap POC Anion Gap (16-25) mmol/L POC BUN (7-18) mg/dl BUN (6-23) mg/dl Creatinine (0.6-1.4) mg/dl POC Creatinine (0.6-1.3) mg/dl Est Cr Clr Drug Dosing ml/min eGFR BUN/Creatinine Ratio (10-20) Glucose (70-99(Fasting)) mg/dl POC Glucose 111 H (70-99) mg/dl POC Glucose (other) (70-99) mg/dl Lactate 2.1 H* (0.4-2.0) mmol/L Calcium (8.6-10.3) mg/dl POC Ioniz Calcium Shannan (1.12-1.32) mmol/l Magnesium Troponin I High Sens (0-20) pg/ml Lipase (11-82) U/L Urine Color Yellow Urine Appearance Clear (Clear) Urine pH 5.0 (4.5-7.5) Ur Specific Bunch 1.011 (1.000-1.030) Urine Protein Negative (Negative) Urine Glucose (UA) Negative (Negative) Urine Ketones Negative (Negative) Urine Blood 2+ H (Negative) Urine Nitrite Negative (Negative) Urine Bilirubin Negative (Negative) Urine Urobilinogen Negative (Negative) Ur Leukocyte Esterase 3+ H (Negative) Urine WBC (Auto) >50 H (0-5) /hpf Urine RBC (Auto) 6-10 H (0-2) /hpf U Hyaline Cast (Auto) 0-2 (0-2) /lpf U Epithel Cells (Auto) 0-2 (0-2) /hpf Urine Bacteria (Auto) 4+ H (None Seen) Urine Comment 07/20/25 07/20/25 07/20/25 Range/Units 21:11 21:17 21:59 WBC (4.8-10.8) K/ul RBC (4.70-6.10) M/uL Hgb (14.0-18.0) g/dl POC Hgb (14.0-18.0) g/dl Hct (42.0-52.0) % POC Hct (42-52) % MCV (80.0-100.0) fL MCH (25.0-34.0) pg MCHC (32.0-36.0) g/dL RDW Std Deviation (36.4-46.3) fL RDW Coeff of Josefa (11.5-14.5) % Plt Count (130-400) K/uL MPV (9.4-12.4) fL Immature Gran % (Auto) % Neut % (Auto) % Lymph % (Auto) % Mccreary % (Auto) % Eos % (Auto) % Baso % (Auto) % Neut # (Auto) (1.40-6.50) K/uL Lymph # (Auto) (1.20-3.40) K/uL Mccreary # (Auto) (0.11-0.59) K/uL Eos # (Auto) (0.00-0.50) K/uL Baso # (Auto) (0.00-0.20) K/uL Immature Gran # (Auto) (0.01-0.20) K/uL POC Sodium (135-144) mmol/L Sodium 140 POC Potassium (3.3-5.0) mmol/L Potassium 3.1 L POC Chloride (101-112) mmol/L Chloride (98-107) mmol/L Carbon Dioxide (21-32) mmol/L POC Total CO2 (24-31) mmol/L Anion Gap POC Anion Gap (16-25) mmol/L POC BUN (7-18) mg/dl BUN (6-23) mg/dl Creatinine (0.6-1.4) mg/dl POC Creatinine (0.6-1.3) mg/dl Est Cr Clr Drug Dosing ml/min eGFR BUN/Creatinine Ratio (10-20) Glucose (70-99(Fasting)) mg/dl POC Glucose 80 115 H (70-99) mg/dl POC Glucose (other) (70-99) mg/dl Lactate (0.4-2.0) mmol/L Calcium (8.6-10.3) mg/dl POC Ioniz Calcium Shannan (1.12-1.32) mmol/l Magnesium 2.1 Troponin I High Sens (0-20) pg/ml Lipase (11-82) U/L Urine Color Urine Appearance (Clear) Urine pH (4.5-7.5) Ur Specific Bunch (1.000-1.030) Urine Protein (Negative) Urine Glucose (UA) (Negative) Urine Ketones (Negative) Urine Blood (Negative) Urine Nitrite (Negative) Urine Bilirubin (Negative) Urine Urobilinogen (Negative) Ur Leukocyte Esterase (Negative) Urine WBC (Auto) (0-5) /hpf Urine RBC (Auto) (0-2) /hpf U Hyaline Cast (Auto) (0-2) /lpf U Epithel Cells (Auto) (0-2) /hpf Urine Bacteria (Auto) (None Seen) Urine Comment 07/20/25 07/20/25 Range/Units 22:56 23:13 WBC (4.8-10.8) K/ul RBC (4.70-6.10) M/uL Hgb (14.0-18.0) g/dl POC Hgb (14.0-18.0) g/dl Hct (42.0-52.0) % POC Hct (42-52) % MCV (80.0-100.0) fL MCH (25.0-34.0) pg MCHC (32.0-36.0) g/dL RDW Std Deviation (36.4-46.3) fL RDW Coeff of Josefa (11.5-14.5) % Plt Count (130-400) K/uL MPV (9.4-12.4) fL Immature Gran % (Auto) % Neut % (Auto) % Lymph % (Auto) % Mccreary % (Auto) % Eos % (Auto) % Baso % (Auto) % Neut # (Auto) (1.40-6.50) K/uL Lymph # (Auto) (1.20-3.40) K/uL Mccreary # (Auto) (0.11-0.59) K/uL Eos # (Auto) (0.00-0.50) K/uL Baso # (Auto) (0.00-0.20) K/uL Immature Gran # (Auto) (0.01-0.20) K/uL POC Sodium (135-144) mmol/L Sodium POC Potassium (3.3-5.0) mmol/L Potassium POC Chloride (101-112) mmol/L Chloride (98-107) mmol/L Carbon Dioxide (21-32) mmol/L POC Total CO2 (24-31) mmol/L Anion Gap POC Anion Gap (16-25) mmol/L POC BUN (7-18) mg/dl BUN (6-23) mg/dl Creatinine (0.6-1.4) mg/dl POC Creatinine (0.6-1.3) mg/dl Est Cr Clr Drug Dosing ml/min eGFR BUN/Creatinine Ratio (10-20) Glucose (70-99(Fasting)) mg/dl POC Glucose 175 H (70-99) mg/dl POC Glucose (other) (70-99) mg/dl Lactate 1.4 (0.4-2.0) mmol/L Calcium (8.6-10.3) mg/dl POC Ioniz Calcium Shannan (1.12-1.32) mmol/l Magnesium Troponin I High Sens (0-20) pg/ml Lipase (11-82) U/L Urine Color Urine Appearance (Clear) Urine pH (4.5-7.5) Ur Specific Bunch (1.000-1.030) Urine Protein (Negative) Urine Glucose (UA) (Negative) Urine Ketones (Negative) Urine Blood (Negative) Urine Nitrite (Negative) Urine Bilirubin (Negative) Urine Urobilinogen (Negative) Ur Leukocyte Esterase (Negative) Urine WBC (Auto) (0-5) /hpf Urine RBC (Auto) (0-2) /hpf U Hyaline Cast (Auto) (0-2) /lpf U Epithel Cells (Auto) (0-2) /hpf Urine Bacteria (Auto) (None Seen) Urine Comment Imaging Data Attestation: I personally reviewed and interpreted this imaging study as follows: My Impression: Chest x-ray: Cardiomegaly with mild cephalization Radiologist's Impression: Chest X-Ray 07/20/25 20:02 Exam(s): XR CXR 1 VIEW EXAM: XR Chest, 1 View CLINICAL HISTORY: Reason for exam: Chest pain, nonspecific. TECHNIQUE: Frontal view of the chest. COMPARISON: 08/17/2024 FINDINGS: Lungs: Mild central pulmonary vascular congestion. No consolidation. Pleural space: Unremarkable. No pneumothorax. Heart: Cardiomegaly. Mediastinum: Unremarkable. Normal mediastinal contour. Bones/joints: Unremarkable. No acute fracture. Tubes, lines and devices: Left chest wall intracardiac device. IMPRESSION: Mild pulmonary edema Electronically signed by: Horacio Pineda MD 07/20/25 21:[address] 07/20/25 20:03 Exam(s): CT HEAD Without Contrast EXAM: CT Head Without Intravenous Contrast CLINICAL HISTORY: Reason for exam: symcope. TECHNIQUE: Axial computed tomography images of the head/brain without intravenous contrast. CTDI is 37 mGy and DLP is 624 mGy-cm. Automated exposure control was utilized for the study. A dose lowering technique was utilized adhering to the principles of ALARA. COMPARISON: 07/14/2025 FINDINGS: Brain: Mild ischemic microangiopathy. Mild age-appropriate cerebral volume loss. Chronic left thalamic lacunar infarct. No hemorrhage. Ventricles: Unremarkable. No ventriculomegaly. Bones/joints: Unremarkable. No acute fracture. Soft tissues: Unremarkable. Sinuses: Unremarkable as visualized. No acute sinusitis. Mastoid air cells: Unremarkable as visualized. No mastoid effusion. IMPRESSION: No acute findings in the head/brain. Electronically signed by: Horacio Pineda MD 07/20/25 21:14 PM ECG Data Attestation: I personally reviewed and interpreted this ECG as follows: Additional Comments: EKG at 2001: Paced rhythm with rate of 79. QRS 206 QTc 527. No ectopy. [facility] Narrative 2003: The patient was evaluated in room B1. A complete history and physical exam was performed Cardiac monitoring: An order was placed for continuous cardiac monitoring. The monitor shows a rate of 80 with paced rhythm interpreted by me Patient's glucose 61 on Accu-Chek. Patient's insulin pump was unconnected and 1 amp D50 given to the patient. 2124: Vital signs stable. I-STAT showed glucose of 209. I-STAT was drawn soon after amp of D50 given to the patient. Patient's Accu-Chek 1 hour later went down to 80. Urine is concerning for UTI. Lactic acid 2.1. Pressure stable. Fluid bolus and antibiotics given to the patient. CT of the head is unremarkable. Patient will be admitted to the [facility] team. Impression & Plan Syncope, Acute UTI, Hypoglycemia Discharge Plan Visit Data Chief Complaint: Hypotension Stated Complaint: UNRESPONSIVE - GIVEN EPI - HYPOTENSION ED Provider: Tony Castro Discharge Problem: Syncope, Acute UTI, Hypoglycemia Patient Disposition: Admitted As Inpatient Condition: Fair Forms Stand Alone Forms: My [facility] Prescriptions Prescriptions: No Action clopidogrel 75 mg tablet 75 mg PO QAM Qty: 90 3RF Hold Instructions: Resume on 09/21/24. (DME) MiniMed Quick Set 23" Infusion Set See Rx Instructions .Route Qty: 30 11RF Rx Instructions: change infusion set daily metoprolol succinate 100 mg tablet extended release 24 hr 100 mg PO DAILY Qty: 90 3RF insulin aspart U-100 [Novolog U-100 Insulin aspart] 100 unit/mL solution 200 unit continuous subcutaneous infusion .COMPLEX Qty: 180 3RF Rx Instructions: Patient uses insulin pump: Total Daily Dose 200 units Novolog-Relion amlodipine-benazepril [Lotrel] 10-40 mg capsule 1 cap PO QAM Qty: 90 3RF (DME) blood sugar diagnostic Strip See Rx Instructions .ROUTE .MEDSUPPLY Qty: 100 3RF Rx Instructions: Test blood sugar once daily PRN- Has Dexcom. OneTouch Ultra (DME) Dexcom G7 Sensor Device See Rx Instructions .Route Qty: 3 11RF Rx Instructions: Change sensor every 10 days selenium 200 mcg tablet 200 mcg PO WK Patient Comments: 200 mcg PO 3 times a week ; Rx Instructions: MONDAY dorzolamide-timolol 22.3-6.8 mg/mL drops 1 drp OPB BID (DME) Paradigm Shaft 1.8 mL misc See Rx Instructions .Route Qty: 3 11RF Rx Instructions: Change daily for insulin pump (DME) blood-glucose meter [OneTouch Ultra2 Meter] Misc See Rx Instructions .ROUTE .MEDSUPPLY Rx Instructions: Test blood sugar once daily PRN- Has Dexcom calcium carbonate [Calcium 600] 600 mg calcium (1,500 mg) tablet 600 mg PO DAILY nitroglycerin [Nitrostat] 0.4 mg tablet, sublingual 0.4 mg Sublingual Q5M PRN (Reason: Chest Pain) Qty: 30 5RF Prolia 60 mg/mL syringe 60 mg subcut Q6MO Rx Instructions: NEXT DOSE FOR BEGINNING OF SEPTEMBER latanoprost [Xalatan] 0.005 % drops 1 drp OPB BID cyanocobalamin (vitamin B-12) [Vitamin B-12] 1,000 mcg tablet 1,000 mcg PO 3XWK Rx Instructions: MON, WED, & FRI. Centrum Silver 0.4-300-250 mg-mcg-mcg tablet 1 tab PO QAM coenzyme Q10 [Co Q-10] 400 mg capsule 400 mg PO QAM glucosamine sulfate 1,000 mg capsule 1,000 mg PO QAM vitamin E 400 unit capsule 400 unit PO WK Patient Comments: 400 unit PO 3 times a week ; mon, mon, mon Rx Instructions: MONDAY cholecalciferol (vitamin D3) [Vitamin D3] 50 mcg (2,000 unit) Tablet 50 mcg PO WK Rx Instructions: MONDAY acetaminophen 650 mg Tablet Extended Release 650 mg PO Q12H PRN (Reason: Pain) torsemide 20 mg tablet 40 mg PO QAM pantoprazole 20 mg tablet,delayed release (DR/EC) 20 mg PO BID rosuvastatin 10 mg tablet 10 mg PO QAM Mounjaro 5 mg/0.5 mL pen injector 5 mg subcut WK Rx Instructions: FRIDAYS tamsulosin 0.4 mg capsule 0.4 mg PO DAILY Qty: 14 0RF brimonidine 0.2 % drops 1 drp OPB BID Referrals Referrals: Adria Huerta DO [Primary Care Provider] -
[2025-07-20 20:23] LABS: Hematocrit (blood only) 40.2 % (42.0-52.0); Hemoglobin 12.9 g/dl (14.0-18.0); Immature Granulocytes # (auto) 0.04 K/uL (0.01-0.20); Immature Granulocytes % (auto) 0.4 %; Mean Corpuscular Hemoglobin 29.2 pg (25.0-34.0); Mean Corpuscular Volume 91.0 fL (80.0-100.0); Platelet Count 253 K/uL (130-400); RDW Standard Deviation 45.1 fL (36.4-46.3); Red Blood Count 4.42 M/uL (4.70-6.10); White Blood Count 11.36 K/ul (4.8-10.8)
[2025-07-20 20:42] LABS: Appearance Urine Clear (Clear); Bacteria Urine Automated 4+ (None Seen); Cast Urine Automated 0-2 /lpf (0-2); Epithelial Cell Urine Auto 0-2 /hpf (0-2); Glucose Urine UA Negative (Negative); WBC Urine Automated >50 /hpf (0-5)
[2025-07-20 21:05] LABS: Blood Urea Nitrogen 15 mg/dl (6-23); Calcium 9.1 mg/dl (8.6-10.3); Carbon Dioxide 30 mmol/L (21-32); Chloride 103 mmol/L (98-107); Creatinine Clr Calc Pharmacy 62.7 ml/min; Glucose 54 mg/dl (70-99(Fasting)); Lipase 6 U/L (11-82)
--- NOTE | 2025-07-20 21:15 | CT Scan Report ---
Exam(s): CT HEAD Without Contrast EXAM: CT Head Without Intravenous Contrast CLINICAL HISTORY: Reason for exam: symcope. TECHNIQUE: Axial computed tomography images of the head/brain without intravenous contrast. CTDI is 37 mGy and DLP is 624 mGy-cm. Automated exposure control was utilized for the study. A dose lowering technique was utilized adhering to the principles of ALARA. COMPARISON: 07/14/2025 FINDINGS: Brain: Mild ischemic microangiopathy. Mild age-appropriate cerebral volume loss. Chronic left thalamic lacunar infarct. No hemorrhage. Ventricles: Unremarkable. No ventriculomegaly. Bones/joints: Unremarkable. No acute fracture. Soft tissues: Unremarkable. Sinuses: Unremarkable as visualized. No acute sinusitis. Mastoid air cells: Unremarkable as visualized. No mastoid effusion. IMPRESSION: No acute findings in the head/brain. Electronically signed by: Horacio Pineda MD 07/20/25 21:14 PM
[2025-07-20] MEDS: CEFEPIME 2000MG 2,000 MG/20 ML SYR IV STA (21:28)
[2025-07-20] MEDS: SODIUM CHLORIDE 0.9% 500 ML IV ONE (21:28)
--- NOTE | 2025-07-20 21:31 | XRay Report ---
Exam(s): XR CXR 1 VIEW EXAM: XR Chest, 1 View CLINICAL HISTORY: Reason for exam: Chest pain, nonspecific. TECHNIQUE: Frontal view of the chest. COMPARISON: 08/17/2024 FINDINGS: Lungs: Mild central pulmonary vascular congestion. No consolidation. Pleural space: Unremarkable. No pneumothorax. Heart: Cardiomegaly. Mediastinum: Unremarkable. Normal mediastinal contour. Bones/joints: Unremarkable. No acute fracture. Tubes, lines and devices: Left chest wall intracardiac device. IMPRESSION: Mild pulmonary edema Electronically signed by: Horacio Pineda MD 07/20/25 21:30 PM
[2025-07-20] MEDS: SODIUM CHLORIDE 0.9% 500 ML IV SCH (21:42)
[2025-07-20 21:45] LABS: Magnesium 2.1 mg/dl (1.7-2.4); Potassium 3.1 mmol/L (3.5-5.1); Sodium 140.0 mmol/L (136-145)
--- NOTE | 2025-07-20 22:44 | History & Physical Report ---
Date of Service July 20, 2025 Assessment & Plan (1) Acute UTI: (2) Syncope: (3) Hypoglycemia: (4) Type 2 diabetes mellitus with diabetic neuropathy, with long-term current use of insulin: (5) Dyslipidemia: (6) Essential (primary) hypertension: (7) Glaucoma: (8) PELON (obstructive sleep apnea): Plan 84-year-old male with history of diabetes, hypertension, hyperlipidemia, peripheral arterial disease presenting after an unresponsive episode at home. Hypotensive initially with blood pressure of 60/30 status post push dose epinephrine administered by EMS. Patient with hypoglycemia in the ER status post administration of dextrose. Presently with no complaints. He is concerned about the UTI. #Acute UTIpatient afebrile, hemodynamically stable at present. Has history of E. coli UTI in the past with resistance to ampicillin/ Augmentin and cefazolin Admit to medical telemetry Follow cultures Ceftriaxone LR at 125 mL/h x 1 L ordered Tylenol as needed Replace Thurman #Acute back pain secondary to recent fall sustained on 07/14/2025. No fractures Tylenol 1 g p.o. 3 times daily scheduled Heat Lidoderm patch daily Oxycodone as needed for moderate to severe pain #Hyperlipidemia Continue Crestor 10 mg p.o. every morning #Hypertensionblood pressure now elevated at 163/80 Continue metoprolol 100 mg p.o. daily Continue amlodipine 10 mg p.o. daily Continue enalapril #Diabetespatient with insulin pump in place. Had hypoglycemia initially. States that he has not been eating well over the last several days Will discontinue insulin pump for now Lantus 15 units twice daily Insulin sliding scale Patient follows with diabetes clinic. Is typically using 75 units of basal insulin per day per their last note May need pharmacy consultation if patient proves to be difficult to control #Peripheral arterial disease Continue Plavix 75 mg p.o. every morning Continue Crestor 10 mg p.o. every morning #BPH - patient with Thurman in place due to recent urinary retention. Exchange Thurman now Continue Flomax #PELON CPAP nightly Lovenox for DVT prophylaxis DNR/DNI per discussion with patient History of Present Illness Chief Complaint: unresponsive episode Primary Care Provider: Adria Huerta DO Jose Armando Fowler is an 84yo male with history of HLP, DM with insulin pump in place, AF presenting from home with unresponsive episode and hypotension. Patient was recently seen in the emergency room on 07/14/2025 after tripping over a bag of groceries at home resulting in a ground level fall. This resulted in pain in the low back and right flank. he was found to have urinary retention so a Thurman catheter was placed and patient was ultimately discharged home. He was seen again in the emergency room on 07/15/2025 after he had decreased output from his Thurman catheter With urine leaking around the Thurman. He had his Thurman exchanged and was ultimately discharged home. Today patient was feeling ill all day. He was having nausea as well as ongoing severe back pain which has been present since his fall. He has not had much of an appetite and has not been eating well over the last several days. After dinner, he was feeling particularly lightheaded. He asked his to get the blood pressure monitor so he could check his blood pressure. She left the table and went to get the monitor and when she returned patient was found facedown on the table, unresponsive. Patient's son and EMS were called. Patient was found to be hypotensive by EMS with blood pressure 60s over 30s. He was administered push dose epinephrine with improvement in blood pressure. Upon arrival to the ER, blood pressure remained stable however, he was noted to have low blood sugar in the 50s. He was administered an amp of D50 with improvement. No report of chest pain, shortness of breath, diaphoresis, palpitations, abdominal pain, diarrhea. Allergies Allergy/AdvReac Type Severity Reaction Status Date / Time aspirin Allergy Severe Anaphylaxis Verified 07/14/25 23:10 Iodinated Contrast Media Allergy Severe SOB,HIVES Verified 07/14/25 23:10 Sulfonylureas Allergy Unknown UNKNOWN Verified 07/14/25 23:10 enalaprilat [From Vasotec] AdvReac Severe CHEST Verified 07/14/25 23:10 TIGHTNESS atorvastatin [From Lipitor] AdvReac Intermediate cramps Verified 07/14/25 23:10 ezetimibe [From Vytorin] AdvReac Intermediate MYALGIA Verified 07/14/25 23:10 simvastatin [From Vytorin] AdvReac Intermediate MYALGIA Verified 07/14/25 23:10 Iowhknh-BDC-DrB Reductase AdvReac Intermediate MUSCLE Verified 07/14/25 23:10 Inhibitor ACHING [Bronjqu-Aiz-Dln Reductase Inhibitor] Home Medications Medication Instructions Recorded Confirmed Type latanoprost 0.005 % eye drops 1 drp OPB HS 09/18/18 07/21/25 History (Xalatan) coenzyme Q10 400 mg capsule (Co 400 mg PO QAM 06/12/19 07/20/25 History Q-10) cyanocobalamin (vitamin B-12) 1,000 mcg PO 3XWK 06/12/19 07/20/25 History 1,000 mcg tablet (Vitamin B-12) glucosamine sulfate 1,000 mg 1,000 mg PO QAM 06/12/19 07/20/25 History capsule unvrtpjl-tfy-efbnv acid 0.4 1 tab PO QAM 06/12/19 07/20/25 History mg-lycopene 300 mcg-lutein 250 mcg tablet (Centrum Silver) selenium 200 mcg tablet 200 mcg PO WK 06/26/19 07/20/25 History vitamin E 268 mg (400 unit) capsule 400 unit PO WK 06/26/19 07/20/25 History clopidogrel 75 mg tablet 75 mg PO QAM #90 tabs 11/20/19 07/20/25 Rx cholecalciferol (vitamin D3) 50 50 mcg PO WK 08/16/20 07/20/25 History mcg (2,000 unit) tablet (Vitamin D3) nitroglycerin 0.4 mg sublingual 0.4 mg sublingual Q5M PRN Chest 09/14/20 07/20/25 Rx tablet (Nitrostat) Pain #30 tabs acetaminophen 650 mg 650 mg PO Q12H PRN Pain 04/18/21 07/20/25 History tablet,extended release pantoprazole 20 mg tablet,delayed 20 mg PO BID 09/21/21 07/20/25 History release torsemide 20 mg tablet 40 mg PO QAM 09/21/21 07/20/25 History blood-glucose meter (OneTouch 12/28/22 07/14/25 History Ultra2 Meter) denosumab 60 mg/mL subcutaneous 60 mg subcut Q6MO 10/23/23 07/20/25 History syringe (Prolia) MiniMed Quick Set 23" (infusion #30 ea 06/17/24 07/14/25 Rx set for insulin pump) Paradigm [place] 1.8 mL (insulin #3 packets 06/17/24 07/14/25 Rx pump syringe) calcium carbonate (Calcium 600) 600 mg PO DAILY 06/17/24 07/20/25 History dorzolamide 22.3 mg-timolol 6.8 1 drp OPB BID 06/17/24 07/20/25 History mg/mL eye drops rosuvastatin 10 mg tablet 10 mg PO QAM 06/20/24 07/20/25 History metoprolol succinate 100 mg 100 mg PO DAILY #90 tabs 10/03/24 07/20/25 Rx tablet,extended release 24 hr insulin aspart U-100 100 unit/mL 200 unit (2 mL) continuous 12/09/24 07/20/25 Rx subcutaneous solution (Novolog subcutaneous infusion .COMPLEX U-100 Insulin aspart) #180 mL amlodipine 10 mg-benazepril 40 mg 1 cap PO QAM #90 caps 02/17/25 07/20/25 Rx capsule (Lotrel) blood sugar diagnostic #100 ea 03/12/25 07/14/25 Rx Dexcom G7 Sensor (blood-glucose #3 ea 06/03/25 07/14/25 Rx sensor) tirzepatide 5 mg/0.5 mL 5 mg subcut WK 07/14/25 07/20/25 History subcutaneous pen injector (Jarrod) tamsulosin 0.4 mg capsule 0.4 mg PO DAILY #14 caps 07/15/25 07/20/25 Rx brimonidine 0.2 % eye drops 1 drp OPB BID 07/20/25 07/20/25 History Past Med/Surg History Problem List Hypoglycemia (Acute) Acute UTI (Acute) Syncope (Acute) Complication, blocked Thurman catheter (Acute) Multiple skin tears (Acute) Urinary retention (Acute) Lumbar spinal stenosis (Acute) Right flank pain (Acute) Fall from standing (Acute) History of laparoscopic cholecystectomy (09/19/24) Laparoscopic Cholecystectomy(Not Applicable) - Bruce Snow DO Symptomatic cholelithiasis Anemia (Acute) Vitamin D deficiency Carpal tunnel syndrome on both sides Intermittent palpitations Atrial fibrillation with normal ventricular rate Low TSH level Pacemaker (Acute) Type 2 diabetes mellitus with diabetic neuropathy, with long-term current use of insulin CHF (congestive heart failure) (Acute) 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) Chronic cerebral ischemia Carotid artery plaque Peripheral arterial disease 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 Ataxia (Acute) Vertebral artery occlusion (Chronic) Dyslipidemia Essential (primary) hypertension Glaucoma left eye Sarcoma of femur left In ~2004, s/p removal and radiation PELON (obstructive sleep apnea) (Chronic) cpap Hypertension (Chronic) CAD (coronary artery disease) Medical History Dyslipidemia Vertebral artery occlusion Diabetic polyneuropathy Peripheral arterial disease Carotid artery plaque Chronic cerebral ischemia Hx of congestive heart failure Peripheral neuropathy Vitamin D deficiency Anemia 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 Robles History of colon polyps Osteoarthritis History of esophageal dilatation GERD (gastroesophageal reflux disease) Diabetes mellitus, type 2 Basal cell carcinoma hx Deafness in left ear Hyperlipidemia Myocardial Infarction x4---last heart attack 2000--no oiler and greaser Lung nodule Removed ~2004 SDH (subdural hematoma) 2010--no sx, no neurologist---no deficits Surgical History Hx of removal of cyst (09/19/24) FINAL DIAGNOSIS In office procedure Dr. Snow Skin, left neck, excision: - Inflamed epidermal cyst History of open reduction and internal fixation (ORIF) procedure left femur History of ear surgery rebuilt eardrum after cancer History of melanoma excision Status post placement of cardiac pacemaker History of colonoscopy History of esophagogastroduodenoscopy (EGD) with EUS History of surgery left leg sarcoma removal History of Mohs micrographic surgery for skin cancer left ear Status post cataract extraction of both eyes with insertion of intraocular lens History of heart artery stent 2 stents placed History of cardiac cath 2000--2 stents placed History of lung surgery 2004--nodule removed Family History Father , age 83 of lung cancer. Lung cancer Prostate cancer Mother , age 89 of lung cancer. Lung cancer Diabetes Grandfather (Paternal) Diabetes Brother BRCA gene positive Other No family history of adverse response to anesthesia Social History Smoking Status: Never smoker Second Hand Exposure: Yes (hx); Do You Dip or Chew Tobacco: No; Hx Alcohol Use: Yes Alcohol type: beer Alcohol Intake Frequency Comment: One or 2 beers, 2 or 3 times per week. 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 Feels Safe at Home: Yes Safety Concerns: Feels Safe At This Time Childhood Exposure to Second-Hand Smoke: Yes Dental Care, Regularly: Yes Physical Activity Frequency: Does not Exercise Seatbelt Use: always Sunscreen Use: No Assistive Devices: Cane and CPAP Review of Systems Review of Systems: All systems reviewed & are unremarkable except as noted in HPI & below Physical Exam Physical Exam: General: patient resting comfortably, NAD, non-toxic in appearance, AA&O x 4 Skin: warm, dry, intact, no rashes or lesions HEENT: NC/AT, PERRL, EOMI, anicteric sclera, conjunctiva without injection, external ear normal to inspection and nontender, nares patent, moist mucus membranes, dentition intact, no oropharyngeal lesions, neck supple, trachea midline, no LAD, no thyromegaly, no JVD Heart: +S1/S2, regular, no m/r/g Lungs: equal air entry bilaterally, no rales/rhonchi/wheezes Abd: +BS, soft, NT/ND, no masses/organomegaly/ascites Ext: warm, 2+ pulses in UE/LE bilaterally, no clubbing/cyanosis or edema Neuro: nonfocal, patient AA&O x 4, speech intact, no facial droop, moving all extremities on command with equal strength 5/[address] Results & Data Results & Data Vital Signs (Past 12 Hours) Vital Signs Temp Pulse Resp BP Pulse Ox O2 Del Method 07/20/25 22:14 71 16 100 07/20/25 22:05 69 14 98 07/20/25 21:56 71 17 100 07/20/25 21:34 149/75 H 07/20/25 21:30 70 11 L 100 07/20/25 21:30 150/75 H 07/20/25 21:21 71 10 L 100 07/20/25 21:20 148/73 H 07/20/25 21:20 148/73 H 07/20/25 21:20 148/73 H 07/20/25 21:20 148/73 H 07/20/25 21:12 66 9 L 100 07/20/25 21:10 141/73 H 07/20/25 21:10 141/73 H 07/20/25 21:10 141/73 H 07/20/25 21:06 68 3 L 99 07/20/25 21:00 68 2 L 98 07/20/25 21:00 150/77 H 07/20/25 21:00 150/77 H 07/20/25 21:00 150/77 H 07/20/25 21:00 67 18 150/77 H 98 Room Air 07/20/25 20:28 68 18 148/75 H 98 Room Air 07/20/25 20:04 36.5 C 69 20 137/80 99 Room Air 07/20/25 19:59 87 Laboratory Results Laboratory Results WBC 11.36 K/ul (4.8-10.8) H 07/20/25 20:07 RBC 4.42 M/uL (4.70-6.10) L 07/20/25 20:07 Hgb 12.9 g/dl (14.0-18.0) L 07/20/25 20:07 POC Hgb 13.6 g/dl (14.0-18.0) L 07/20/25 20:18 Hct 40.2 % (42.0-52.0) L 07/20/25 20:07 POC Hct 40 % (42-52) L 07/20/25 20:18 MCV 91.0 fL (80.0-100.0) 07/20/25 20:07 MCH 29.2 pg (25.0-34.0) 07/20/25 20:07 MCHC 32.1 g/dL (32.0-36.0) 07/20/25 20:07 RDW Std Deviation 45.1 fL (36.4-46.3) 07/20/25 20:07 RDW Coeff of Josefa 13.5 % (11.5-14.5) 07/20/25 20:07 Plt Count 253 K/uL (130-400) 07/20/25 20:07 MPV 10.7 fL (9.4-12.4) 07/20/25 20:07 Immature Gran % (Auto) 0.4 % 07/20/25 20:07 Neut % (Auto) 67.3 % 07/20/25 20:07 Lymph % (Auto) 18.8 % 07/20/25 20:07 [place] % (Auto) 10.2 % 07/20/25 20:07 Eos % (Auto) 2.7 % 07/20/25 20:07 Baso % (Auto) 0.6 % 07/20/25 20:07 Neut # (Auto) 7.65 K/uL (1.40-6.50) H 07/20/25 20:07 Lymph # (Auto) 2.13 K/uL (1.20-3.40) 07/20/25 20:07 [place] # (Auto) 1.16 K/uL (0.11-0.59) H 07/20/25 20:07 Eos # (Auto) 0.31 K/uL (0.00-0.50) 07/20/25 20:07 Baso # (Auto) 0.07 K/uL (0.00-0.20) 07/20/25 20:07 Immature Gran # (Auto) 0.04 K/uL (0.01-0.20) 07/20/25 20:07 POC Sodium 141 mmol/L (135-144) 07/20/25 20:18 Sodium 140 mmol/L (136-145) 07/20/25 21:17 POC Potassium 3.1 mmol/L (3.3-5.0) L 07/20/25 20:18 Potassium 3.1 mmol/L (3.5-5.1) L 07/20/25 21:17 POC Chloride 99 mmol/L (101-112) L 07/20/25 20:18 Chloride 103 mmol/L (98-107) 07/20/25 20:07 Carbon Dioxide 30 mmol/L (21-32) 07/20/25 20:07 POC Total CO2 27 mmol/L (24-31) 07/20/25 20:18 Anion Gap TNP 07/20/25 20:07 POC Anion Gap 20.0 mmol/L (16-25) 07/20/25 20:18 POC BUN 14 mg/dl (7-18) 07/20/25 20:18 BUN 15 mg/dl (6-23) 07/20/25 20:07 Creatinine 1.15 mg/dl (0.6-1.4) 07/20/25 20:07 POC Creatinine 1.1 mg/dl (0.6-1.3) 07/20/25 20:18 Est Cr Clr Drug Dosing 62.7 ml/min 07/20/25 20:07 eGFR 62.76 07/20/25 20:07 BUN/Creatinine Ratio 13.0 (10-20) 07/20/25 20:07 Glucose 54 mg/dl (70-99(Fasting)) L 07/20/25 20:07 POC Glucose 207 mg/dl (70-99) H 07/21/25 00:40 POC Glucose (other) 309 mg/dl (70-99) H 07/20/25 20:18 Lactate 1.4 mmol/L (0.4-2.0) 07/20/25 22:56 Calcium 9.1 mg/dl (8.6-10.3) 07/20/25 20:07 POC Ioniz Calcium [place] 1.12 mmol/l (1.12-1.32) 07/20/25 20:18 Magnesium 2.1 mg/dl (1.7-2.4) 07/20/25 21:17 Troponin I High Sens 12.7 pg/ml (0-20) 07/20/25 20:07 Lipase 6 U/L (11-82) L 07/20/25 20:07 Urine Color Yellow 07/20/25 20:20 Urine Appearance Clear (Clear) 07/20/25 20:20 Urine pH 5.0 (4.5-7.5) 07/20/25 20:20 Ur Specific [place] 1.011 (1.000-1.030) 07/20/25 20:20 Urine Protein Negative (Negative) 07/20/25 20:20 Urine Glucose (UA) Negative (Negative) 07/20/25 20:20 Urine Ketones Negative (Negative) 07/20/25 20:20 Urine Blood 2+ (Negative) H 07/20/25 20:20 Urine Nitrite Negative (Negative) 07/20/25 20:20 Urine Bilirubin Negative (Negative) 07/20/25 20:20 Urine Urobilinogen Negative (Negative) 07/20/25 20:20 Ur Leukocyte Esterase 3+ (Negative) H 07/20/25 20:20 Urine WBC (Auto) >50 /hpf (0-5) H 07/20/25 20:20 Urine RBC (Auto) 6-10 /hpf (0-2) H 07/20/25 20:20 U Hyaline Cast (Auto) 0-2 /lpf (0-2) 07/20/25 20:20 U Epithel Cells (Auto) 0-2 /hpf (0-2) 07/20/25 20:20 Urine Bacteria (Auto) 4+ (None Seen) H 07/20/25 20:20 Urine Comment 07/20/25 20:20 Impressions Chest X-Ray 07/20/25 20:02 Exam(s): XR CXR 1 VIEW EXAM: XR Chest, 1 View CLINICAL HISTORY: Reason for exam: Chest pain, nonspecific. TECHNIQUE: Frontal view of the chest. COMPARISON: 08/17/2024 FINDINGS: Lungs: Mild central pulmonary vascular congestion. No consolidation. Pleural space: Unremarkable. No pneumothorax. Heart: Cardiomegaly. Mediastinum: Unremarkable. Normal mediastinal contour. Bones/joints: Unremarkable. No acute fracture. Tubes, lines and devices: Left chest wall intracardiac device. IMPRESSION: Mild pulmonary edema Electronically signed by: Horacio Pineda MD 07/20/25 21:[address] 07/20/25 20:03 Exam(s): CT HEAD Without Contrast EXAM: CT Head Without Intravenous Contrast CLINICAL HISTORY: Reason for exam: symcope. TECHNIQUE: Axial computed tomography images of the head/brain without intravenous contrast. CTDI is 37 mGy and DLP is 624 mGy-cm. Automated exposure control was utilized for the study. A dose lowering technique was utilized adhering to the principles of ALARA. COMPARISON: 07/14/2025 FINDINGS: Brain: Mild ischemic microangiopathy. Mild age-appropriate cerebral volume loss. Chronic left thalamic lacunar infarct. No hemorrhage. Ventricles: Unremarkable. No ventriculomegaly. Bones/joints: Unremarkable. No acute fracture. Soft tissues: Unremarkable. Sinuses: Unremarkable as visualized. No acute sinusitis. Mastoid air cells: Unremarkable as visualized. No mastoid effusion. IMPRESSION: No acute findings in the head/brain. Electronically signed by: Horacio Pineda MD 07/20/25 21:14 PM Code Status & VTE Plan VTE Prophylaxis Plan VTE Prophylaxis will be ordered: Yes PG Care Time/CCT Total # of Minutes Spent Total Time Spent with Patient: Total time spent is greater than 50% in coordination of care (as documented) at patient's floor/unit and/or counseling patient: Coding Level of Care Code 59718 INT INP/OBS CARE 3/75MIN Diagnoses Acute UTI N39.0 Syncope R55 Hypoglycemia E16.2 Type 2 diabetes mellitus with diabetic neuropathy, with long-term current use of insulin E11.40; Z79.4 Dyslipidemia E78.5 Essential (primary) hypertension I10 Glaucoma H40.9 PELON (obstructive sleep apnea) G47.33
[2025-07-21] MEDS ORDERED: GLUCAGON FOR INJ 1 MG VIAL SQ PRN (01:12)
[2025-07-21] MEDS ORDERED: CARBOHYDRATES FOR HYPOGLYCEMIA PO PRN (01:12)
[2025-07-21] MEDS ORDERED: DEXTROSE 50% 50 ML SYRINGE IV PRN (01:12)
[2025-07-21] MEDS ORDERED: MELATONIN 3 MG TAB PO PRN (01:12)
[2025-07-21] MEDS ORDERED: GLUCOSE 10 TAB/TUBE PO PRN (01:12)
[2025-07-21] MEDS ORDERED: GLUCOSE 40% GEL 15 GM TUBE PO PRN (01:12)
[2025-07-21] MEDS: POTASSIUM CHLORIDE CRTAB 20 MEQ TABCR PO STA (01:28)
[2025-07-21] MEDS: LACTATED RINGER'S 1,000 ML IV SCH (01:29)
[2025-07-21] MEDS: INSULIN ASPART PER UNIT CHARGE SC SCH (01:36)
[2025-07-21] MEDS: LIDOCAINE 5% 1 PATCH TD STA (02:47)
[2025-07-21] MEDS: cefTRIAXone SODIUM 2,000 MG/50 ML BAG IV SCH (05:04)
[2025-07-21 07:13] LABS: Hematocrit (blood only) 37.0 % (42.0-52.0); Hemoglobin 12.0 g/dl (14.0-18.0); Mean Corpuscular Hemoglobin 29.1 pg (25.0-34.0); Mean Corpuscular Volume 89.8 fL (80.0-100.0); Platelet Count 209 K/uL (130-400); RDW Standard Deviation 44.8 fL (36.4-46.3); Red Blood Count 4.12 M/uL (4.70-6.10); White Blood Count 9.60 K/ul (4.8-10.8)
[2025-07-21 07:28] LABS: Anion Gap 8.0 (3-11); Blood Urea Nitrogen 17.0 mg/dl (6-23); Calcium 8.6 mg/dl (8.6-10.3); Carbon Dioxide 27.0 mmol/L (21-32); Chloride 104.0 mmol/L (98-107); Creatinine Clr Calc Pharmacy 75.0 ml/min; Glucose 183.0 mg/dl (70-99(Fasting)); Potassium 3.7 mmol/L (3.5-5.1); Sodium 139.0 mmol/L (136-145)
[2025-07-21] MEDS: ACETAMINOPHEN 500 MG TAB PO SCH (08:12)
[2025-07-21] MEDS: ENOXAPARIN INJ 40 MG/0.4 ML SYR SQ SCH (08:12)
[2025-07-21] MEDS: BRIMONIDINE TARTRATE 0.2% 5ML OPB SCH (08:14)
[2025-07-21] MEDS: DORZOLAMIDE/TIMOLOL 22.3/6.8MG/ML 10 ML BTL OPB SCH (08:14)
[2025-07-21] MEDS: CLOPIDOGREL BISULFATE 75 MG TAB PO SCH (08:15)
[2025-07-21] MEDS: ENALAPRIL MALEATE 10 MG TAB PO SCH (08:15)
[2025-07-21] MEDS: ROSUVASTATIN CALCIUM 10 MG TAB PO SCH (08:15)
[2025-07-21] MEDS: METOPROLOL SUCC 50MG EXT REL TAB PO SCH (08:16)
[2025-07-21] MEDS: TAMSULOSIN HCL 0.4 MG CAP PO SCH (08:16)
[2025-07-21] MEDS: LANTUS PER UNIT CHARGE SQ SCH (08:17)
[2025-07-21] MEDS: ACETAMINOPHEN 325 MG TAB PO PRN (12:15)
[2025-07-21] MEDS: REMOVE LIDODERM PATCH ONE (14:53)
[2025-07-21] MEDS: DOCUSATE SODIUM 100 MG CAP PO PRN (18:11)
[2025-07-21] MEDS: LATANOPROST 0.005% OP SOLN 2.5 ML BTL OPB SCH (20:20)
--- NOTE | 2025-07-21 20:22 | Hospitalist Progress Note ---
Date of Service July 21, 2025 Assessment & Plan (1) Acute UTI: (2) Syncope: (3) Hypoglycemia: (4) Type 2 diabetes mellitus with diabetic neuropathy, with long-term current use of insulin: Plan Jose Armando is an 84-year-old male with history of diabetes, hypertension, hyperlipidemia, peripheral arterial disease presenting after an unresponsive episode at home. He was hypotensive initially with blood pressure of 60/30 status post push dose epinephrine administered by EMS. Patient with hypoglycemia in the ER status post administration of dextrose. He was admitted for treatment of his UTI. #Acute UTI | CAUTI Has history of E. coli UTI in the past with resistance to ampicillin/ Augmentin and cefazolin Follow urine cultures Continue Ceftriaxone IV while awaiting urine sensitivities Tylenol as needed Thurman catheter exchanged on admission #Acute back pain secondary to recent fall sustained on 07/14/2025. No fractures Tylenol 1 g p.o. 3 times daily scheduled Heat Lidoderm patch daily Oxycodone as needed for moderate to severe pain - PT/OT consulted #Diabetes patient with insulin pump in place. Had hypoglycemia initially. States that he has not been eating well over the last several days Will discontinue insulin pump for now Lantus 15 units twice daily Insulin sliding scale Patient follows with diabetes clinic. Is typically using 75 units of basal insulin per day per their last note May need pharmacy consultation if patient proves to be difficult to control #Diabetes patient with insulin pump in place. Had hypoglycemia initially. States that he has not been eating well over the last several days Will discontinue insulin pump for now Lantus 15 units twice daily Insulin sliding scale Patient follows with diabetes clinic. Is typically using 75 units of basal insulin per day per their last note May need pharmacy consultation if patient proves to be difficult to control #BPH - patient with Thurman in place due to recent urinary retention. Thurman exchanged on admission Continue Flomax #Hyperlipidemia Continue Crestor 10 mg p.o. every morning #Hypertension Continue metoprolol 100 mg p.o. daily, amlodipine 10 mg p.o. daily, enalapril 20 mg p.o. daily #Peripheral arterial disease Continue Plavix 75 mg p.o. every morning, Crestor 10 mg p.o. every morning #PELON CPAP nightly VTE PPx: Lovenox Dispo: Pending PT/OT evaluations Admission and Anticipated Discharge Date Admission Date: July 20, 2025 Subjective Patient seen and evaluated at bedside. He reports his back hurts him and notes that his lidocaine patch fell off when re-situating in bed. He states that oxycodone makes him "goofy" so he would only like Tylenol at this time. We discussed that he will remain on Ceftriaxone IV until his urine culture results. No additional complaints or concerns at this time. Physical Exam Physical Exam: General: No acute distress, nondiaphoretic, well-developed, well-nourished. Skin: Warm, dry. No rashes or peripheral edema noted. Cardiac: Regular rate and rhythm without murmurs gallops or rubs. Pulm: Clear to auscultation bilaterally without wheezes, rales or rhonchi. Normal respiratory effort. 94% on room air. Abdominal: Soft, nontender, nondistended. Bowel sounds present. : Thurman catheter draining yellow urine. Neuro: A&O x3. No focal neurological deficits. Results & Data Results & Data Vital Signs (Past 12 Hours) Vital Signs Temp Pulse Pulse Resp BP BP Pulse Ox 07/21/25 19:23 97.5 F L 18 136/72 94 07/21/25 15:49 98.4 F 71 18 149/75 H 96 07/21/25 14:51 70 07/21/25 11:22 97.9 F 74 20 137/78 94 O2 Del Method 07/21/25 19:23 Room Air 07/21/25 15:49 Room Air 07/21/25 14:51 07/21/25 11:22 Room Air Laboratory Results Reviewed CBC Reviewed BMP, chemistries Reviewed urine culture PG Care Time/CCT Total # of Minutes Spent Total Time Spent with Patient: Total time spent is greater than 50% in coordination of care (as documented) at patient's floor/unit and/or counseling patient: Coding Level of Care Code 53467 SUB INP/OBS CARE 2/35MIN Diagnoses Acute UTI N39.0 Syncope R55 Hypoglycemia E16.2 Type 2 diabetes mellitus with diabetic neuropathy, with long-term current use of insulin E11.40; Z79.4
[2025-07-22 06:39] LABS: Hematocrit (blood only) 34.2 % (42.0-52.0); Hemoglobin 11.5 g/dl (14.0-18.0); Mean Corpuscular Hemoglobin 30.7 pg (25.0-34.0); Mean Corpuscular Volume 91.4 fL (80.0-100.0); Platelet Count 191 K/uL (130-400); RDW Standard Deviation 44.7 fL (36.4-46.3); Red Blood Count 3.74 M/uL (4.70-6.10); White Blood Count 6.77 K/ul (4.8-10.8)
[2025-07-22] MEDS: ONDANSETRON INJ 2 MG/ML 2 ML VIAL IV PRN (08:06)
[2025-07-22 10:49] VITALS: RESP 19
[2025-07-22 15:14] VITALS: PULSE 69; TEMP 97.9; O2SAT 97
[2025-07-22 15:57] VITALS: BP 149/75
--- NOTE | 2025-07-22 16:01 | Discharge Summary ---
Discharge Summary Date of Service July 22, 2025 Principal Dx & Hospital Course #1 = Principal Diagnosis (1) Acute UTI: (2) Syncope: (3) Hypoglycemia: (4) Type 2 diabetes mellitus with diabetic neuropathy, with long-term current use of insulin: Smiley Jose Armando is an 84-year-old male with history of diabetes, hypertension, hyperlipidemia, peripheral arterial disease presenting after an unresponsive episode at home. He was hypotensive initially with blood pressure of 60/30 status post push dose epinephrine administered by EMS. Patient with hypoglycemia in the ER status post administration of dextrose. He was admitted for treatment of his UTI. #Acute UTI | CAUTI Has history of E. coli UTI in the past with resistance to ampicillin/ Augmentin and cefazolin Thurman catheter exchanged on admission Urine culture grew E. coli with resistance to ampicillin/Augmentin/cefazolin complicated UTI, intermediate sensitivity to cefuroxime and ampicillin/sulbactam Initially treated with ceftriaxone IV. Transitioned to levofloxacin 750 mg daily x 3 additional days to complete a 5-day total course #Acute back pain secondary to recent fall sustained on 07/14/2025. No fractures Continue Tylenol, heat as needed, Lidoderm patch Oxycodone 5 mg Q4h as needed for moderate to severe pain - PT/OT consulted and recommended return home #Diabetes patient with insulin pump in place. Had hypoglycemia initially. States that he has not been eating well over the last several days prior to admission Patient follows with diabetes clinic. Is typically using 75 units of basal insulin per day per their last note - Resumed use of insulin pump and usual regimen on discharge #BPH - patient with Thurman in place due to recent urinary retention Thurman exchanged on admission Continue Flomax #Hyperlipidemia Continue Crestor 10 mg p.o. every morning #Hypertension Continue metoprolol 100 mg p.o. daily, amlodipine 10 mg p.o. daily, enalapril 20 mg p.o. daily #Peripheral arterial disease Continue Plavix 75 mg p.o. every morning, Crestor 10 mg p.o. every morning #PELON CPAP nightly VTE PPx: Lovenox Dispo: Discharged home 07/22 Notes For Next Care Provider Medication Changes From Visit Levaquin 750 mg daily x 3 additional days Admission HPI Per Admitting Provider Jose Armando Fowler is an 84yo male with history of HLP, DM with insulin pump in place, AF presenting from home with unresponsive episode and hypotension. Patient was recently seen in the emergency room on 07/14/2025 after tripping over a bag of groceries at home resulting in a ground level fall. This resulted in pain in the low back and right flank. he was found to have urinary retention so a Thurman catheter was placed and patient was ultimately discharged home. He was seen again in the emergency room on 07/15/2025 after he had decreased output from his Thurman catheter With urine leaking around the Thurman. He had his Thurman exchanged and was ultimately discharged home. Today patient was feeling ill all day. He was having nausea as well as ongoing severe back pain which has been present since his fall. He has not had much of an appetite and has not been eating well over the last several days. After dinner, he was feeling particularly lightheaded. He asked his to get the blood pressure monitor so he could check his blood pressure. She left the table and went to get the monitor and when she returned patient was found facedown on the table, unresponsive. Patient's son and EMS were called. Patient was found to be hypotensive by EMS with blood pressure 60s over 30s. He was administered push dose epinephrine with improvement in blood pressure. Upon arrival to the ER, blood pressure remained stable however, he was noted to have low blood sugar in the 50s. He was administered an amp of D50 with improvement. No report of chest pain, shortness of breath, diaphoresis, palpitations, abdominal pain, diarrhea. Discharge Exam General: No acute distress, nondiaphoretic, well-developed, well-nourished. Skin: Warm, dry. No rashes or peripheral edema noted. Cardiac: Regular rate and rhythm without murmurs gallops or rubs. Pulm: Clear to auscultation bilaterally without wheezes, rales or rhonchi. Normal respiratory effort. 97% on room air. Abdominal: Soft, nontender, nondistended. Bowel sounds present. : Thurman catheter draining yellow urine. Neuro: A&O x3. No focal neurological deficits. Discharge Plan Discharge Items Patient Disposition: Home - Self-Care Reason For Visit: SYNCOPE, HYPOTENSION Discharge Diagnosis: Catheter associated UTI Condition on Discharge: Fair Activity: Resume your previous activity Non-emergency contact: Primary Care Provider Call non-emergency contact if: you have any medication questions, your symptoms worsen and you have a fever Follow-up/Referrals: Adria Huerta, DO [Primary Care Provider] - (Follow-up in 1-2 weeks) Diet: Carb Consistent or DM2 Addtl Attending Provider Instructions: Mr. Fowler, You were admitted to the hospital due to a catheter associated UTI. You had your Thurman catheter exchanged during this hospitalization. You were treated with IV antibiotics while hospitalized and will continue taking an oral antibiotic to complete your course. You were evaluated by PT and OT who recommended you return home on discharge. Upon discharge from the hospital: * Take levofloxacin (oral antibiotic) once daily x 3 additional days. Start this tomorrow morning, 07/23, as you already received your dose of antibiotic for today. Side effects of oral antibiotics include GI upset. I recommend taking your antibiotic with food to prevent associated nausea/vomiting/diarrhea. You could also take an [id number] probiotic or eat a cup of yogurt daily to prevent these GI side effects as well. * I have sent in oxycodone 5 mg that you can take every 4 hours as needed for back pain associated with your recent fall. * Continue your usual home medications as prescribed. I sent in enalapril to your pharmacy as well because it appears like this ran outif you have enough of this medication at home, you do not need to pick this up from the pharmacy. * Follow-up with your PCP in 1-2 weeks. Please return to the hospital if you experience any of the following: Fever of 100 1F or higher, increasing pain or tenderness in your lower abdomen/pelvis, new or worsening confusion, blood in your urine, inability to urinate, leakage around the Thurman catheter, redness/swelling/pain at the catheter insertion site, chest pain, difficulty breathing, passing out, or any other symptoms concerning for you. It was a pleasure taking care of you while you were in the hospital! Pending Studies at Discharge: No Stand-Alone Forms: [facility], Smoking Cessation Medications and DC Order Prescriptions: New oxycodone 5 mg Tablet 5 mg PO Q4H PRN (Reason: pain) Qty: 10 0RF enalapril maleate 10 mg Tablet 20 mg PO DAILY Qty: 30 0RF levofloxacin 750 mg tablet 750 mg PO DAILY Qty: 3 0RF Continued clopidogrel 75 mg tablet 75 mg PO QAM Qty: 90 3RF Hold Instructions: Resume on 09/21/24. (DME) MiniMed Quick Set 23" Infusion Set See Rx Instructions .Route Qty: 30 11RF Rx Instructions: change infusion set daily metoprolol succinate 100 mg tablet extended release 24 hr 100 mg PO DAILY Qty: 90 3RF insulin aspart U-100 [Novolog U-100 Insulin aspart] 100 unit/mL solution 200 unit continuous subcutaneous infusion .COMPLEX Qty: 180 3RF Rx Instructions: Patient uses insulin pump: Total Daily Dose 200 units Novolog-Relion amlodipine-benazepril [Lotrel] 10-40 mg capsule 1 cap PO QAM Qty: 90 3RF (DME) blood sugar diagnostic Strip See Rx Instructions .ROUTE .MEDSUPPLY Qty: 100 3RF Rx Instructions: Test blood sugar once daily PRN- Has Dexcom. OneTouch Ultra ([facility] [place]) Dexcom G7 Sensor Device See Rx Instructions .Route Qty: 3 11RF Rx Instructions: Change sensor every 10 days selenium 200 mcg tablet 200 mcg PO WK Patient Comments: 200 mcg PO 3 times a week ; Rx Instructions: MONDAY dorzolamide-timolol 22.3-6.8 mg/mL drops 1 drp OPB BID (DME) [employer] [place] 1.8 mL misc See Rx Instructions .Route Qty: 3 11RF Rx Instructions: Change daily for insulin pump (DME) blood-glucose meter [OneTouch Ultra2 Meter] Misc See Rx Instructions .ROUTE .MEDSUPPLY Rx Instructions: Test blood sugar once daily PRN- Has Dexcom calcium carbonate [Calcium 600] 600 mg calcium (1,500 mg) tablet 600 mg PO DAILY nitroglycerin [Nitrostat] 0.4 mg tablet, sublingual 0.4 mg Sublingual Q5M PRN (Reason: Chest Pain) Qty: 30 5RF Prolia 60 mg/mL syringe 60 mg subcut Q6MO Rx Instructions: NEXT DOSE FOR BEGINNING OF SEPTEMBER latanoprost [Xalatan] 0.005 % drops 1 drp OPB HS cyanocobalamin (vitamin B-12) [Vitamin B-12] 1,000 mcg tablet 1,000 mcg PO 3XWK Rx Instructions: MON, WED, & FRI. Centrum Silver 0.4-300-250 mg-mcg-mcg tablet 1 tab PO QAM coenzyme Q10 [Co Q-10] 400 mg capsule 400 mg PO QAM glucosamine sulfate 1,000 mg capsule 1,000 mg PO QAM vitamin E 400 unit capsule 400 unit PO WK Patient Comments: 400 unit PO 3 times a week ; mon, mon, mon Rx Instructions: MONDAY cholecalciferol (vitamin D3) [Vitamin D3] 50 mcg (2,000 unit) Tablet 50 mcg PO WK Rx Instructions: MONDAY acetaminophen 650 mg Tablet Extended Release 650 mg PO Q12H PRN (Reason: Pain) torsemide 20 mg tablet 40 mg PO QAM pantoprazole 20 mg tablet,delayed release (DR/EC) 20 mg PO BID rosuvastatin 10 mg tablet 10 mg PO QAM Mounjaro 5 mg/0.5 mL pen injector 5 mg subcut WK Rx Instructions: FRIDAYS tamsulosin 0.4 mg capsule 0.4 mg PO DAILY Qty: 14 0RF brimonidine 0.2 % drops 1 drp OPB BID Discharge Orders: Discharge Order (Routine); Ordered 07/22/25 Ordered By: Marcelina Charles Admission Data Admit Date/Time: 07/20/25 22:44 Attending Provider: Georges Parra Admit Provider: Cheryl Briseno Primary Care Provider: Adria Huerta Other Providers: Cheryl Briseno Hospital Stay Data Consultations 07/20/25 21:24 ED Decision to Admit Stat Diagnostic Imagining Performed Chest X-Ray 07/20/25 20:02 Exam(s): XR CXR 1 VIEW EXAM: XR Chest, 1 View CLINICAL HISTORY: Reason for exam: Chest pain, nonspecific. TECHNIQUE: Frontal view of the chest. COMPARISON: 08/17/2024 FINDINGS: Lungs: Mild central pulmonary vascular congestion. No consolidation. Pleural space: Unremarkable. No pneumothorax. Heart: Cardiomegaly. Mediastinum: Unremarkable. Normal mediastinal contour. Bones/joints: Unremarkable. No acute fracture. Tubes, lines and devices: Left chest wall intracardiac device. IMPRESSION: Mild pulmonary edema Electronically signed by: Horacio Pineda MD 07/20/25 21:[address] 07/20/25 20:03 Exam(s): CT HEAD Without Contrast EXAM: CT Head Without Intravenous Contrast CLINICAL HISTORY: Reason for exam: symcope. TECHNIQUE: Axial computed tomography images of the head/brain without intravenous contrast. CTDI is 37 mGy and DLP is 624 mGy-cm. Automated exposure control was utilized for the study. A dose lowering technique was utilized adhering to the principles of ALARA. COMPARISON: 07/14/2025 FINDINGS: Brain: Mild ischemic microangiopathy. Mild age-appropriate cerebral volume loss. Chronic left thalamic lacunar infarct. No hemorrhage. Ventricles: Unremarkable. No ventriculomegaly. Bones/joints: Unremarkable. No acute fracture. Soft tissues: Unremarkable. Sinuses: Unremarkable as visualized. No acute sinusitis. Mastoid air cells: Unremarkable as visualized. No mastoid effusion. IMPRESSION: No acute findings in the head/brain. Electronically signed by: Horacio Pineda MD 07/20/25 21:14 PM Pending Results Patient Have Any Pending Studies at Discharge: No Discharge Instructions Given to Patient (Per Discharging Provider) Mr. Fowler, Sudeep were admitted to the hospital due to a catheter associated UTI. You had your Thurman catheter exchanged during this hospitalization. You were treated with IV antibiotics while hospitalized and will continue taking an oral antibiotic to complete your course. You were evaluated by PT and OT who recommended you return home on discharge. Upon discharge from the hospital: * Take levofloxacin (oral antibiotic) once daily x 3 additional days. Start this tomorrow morning, 07/23, as you already received your dose of antibiotic for today. Side effects of oral antibiotics include GI upset. I recommend taking your antibiotic with food to prevent associated nausea/vomiting/diarrhea. You could also take an [id number] probiotic or eat a cup of yogurt daily to prevent these GI side effects as well. * I have sent in oxycodone 5 mg that you can take every 4 hours as needed for back pain associated with your recent fall. * Continue your usual home medications as prescribed. I sent in enalapril to your pharmacy as well because it appears like this ran outif you have enough of this medication at home, you do not need to pick this up from the pharmacy. * Follow-up with your PCP in 1-2 weeks. Please return to the hospital if you experience any of the following: Fever of 100 1F or higher, increasing pain or tenderness in your lower abdomen/pelvis, new or worsening confusion, blood in your urine, inability to urinate, leakage around the Thurman catheter, redness/swelling/pain at the catheter insertion site, chest pain, difficulty breathing, passing out, or any other symptoms concerning for you. It was a pleasure taking care of you while you were in the hospital! Total Time Total Time Spent Total Time Spent (In Minutes): Greater than 30 minutes spent completing this discharge process including direct patient care, medication reconciliation, documentation, review of labs and images, and coordination of care. Coding Level of Care Code 54071 INP/OBS DISCH >30 MIN Diagnoses Acute UTI N39.0 Syncope R55 Hypoglycemia E16.2 Type 2 diabetes mellitus with diabetic neuropathy, with long-term current use of insulin E11.40; Z79.4
--- NOTE | 2025-07-25 22:00 | Electrocardiogram Report ---
Test Reason : Blood Pressure : */* mmHG Vent. Rate : 79 BPM Atrial Rate : 79 BPM P-R Int : * ms QRS Dur : 206 ms QT Int : 460 ms P-R-T Axes : * -79 86 degrees QTcB Int : 527 ms AV dual-paced rhythm Abnormal ECG When compared with ECG of 17-Aug-2024 15:18, Atrial pacing is now present Confirmed by Sky Silverman ([id number]) on 07/25/2025 10:00:31 PM Referred By: REFERRED SELF Confirmed By: Sky Silverman
== END 2025-07-22 16:36 | disposition home or self-care (01) | DRG 700 ==
LOC: ED 19:57 → INTOOBSV 22:44 → 2S 22:44 → SUATTDRO 22:44 → 2S 07-21 00:12